=== PATIENT | female | born 1945 | race Caucasian/White ===

== ENCOUNTER 2022-06-03 13:54 | Emergency (ER) | payer OTHER, SELFPAY ==
[2022-06-03 14:05] VITALS: BP 111/67; PULSE 82; RESP 20; TEMP 36.4; O2SAT 95; BMI 24.9
--- NOTE | 2022-06-03 15:43 | ED.GENADULT ---
HPI - General Adult General Time Seen by Provider: 15:43 Date Seen: 06/03/22 Chief complaint: Lower Extremity Swelling Stated complaint: Swollen legs, lethargic Time Seen by Provider: 06/03/22 15:25 Source: patient and family (Son) Mode of arrival: ambulatory Limitations: other (Patient appears to have poor memory) History of Present Illness HPI narrative: 76-year-old female presents with recent history of in the also feeling short of breath and weaker. She is concerned about urinary frequency. She has not any dysuria or fever. No history of DVT. Previous history of coronary disease disease. Medical Problems: Coronary artery disease DC 06/29, R coronary stent; mi 07/2017 (Stent placed in 2007; then no stent placed in 2016; followed by [facility]; recommended Plavix x 1 year if tolerated (note 08/05/2017) Tobacco use Left ventricular dysfunction left ventricular dysfunction last EF 45 followed by Cardiology Hypothyroidism Levothyroxine dose changed from 88mcg to 75 mcg 12/28/18. Hyperlipidemia Overactive bladder Hypertension Abdominal wall hernia Noted on CT scan 06/2018; pt declined surgery referral Colon cancer screening Negative cologuard 10/2018 Senile cataract of left eye Osteopenia Dexa scan 01/2019 T score=-1.7 Skin tear Cystitis Complete prolapse of vaginal vault Recurrent UTI Memory loss of unknown cause Bronchitis Fall Hip fracture, right Open blow-out fracture of right orbital floor Hip fracture requiring operative repair Cognitive impairment Knee injury Surgical Problems: S/P hysterectomy TVH with LSO in 2006 History of coronary artery stent placement x1 History of cataract removal with insertion of prosthetic lens Right eye Family History Problems: Family history of cerebrovascular accident (CVA) in mother Family history of abdominal aortic aneurysm (AAA) pt's father Family history of osteoporosis pt's son Family history of autism Social History Problems: w/ bladder cancer Cigarette smoker Does not use illicit drugs Does not drink alcohol Has 3 children Past Medical History Past Medical History: Yes High Blood Pressure, Yes Other Medical Problems; No COPD, No Asthma, No Congestive Heart Failure, No Coronary Artery Disease, No Diabetes, No Stroke, No Cardiac Arrhythmia, No Stomach Problems, No Irritable Bowel Syndrome, No Reflux (GERD), No Cancer, No Seizures Other Medical Problems Comment: hyothyroid hypercholesteremia Social History Smoking Status: Current every day Electronic Cigarette User?: No Alcohol Use: Yes (2-3 beers per day) Recreational Drug Use: No Occupation: Retired Lives: With Family Related Data Home Medications Medication Instructions Recorded Confirmed aspirin 81 mg chewable tablet 81 mg PO QDAY 06/03/22 06/03/22 atorvastatin 40 mg tablet 40 mg PO QDAY 06/03/22 06/03/22 levothyroxine 112 mcg tablet 112 mcg PO QDAY 06/03/22 06/03/22 oxybutynin chloride 15 mg mg PO 06/03/22 06/03/22 tablet,extended release 24 hr Previous Rx's Medication Instructions Recorded cephalexin 500 mg capsule 500 mg PO BID #10 caps 06/03/22 potassium chloride 10 mEq 10 meq PO DAILY #30 caps 06/03/22 capsule,extended release torsemide 10 mg tablet 10 mg PO QAM #30 tabs 06/03/22 Allergies Allergy/AdvReac Type Severity Reaction Status Date / Time No Known Drug Allergies Allergy Verified 06/03/22 12:28 [facility] Social History Smoking Status: Current every day smoker What tobacco products do you use: cigarettes Do you use any of these nicotine containing products: None Exam Narrative: Exam Narrative: She is alert and appears in no distress. She gives her own history but is unable to recall significant portions of her history. History was corroborated by her son in the medical record eyes normal. No facial asymmetry. Neck is supple without mass or adenopathy. Respirations are clear to auscultation. Cardiovascular: S1, S2, regular rate and rhythm. No murmur gallop or rub. Abdomen: Bowel sounds active. Abdomen is soft without tenderness or mass. She has erythema in her intertriginous area with some skin breakdown and malodorous staining of her clothes. 4+ edema in both ankles. She moves all 4 extremities well Const: Vital Signs, click to edit/add: Vital Signs - 24 hr 06/03/22 14:05 Temperature 97.6 F Pulse Rate [Pulse Oximeter] 82 Respiratory Rate 20 Blood Pressure [Ri ght Upper Arm] 111/67 Pulse Oximetry 95 Documenting provider has reviewed patient's vital signs: yes Course Vital Signs Vital signs: Initial Vital Signs Temperature 97.6 F 06/03/22 14:05 Temperature Source Temporal Artery Scan 06/03/22 14:05 Pulse Rate 82 06/03/22 14:05 Pulse Rhythm 06/03/22 14:05 Respiratory Rate 20 06/03/22 14:05 Blood Pressure 111/67 06/03/22 14:05 Blood Pressure Mean 81 06/03/22 14:05 Blood Pressure Position Sitting 06/03/22 14:05 Pulse Oximetry 95 06/03/22 14:05 Vital Signs Temperature 97.6 F 06/03/22 14:05 Pulse Rate 82 06/03/22 14:05 Respiratory Rate 20 06/03/22 14:05 Blood Pressure 111/67 06/03/22 14:05 Pulse Oximetry 95 06/03/22 14:05 Temperature 97.6 F 06/03/22 14:05 Pulse Rate 82 06/03/22 14:05 Respiratory Rate 20 06/03/22 14:05 Blood Pressure 111/67 06/03/22 14:05 Pulse Oximetry 95 06/03/22 14:05 Medical Decision Making Lab Data Labs: Lab Results 06/03/22 06/03/22 06/03/22 Range/Units 16:07 16:07 16:07 WBC 7.19 (4.50-11.00) K/uL RBC 4.10 (4.00-5.20) m/uL Hgb 11.5 L (12.0-16.0) gm/dL Hct 36.3 (33.0-51.0) % MCV 89 (80-100) fL MCH 28 (26-34) pg MCHC 32 (32-36) gm/dL RDW Coeff of Michaela 19.6 H (11.5-15.5) % Plt Count 231 (140-440) K/uL Neut % (Auto) 79.9 H (42.0-72.0) % Lymph % (Auto) 11.1 L (20-44) % [place] % (Auto) 7.8 (0.0-11.0) % Eos % (Auto) 0.7 (0.0-7.0) % Baso % (Auto) 0.1 (0.0-3.0) % Neut # (Auto) 5.70 (1.7-7.0) K/uL Lymph # (Auto) 0.80 L (0.90-2.90) K/uL Independence # (Auto) 0.60 (0.00-0.90) K/UL Eos # (Auto) 0.05 (0.00-0.50) K/uL Baso # (Auto) 0.01 (0.00-0.30) K/uL Abs Immat Gran (auto) 0.03 (0.00-0.30) K/uL D-Dimer Quant (PE/DVT) 1.86 H (0.00-0.50) ug/ml Sodium 139 (135-149) mmol/L Potassium 4.1 (3.6-5.1) mmol/L Chloride 108 (96-114) mmol/L Carbon Dioxide 23 (20-32) mmol/L BUN 28 (7-30) mg/dL Creatinine 0.9 (0.5-1.5) mg/dL Estimated Creat Clear 40.04 Estimated GFR 65 ml/min Glucose 110 (60-115) mg/dL Calcium 8.7 (8.4-10.6) mg/dL Total Bilirubin 0.7 (0.1-1.5) mg/dL AST 27 (12-35) U/L ALT 15 (4-35) U/L Alkaline Phosphatase 121 (40-150) U/L Troponin I 0.01 (0.01-0.04) ng/mL NT-Pro-B Natriuret Pep 92201 H (0-450) PG/mL Total Protein 6.8 (6.0-8.3) g/dL Albumin 3.7 (3.3-5.0) g/dL TSH (0.270-4.20) uIU/mL Urine Color (Yellow) Urine Appearance (Clear) Urine pH (5.0-8.5) Ur Specific [place] (1.000-1.030) Urine Protein (Negative) Urine Glucose (UA) (Negative) Urine Ketones (Negative) Urine Blood (Negative) Urine Nitrite (Negative) Urine Bilirubin (Negative) Urine Urobilinogen (0.2-1.0) Ur Leukocyte Esterase (Negative) 06/03/22 06/03/22 06/03/22 Range/Units 16:07 16:07 19:14 WBC (4.50-11.00) K/uL RBC (4.00-5.20) m/uL Hgb (12.0-16.0) gm/dL Hct (33.0-51.0) % MCV (80-100) fL MCH (26-34) pg MCHC (32-36) gm/dL RDW Coeff of Michaela (11.5-15.5) % Plt Count (140-440) K/uL Neut % (Auto) (42.0-72.0) % Lymph % (Auto) (20-44) % Independence % (Auto) (0.0-11.0) % Eos % (Auto) (0.0-7.0) % Baso % (Auto) (0.0-3.0) % Neut # (Auto) (1.7-7.0) K/uL Lymph # (Auto) (0.90-2.90) K/uL Independence # (Auto) (0.00-0.90) K/UL Eos # (Auto) (0.00-0.50) K/uL Baso # (Auto) (0.00-0.30) K/uL Abs Immat Gran (auto) (0.00-0.30) K/uL D-Dimer Quant (PE/DVT) (0.00-0.50) ug/ml Sodium (135-149) mmol/L Potassium (3.6-5.1) mmol/L Chloride (96-114) mmol/L Carbon Dioxide (20-32) mmol/L BUN (7-30) mg/dL Creatinine (0.5-1.5) mg/dL Estimated Creat Clear Estimated GFR ml/min Glucose (60-115) mg/dL Calcium (8.4-10.6) mg/dL Total Bilirubin (0.1-1.5) mg/dL AST (12-35) U/L ALT (4-35) U/L Alkaline Phosphatase (40-150) U/L Troponin I (0.01-0.04) ng/mL NT-Pro-B Natriuret Pep Cancelled (0-450) PG/mL Total Protein (6.0-8.3) g/dL Albumin (3.3-5.0) g/dL TSH 33.700 H (0.270-4.20) uIU/mL Urine Color Yellow (Yellow) Urine Appearance Cloudy A (Clear) Urine pH 7.5 (5.0-8.5) Ur Specific [place] 1.020 (1.000-1.030) Urine Protein Trace A (Negative) Urine Glucose (UA) Negative (Negative) Urine Ketones Negative (Negative) Urine Blood 1+ A (Negative) Urine Nitrite Negative (Negative) Urine Bilirubin Negative (Negative) Urine Urobilinogen 0.2 (0.2-1.0) Ur Leukocyte Esterase 3+ A (Negative) Discharge Plan Discharge Clinical Impression: Complete uterine prolapse, Bilateral edema of lower extremity, Urinary incontinence, Heart failure, Diaper dermatitis, Dementia, Hypothyroidism, At risk for medication noncompliance, Acute UTI Condition: Stable Additional Instructions: You have many medical concerns to address. I am worried that you are not taking her medications as prescribed. I recommend someone help you set up an home administrator medicines. You have problem with your hygiene due to incontinence of urine. This is going to require assistance with personal hygiene. New lower extremity edema is possibly due to heart failure. I am starting you on a diuretic with potassium. You will need to see her doctor next week to have your blood tested, here weight checked and possibly further evaluation of your heart with an echocardiogram. You will also need support hose to wear every day. You will probably need help to get these on and off. You should weigh yourself every day. Avoid salt in your diet. I am concerned you have a urinary tract infection. I am starting you on an antibiotic for this. Activity Level: Activity as Tolerated Discharge Diet: 2 gm Sodium Prescriptions: New torsemide 10 mg tablet 10 mg PO QAM Qty: 30 2RF potassium chloride 10 mEq capsule, extended release 10 meq PO DAILY Qty: 30 0RF cephalexin 500 mg capsule 500 mg PO BID Qty: 10 0RF No Action levothyroxine 112 mcg tablet 112 mcg PO QDAY atorvastatin 40 mg tablet 40 mg PO QDAY oxybutynin chloride 15 mg tablet extended release 24hr PO aspirin 81 mg tablet,chewable 81 mg PO QDAY Follow Up/Referrals: Abbey Wayne MD [Primary Care Provider] - Stand Alone Forms: [employer] Info Instructions Discharge Comment: Follow-up edema, UTI, heart failure, medication compliance, electrolytes. Arrange home health nursing. Arrange echocardiogram.
--- NOTE | 2022-06-03 16:06 | ED.NURSE ---
Lab is here to draw the patient. Was up to the bathroom and unable to urinate. Patient is very unkept and has very dry skin. cleaned up as pull up is saturated with both urine and stool.
[2022-06-03 16:14] LABS: Basophils Absolute Auto 0.01 K/uL (0.00-0.30); Basophils Percent Auto 0.1 % (0.0-3.0); Eosinophils Absolute Auto 0.05 K/uL (0.00-0.50); Eosinophils Percent Auto 0.7 % (0.0-7.0); Hematocrit 36.3 % (33.0-51.0); Hemoglobin* 11.5 gm/dL (12.0-16.0); Immature Granulocytes Abs Auto 0.03 K/uL (0.00-0.30); Lymphocytes Percent Auto 11.1 % (20-44); Mean Corpuscular HGB Conc 32 gm/dL (32-36); Mean Corpuscular Hemoglobin 28 pg (26-34); Mean Corpuscular Volume 89 fL (80-100); Monocytes Percent Auto 7.8 % (0.0-11.0); Neutrophils Percent Auto 79.9 % (42.0-72.0); Platelet Count* 231 K/uL (140-440); RDW Coefficient of Variation % 19.6 % (11.5-15.5); White Blood Count* 7.19 K/uL (4.50-11.00)
[2022-06-03 16:20] LABS: Slide Review Reflex No
[2022-06-03 16:33] LABS: D Dimer Quantitative* 1.86 ug/ml (0.00-0.50)
[2022-06-03 16:35] LABS: Albumin* 3.7 g/dL (3.3-5.0); Chloride* 108 mmol/L (96-114); Sodium* 139 mmol/L (135-149)
[2022-06-03 16:36] LABS: Potassium* 4.1 mmol/L (3.6-5.1)
[2022-06-03 16:38] LABS: Alanine Aminotransferase* 15 U/L (4-35); Alkaline Phosphatase* 121 U/L (40-150); Aspartate Amino Transferase* 27 U/L (12-35); Bilirubin Total* 0.7 mg/dL (0.1-1.5); Blood Urea Nitrogen* 28 mg/dL (7-30); Carbon Dioxide* 23 mmol/L (20-32); Creatinine* 0.9 mg/dL (0.5-1.5); Est. Creatinine Clearance* 40.04; Estimated Glomerular Filt Rate 65 ml/min; Glucose* 110 mg/dL (60-115); Total Protein* 6.8 g/dL (6.0-8.3)
[2022-06-03 16:39] LABS: Calcium* 8.7 mg/dL (8.4-10.6)
--- NOTE | 2022-06-03 16:43 | ED.NURSE ---
Attempted to take to the bathroom with no success of collecting a urine sample. cleaned up the bottom has a prolapsed uterus and is very red and sore in the groin, jose d area.
--- NOTE | 2022-06-03 16:44 | CRLHL7_ITS ---
For Patients: As a result of the Century Cures Act, medical imaging exams and procedure reports are released immediately into your electronic medical record. You may view this report before your referring provider. If you have questions, please contact your health care provider. INDICATION: Leg pain and swelling. TECHNIQUE: Ultrasound venous duplex bilateral lower extremity. Compression venous exam was performed using ferrell-scale, color Doppler, and spectral Doppler analysis. COMPARISON: None. FINDINGS: Deep veins: Sonographic imaging demonstrates the bilateral common femoral, deep femoral, superficial femoral, popliteal, and posterior tibial veins to be fully compressible with normal color Doppler blood flow. Superficial veins: Greater saphenous vein is fully compressible. Diffuse subcutaneous soft tissue edema. IMPRESSION: No sign of deep venous thrombosis. Dictated by Jaydon Hurst MD @ 06/03/2022 6:39:05 PM (Electronically Signed)
[2022-06-03 16:48] LABS: NT Pro B Type NatriureticPept* 12400 PG/mL (0-450)
[2022-06-03 16:51] LABS: Troponin I* 0.01 ng/mL (0.01-0.04)
[2022-06-03] MEDS: FUROSEMIDE 20 MG TABLET PO (17:58)
[2022-06-03] MEDS: POTASSIUM CHLORIDE 10 MEQ CAPSULE ER PO (17:58)
--- NOTE | 2022-06-03 19:00 | ED.NURSE ---
called the son Anthony at [phone] to come in and talk with both about concerns. Plans to be back at the hospital in about 15 minutes.
[2022-06-03 19:23] LABS: Appearance Urine Cloudy (Clear); Bilirubin Urine Negative (Negative); Blood Urine 1+ (Negative); Color Urine Yellow (Yellow); Glucose Urine Negative (Negative); Ketones Urine Negative (Negative); Leukocyte Esterase Urine 3+ (Negative); Nitrite Urine Negative (Negative); Protein Urine Trace (Negative); Urobilinogen Urine 0.2 (0.2-1.0); pH Urine 7.5 (5.0-8.5)
--- NOTE | 2022-06-03 19:40 | ED.NURSE ---
The son is here and in the room with patient. Dr. Dotson in to talk with both about home situation and cares.
[2022-06-03 19:58] LABS: Squamous Epithelial Cell Urine Few (None-Few); WBC Urine >100 (0-5)
--- NOTE | 2022-06-03 20:14 | ED.NURSE ---
placed knee high MADIE socks on the patient and shown son how to do this and reason why. Went over cares at home. Taken patient out to the car in a wc by staff.
== END 2022-06-03 20:10 | disposition home or self-care (01) ==
PROVIDERS: Emergency Provider Family Medicine; PCP Family Medicine
DX: N39.0 Urinary tract infection, site not specified (principal); N81.4 Uterovaginal prolapse, unspecified; R60.0 Localized edema; R32 Unspecified urinary incontinence; I50.9 Heart failure, unspecified; L22 Diaper dermatitis; F03.90 Unspecified dementia, unspecified severity, without behavioral disturbance, psychotic disturbance, mood disturbance, and anxiety; E03.9 Hypothyroidism, unspecified
CPT/HCPCS: 36415; 80053; 81003; 81015; 83880; 84443; 84484; 85025; 85379; 87086; 87186; 93005; 93970; 99284; A9270

== ENCOUNTER 2022-06-08 13:55 | Observation (INO) | payer OTHER, SELFPAY ==
[2022-06-08] VITALS (7 sets, daily range): BP systolic 96–113; BP diastolic 46–64; PULSE 61–99; RESP 16–18; TEMP 36.4–36.7; O2SAT 97–99; BMI 24.9; BMI 21.0
--- NOTE | 2022-06-08 14:53 | CRLHL7_ITS ---
For Patients: As a result of the Century Cures Act, medical imaging exams and procedure reports are released immediately into your electronic medical record. You may view this report before your referring provider. If you have questions, please contact your health care provider. Indication: Fall Technique: Noncontrast head CT Please note that all CT scans at this facility use dose modulation, iterative reconstruction, and/or weight-based dosing when appropriate to reduce radiation dose to as low as reasonably achievable. Comparison: CT dated October 15, 2021 Findings: Soft tissues, orbits, paranasal sinuses, mastoid air cells and cranium within normal limits. Basal cisterns, sylvian fissures, ventricles and extra-axial spaces within normal limits. Basal ganglia calcifications. Sulcation within normal limits for patient age. No evidence of mass, mass effect, acute hemorrhage or acute infarct. Impression: No acute intracranial abnormality. Please note that all CT scans at this facility use dose modulation, iterative reconstruction, and/or weight-based dosing when appropriate to reduce radiation dose to as low as reasonably achievable. Dictated by Dale Jorgensen MD @ 06/08/2022 4:04:29 PM (Electronically Signed)
--- NOTE | 2022-06-08 14:53 | CRLHL7_ITS ---
For Patients: As a result of the Century Cures Act, medical imaging exams and procedure reports are released immediately into your electronic medical record. You may view this report before your referring provider. If you have questions, please contact your health care provider. Indication: Fall Technique: CT cervical spine without contrast Please note that all CT scans at this facility use dose modulation, iterative reconstruction, and/or weight-based dosing when appropriate to reduce radiation dose to as low as reasonably achievable. Comparison: None Findings: Mild straightening of the normal cervical lordosis, favored positional. No acute vertebral body malalignment. Facet joints articulate normally. The atlantoaxial interval is preserved occipital condyles articulate normally with C1 lateral mass of C1 articulate normally with C2. Posterior elements appear intact. Vertebral body heights preserved. Multilevel degenerative disc disease, most significant at C5-C6 and C6-C7. No evidence of epidural hematoma. Partially visualized lung apices unremarkable. Impression: No evidence of acute cervical spine trauma. Please note that all CT scans at this facility use dose modulation, iterative reconstruction, and/or weight-based dosing when appropriate to reduce radiation dose to as low as reasonably achievable. Dictated by Dale Jorgensen MD @ 06/08/2022 4:19:25 PM (Electronically Signed)
--- NOTE | 2022-06-08 14:53 | ED.GENADULT ---
HPI - General Adult General Chief complaint: Weakness Stated complaint: Legs Not working Time Seen by Provider: 06/08/22 14:28 History of Present Illness HPI narrative: Mireya is a 76yo female patient that presents to the emergency department via POV accompanied by her son with complaints of weakness and fall overnight. The patient has known history of cognitive impairment, hypertension, congestive heart failure, coronary artery disease, frequent UTI, and hypothyroidism. The patient has previously been advised by her primary care of the importance to take her medications as directed. Patient believes that she is taking her meds as directed, but she is uncertain. She reports overnight approximately 10:00 p.m. she fell from her bed onto her arms. She is uncertain whether she hit her head. She denies loss of consciousness. She was able to crawl across the room to a chair where she was able to push herself to standing and get back into bed. Today, she has felt weaker than usual. She denies nausea, vomiting, abdominal pain. She denies chest pain, shortness a breath, cough. Socially, she lives with her son and performs most of her ADLs. She has had discussions with her primary regarding the importance of personal hygiene. Related Data Home Medications Medication Instructions Recorded Confirmed aspirin 81 mg chewable tablet 81 mg PO QDAY 06/03/22 06/05/22 atorvastatin 40 mg tablet 40 mg PO QDAY 06/03/22 06/05/22 levothyroxine 112 mcg tablet 112 mcg PO QDAY 06/03/22 06/05/22 oxybutynin chloride 15 mg mg PO 06/03/22 06/05/22 tablet,extended release 24 hr donepezil 5 mg tablet 5 mg PO .Bedtime 06/05/22 06/05/22 metoprolol tartrate 50 mg tablet mg PO BID 06/05/22 06/05/22 mupirocin 2 % topical ointment 1 topical DAILY 06/05/22 06/05/22 nitroglycerin 0.4 mg sublingual 0.4 mg buccal PRN 06/05/22 06/05/22 tablet Previous Rx's Medication Instructions Recorded cephalexin 500 mg capsule 500 mg PO BID #10 caps 06/03/22 potassium chloride 10 mEq 10 meq PO DAILY #30 caps 06/03/22 capsule,extended release torsemide 10 mg tablet 10 mg PO QAM #30 tabs 06/03/22 Allergies Allergy/AdvReac Type Severity Reaction Status Date / Time Nitrate Analogues Allergy Mild Nausea Verified 06/05/22 19:30 nitrofurantoin Allergy Mild Nausea Verified 06/05/22 19:30 Rosuvastatin Allergy Unknown Nausea Uncoded 06/05/22 19:30 Review of Systems Const: Reports: fatigue and malaise; Denies: fever or chills Eyes: Denies: change in vision (She is unable to) or blurry vision Cardio: Denies: chest pain, palpitations, shortness of breath with exertion or shortness of breath when lying down Resp: Denies: shortness of breath or cough GI: Denies: abdominal pain, nausea, vomiting, diarrhea or constipation Musculo: Reports: joint pain and limited range of motion Neuro: Denies: headache, numbness in extremities, dizziness or slurred speech Endo: Reports: fatigue [facility] Medical History (Updated 06/08/22 @ 18:43 by Sheldon Hitchcock MD) CHF (congestive heart failure) Elevated d-dimer Elevated TSH Fracture of right hip Hyponatremia Injury of right elbow Open blow-out fracture of right orbital floor Pressure ulcer Prolapsed uterus Tinea Surgical History History of cataract removal with insertion of prosthetic lens History of coronary artery stent placement Status post hysterectomy (05/27/07) Family History Father AAA (abdominal aortic aneurysm) Mother Stroke Son Osteoporosis Unknown Autism Social History Smoking Status: Current every day smoker What tobacco products do you use: cigarettes Do you use any of these nicotine containing products: None Second hand tobacco smoke exposure: No How often do you have a drink containing alcohol: never How often do you have six or more drinks on one occasion: Never AUDIT-C Alcohol total score: 0 Non-prescribed substance use: denies use service: No Exam Const: Vital Signs, click to edit/add: Vital Signs - 24 hr 06/08/22 14:08 Temperature 97.5 F L Pulse Rate [Right Pulse Oximeter] 99 Respiratory Rate 18 Blood Pressure [Ri ght Upper Arm] 101/64 Pulse Oximetry 99 Oxygen Delivery Me thod Room Air Documenting provider has reviewed patient's vital signs: yes Common normals: no apparent distress, oriented x3, healthy appearing, alert and well nourished General appearance: cooperative, comfortable, well kempt and well developed; not in distress Orientation/consciousness: Yes awake, Yes oriented to person, Yes oriented to place and Yes oriented to time HENMT: Common normals: normocephalic and head/scalp atraumatic Head and scalp: normocephalic and atraumatic Face and sinus: normal facial exam (limited by masking) Eye: Common normals: EOMs intact bilaterally General eye: normal appearance of both eyes Resp: Common normals: normal respiratory effort, no retractions, no use of accessory muscles and clear to auscultation bilaterally Effort & inspection: able to speak in complete sentences Auscultation: clear to auscultation bilaterally Cardio: Common normals: regular rate, regular rhythm, S1 normal heart sound, S2 normal heart sound, no gallops, no clicks, no murmurs and peripheral pulses 2+ throughout Rate: regular rate Rhythm: regular rhythm Heart sounds: S1 normal and S2 normal Peripheral pulses: pulses 2+ throughout Extremity: Common normals: normal capillary refill and no clubbing, cyanosis or edema General: other findings (Bruising over bilateral UE/LE in various stages of healing) Neuro: Common normals: oriented x3 Sensorium/orientation: awake, alert, oriented to person, oriented to place and oriented to time Speech: speech normal Gait (neuro): normal gait Sensory exam: double simultaneous stimulation for sensation normal Motor exam: no movement abnormalities noted Psych: Common normals: mental status grossly normal and activity/motor behavior normal Appearance: well kempt Attention/concentration: attention grossly intact Memory/cognition: memory grossly intact Insight: insight good Judgement: judgment good Skin: Common normals: no rashes or lesions noted General skin exam: no rashes or lesions noted Wounds: wounds noted (Skin tear to the left elbow approximately 1 cm) Course Reevaluation(s) Reevaluation #1: Discussed final results with patient. Due to weakness, recent fall, and lab values - plan for admission. Discussed with hospitalist, who agrees with plan and accepts admission. Time: 17:09 Vital Signs Vital signs: Initial Vital Signs Temperature 97.5 F L 06/08/22 14:08 Temperature Source Temporal Artery Scan 06/08/22 14:08 Pulse Rate 99 06/08/22 14:08 Respiratory Rate 18 06/08/22 14:08 Blood Pressure 101/64 06/08/22 14:08 Blood Pressure Mean 76 06/08/22 14:08 Blood Pressure Position Sitting 06/08/22 14:08 Pulse Oximetry 99 06/08/22 14:08 Oxygen Delivery Method 06/08/22 14:08 Vital Signs Temperature 97.5 F L 06/08/22 14:08 Pulse Rate 99 06/08/22 14:08 Respiratory Rate 18 06/08/22 14:08 Blood Pressure 101/64 06/08/22 14:08 Pulse Oximetry 99 06/08/22 14:08 Oxygen Delivery Method 06/08/22 14:08 Temperature 98.1 F 06/08/22 18:30 Pulse Rate 61 06/08/22 18:30 Respiratory Rate 18 06/08/22 18:30 Blood Pressure 113/46 L 06/08/22 18:30 Pulse Oximetry 99 06/08/22 18:30 Oxygen Delivery Method 06/08/22 18:30 Medical Decision Making MDM Narrative Medical decision making narrative: Multiple differential diagnoses were considered for generalized weakness. The life-threatening differential diagnosis considered include encephalitis, bacteremia, subdural hematoma, CVA, SAH, and hypertensive encephalopathy. Other differential diagnoses include medication effect, hypoxia, electrolyte abnormalities, infectious disease, seizure, as well as other etiologies. Lab Data Labs: Lab Results 06/08/22 06/08/22 06/08/22 Range/Units 14:54 15:10 15:10 WBC 10.78 (4.50-11.00) K/uL RBC 4.68 (4.00-5.20) m/uL Hgb 13.0 (12.0-16.0) gm/dL Hct 39.6 (33.0-51.0) % MCV 85 (80-100) fL MCH 28 (26-34) pg MCHC 33 (32-36) gm/dL RDW Coeff of Michaela 18.4 H (11.5-15.5) % Plt Count 275 (140-440) K/uL Neut % (Auto) 87.8 H (42.0-72.0) % Lymph % (Auto) 6.0 L (20-44) % [place] % (Auto) 5.7 (0.0-11.0) % Eos % (Auto) 0.1 (0.0-7.0) % Baso % (Auto) 0.1 (0.0-3.0) % Neut # (Auto) 9.50 H (1.7-7.0) K/uL Lymph # (Auto) 0.60 L (0.90-2.90) K/uL [place] # (Auto) 0.60 (0.00-0.90) K/UL Eos # (Auto) 0.01 (0.00-0.50) K/uL Baso # (Auto) 0.01 (0.00-0.30) K/uL Abs Immat Gran (auto) 0.03 (0.00-0.30) K/uL Sodium (135-149) mmol/L Potassium (3.6-5.1) mmol/L Chloride (96-114) mmol/L Carbon Dioxide (20-32) mmol/L BUN (7-30) mg/dL Creatinine (0.5-1.5) mg/dL Estimated Creat Clear Estimated GFR ml/min Glucose (60-115) mg/dL Calcium (8.4-10.6) mg/dL Total Bilirubin (0.1-1.5) mg/dL AST (12-35) U/L ALT (4-35) U/L Alkaline Phosphatase (40-150) U/L Troponin I (0.01-0.04) ng/mL NT-Pro-B Natriuret Pep (0-450) PG/mL Total Protein (6.0-8.3) g/dL Albumin (3.3-5.0) g/dL TSH 37.100 H (0.270-4.20) uIU/mL Urine Color (Yellow) Urine Appearance (Clear) Urine pH (5.0-8.5) Ur Specific [place] (1.000-1.030) Urine Protein (Negative) Urine Glucose (UA) (Negative) Urine Ketones (Negative) Urine Blood (Negative) Urine Nitrite (Negative) Urine Bilirubin (Negative) Urine Urobilinogen (0.2-1.0) Ur Leukocyte Esterase (Negative) Urine RBC (0-2) Urine WBC (0-5) Urine WBC Clumps (None) Ur Squamous Epith Cells (None-Few) Urine Bacteria (None) SARS-CoV-2 (PCR) Negative SARS-CoV-2 (Negative) Influenza Type A (PCR) Negative PCR FLU A (Negative) Influenza Type B (PCR) Negative PCR FLU B (Negative) RSV (PCR) Negative PCR RSV (Negative) 06/08/22 06/08/22 Range/Units 15:10 15:20 WBC (4.50-11.00) K/uL RBC (4.00-5.20) m/uL Hgb (12.0-16.0) gm/dL Hct (33.0-51.0) % MCV (80-100) fL MCH (26-34) pg MCHC (32-36) gm/dL RDW Coeff of Michaela (11.5-15.5) % Plt Count (140-440) K/uL Neut % (Auto) (42.0-72.0) % Lymph % (Auto) (20-44) % [place] % (Auto) (0.0-11.0) % Eos % (Auto) (0.0-7.0) % Baso % (Auto) (0.0-3.0) % Neut # (Auto) (1.7-7.0) K/uL Lymph # (Auto) (0.90-2.90) K/uL [place] # (Auto) (0.00-0.90) K/UL Eos # (Auto) (0.00-0.50) K/uL Baso # (Auto) (0.00-0.30) K/uL Abs Immat Gran (auto) (0.00-0.30) K/uL Sodium 130 L (135-149) mmol/L Potassium 4.1 (3.6-5.1) mmol/L Chloride 93 L (96-114) mmol/L Carbon Dioxide 26 (20-32) mmol/L BUN 29 (7-30) mg/dL Creatinine 0.8 (0.5-1.5) mg/dL Estimated Creat Clear 40.04 Estimated GFR 75 ml/min Glucose 111 (60-115) mg/dL Calcium 9.0 (8.4-10.6) mg/dL Total Bilirubin 0.9 (0.1-1.5) mg/dL AST 53 H (12-35) U/L ALT 25 (4-35) U/L Alkaline Phosphatase 163 H (40-150) U/L Troponin I 0.02 (0.01-0.04) ng/mL NT-Pro-B Natriuret Pep 5350 H (0-450) PG/mL Total Protein 7.8 (6.0-8.3) g/dL Albumin 4.4 (3.3-5.0) g/dL TSH (0.270-4.20) uIU/mL Urine Color Yellow (Yellow) Urine Appearance Clear (Clear) Urine pH 7.0 (5.0-8.5) Ur Specific [place] 1.015 (1.000-1.030) Urine Protein Negative (Negative) Urine Glucose (UA) Negative (Negative) Urine Ketones Negative (Negative) Urine Blood Negative (Negative) Urine Nitrite Positive A (Negative) Urine Bilirubin Negative (Negative) Urine Urobilinogen 0.2 (0.2-1.0) Ur Leukocyte Esterase 3+ A (Negative) Urine RBC 0-2 (0-2) Urine WBC 50-100 A (0-5) Urine WBC Clumps Few A (None) Ur Squamous Epith Cells None (None-Few) Urine Bacteria Many A (None) SARS-CoV-2 (PCR) (Negative) Influenza Type A (PCR) (Negative) Influenza Type B (PCR) (Negative) RSV (PCR) (Negative) Discharge Plan Discharge Clinical Impression: Hypothyroidism (acquired), Generalized muscle weakness, Acute UTI, Acute hyponatremia Patient Disposition: Admitted As Inpatient Condition: Stable Activity Level: No Restrictions and Activity as Tolerated Discharge Diet: Regular and 1500 ml Fluid Restriction
--- NOTE | 2022-06-08 15:09 | CRLHL7_ITS ---
For Patients: As a result of the Cures Act, medical imaging exams and procedure reports are released immediately into your electronic medical record. You may view this report before your referring provider. If you have questions, please contact your health care provider. INDICATION: Fall. TECHNIQUE: Three views of left elbow. COMPARISON: None available. FINDINGS: No dislocation or displaced fracture. Subtle radial head irregularity visualized on a single projection. The joint spaces are maintained. Indeterminate for joint effusion. IMPRESSION: 1. Possible nondisplaced radial head fracture. 2. No dislocation or displaced fracture. Dictated by Ajit Walter MD @ 06/08/2022 4:19:10 PM Dictated by: Ajit Walter MD @ 06/08/2022 16:19:15 (Electronically Signed)
[2022-06-08 15:19] LABS: Basophils Absolute Auto 0.01 K/uL (0.00-0.30); Basophils Percent Auto 0.1 % (0.0-3.0); Eosinophils Absolute Auto 0.01 K/uL (0.00-0.50); Eosinophils Percent Auto 0.1 % (0.0-7.0); Hematocrit 39.6 % (33.0-51.0); Immature Granulocytes Abs Auto 0.03 K/uL (0.00-0.30); Mean Corpuscular HGB Conc 33 gm/dL (32-36); Mean Corpuscular Hemoglobin 28 pg (26-34); Mean Corpuscular Volume 85 fL (80-100); Monocytes Percent Auto 5.7 % (0.0-11.0); Neutrophils Percent Auto 87.8 % (42.0-72.0); Platelet Count* 275 K/uL (140-440); RDW Coefficient of Variation % 18.4 % (11.5-15.5); Red Blood Count 4.68 m/uL (4.00-5.20); White Blood Count* 10.78 K/uL (4.50-11.00)
[2022-06-08 15:30] LABS: Slide Review Reflex No
--- NOTE | 2022-06-08 15:33 | ED.NURSE ---
collected a urine sample and sent to lab. continues to look cloudy. 06/06/22-- was positive for UTI. applied a wet dressing to the left elbow area and toped with 2x2, Telfa, and then wrapped with kerlex.
[2022-06-08 15:45] LABS: Albumin* 4.4 g/dL (3.3-5.0)
[2022-06-08 15:45] LABS: Appearance Urine Clear (Clear); Bilirubin Urine Negative (Negative); Blood Urine Negative (Negative); Color Urine Yellow (Yellow); Glucose Urine Negative (Negative); Ketones Urine Negative (Negative); Leukocyte Esterase Urine 3+ (Negative); Nitrite Urine Positive (Negative); Protein Urine Negative (Negative); Specific Gravity Urine 1.015 (1.000-1.030); Urobilinogen Urine 0.2 (0.2-1.0)
[2022-06-08 15:46] LABS: Chloride* 93 mmol/L (96-114); Potassium* 4.1 mmol/L (3.6-5.1); Sodium* 130 mmol/L (135-149)
[2022-06-08 15:48] LABS: Alkaline Phosphatase* 163 U/L (40-150); Aspartate Amino Transferase* 53 U/L (12-35); Bilirubin Total* 0.9 mg/dL (0.1-1.5); Blood Urea Nitrogen* 29 mg/dL (7-30); Carbon Dioxide* 26 mmol/L (20-32); Creatinine* 0.8 mg/dL (0.5-1.5); Est. Creatinine Clearance* 40.04; Estimated Glomerular Filt Rate 75 ml/min; Total Protein* 7.8 g/dL (6.0-8.3)
[2022-06-08 15:49] LABS: Alanine Aminotransferase* 25 U/L (4-35); Glucose* 111 mg/dL (60-115)
[2022-06-08 15:58] LABS: PCR FLU A Negative PCR FLU A (Negative); PCR FLU B Negative PCR FLU B (Negative); PCR RSV Negative PCR RSV (Negative)
[2022-06-08 15:58] LABS: NT Pro B Type NatriureticPept* 5350 PG/mL (0-450)
[2022-06-08 16:00] LABS: SARS PCR* Negative SARS-CoV-2 (Negative)
[2022-06-08 16:01] LABS: Troponin I* 0.02 ng/mL (0.01-0.04)
[2022-06-08 16:18] LABS: Bacteria Urine Many; RBC Urine 0-2 (0-2); WBC Clumps Urine Few; WBC Urine 50-100 (0-5)
[2022-06-08] MEDS: cefTRIAXone 1 GM in 0.9 % SODIUM CHLORIDE Mini-bag 100 ML IVPB (17:18)
[2022-06-08] MEDS: FUROSEMIDE 10 MG/ML inj 20 MG IVP (17:28)
--- NOTE | 2022-06-08 17:35 | W.PC.EDHO ---
Primary Language: Preferred Language: Orientation Status: [] Alert & Oriented [] Slight Confusion [] Known Dx Dementia Transfers By: [] Assist of 1 [] Assist of 2 [] Lift Active Medications Generic Name Dose Route Start Last Admin Trade Name Freq PRN Reason Stop Dose Admin Furosemide 20 mg 06/08/22 17:08 06/08/22 17:28 Furosemide 10 Mg/Ml Inj IVP 06/08/22 17:09 20 mg ONCE ONE Administration Ceftriaxone Sodium 1 gm/ 100 mls @ 200 mls/hr 06/08/22 17:08 06/08/22 17:18 Sodium Chloride IVPB 06/08/22 17:09 200 mls/hr ONCE ONE Administration Description of Symptoms ED Triage Present Problem pt states rolled out of bed last night. was able Description to put herself back into bed. pt c/o feeling weak Female History Patient No Adams Coma Scale Adams coma scale total score 14 IV Insertion/Site Date of IV Line Insertion [ 06/08/22 Right Antecubital] Oxygen Administration Pulse Oximetry 99 Oxygen Delivery Method Room Air
--- NOTE | 2022-06-08 18:13 | PM.IMHP1 ---
Hospitalist- H&P: HPI History of Present Illness Date Seen: 06/08/22 Chief complaint: Legs Not working Narrative: Mireya Rdz is a 76 year old female admitted with generalized weakness. Pt was seen 5 days ago in the ED and diagnosed with UTI and worsening CHF symptoms. Pt was started on Keflex, Torsemide and Potassium. Non compliance with medication was addressed and pt was told that she needed to take her medications more regularly and pay more attention to her hygiene. Pt comes back to the ED today stating that she is unable to care for herself and that her legs are more swollen. She is also more short of breath. Pt was noted to have a D dimer of 1.86. Duplex of the lower extremities was negative. CT of the chest was not done. Today evaluation after a fall at home included a negative CT of the head and neck as well as an xray of the left elbow which does not appear to show a fracture after being further evaluated by radiology. Sodium has fallen from 139 to 130, CBC is stable[place] [address] [place] 5250. TSH remains elevated. UA still shows signs of infection and previous urine culture is growning out Morganella morganii and Serratia fonticola with mixed sensitivities. Pt also is noted to be in poor hygeine with small areas of hyperemia on her buttockes. Also present is a massively prolapsed uterus. Pt was given 20 mg of IV lasix with 1 gram of IV Rocephin which appears to cover the organisms on her urine culture. She is subsequently admitted. Review of Systems Status of ROS: Reports: 10 or more systems reviewed and unremarkable except as noted in History and below [facility] Medical History (Updated 06/08/22 @ 18:43 by Sheldon Hitchcock MD) CHF (congestive heart failure) Elevated d-dimer Elevated TSH Fracture of right hip Hyponatremia Injury of right elbow Open blow-out fracture of right orbital floor Pressure ulcer Prolapsed uterus Tinea Surgical History History of cataract removal with insertion of prosthetic lens History of coronary artery stent placement Status post hysterectomy (05/27/07) Family History Father AAA (abdominal aortic aneurysm) Mother Stroke Son Osteoporosis Unknown Autism Social History Smoking Status: Current every day smoker What tobacco products do you use: cigarettes Do you use any of these nicotine containing products: None Second hand tobacco smoke exposure: No How often do you have a drink containing alcohol: never How often do you have six or more drinks on one occasion: Never AUDIT-C Alcohol total score: 0 Non-prescribed substance use: denies use service: No Meds Home Medications and Allergies Home Medications Medication Instructions Recorded Confirmed Type aspirin 81 mg chewable tablet 81 mg PO QDAY 06/03/22 06/05/22 History atorvastatin 40 mg tablet 40 mg PO QDAY 06/03/22 06/05/22 History levothyroxine 112 mcg tablet 112 mcg PO QDAY 06/03/22 06/05/22 History oxybutynin chloride 15 mg mg PO 06/03/22 06/05/22 History tablet,extended release 24 hr donepezil 5 mg tablet 5 mg PO .Bedtime 06/05/22 06/05/22 History metoprolol tartrate 50 mg tablet mg PO BID 06/05/22 06/05/22 History mupirocin 2 % topical ointment 1 topical DAILY 06/05/22 06/05/22 History nitroglycerin 0.4 mg sublingual 0.4 mg buccal PRN 06/05/22 06/05/22 History tablet Allergies Allergy/AdvReac Type Severity Reaction Status Date / Time Nitrate Analogues Allergy Mild Nausea Verified 06/05/22 19:30 nitrofurantoin Allergy Mild Nausea Verified 06/05/22 19:30 Rosuvastatin Allergy Unknown Nausea Uncoded 06/05/22 19:30 Exam Narrative: Exam Narrative: EXAM GENERAL: Patient appears frail and emaciated EYES: No scleral icterus. THYROID: no thyroid nodules or thyromegaly. LYMPH: No supraclavicular or cervical lymphadenopathy. SKIN: Multiple small bruises noted. Tinea interigeo of the groin noted EXT: 1 plus lower extremity edema noted HEART: Regular rate and rhythm with distant heart tones noted LUNGS: Decreased breath sounds bilaterally ABD: Soft, non tender, non distended. PSYCH: Good eye contact, speech is not pressured. Neuro: CN 2-10 grossly intact no focal devects Const: Vital Signs, click to edit/add: Vital Signs - 24 hr 06/08/22 14:08 Temperature 97.5 F L Pulse Rate [Right Pulse Oximeter] 99 Respiratory Rate 18 Blood Pressure [Ri ght Upper Arm] 101/64 Pulse Oximetry 99 Oxygen Delivery Me thod Room Air Hospitalist - H&P: Result Labs Labs: Short CBC 06/08/22 Range/Units 15:10 WBC 10.78 (4.50-11.00) K/uL Hgb 13.0 (12.0-16.0) gm/dL Hct 39.6 (33.0-51.0) % Plt Count 275 (140-440) K/uL BMP 06/08/22 15:10 Sodium 130 L Potassium 4.1 Chloride 93 L Carbon Dioxide 26 BUN 29 Creatinine 0.8 Glucose 111 Calcium 9.0 Cardiac Enzymes 06/08/22 Range/Units 15:10 Troponin I 0.02 (0.01-0.04) ng/mL Liver Function 06/08/22 Range/Units 15:10 Total Bilirubin 0.9 (0.1-1.5) mg/dL AST 53 H (12-35) U/L ALT 25 (4-35) U/L Alkaline Phosphatase 163 H (40-150) U/L Albumin 4.4 (3.3-5.0) g/dL Urine 06/08/22 Range/Units 15:20 Urine Color Yellow (Yellow) Urine Appearance Clear (Clear) Urine pH 7.0 (5.0-8.5) Ur Specific [place] 1.015 (1.000-1.030) Urine Protein Negative (Negative) Urine Glucose (UA) Negative (Negative) ECG Interpretation: LBBB noted no other focal defects Assessment and Plan Assessment and plan (1) Acute UTI: Status: Acute Assessment and Plan: Will send the second urine for culture as well. Continue Rocephin IV. (2) CHF (congestive heart failure): Status: Acute Assessment and Plan: Pt given lasix 20 mg IV just before arriving on med surg. Will monitor I and O, daily wt, am labs. Echocardiogram (3) Tinea: Status: Acute Assessment and Plan: Nystatin creme and good skin care (4) Injury of right elbow: Status: Acute Assessment and Plan: Reviewed the x ray with ED doc who stated the radiologist final word is no fracture as the defect was only seen on one view. Pt moves elbow freely during exam. (5) Elevated d-dimer: Status: Acute Assessment and Plan: Given the clinic situation will proceed with PE CT study now. (6) Hyponatremia: Status: Acute Assessment and Plan: 1500 cc fluid restriction with repeat BMP in am (7) Prolapsed uterus: Status: Acute Assessment and Plan: Spoke with MATH INSTRUCTOR they will see her over the weekend and plan for a Pesary fitting on friday. They recommended estragen creme topically for now. (8) Elevated TSH: Status: Acute Assessment and Plan: This may be both a noncompliance issue and acute phase reactant. Will continue current dose of Synthroid although I see that the dose has been escalating over the past yeart. (9) Hyperlipidemia: Status: Chronic Assessment and Plan: Continue outpt regiment (10) Dementia: Status: Chronic Assessment and Plan: Pt likely will need placement. PT OT and [employer] Production Team Member consult (11) Hypertension: Status: Chronic Assessment and Plan: Continue current regiment with diuresis (12) Tobacco use: Status: Chronic Assessment and Plan: Pt counselled on smoking cessation and was placed on 14 microgram nicotine patch (13) Pressure ulcer: Status: Chronic Assessment and Plan: Wound offloading, treat UTI and prolapsed uterus and start mepelex creme. Pt tdap uptodate on 08/04/17. Consider wound consult. Plan Pt is to be a full code.
--- NOTE | 2022-06-08 18:48 | CRLHL7_ITS ---
For Patients: As a result of the Century Cures Act, medical imaging exams and procedure reports are released immediately into your electronic medical record. You may view this report before your referring provider. If you have questions, please contact your health care provider. INDICATION: Hypertension. Weakness. TECHNIQUE: CT chest PE was acquired with 50 cc Isovue 370 IV contrast. COMPARISON: 07/05/2021. FINDINGS: Heart and vasculature: Contrast opacification of the pulmonary arterial tree is adequate. No sign of pulmonary embolism. Stable mild cardiomegaly. Thoracic aorta is normal in caliber. Enlarged main pulmonary artery measuring 3.4 cm, unchanged. Coronary artery and mitral annular calcifications. Lungs and pleura: Small right pleural effusion. Similar appearance of peripheral reticular abnormalities, likely representing nonspecific pulmonary fibrosis. No pneumothorax. Lymph nodes/mediastinum: No mediastinal, hilar, or axillary adenopathy. Thyroid gland is unremarkable. Chest wall: No masses. Upper abdomen: No acute abnormality. Bones: Multilevel degenerative changes of the spine. IMPRESSION: 1. No evidence of pulmonary embolism. 2. Small right pleural effusion. 3. Enlarged main pulmonary artery, suggestive of underlying pulmonary hypertension. Please note that all CT scans at this facility use dose modulation, iterative reconstruction, and/or weight-based dosing when appropriate to reduce radiation dose to as low as reasonably achievable. Dictated by Jaydon Hurst MD @ 06/08/2022 8:15:39 PM (Electronically Signed)
--- NOTE | 2022-06-08 19:35 | PC.NURSE ---
Upon admission patient had a pressure wound present on her left buttock. Skin was sheared to area. Mepilex applied. Excoriation present in groin and around prolapse uterus.
--- NOTE | 2022-06-08 20:15 | P.GYNCN_ITS ---
POLEYARD SUPERVISOR - CN: HPI Data of Consult Date Seen: 06/08/22 Patient: [facility] Patient Requesting Physician: Sheldon Hitchcock MD Primary Care Provider: Abbey Wayne MD Consult Narrative Narrative: Mireya Rdz is a 76 year old female seen by kind request of Dr. Hitchcock for evaluation of vaginal vault prolapse. She has been admitted for multiple problems, which include a persistent urinary tract infection. Most recent urine culture has shown a combination of Serratia and Morganella morganii, both sensitive to Rocephin. Dr. Hitchcock has begun treatment with this. She is aware of having vaginal prolapse. She has had this for some years. In recent history, she thinks it has gotten worse. She is aware of vaginal bulge. She thinks she has some difficulty emptying her bladder. She wears incontinence underwear. She denies any vaginal discomfort or bleeding. She is currently treated with oxybutynin ER 15 mg. She is status post total vaginal hysterectomy in 2006 for which she reports was benign disease. She is uncertain if she still has her ovaries. cc:: CC: Sheldon Hitchcock MD Review of Systems Status of ROS: Reports: 6 or more systems reviewed and unremarkable except as noted in History and below [facility] Medical History (Updated 06/08/22 @ 21:18 by Arabella Stinson MD) CHF (congestive heart failure) Elevated d-dimer Elevated TSH Fracture of right hip Hyponatremia Injury of right elbow Open blow-out fracture of right orbital floor Pressure ulcer Tinea Surgical History History of cataract removal with insertion of prosthetic lens History of coronary artery stent placement Status post hysterectomy (05/27/07) Family History Father AAA (abdominal aortic aneurysm) Mother Stroke Son Osteoporosis Unknown Autism Social History Highest level of school completed/degree received: don't know Smoking Status: Current every day smoker What tobacco products do you use: cigarettes Smoking packs per day: 0.5 Smoking cigarettes per day: 10.0 Do you use any of these nicotine containing products: None Second hand tobacco smoke exposure: No How often do you have a drink containing alcohol: monthly or less How often do you have six or more drinks on one occasion: Never AUDIT-C Alcohol total score: 1 Non-prescribed substance use: denies use Caffeine: No service: No Meds Home Medications and Allergies Home Medications Medication Instructions Recorded Confirmed Type aspirin 81 mg chewable tablet 81 mg PO QDAY 06/03/22 06/05/22 History atorvastatin 40 mg tablet 40 mg PO QDAY 06/03/22 06/05/22 History levothyroxine 112 mcg tablet 112 mcg PO QDAY 06/03/22 06/05/22 History oxybutynin chloride 15 mg mg PO 06/03/22 06/05/22 History tablet,extended release 24 hr donepezil 5 mg tablet 5 mg PO .Bedtime 06/05/22 06/05/22 History metoprolol tartrate 50 mg tablet mg PO BID 06/05/22 06/05/22 History mupirocin 2 % topical ointment 1 topical DAILY 06/05/22 06/05/22 History nitroglycerin 0.4 mg sublingual 0.4 mg buccal PRN 06/05/22 06/05/22 History tablet Allergies Allergy/AdvReac Type Severity Reaction Status Date / Time Nitrate Analogues Allergy Mild Nausea Verified 06/08/22 19:45 nitrofurantoin Allergy Mild Nausea Verified 06/08/22 19:45 Rosuvastatin Allergy Unknown Nausea Uncoded 06/08/22 19:45 POLEYARD SUPERVISOR - Exam Physical Exam: Vital signs: Temp Pulse Resp BP Pulse Ox O2 Del Method 98.1 F 61 18 113/46 L 99 06/08/22 18:30 06/08/22 18:30 06/08/22 18:30 06/08/22 18:30 06/08/22 18:46 06/08/22 18:30 Narrative: Physical exam: Vitals as noted above. General: No acute distress Psych: Alert, full affect, asked several questions more than once HEENT: Normocephalic, atraumatic Abdomen: Protuberant, soft, no tenderness, rebound, or guarding, no hepatosplenomegaly, no hernias, superficial subcutaneous mass approximately 4 X 4 cm on left lower abdomen Pelvic exam: Skin along right groin is erythematous. Mons normal, clitoris normal, urethral meatus normal. Labia minora and majora normal in appearance bilaterally. Perineum and anus normal appearance. Vagina exhibits complete prolapse. Genital hiatus is wide. The observed vaginal skin is not bloody, but does feel quite thickened. It is nontender to touch. There is a superficial ulcer along the left vaginal wall close to the interoitus, again nontender, about 5 mm in length. When vaginal prolapse is reduced, immediate incontinence is noted. Cervix is surgically absent. No palpable adnexal masses or tenderness. POLEYARD SUPERVISOR - Results Labs Labs: Short CBC 06/08/22 Range/Units 15:10 WBC 10.78 (4.50-11.00) K/uL Hgb 13.0 (12.0-16.0) gm/dL Hct 39.6 (33.0-51.0) % Plt Count 275 (140-440) K/uL BMP 06/08/22 15:10 Sodium 130 L Potassium 4.1 Chloride 93 L Carbon Dioxide 26 BUN 29 Creatinine 0.8 Glucose 111 Calcium 9.0 Cardiac Enzymes 06/08/22 Range/Units 15:10 Troponin I 0.02 (0.01-0.04) ng/mL Liver Function 06/08/22 Range/Units 15:10 Total Bilirubin 0.9 (0.1-1.5) mg/dL AST 53 H (12-35) U/L ALT 25 (4-35) U/L Alkaline Phosphatase 163 H (40-150) U/L Albumin 4.4 (3.3-5.0) g/dL Urine 06/08/22 Range/Units 15:20 Urine Color Yellow (Yellow) Urine Appearance Clear (Clear) Urine pH 7.0 (5.0-8.5) Ur Specific [place] 1.015 (1.000-1.030) Urine Protein Negative (Negative) Urine Glucose (UA) Negative (Negative) Assessment and Plan Assessment and plan (1) Vaginal vault prolapse after hysterectomy: Problem comment: Stage IV prolapse of vaginal vault. Unsuccessful placement of ring and Gellhorn pessaries. Status: Acute Assessment and Plan: I suspect urinary retention secondary to advanced prolapse may be contributing to persistent UTI, which may in turn contribute to urge incontinence. After Mireya's discharge, I recommend that she be evaluated by a urogynecologist. They may have a pessary fitting kit with some larger space- filling pessaries and, if not, may be able to offer her colpocleisis. Until that is possible, I recommend: 1. Discontinuation of oxybutynin. This may worsen urinary retention and is not currently helping her incontinence substantially. 2. Manual reduction of prolapse as it suits the patient; she reports having done this from time to time. 3. Premarin cream 0.5 g nightly to exposed vaginal skin for two weeks. Thereafter, consider twice weekly depending on recommendations from urogynecology. 4. Application of moisture barrier to irritated groin skin; zinc oxide / Desitin is a fine choice. Thank you for this consult. Please don't hesitate to reach out with any further questions. (2) Acute UTI: Status: Acute (3) Vaginal atrophy: Status: Acute (4) Urinary incontinence: Status: Acute Procedures Additional Procedures Additional Procedure Details: Procedure note: Insertion of pessary I explained the goal of pessary to patient. First, a 3 in ring pessary was support was lubricated and inserted. This did not feel uncomfortable to the patient. She subsequently went to urinate, and the pessary fell out. Next, the largest Gellhorn pessary we have in stock - size 6 - was lubricated and inserted. I noted atrophy of her pelvic floor muscles at this time. The rim was inserted well above the pubic bone. However, it subsequently fell out with voiding as well. She tolerated insertion of both pessaries well.
[2022-06-08] MEDS: METOPROLOL TARTRATE 50 MG TABLET 25 MG PO (21:46)
[2022-06-08] MEDS: ACETAMINOPHEN 325 MG TABLET 650 MG PO (21:47)
[2022-06-08] MEDS: ASPIRIN 81 MG TAB.CHEW PO (21:47)
[2022-06-08] MEDS: ATORVASTATIN CALCIUM 40 MG TABLET PO (21:49)
[2022-06-08] MEDS: DONEPEZIL 5 MG TABLET PO ×2 (21:49→21:55)
[2022-06-08] MEDS: NICOTINE 14 mg PATCH 1 PATCH TOPICAL (21:51)
[2022-06-08] MEDS: NYSTATIN CREAM 30 GM 1 APPLIC TOPICAL (21:53)
[2022-06-08] MEDS: ESTROGENS, CONJUGATED VAGINAL 0.625 MG/G CREAM 1 APPLIC TOPICAL (21:53)
[2022-06-09] VITALS (9 sets, daily range): BP systolic 92–103; BP diastolic 44–60; PULSE 60–77; RESP 16–20; TEMP 36.4–36.8; O2SAT 90–95
--- NOTE | 2022-06-09 04:44 | PC.NURSE ---
Pt rested well this night. Pt pleasant and cooperative. Afebrile. BP taken manually 92/60 @ 0300. Charge notified. Pt asymptomatic of Hypotension. Pt up A1. Dr. Stinson attempted Prolapse Device x2, that would not stay inserted. Tomi Patch placed L shoulder.
[2022-06-09] MEDS: LEVOTHYROXINE 112 MCG TABLET PO (05:59)
[2022-06-09 08:52] LABS: Basophils Absolute Auto 0.02 K/uL (0.00-0.30); Basophils Percent Auto 0.3 % (0.0-3.0); Eosinophils Absolute Auto 0.05 K/uL (0.00-0.50); Eosinophils Percent Auto 0.8 % (0.0-7.0); Hemoglobin* 12.8 gm/dL (12.0-16.0); Immature Granulocytes Abs Auto 0.03 K/uL (0.00-0.30); Lymphocytes Percent Auto 9.2 % (20-44); Mean Corpuscular HGB Conc 33 gm/dL (32-36); Mean Corpuscular Hemoglobin 28 pg (26-34); Mean Corpuscular Volume 85 fL (80-100); Monocytes Percent Auto 8.3 % (0.0-11.0); Neutrophils Percent Auto 80.9 % (42.0-72.0); Platelet Count* 253 K/uL (140-440); RDW Coefficient of Variation % 18.4 % (11.5-15.5); Red Blood Count 4.58 m/uL (4.00-5.20); White Blood Count* 6.06 K/uL (4.50-11.00)
[2022-06-09 08:53] LABS: Slide Review Reflex No
[2022-06-09 09:38] LABS: Chloride* 97 mmol/L (96-114); Potassium* 3.7 mmol/L (3.6-5.1); Sodium* 134 mmol/L (135-149)
[2022-06-09 09:41] LABS: Blood Urea Nitrogen* 33 mg/dL (7-30); Carbon Dioxide* 29 mmol/L (20-32); Creatinine* 0.9 mg/dL (0.5-1.5); Est. Creatinine Clearance* 34.99; Estimated Glomerular Filt Rate 65 ml/min; Glucose* 73 mg/dL (60-115)
[2022-06-09 09:42] LABS: Calcium* 8.5 mg/dL (8.4-10.6)
[2022-06-09 09:51] LABS: NT Pro B Type NatriureticPept* 4750 PG/mL (0-450)
--- NOTE | 2022-06-09 10:13 | PM.IMPN1 ---
Progress Note: A&P Assessment and plan (1) Acute UTI: Status: Acute Plan Assessment: 76F presenting with falls, generalized weakness, UTI 1. UTI/Generalized weakness, continue ceftriaxone; f/u UCx, therapy evaluation 2. Hx of HTN, CHF, Echo today, hold lasix and metoprolol given hypotension 3. Hyponatremia; improving with fluid restriction and lasix; follow BMP 4. Hx of prolapsed uterus, Building Energy Consultant evaluated, will need outpatient Urogyn evaluation 5. Hx of Dementia on dorezipil 6. Hx of Hypothyroidism; check FT4, continue synthroid 7. Hx of tobacco use disorder, continue nicotine patch 8. Hx of pressure ulcer Dispo-likely 1-2 days; anticipated will need TCU Subjective Date Seen: 06/09/22 Interval history: patient c/o of generalized weakness in her legs difficulty ambulating denies SOB BP low this AM denies headache or dizziness Son updated by pphone Exam Narrative: Exam Narrative: Gen: no acute distress HEENT: NCAT EOMI MMM CV: RRR normal s1 s2 Lungs: CTAB Abd: soft, nt, nd Neuro: Alert, oriented moving exremities Skin: multiple bruises on forearms Const: Vital Signs, click to edit/add: Vital Signs - 24 hr 06/08/22 14:08 06/08/22 18:30 06/08/22 18:46 Temperature 97.5 F L 98.1 F Pulse Rate Pulse Rate [Pulse Oximeter] 61 Pulse Rate [Right Pulse Oximeter] 99 Respiratory Rate 18 18 Blood Pressure [Ri ght Arm] 113/46 L Blood Pressure [Ri ght Upper Arm] 101/64 Pulse Oximetry 99 99 99 Oxygen Delivery Me thod Room Air Room Air 06/08/22 22:16 06/08/22 22:38 06/08/22 22:42 Temperature 97.5 F L 97.5 F L Pulse Rate 61 Pulse Rate [Pulse Oximeter] 64 64 Pulse Rate [Right Pulse Oximeter] Respiratory Rate 16 16 Blood Pressure [Ri ght Arm] 96/51 L 96/51 L Blood Pressure [Ri ght Upper Arm] Pulse Oximetry 97 97 Oxygen Delivery Dc thod Room Air Room Air 06/08/22 22:45 06/09/22 02:08 06/09/22 07:00 Temperature 97.5 F L 98.1 F Pulse Rate Pulse Rate [Pulse Oximeter] 60 60 Pulse Rate [Right Pulse Oximeter] Respiratory Rate 16 16 16 Blood Pressure [Ri ght Arm] 92/60 95/53 L Blood Pressure [Ri ght Upper Arm] Pulse Oximetry 95 93 Oxygen Delivery Me thod Room Air Room Air 06/09/22 07:00 Temperature Pulse Rate Pulse Rate [Pulse Oximeter] Pulse Rate [Right Pulse Oximeter] Respiratory Rate 16 Blood Pressure [Ri ght Arm] Blood Pressure [Ri ght Upper Arm] Pulse Oximetry Oxygen Delivery Me thod Labs Labs: Laboratory Results - last 24 hr 06/08/22 06/08/22 06/08/22 14:54 15:10 15:10 WBC 10.78 RBC 4.68 Hgb 13.0 Hct 39.6 MCV 85 MCH 28 MCHC 33 RDW Coeff of Michaela 18.4 H Plt Count 275 Neut % (Auto) 87.8 H Lymph % (Auto) 6.0 L [place] % (Auto) 5.7 Eos % (Auto) 0.1 Baso % (Auto) 0.1 Neut # (Auto) 9.50 H Lymph # (Auto) 0.60 L [place] # (Auto) 0.60 Eos # (Auto) 0.01 Baso # (Auto) 0.01 Abs Immat Gran (auto) 0.03 Sodium Potassium Chloride Carbon Dioxide BUN Creatinine Estimated Creat Clear Estimated GFR Glucose Calcium Total Bilirubin AST ALT Alkaline Phosphatase Troponin I NT-Pro-B Natriuret Pep Total Protein Albumin TSH 37.100 H Urine Color Urine Appearance Urine pH Ur Specific [place] Urine Protein Urine Glucose (UA) Urine Ketones Urine Blood Urine Nitrite Urine Bilirubin Urine Urobilinogen Ur Leukocyte Esterase Urine RBC Urine WBC Urine WBC Clumps Ur Squamous Epith Cells Urine Bacteria SARS-CoV-2 (PCR) Negative SARS-CoV-2 Influenza Type A (PCR) Negative PCR FLU A Influenza Type B (PCR) Negative PCR FLU B RSV (PCR) Negative PCR RSV 06/08/22 06/08/22 06/09/22 15:10 15:20 08:36 WBC 6.06 RBC 4.58 Hgb 12.8 Hct 39.0 MCV 85 MCH 28 MCHC 33 RDW Coeff of Michaela 18.4 H Plt Count 253 Neut % (Auto) 80.9 H Lymph % (Auto) 9.2 L [place] % (Auto) 8.3 Eos % (Auto) 0.8 Baso % (Auto) 0.3 Neut # (Auto) 4.90 Lymph # (Auto) 0.60 L [place] # (Auto) 0.50 Eos # (Auto) 0.05 Baso # (Auto) 0.02 Abs Immat Gran (auto) 0.03 Sodium 130 L Potassium 4.1 Chloride 93 L Carbon Dioxide 26 BUN 29 Creatinine 0.8 Estimated Creat Clear 40.04 Estimated GFR 75 Glucose 111 Calcium 9.0 Total Bilirubin 0.9 AST 53 H ALT 25 Alkaline Phosphatase 163 H Troponin I 0.02 NT-Pro-B Natriuret Pep 5350 H Total Protein 7.8 Albumin 4.4 TSH Urine Color Yellow Urine Appearance Clear Urine pH 7.0 Ur Specific [place] 1.015 Urine Protein Negative Urine Glucose (UA) Negative Urine Ketones Negative Urine Blood Negative Urine Nitrite Positive A Urine Bilirubin Negative Urine Urobilinogen 0.2 Ur Leukocyte Esterase 3+ A Urine RBC 0-2 Urine WBC 50-100 A Urine WBC Clumps Few A Ur Squamous Epith Cells None Urine Bacteria Many A SARS-CoV-2 (PCR) Influenza Type A (PCR) Influenza Type B (PCR) RSV (PCR) 06/09/22 08:36 WBC RBC Hgb Hct MCV MCH MCHC RDW Coeff of Michaela Plt Count Neut % (Auto) Lymph % (Auto) [place] % (Auto) Eos % (Auto) Baso % (Auto) Neut # (Auto) Lymph # (Auto) [place] # (Auto) Eos # (Auto) Baso # (Auto) Abs Immat Gran (auto) Sodium 134 L Potassium 3.7 Chloride 97 Carbon Dioxide 29 BUN 33 H Creatinine 0.9 Estimated Creat Clear 34.99 Estimated GFR 65 Glucose 73 Calcium 8.5 Total Bilirubin AST ALT Alkaline Phosphatase Troponin I NT-Pro-B Natriuret Pep 4750 H Total Protein Albumin TSH Urine Color Urine Appearance Urine pH Ur Specific [place] Urine Protein Urine Glucose (UA) Urine Ketones Urine Blood Urine Nitrite Urine Bilirubin Urine Urobilinogen Ur Leukocyte Esterase Urine RBC Urine WBC Urine WBC Clumps Ur Squamous Epith Cells Urine Bacteria SARS-CoV-2 (PCR) Influenza Type A (PCR) Influenza Type B (PCR) RSV (PCR)
[2022-06-09] MEDS: POTASSIUM CHLORIDE 10 MEQ CAPSULE ER PO (10:53)
[2022-06-09] MEDS: ASPIRIN 81 MG TAB.CHEW PO (10:54)
[2022-06-09] MEDS: ATORVASTATIN CALCIUM 40 MG TABLET PO (10:54)
[2022-06-09] MEDS: NYSTATIN CREAM 30 GM 1 APPLIC TOPICAL ×3 (13:51→22:25)
[2022-06-09] MEDS: cefTRIAXone 1 GM in 0.9 % SODIUM CHLORIDE Mini-bag 100 ML IVPB (17:18)
--- NOTE | 2022-06-09 17:54 | PC.NURSE ---
Assumed care of this patient at 3pm from Brandy Acevedo RN. Assisted pt with TV remote and channel guide. Echocardiogram completed at bedside per Gerry from [facility]. RN ordered dinner for pt and her son Anthony is bringing denture fixative for her this evening. IV antibiotic infused per protocol. Continue plan of care. Report will be given to oncoming shift RN. 5 pm Lasix dose held d/to low BP reading of 93/51.
--- NOTE | 2022-06-09 18:32 | PC.NURSE ---
IV ATB infusion completed by Michelle Muñoz RN. IV to SL.
[2022-06-09] MEDS: HEPARIN 5,000 UNIT/0.5 ML INJ 5000 UNIT SUBCUT (19:28)
[2022-06-09] MEDS: NICOTINE 14 mg PATCH 1 PATCH TOPICAL (19:35)
[2022-06-09] MEDS: DONEPEZIL 5 MG TABLET PO (22:25)
[2022-06-09] MEDS: ESTROGENS, CONJUGATED VAGINAL 0.625 MG/G CREAM 1 APPLIC VAGINAL (22:25)
[2022-06-10] VITALS (7 sets, daily range): BP systolic 98–118; BP diastolic 50–66; PULSE 65–86; RESP 16–20; TEMP 36.3–36.4; O2SAT 91–97
[2022-06-10] MEDS: ACETAMINOPHEN 325 MG TABLET 650 MG PO (05:00)
[2022-06-10] MEDS: LEVOTHYROXINE 112 MCG TABLET PO (05:00)
--- NOTE | 2022-06-10 06:09 | PC.NURSE ---
Shift Note -: Pt pleasant and cooperative, frequently forgetful, VSS, afebrile. Pt up to BR with SBA, walker & gait belt. Pt c/o feeling weak in the hips observed to be rubbing right hip while up to BR. Mepilex on L buttock and inner thigh CDI, Aloe [place] cream applied to reddened areas on inner thighs, coccyx and right buttock, nystatin cream applied to groin area. See eMAR for medication administration. BP continued to be soft, evening Metoprolol held. Pt compliant with 1500cc fluid restriction.
[2022-06-10 06:47] LABS: Basophils Absolute Auto 0.04 K/uL (0.00-0.30); Basophils Percent Auto 0.6 % (0.0-3.0); Eosinophils Absolute Auto 0.07 K/uL (0.00-0.50); Hematocrit 33.3 % (33.0-51.0); Hemoglobin* 10.7 gm/dL (12.0-16.0); Immature Granulocytes Abs Auto 0.03 K/uL (0.00-0.30); Lymphocytes Percent Auto 9.2 % (20-44); Mean Corpuscular HGB Conc 32 gm/dL (32-36); Mean Corpuscular Hemoglobin 28 pg (26-34); Mean Corpuscular Volume 86 fL (80-100); Monocytes Percent Auto 10.2 % (0.0-11.0); Neutrophils Percent Auto 78.6 % (42.0-72.0); Platelet Count* 267 K/uL (140-440); RDW Coefficient of Variation % 18.8 % (11.5-15.5); Red Blood Count 3.86 m/uL (4.00-5.20); White Blood Count* 6.99 K/uL (4.50-11.00)
[2022-06-10 06:55] LABS: Slide Review Reflex No
[2022-06-10 07:09] LABS: Chloride* 103 mmol/L (96-114); Sodium* 138 mmol/L (135-149)
[2022-06-10 07:12] LABS: Blood Urea Nitrogen* 35 mg/dL (7-30); Carbon Dioxide* 29 mmol/L (20-32); Creatinine* 0.9 mg/dL (0.5-1.5); Est. Creatinine Clearance* 34.99; Estimated Glomerular Filt Rate 65 ml/min; Glucose* 93 mg/dL (60-115)
[2022-06-10 07:13] LABS: Calcium* 8.1 mg/dL (8.4-10.6)
[2022-06-10] MEDS: HEPARIN 5,000 UNIT/0.5 ML INJ 5000 UNIT SUBCUT ×2 (07:37→18:37)
[2022-06-10 08:30] LABS: Free T4 Free Thyroxine* 0.63 ng/dL (0.70-1.85)
[2022-06-10] MEDS: NYSTATIN CREAM 30 GM 1 APPLIC TOPICAL ×3 (09:03→20:40)
[2022-06-10] MEDS: ATORVASTATIN CALCIUM 40 MG TABLET PO ×2 (09:03→20:40)
[2022-06-10] MEDS: ASPIRIN 81 MG TAB.CHEW PO (09:03)
[2022-06-10] MEDS: POTASSIUM CHLORIDE 10 MEQ CAPSULE ER PO (09:03)
--- NOTE | 2022-06-10 09:49 | CRLHL7_ITS ---
For Patients: As a result of the Cures Act, medical imaging exams and procedure reports are released immediately into your electronic medical record. You may view this report before your referring provider. If you have questions, please contact your health care provider. INDICATION: FALL, BACK PAIN TECHNIQUE: 3-view thoracic spine. COMPARISON: none FINDINGS: No fracture. No paraspinal mass. Vascular calcifications in the aorta. Multilevel degenerative changes. IMPRESSION: No fracture. Dictated by Charan Jovel MD @ 06/10/2022 11:09:01 AM (Electronically Signed)
--- NOTE | 2022-06-10 09:50 | CRLHL7_ITS ---
For Patients: As a result of the Century Cures Act, medical imaging exams and procedure reports are released immediately into your electronic medical record. You may view this report before your referring provider. If you have questions, please contact your health care provider. Indication: Fall, pain Technique: AP pelvis and lateral view of each hip, five views total Comparison: 10/15/2021 Findings: Right bipolar hip arthroplasty hardware intact without loosening. Spurring at the left hip joint. Intact pubic rami. Degenerative changes lower lumbar spine. Impression: No sign of acute injury. Dictated by Charan Jovel MD @ 06/10/2022 11:07:53 AM (Electronically Signed)
--- NOTE | 2022-06-10 09:50 | CRLHL7_ITS ---
For Patients: As a result of the Cures Act, medical imaging exams and procedure reports are released immediately into your electronic medical record. You may view this report before your referring provider. If you have questions, please contact your health care provider. INDICATION: FALL, BACK PAIN TECHNIQUE: 3-view lumbar spine. COMPARISON: none FINDINGS: Dense vascular calcifications in the aorta. Severe degenerative disc disease upper lumbar spine. Severe facet degeneration lower lumbar spine. No fracture. IMPRESSION: No acute fracture. Dictated by Charan Jovel MD @ 06/10/2022 11:10:00 AM (Electronically Signed)
--- NOTE | 2022-06-10 10:12 | PM.IMPN1 ---
Progress Note: A&P Assessment and plan (1) Acute UTI: Status: Acute Plan Assessment: 76F presenting with falls, generalized weakness, UTI 1. UTI/Generalized weakness, continue ceftriaxone; f/u UCx, prelim cx growing GNR, sensitivity pending 2. Hx of HTN, mild acute systolic CHF exacerbation, Echo completed 06/09 -DC IV lasix; euvolemic on exam -transition to torsemide -daily weight, electrolytes -Echo: EF 35-40% Inferior, posterior and basal latera WMA -continue metoprolol -initiate ACEi as pressure tolerates current BPs soft -recommend outpatient Cardiology follow up/Evaluation 3. Hyponatremia; resolved; likely secondary to CHF; on fluid restriction 4. Hx of prolapsed uterus, Franchise Sales Representative evaluated, will need outpatient Urogyn evaluation 5. Hx of Dementia on dorezipil 6. Hx of Hypothyroidism; check FT4, continue synthroid -06/10; low FT4, increase synthroid from 112mcg to 125 mcg 7. Hx of tobacco use disorder, continue nicotine patch 8. Hx of pressure ulcer 9. Back pain; acute on chronic; pain control; obtain Xray thorac/lumbar/Sacral spine and Xray hip and pelvis Dispo-likely 1 day; barrier to discharge will need STR and finalization of UCx Subjective Date Seen: 06/10/22 Interval history: The patient c/o of back pain when sitting in chair She states she does not want to sit in the chair and would prefer to lay in bed all day She denies chest pain Denies SOB Urine Cx growing Gram Negative Rods Therapy recommending short term rehab Exam Const: Vital Signs, click to edit/add: Vital Signs - 24 hr 06/09/22 11:00 06/09/22 15:10 06/09/22 15:00 Temperature 98.1 F 97.9 F Pulse Rate 70 Pulse Rate [Pulse Oximeter] 63 65 Respiratory Rate 16 16 Blood Pressure [Ri ght Arm] 97/51 L 98/49 L Pulse Oximetry 93 93 Oxygen Delivery Me thod Room Air Room Air 06/09/22 15:00 06/09/22 16:00 06/09/22 20:00 Temperature 98.2 F 98.2 F Pulse Rate Pulse Rate [Pulse Oximeter] 70 70 71 Respiratory Rate 18 20 Blood Pressure [Ri ght Arm] 93/51 L 93/44 L Pulse Oximetry 92 90 Oxygen Delivery Me thod Room Air Room Air 06/09/22 22:36 06/09/22 23:04 06/10/22 02:50 Temperature 97.7 F 97.6 F Pulse Rate Pulse Rate [Pulse Oximeter] 77 77 70 Respiratory Rate 20 20 18 Blood Pressure [Ri ght Arm] 103/58 L 107/53 L Pulse Oximetry 94 94 Oxygen Delivery Me thod Room Air Room Air 06/10/22 07:25 06/10/22 07:25 Temperature 97.5 F L Pulse Rate Pulse Rate [Pulse Oximeter] 70 82 Respiratory Rate 18 20 Blood Pressure [Ri ght Arm] 98/50 L Pulse Oximetry 91 Oxygen Delivery Me thod Room Air Labs Labs: Laboratory Results - last 24 hr 06/10/22 06/10/22 06/10/22 06:12 06:12 06:12 WBC 6.99 RBC 3.86 L Hgb 10.7 L Hct 33.3 MCV 86 MCH 28 MCHC 32 RDW Coeff of Michaela 18.8 H Plt Count 267 Neut % (Auto) 78.6 H Lymph % (Auto) 9.2 L [place] % (Auto) 10.2 Eos % (Auto) 1.0 Baso % (Auto) 0.6 Neut # (Auto) 5.50 Lymph # (Auto) 0.60 L [place] # (Auto) 0.70 Eos # (Auto) 0.07 Baso # (Auto) 0.04 Abs Immat Gran (auto) 0.03 Sodium 138 Potassium 4.0 Chloride 103 Carbon Dioxide 29 BUN 35 H Creatinine 0.9 Estimated Creat Clear 34.99 Estimated GFR 65 Glucose 93 Calcium 8.1 L TSH 47.500 H Free T4 0.63 L
--- NOTE | 2022-06-10 10:16 | CRLHL7_ITS ---
For Patients: As a result of the Cures Act, medical imaging exams and procedure reports are released immediately into your electronic medical record. You may view this report before your referring provider. If you have questions, please contact your health care provider. Indication: FALL, BACK PAIN Technique: Three views sacrum and coccyx Comparison: None Findings: Chronic osteitis pubis, mild. Degenerative joint disease left hip. Right bipolar hemiarthroplasty. Postop changes soft tissues. No SI joint diastasis. Vascular calcifications. Normal sacrococcygeal alignment. Intact pubic rami. Impression: No sign of acute injury. Dictated by Charan Jovel MD @ 06/10/2022 11:12:27 AM (Electronically Signed)
--- NOTE | 2022-06-10 10:18 | PC.SOCIAL ---
Discharge planning: Met with pt who states her son lives with her but works outside the home long hours every day. Pt is requesting short term rehab stay at a group home facility as she does not feel she can return home alone at this time. Pt requested social media content manager discuss locations for rehab with her son, Anthony. Called Anthony, who is in agreement with this plan. Pt has [employer] insurance. Shared information with Anthony on contracted [employer] facilities. Anthony states [facility] would be first choice. He is agreeable to any contracted facility south of the [facility]. Called [facility] in [place] and left message and faxed information for evaluation for admit. grab jack worker to follow up as needed.
--- NOTE | 2022-06-10 10:45 | NUTR.NU ---
RDN with nutrition education related to CHF. Patient admitted for UTI and CHF, with hx of dementia. Patient lives with son, Anthony, who is also her designated caregiver. RDN called Anthony whom reported he was interested in receiving diet education related to CHF for his mother, however he was not going to be available until this evening. Anthony was in agreement to have RDN leave diet educational materials in paitent's room so he can read them at a later time/date. RDN encourage him to let staff know of any questions or concerns. Handouts provided in folder from [facility] on heart failure nutrition therapy, sodium content of foods, heart healthy label reading tips, sodium-free flavoring tips and heart healthy cooking and shopping tips. RDN's contact information was also provided and was encouraged to call with questions.
--- NOTE | 2022-06-10 12:59 | P.IMPN_ITS ---
Progress Note: A&P Assessment and plan (1) Morbilliform rash: Problem details: Suspect drug rash, possibly due to ceftriaxone Status: Acute Assessment and Plan: Discontinue ceftriaxone. Give a dose of Benadryl. Monitor, place continuous pulse ox. (2) Acute UTI: Problem details: Gram neg rods Status: Acute Assessment and Plan: Discontinue ceftriaxone. Start cipro. Await UC. Subjective Time Seen by Provider: 12:45 Date Seen: 06/10/22 Interval history: I was called to see patient for new rash. Nurse reports it was possibly present in groin and inner legs yesterday, but this morning has quickly progressed to face and neck. Patient denies trouble breathing, swallowing, sore or swollen throat or any tingling or numbness around lips/mouth. Exam Narrative: Exam Narrative: General: No acute distress. Awake, alert, oriented to self. Speech is clear. Oropharynx: Clear. Mucous membranes moist. No drooling. Cardiovascular: Regular rate and rhythm. Respiratory: No increased work of breathing. Clear to auscultation bilaterally. No wheezes or crackles. Skin: Brightly erythematous morbilliform rash over the cheeks and right ear and patches of the same rash on the neck. I do not find any rash on the trunk or back. This same rash is present over the abdomen, groin, and inner legs. Const: Vital Signs, click to edit/add: Vital Signs - 24 hr 06/09/22 15:10 06/09/22 15:00 06/09/22 15:00 Temperature 97.9 F Pulse Rate 70 Pulse Rate [Pulse Oximeter] 65 70 Respiratory Rate 16 Blood Pressure [Ri ght Arm] 98/49 L Pulse Oximetry 93 Oxygen Delivery Me thod Room Air 06/09/22 16:00 06/09/22 20:00 06/09/22 22:36 Temperature 98.2 F 98.2 F 97.7 F Pulse Rate Pulse Rate [Pulse Oximeter] 70 71 77 Respiratory Rate 18 20 20 Blood Pressure [Ri ght Arm] 93/51 L 93/44 L 103/58 L Pulse Oximetry 92 90 94 Oxygen Delivery Me thod Room Air Room Air Room Air 06/09/22 23:04 06/10/22 02:50 06/10/22 07:25 Temperature 97.6 F Pulse Rate Pulse Rate [Pulse Oximeter] 77 70 70 Respiratory Rate 20 18 18 Blood Pressure [Ri ght Arm] 107/53 L Pulse Oximetry 94 Oxygen Delivery Me thod Room Air 06/10/22 07:25 06/10/22 12:00 Temperature 97.5 F L 97.4 F L Pulse Rate Pulse Rate [Pulse Oximeter] 82 65 Respiratory Rate 20 16 Blood Pressure [Ri ght Arm] 98/50 L 117/56 L Pulse Oximetry 91 97 Oxygen Delivery Me thod Room Air Room Air Labs Labs: Laboratory Results - last 24 hr 06/10/22 06/10/22 06/10/22 06:12 06:12 06:12 WBC 6.99 RBC 3.86 L Hgb 10.7 L Hct 33.3 MCV 86 MCH 28 MCHC 32 RDW Coeff of Michaela 18.8 H Plt Count 267 Neut % (Auto) 78.6 H Lymph % (Auto) 9.2 L [place] % (Auto) 10.2 Eos % (Auto) 1.0 Baso % (Auto) 0.6 Neut # (Auto) 5.50 Lymph # (Auto) 0.60 L [place] # (Auto) 0.70 Eos # (Auto) 0.07 Baso # (Auto) 0.04 Abs Immat Gran (auto) 0.03 Sodium 138 Potassium 4.0 Chloride 103 Carbon Dioxide 29 BUN 35 H Creatinine 0.9 Estimated Creat Clear 34.99 Estimated GFR 65 Glucose 93 Calcium 8.1 L TSH 47.500 H Free T4 0.63 L
[2022-06-10] MEDS: diphenhydrAMINE 50 MG/ML inj 25 MG IVP (14:16)
--- NOTE | 2022-06-10 16:17 | PC.SOCIAL ---
Discharge plan: Called [facility] in [place], [facility], [facility],and [facility] and there are no beds available in these facilities. Called [facility] and was informed there are shared rooms in the [facility] that could be used for short term rehab. Called [facility] and spoke with Yolette in admissions [place] states there are beds available a this facility. Faxed informaton for evaluation for admit and awaiting decision on admission. Pt has [employer] insurance which will require prior authorization if facilities is able to accept for admit. Met with pt who is aware [facility] is a non-smoking facility and agrees not to smoe if accepted to this facility. Pt prefers [place] to [place] if there is a bed available for her in [place]. 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
--- NOTE | 2022-06-10 17:27 | PC.NURSE ---
PATIENT PLEASANT AND COOPERATIVE, VERY FORGETFUL, REPETITIVE STATEMENT NOTED, UP SBA WITH WALKER AND BELT, PATIENT DOES EXPRESS SOME MOVEMENT WITH AMBULATION BUT OTHERWISE DECLINES, STATES PAIN IN MORE OF A DISCOMFORT IN HIP AND BACK, SITTING UP IN THE CHAIR TOO LONG MAKES PAIN WORSE PER PATIENT, WALKED IN HALLWAYS TODAY WITH ASSISTANCE, TOLERATING REGULAR DIET.
[2022-06-10] MEDS: NICOTINE 14 mg PATCH 1 PATCH TOPICAL (18:39)
[2022-06-10] MEDS: CIPROFLOXACIN 250 MG TABLET PO (20:39)
[2022-06-10] MEDS: DONEPEZIL 5 MG TABLET PO (20:40)
[2022-06-10] MEDS: MELATONIN 3 MG TABLET PO (22:14)
[2022-06-11] VITALS (9 sets, daily range): BP systolic 104–120; BP diastolic 51–70; PULSE 64–86; RESP 18–24; TEMP 36.3–36.4; O2SAT 91–99
[2022-06-11] MEDS: HEPARIN 5,000 UNIT/0.5 ML INJ 5000 UNIT SUBCUT ×2 (06:46→19:02)
[2022-06-11] MEDS: LEVOTHYROXINE 125 MCG TABLET PO (06:46)
--- NOTE | 2022-06-11 06:58 | PC.NURSE ---
pt occasionally forgetful and repetitive. SBA with gb and walker. VSS. Pt unable to sleep much throughout the night, melatonin given at HS and pt was requesting more. Tomi patch to Left shoulder ? pt stating she is having a craving for a cigarette, will update MD to see if a tomi inhaler can be ordered.
[2022-06-11 07:51] LABS: Hemoglobin* 10.9 gm/dL (12.0-16.0)
[2022-06-11] MEDS: ASPIRIN 81 MG TAB.CHEW PO (09:39)
[2022-06-11] MEDS: TORSEMIDE 20 MG TABLET 10 MG PO (09:39)
[2022-06-11] MEDS: CIPROFLOXACIN 250 MG TABLET PO ×2 (09:39→22:04)
[2022-06-11] MEDS: POTASSIUM CHLORIDE 10 MEQ CAPSULE ER PO (09:39)
[2022-06-11] MEDS: NYSTATIN CREAM 30 GM 1 APPLIC TOPICAL ×3 (09:40→22:14)
--- NOTE | 2022-06-11 14:26 | PC.NURSE ---
Shift [id number] Pt this shift was pleasant and cooperative. Alert and oriented but forgetful and will repeat statement and questions multiple times. Bilat 2+ pitting edema LE. Rash still present throughout body. Prolapsed uterus noted, pt denies pain or irritation. Educated on low sodium meal items and why it was ordered. Bruising over up and lower extremities. Serosanguineous fluid filled blister intact on L knee, protected with Tegaderm. Pt c/o frequent urination with dribbling output and feeling constipated. Bladder scan showed about 400ml retained. Straight cath ordered by . Procedure tolerated well using sterile technique and 600ml output. Post void bladder scan showed 100ml. Went to bathroom post straight cath for BM. XXS result and physician underwriter observed more stuck in colon. Pt wants to try prune juice and walking before trying enema or suppository.
--- NOTE | 2022-06-11 16:04 | P.IMPN_ITS ---
Progress Note: A&P Assessment and plan (1) Morbilliform rash: Problem details: Suspect drug rash, possibly due to ceftriaxone Status: Acute Assessment and Plan: Ceftriaxone discontinued 06/10/2022 (2) Acute UTI: Problem details: Specimen: [id number] COMP Collected: 06/08/22 Received: 06/08/22 Source: Urine CC Sp Descrip: Sub Dr: Denae Trujillo D.O. Other Dr: Procedure Result Site Urine Culture Final ML Organism 1 Morganella morganii Ur [place] Count >100,000 CFU/ml Organism 2 Proteus mirabilis Ur [place] Count >100,000 CFU/ml E.COLI WORKUP M morganii P mirabili LAURA RX LAURA RX --------- --- --------- --- Ampicillin >=32 R <=2 S Ampicillin/Sulbactam >32 R <=2 S Cefazolin >=64 R <=4 S Cefepime <=1 S <=1 S Cefoxitin >=64 R 8 S Ceftazidime <=1 S <=1 S Ceftriaxone 8 S <=1 S Ciprofloxacin <=0.25 S <=0.25 S Ertapenem <=0.5 S <=0.5 S Gentamicin <=1 S <=1 S Levofloxacin <=0.12 S <=0.12 S Nitrofurantoin 128 R 256 R Tobramycin <=1 S <=1 S Trimethoprim/Sulfamethoxazole <=20 S <=20 S Piperacillin/Tazobactam <=4 S <=4 S Status: Acute Assessment and Plan: Stopped ceftriaxone yesterday due to new, rapidly evolving morbilliform rash. Started ciprofloxacin yesterday for UTI. Both Morganella and Proteus are sensitive to this, as above. Continue ciprofloxacin. (3) Acute hyponatremia: Status: Acute (4) Overactive bladder: Status: Acute (5) Complete prolapse of vaginal vault: Status: Acute (6) Coronary artery disease: Status: Acute (7) Dementia: Problem details: [place] 05/21 on 06/10/2022 Status: Chronic (8) CHF (congestive heart failure): Problem details: Echo completed 06/09/22: Echo: EF 35-40% Inferior, posterior and basal latera WMA Status: Acute Assessment and Plan: Tolerating torsemide and metoprolol. Continue fluid restriction. If BP holds, may be able to start ACEinh. Cardiology f/u as outpatient. (9) Hypothyroidism (acquired): Status: Acute Assessment and Plan: TSH elevated and free T4 low. Levothyroxine increased on 06/10/2022. Recheck in 1 month. Plan Had back pain yesterday that has resolved. I have reviewed lumbar and sacral/coccygeal x-rays which have no acute findings. Awaiting placement at nursing home facility. Patient's son is not home for large parts of the day and patient's [place] is 8/30. No bed available today, currently no safe discharge option. Subjective Time Seen by Provider: 13:00 Date Seen: 06/11/22 Interval history: Kanika has frequent urination today with a bladder scan of >400cc. She tells me she feels the need to have a BM. She asked the same questions repeatedly throughout our conversation, not remembering that she had asked, nor remembering my answers. Exam Narrative: Exam Narrative: General: No acute distress. Awake, alert, oriented to self. No pallor. No jaundice. Oropharynx: Clear. Mucous membranes moist. Cardiovascular: Regular rate and rhythm. No murmurs, gallops, or rubs. Respiratory: Clear to auscultation bilaterally. No wheezes or crackles. Abdomen: Bowel sounds present. Soft, nondistended, nontender. Skin: Morbilliform rash on face and neck has improved, but not yet resolved. Morbilliform rash on abdomen and groin is about the same, medial legs has evolved to appear more morbilliform. Const: Vital Signs, click to edit/add: Vital Signs - 24 hr 06/10/22 20:00 06/10/22 23:00 06/11/22 00:00 Temperature 97.6 F 97.6 F Pulse Rate [Pulse Oximeter] 77 86 86 Respiratory Rate 20 20 20 Blood Pressure [Ri ght Arm] 112/61 109/58 L Pulse Oximetry 95 98 Oxygen Delivery Me thod Room Air Room Air 06/11/22 02:39 06/11/22 07:00 06/11/22 08:00 Temperature 97.6 F Pulse Rate [Pulse Oximeter] 80 80 71 Respiratory Rate 20 20 18 Blood Pressure [Ri ght Arm] 104/51 L 120/70 Pulse Oximetry 96 94 Oxygen Delivery Me thod Room Air Room Air 06/11/22 12:00 Temperature Pulse Rate [Pulse Oximeter] 72 Respiratory Rate 24 Blood Pressure [[facility] Arm] 111/60 Pulse Oximetry 99 Oxygen Delivery Me thod Room Air Labs Labs: Laboratory Results - last 24 hr 06/11/22 07:39 Hgb 10.9 L
--- NOTE | 2022-06-11 18:06 | PC.SOCIAL ---
Discharge plans: tin recovery worker continued to look for rehab placement for pt at discharge. Received call back from [facility] stating they would have been able to accept pt for admit, but as she is not fully vaccinated, they can not accept her. Per [facility] system, pt has only had one initial COVID vaccine. Called sonAnthony, who states he believes pt is fully vaccinated but can not provide dates or proof of vaccination. Called [facility] and spoke with armando Lux regarding bed availability. Maci states they have a bed available and can evaluate pt for admit. Per Maci, pt will need to go into a quarentine room for 14 days as she is not fully vaccinated. If son is able to provide proof of vaccination, the quarentine status would change. Called Anthony honeycutt, who is aware pt is being evaluated at [facility] and agrees to placement there if accepted. Later, received call from Maci at [facility] stating they have clinically accepted pt and have sent information to pt's [employer] insurance for prior authorization. When prior authorization is obtained by the facility, pt can be admitted. tin recovery worker to follow up as needed.
[2022-06-11] MEDS: NICOTINE 14 mg PATCH 1 PATCH TOPICAL (19:01)
[2022-06-11] MEDS: DONEPEZIL 5 MG TABLET PO (22:03)
[2022-06-11] MEDS: ATORVASTATIN CALCIUM 40 MG TABLET PO (22:03)
[2022-06-11] MEDS: MELATONIN 3 MG TABLET PO (22:04)
[2022-06-11] MEDS: ESTROGENS, CONJUGATED VAGINAL 0.625 MG/G CREAM 1 APPLIC VAGINAL (22:10)
--- NOTE | 2022-06-11 22:36 | PC.NURSE ---
Shift Note [id number]: Pt friendly and cooperative. Forgetful and repeats questions/statements frequently. VS WNL and LS COA. Afebrile. Denies pain. Frequent urge to urinate. Prolapse visible at HS, pt able to self-reduce for estrogen cream application.
[2022-06-12] VITALS (7 sets, daily range): BP systolic 102–112; BP diastolic 55–60; PULSE 64–78; RESP 16–18; TEMP 36.5–37.2; O2SAT 94–97
--- NOTE | 2022-06-12 05:12 | PC.NURSE ---
[id number]: patient up with assist of 1 and walker/gait belt. gait steady. bladder scan and straight cath X1 at start of shift. patient asleep most of this shift
[2022-06-12] MEDS: LEVOTHYROXINE 125 MCG TABLET PO (05:54)
[2022-06-12] MEDS: HEPARIN 5,000 UNIT/0.5 ML INJ 5000 UNIT SUBCUT ×2 (05:54→21:03)
[2022-06-12] MEDS: CIPROFLOXACIN 250 MG TABLET PO ×2 (08:46→21:05)
[2022-06-12] MEDS: POTASSIUM CHLORIDE 10 MEQ CAPSULE ER PO (08:46)
[2022-06-12] MEDS: ASPIRIN 81 MG TAB.CHEW PO (08:46)
[2022-06-12] MEDS: TORSEMIDE 20 MG TABLET 10 MG PO (08:47)
[2022-06-12] MEDS: NYSTATIN CREAM 30 GM 1 APPLIC TOPICAL ×3 (08:47→21:06)
--- NOTE | 2022-06-12 10:50 | PM.IMPN1 ---
Progress Note: A&P Assessment and plan (1) Morbilliform rash: Problem details: Suspect drug rash, possibly due to ceftriaxone Status: Acute Assessment and Plan: Improving. Ceftriaxone discontinued 06/10/2022. (2) Acute UTI: Problem details: Specimen: [id number] COMP Collected: 06/08/22 Received: 06/08/22 Source: Urine CC Sp Descrip: Sub Dr: Denae Trujillo D.O. Other Dr: Procedure Result Site Urine Culture Final ML Organism 1 Morganella morganii Ur [place] Count >100,000 CFU/ml Organism 2 Proteus mirabilis Ur [place] Count >100,000 CFU/ml E.COLI WORKUP M morganii P mirabili LAURA RX LAURA RX --------- --- --------- --- Ampicillin >=32 R <=2 S Ampicillin/Sulbactam >32 R <=2 S Cefazolin >=64 R <=4 S Cefepime <=1 S <=1 S Cefoxitin >=64 R 8 S Ceftazidime <=1 S <=1 S Ceftriaxone 8 S <=1 S Ciprofloxacin <=0.25 S <=0.25 S Ertapenem <=0.5 S <=0.5 S Gentamicin <=1 S <=1 S Levofloxacin <=0.12 S <=0.12 S Nitrofurantoin 128 R 256 R Tobramycin <=1 S <=1 S Trimethoprim/Sulfamethoxazole <=20 S <=20 S Piperacillin/Tazobactam <=4 S <=4 S Status: Acute Assessment and Plan: Continue ciprofloxacin. (3) Acute hyponatremia: Status: Acute Assessment and Plan: Resolved. (4) Overactive bladder: Problem details: Suspect secondary to urinary retention, overflow. Status: Acute Assessment and Plan: Place ramirez. Have patient f/u with urogynecology as outpatient. (5) Complete prolapse of vaginal vault: Problem details: Dr. Stinson's recommendations from consult 06/08/22 I suspect urinary retention secondary to advanced prolapse may be contributing to persistent UTI, which may in turn contribute to urge incontinence. After Mireya's discharge, I recommend that she be evaluated by a urogynecologist. They may have a pessary fitting kit with some larger space-filling pessaries and, if not, may be able to offer her colpocleisis. Until that is possible, I recommend: 1. Discontinuation of oxybutynin. This may worsen urinary retention and is not currently helping her incontinence substantially. 2. Manual reduction of prolapse as it suits the patient; she reports having done this from time to time. 3. Premarin cream 0.5 g nightly to exposed vaginal skin for two weeks. Thereafter, consider twice weekly depending on recommendations from urogynecology. 4. Application of moisture barrier to irritated groin skin; zinc oxide / Desitin is a fine choice. Status: Chronic Assessment and Plan: As Dr. Stinson recommends above. (6) Coronary artery disease: Status: Chronic Assessment and Plan: Stable, asymptomatic. (7) Dementia: Problem details: [place] 05/21 on 06/10/2022 Status: Chronic (8) CHF (congestive heart failure): Problem details: Echo completed 06/09/22: Echo: EF 35-40% Inferior, posterior and basal latera WMA Status: Acute Assessment and Plan: Tolerating torsemide. Continue fluid restriction. Not tolerating metoprolol and ACEinh due to hypotension. Cardiology f/u as outpatient. (9) Hypothyroidism (acquired): Status: Acute Assessment and Plan: TSH elevated and free T4 low. Levothyroxine increased on 06/10/2022. Recheck in 1 month. Plan Awaiting placement at custodial facility. Patient's son is not home for large parts of the day and patient's [place] is 05/21. Bed [facility] available tomorrow at [facility] tomorrow. Subjective Time Seen by Provider: 09:30 Date Seen: 06/12/22 Interval history: Kanika has frequent urination today with a bladder scan of >400cc. She tells me she feels the need to have a BM. She asked the same questions repeatedly throughout our conversation, not remembering that she had asked, nor remembering my answers. EXAM General: No acute distress. Awake, alert, oriented to self. No pallor. No jaundice. Oropharynx: Clear. Mucous membranes moist. Cardiovascular: Regular rate and rhythm. No murmurs, gallops, or rubs. Respiratory: Clear to auscultation bilaterally. No wheezes or crackles. Abdomen: Bowel sounds present. Soft, nondistended, nontender. Skin: Morbilliform rash on face and neck continues to improve and is almost gone. Morbilliform rash on abdomen, groin, and legs is starting to improve. Exam Const: Vital Signs, click to edit/add: Vital Signs - 24 hr 06/11/22 12:00 06/11/22 15:00 06/11/22 16:00 Temperature 97.6 F Pulse Rate [Bilate ral Dorsalis Pedis ] Pulse Rate [Pulse Oximeter] 72 70 70 Respiratory Rate 24 20 20 Blood Pressure [Ri ght Arm] 111/60 113/66 Pulse Oximetry 99 93 Oxygen Delivery Me thod Room Air Room Air 06/11/22 20:00 06/11/22 23:00 06/12/22 00:00 Temperature 97.4 F L 98.2 F Pulse Rate [Bilate ral Dorsalis Pedis ] 70 64 64 Pulse Rate [Pulse Oximeter] 70 64 64 Respiratory Rate 18 18 18 Blood Pressure [Ri ght Arm] 106/52 L 108/60 Pulse Oximetry 91 94 Oxygen Delivery Me thod Room Air Room Air 06/12/22 03:42 06/12/22 07:45 06/12/22 07:45 Temperature 99.0 F Pulse Rate [Bilate ral Dorsalis Pedis ] 78 78 Pulse Rate [Pulse Oximeter] 78 78 Respiratory Rate 18 16 16 Blood Pressure [Ri ght Arm] 106/56 L Pulse Oximetry 95 Oxygen Delivery Me thod Room Air Room Air Documenting provider has reviewed patient's vital signs: yes
--- NOTE | 2022-06-12 18:39 | PC.NURSE ---
End of shift. pt has been on her call light all day. up to the BR many many times. she got a [place] this am. she has had 4-5 soft bms and 1 loose BM. PT and OT worked with her,. SL is patent no pain. she is up with 1 assist walker and GB and [place]. she is eating and drinking. she is on a 1.5 L FR. she is confused. she is a fall risk and alarms are on.
[2022-06-12] MEDS: NICOTINE 14 mg PATCH 1 PATCH TOPICAL (21:03)
[2022-06-12] MEDS: MELATONIN 3 MG TABLET PO (21:05)
[2022-06-12] MEDS: DONEPEZIL 5 MG TABLET PO (21:05)
[2022-06-12] MEDS: ATORVASTATIN CALCIUM 40 MG TABLET PO (21:05)
[2022-06-12] MEDS: ESTROGENS, CONJUGATED VAGINAL 0.625 MG/G CREAM 1 APPLIC VAGINAL (21:06)
[2022-06-13 03:00] VITALS: BP 89/49; PULSE 82; RESP 16; TEMP 36.5; O2SAT 96
--- NOTE | 2022-06-13 05:17 | PC.NURSE ---
No new neuro changes noted. Very forgetful. Denies pain. Vitals stable. [place] intact and patent. No new concerns overnight
[2022-06-13] MEDS: LEVOTHYROXINE 125 MCG TABLET PO (06:50)
[2022-06-13] MEDS: HEPARIN 5,000 UNIT/0.5 ML INJ 5000 UNIT SUBCUT (06:52)
[2022-06-13 07:25] VITALS: BP 102/57; PULSE 77; RESP 16; TEMP 36.6; O2SAT 93
[2022-06-13 08:10] VITALS: PULSE 77; RESP 16
[2022-06-13] MEDS: CIPROFLOXACIN 250 MG TABLET PO (08:31)
[2022-06-13] MEDS: ASPIRIN 81 MG TAB.CHEW PO (08:31)
[2022-06-13] MEDS: NYSTATIN CREAM 30 GM 1 APPLIC TOPICAL (08:31)
[2022-06-13] MEDS: POTASSIUM CHLORIDE 10 MEQ CAPSULE ER PO (08:31)
--- NOTE | 2022-06-13 09:15 | P.DS_ITS ---
DS: Providers Provider Time Seen by Provider: 07:54 Date Seen: 06/13/22 Date of admission: 06/11/22 17:07 Primary care physician: Abbey Wayne MD Admitting Clinician: Sheldon Hitchcock MD Consults: 06/08/22 18:45 Consult to Physical Therapy [CONS] Routine Comment: Reason(s) for PT Consult:: Evaluate Ambulation Any Restrictions?:: No Restrictions Consult to Information Receptionist [CONS] Routine Comment: Reason for Consult:: Discharge Planning Needs 06/08/22 18:47 Consult to Occupational Therapy [CONS] Routine Comment: Reason(s) for OT Consult:: Evaluate and Treat Any Restrictions?:: No Restrictions Attending Physician on discharge: Kathia Choi MD Date of Discharge: 06/13/22 DS: Diagnosis Discharge Diagnosis (1) Anemia: Status: Acute (2) Morbilliform rash: Status: Acute Problem details: Suspect drug rash, possibly due to ceftriaxone (3) Vaginal atrophy: Status: Acute (4) Vaginal vault prolapse after hysterectomy: Status: Acute Problem details: Stage IV prolapse of vaginal vault. Unsuccessful placement of ring and Gellhorn pessaries. (5) Elevated TSH: Status: Acute (6) Pressure ulcer: Status: Chronic (7) Prolapsed uterus: Status: Acute (8) Hyponatremia: Status: Acute (9) Elevated d-dimer: Status: Acute Problem details: CT neg for PE (10) Injury of right elbow: Status: Acute Problem details: From Dr. Hitchcock H&P 06/08/22: Reviewed the x ray with ED doc who stated the radiologist final word is no fracture as the defect was only seen on one view. Pt moves elbow freely during exam. (11) Tinea: Status: Acute (12) CHF (congestive heart failure): Status: Acute Problem details: Echo completed 06/09/22: Echo: EF 35-40% Inferior, posterior and basal latera WMA (13) Hypothyroidism (acquired): Status: Acute (14) Generalized muscle weakness: Status: Acute (15) Acute UTI: Status: Acute Problem details: Specimen: [id number] COMP Collected: 06/08/22 Received: 06/08/22 Source: Urine CC Sp Descrip: Sub Dr: Fremont,Denae D D.O. Other Dr: Procedure Result Site Urine Culture Final ML Organism 1 Morganella morganii Ur [place] Count >100,000 CFU/ml Organism 2 Proteus mirabilis Ur [place] Count >100,000 CFU/ml E.COLI WORKUP M morganii P mirabili LAURA RX LAURA RX --------- --- --------- --- Ampicillin >=32 R <=2 S Ampicillin/Sulbactam >32 R <=2 S Cefazolin >=64 R <=4 S Cefepime <=1 S <=1 S Cefoxitin >=64 R 8 S Ceftazidime <=1 S <=1 S Ceftriaxone 8 S <=1 S Ciprofloxacin <=0.25 S <=0.25 S Ertapenem <=0.5 S <=0.5 S Gentamicin <=1 S <=1 S Levofloxacin <=0.12 S <=0.12 S Nitrofurantoin 128 R 256 R Tobramycin <=1 S <=1 S Trimethoprim/Sulfamethoxazole <=20 S <=20 S Piperacillin/Tazobactam <=4 S <=4 S (16) Acute hyponatremia: Status: Acute Problem details: resolved, Na 138 06/10/22 (17) Tobacco use: Status: Chronic (18) Skin tear: Status: Acute (19) Overactive bladder: Status: Acute Problem details: Suspect secondary to urinary retention, overflow from partial obstruction of flow due to uterine prolapse. Temporary ramirez. F/u with urogyne. (20) Osteopenia: Status: Acute (21) Left ventricular dysfunction: Status: Chronic (22) Knee injury: Status: Acute (23) Hypertension: Status: Chronic (24) Hyperlipidemia: Status: Chronic (25) Frequent urinary tract infections: Status: Acute (26) Fall: Status: Acute (27) Coronary artery disease: Status: Chronic (28) Complete prolapse of vaginal vault: Status: Chronic Problem details: Dr. Stinson's recommendations from consult 06/08/22 I suspect urinary retention secondary to advanced prolapse may be contributing to persistent UTI, which may in turn contribute to urge incontinence. After Mireya's discharge, I recommend that she be evaluated by a urogynecologist. They may have a pessary fitting kit with some larger space- filling pessaries and, if not, may be able to offer her colpocleisis. Until that is possible, I recommend: 1. Discontinuation of oxybutynin. This may worsen urinary retention and is not currently helping her incontinence substantially. 2. Manual reduction of prolapse as it suits the patient; she reports having done this from time to time. 3. Premarin cream 0.5 g nightly to exposed vaginal skin for two weeks. Thereafter, consider twice weekly depending on recommendations from urogynecology. 4. Application of moisture barrier to irritated groin skin; zinc oxide / Desitin is a fine choice. (29) Abdominal wall hernia: Status: Chronic (30) Bilateral edema of lower extremity: Status: Acute (31) Urinary incontinence: Status: Acute (32) Heart failure: Status: Acute (33) Dementia: Status: Chronic Problem details: Dodge 05/21 on 06/10/2022 (34) Diaper dermatitis: Status: Acute (35) Hypothyroidism: Status: Acute DS: Summary Hospital Course Hospital Course: 76-year-old female with dementia who has been living at home with her son and developed generalized weakness. She was found to have a urinary tract infection and worsening CHF symptoms for which she was started initially on Keflex, torsemide, and potassium as an outpatient. Noncompliance with medication was also addressed at that ED visit. She came back unable to care for herself after a fall, more short of breath, and with more swollen legs. Extensive workup was done with multiple issues found including ongoing UTI, hyponatremia, elevated TSH, on going heart failure, relative hypotension, poor hygiene, uterine prolapse. She was admitted to the hospital and started on ceftriaxone in addition to Lasix. She was unable to get any of the IV Lasix due to relative hypotension. She was started on oral torsemide and tolerated this well. Urine culture grew out Morganella morganii and Proteus mirabilis, both sensitive to ceftriaxone and ciprofloxacin. Unfortunately she developed a drug rash which necessitated stopping ceftriaxone. She was then started on ciprofloxacin, which she has been tolerating well. Early in this hospital stay uterine prolapse was addressed with a consultation from gynecology. It is thought that this is been contributing to recurrent and persistent UTI and urge incontinence. Pessary fitting was attempted, but failed and she will need outpatient fitting through Urogynecology. In the meantime she has had urinary retention due to outflow obstruction for which a urinary catheter was placed. She will be on a total of 10 days of antibiotics. These are Dr. Stinson is recommendations: advanced prolapse may be contributing to persistent UTI, which may in turn contribute to urge incontinence.? After Mireya's discharge, I recommend that she be evaluated by a urogynecologist.? They may have a pessary fitting kit with some larger space- filling pessaries and, if not, may be able to offer her colpocleisis.? Until that is possible, I recommend: 1.? Discontinuation of oxybutynin.? This may worsen urinary retention and is not currently helping her incontinence substantially.? 2.? Manual reduction of prolapse as it suits the patient; she reports having done this from time to time. 3.? Premarin cream 0.5 g nightly to exposed vaginal skin for two weeks.? Thereafter, consider twice weekly depending on recommendations from urogynecology. 4.? Application of moisture barrier to irritated groin skin; zinc oxide / Desitin is a fine choice.? Mireya had a Dodge score of 8/30. It is determined that she needed detention facility for rehab and perhaps longer. Her son was agreeable for her going for rehab. PT OT was done during this hospital stay. She has continued to improve with regards to heart failure exacerbation and creatinine has remained stable. Hyponatremia has resolved. Blood pressures have remained low enough that we have been unable to start metoprolol or lisinopril for heart failure with reduced ejection fraction. I will refer her to Cardiology as an outpatient. She is discharged today in stable condition. Time Spent with Patient Time attestation: Total time spent providing and/or coordinating discharge services: Exam Narrative: Exam Narrative: General:? No acute distress.? Awake, alert, oriented to self.? No pallor.? No jaundice. Oropharynx:? Clear.? Mucous membranes moist. Cardiovascular:? Regular rate and rhythm.? No murmurs, gallops, or rubs. Respiratory:? Clear to auscultation bilaterally.? No wheezes or crackles. Abdomen:? Bowel sounds present.? Soft, nondistended, nontender. Skin:? Morbilliform rash on face and neck resolved.? Morbilliform rash on abdomen, groin, and legs continues to improve. Const: Vital Signs, click to edit/add: Vital Signs - 24 hr 06/12/22 11:18 06/12/22 15:00 06/12/22 15:00 Temperature 98.9 F 99.0 F Pulse Rate [Bilate ral Dorsalis Pedis ] 67 76 76 Pulse Rate [Pulse Oximeter] 67 76 76 Respiratory Rate 16 16 16 Blood Pressure [Ri ght Arm] 106/55 L 112/59 L Pulse Oximetry 97 96 Oxygen Delivery Me thod Room Air Room Air 06/12/22 19:00 06/12/22 23:00 06/12/22 23:00 Temperature 97.7 F 97.7 F Pulse Rate [Bilate ral Dorsalis Pedis ] 76 69 69 Pulse Rate [Pulse Oximeter] 76 69 69 Respiratory Rate 16 16 16 Blood Pressure [Ri ght Arm] 103/60 102/57 L Pulse Oximetry 96 96 Oxygen Delivery Me thod Room Air Room Air 06/13/22 03:00 06/13/22 07:25 06/13/22 08:10 Temperature 97.7 F 97.9 F Pulse Rate [Bilate ral Dorsalis Pedis ] 82 77 77 Pulse Rate [Pulse Oximeter] 82 77 77 Respiratory Rate 16 16 16 Blood Pressure [Ri ght Arm] 89/49 L 102/57 L Pulse Oximetry 96 93 Oxygen Delivery Me thod Room Air Room Air DS: Data Data Completed and Pending Completed studies during hospitalization: Ordering Physician: Denae Trujillo D.O. Date of Service: 06/08/22 Procedure(s): CT cervical spine wo [facility] Accession Number(s): [id number] cc: Abbey Wayne M.D.; Denae Trujillo D.O.~ For Patients: As a result of the Century Cures Act, medical imaging exams and procedure reports are released immediately into your electronic medical record. You may view this report before your referring provider. If you have questions, please contact your health care provider. Indication: Fall Technique: CT cervical spine without contrast Please note that all CT scans at this facility use dose modulation, iterative reconstruction, and/or weight-based dosing when appropriate to reduce radiation dose to as low as reasonably achievable. Comparison: None Findings: Mild straightening of the normal cervical lordosis, favored positional. No acute vertebral body malalignment. Facet joints articulate normally. The atlantoaxial interval is preserved occipital condyles articulate normally with C1 lateral mass of C1 articulate normally with C2. Posterior elements appear intact. Vertebral body heights preserved. Multilevel degenerative disc disease, most significant at C5-C6 and C6-C7. No evidence of epidural hematoma. Partially visualized lung apices unremarkable. Impression: No evidence of acute cervical spine trauma. Please note that all CT scans at this facility use dose modulation, iterative reconstruction, and/or weight-based dosing when appropriate to reduce radiation dose to as low as reasonably achievable. Dictated by Dale Jorgensen MD @ 06/08/2022 4:19:25 PM (Electronically Signed) Ordering Physician: Denae Trujillo D.O. Date of Service: 06/08/22 Procedure(s): CT head/brain wo con Accession Number(s): [id number] cc: Abbey Wayne M.D.; Denae Trujillo D.O.~ For Patients: As a result of the Cures Act, medical imaging exams and procedure reports are released immediately into your electronic medical record. You may view this report before your referring provider. If you have questions, please contact your health care provider. Indication: Fall Technique: Noncontrast head CT Please note that all CT scans at this facility use dose modulation, iterative reconstruction, and/or weight-based dosing when appropriate to reduce radiation dose to as low as reasonably achievable. Comparison: CT dated October 15, 2021 Findings: Soft tissues, orbits, paranasal sinuses, mastoid air cells and cranium within normal limits. Basal cisterns, sylvian fissures, ventricles and extra-axial spaces within normal limits. Basal ganglia calcifications. Sulcation within normal limits for patient age. No evidence of mass, mass effect, acute hemorrhage or acute infarct. Impression: No acute intracranial abnormality. Please note that all CT scans at this facility use dose modulation, iterative reconstruction, and/or weight-based dosing when appropriate to reduce radiation dose to as low as reasonably achievable. Dictated by Dale Jorgensen MD @ 06/08/2022 4:04:29 PM (Electronically Signed) Ordering Physician: Denae Trujillo D.O. Date of Service: 06/08/22 Procedure(s): XR elbow LT min 3V Accession Number(s): [id number] cc: Abbey Wayne M.D.; Denae Trujillo D.O.~ For Patients: As a result of the Cures Act, medical imaging exams and procedure reports are released immediately into your electronic medical record. You may view this report before your referring provider. If you have questions, please contact your health care provider. INDICATION: Fall. TECHNIQUE: Three views of left elbow. COMPARISON: None available. FINDINGS: No dislocation or displaced fracture. Subtle radial head irregularity visualized on a single projection. The joint spaces are maintained. Indeterminate for joint effusion. IMPRESSION: 1. Possible nondisplaced radial head fracture. 2. No dislocation or displaced fracture. Dictated by Ajit Walter MD @ 06/08/2022 4:19:10 PM Dictated by: Ajit Walter MD @ 06/08/2022 16:19:15 (Electronically Signed) EKG 06/08/2022 Left bundle-branch block with PVCs, heart rate 64 beats per minute. Ordering Physician: Sheldon Hitchcock M.D. Date of Service: 06/08/22 Procedure(s): CT angio chest PE protocol Accession Number(s): [id number] cc: Sheldon Hitchcock M.D.; Abbey Wayne M.D.~ For Patients: As a result of the Cures Act, medical imaging exams and procedure reports are released immediately into your electronic medical record. You may view this report before your referring provider. If you have questions, please contact your health care provider. INDICATION: Hypertension. Weakness. TECHNIQUE: CT chest PE was acquired with 50 cc Isovue 370 IV contrast. COMPARISON: 07/05/2021. FINDINGS: Heart and vasculature: Contrast opacification of the pulmonary arterial tree is adequate. No sign of pulmonary embolism. Stable mild cardiomegaly. Thoracic aorta is normal in caliber. Enlarged main pulmonary artery measuring 3.4 cm, unchanged. Coronary artery and mitral annular calcifications. Lungs and pleura: Small right pleural effusion. Similar appearance of peripheral reticular abnormalities, likely representing nonspecific pulmonary fibrosis. No pneumothorax. Lymph nodes/mediastinum: No mediastinal, hilar, or axillary adenopathy. Thyroid gland is unremarkable. Chest wall: No masses. Upper abdomen: No acute abnormality. Bones: Multilevel degenerative changes of the spine. IMPRESSION: 1. No evidence of pulmonary embolism. 2. Small right pleural effusion. 3. Enlarged main pulmonary artery, suggestive of underlying pulmonary hypertension. Please note that all CT scans at this facility use dose modulation, iterative reconstruction, and/or weight-based dosing when appropriate to reduce radiation dose to as low as reasonably achievable. Dictated by Jaydon Hurst MD @ 06/08/2022 8:15:39 PM (Electronically Signed) Ordering Physician: Tyson Ruvalcaba M.D. Date of Service: 06/10/22 Procedure(s): XR thoracic spine 2V Accession Number(s): [id number] cc: Tyson Ruvalcaba M.D.; Abbey Wayne M.D.~ For Patients: As a result of the Cures Act, medical imaging exams and procedure reports are released immediately into your electronic medical record. You may view this report before your referring provider. If you have questions, please contact your health care provider. INDICATION: FALL, BACK PAIN TECHNIQUE: 3-view thoracic spine. COMPARISON: none FINDINGS: No fracture. No paraspinal mass. Vascular calcifications in the aorta. Multilevel degenerative changes. IMPRESSION: No fracture. Dictated by Charan oJvel MD @ 06/10/2022 11:09:01 AM (Electronically Signed) Ordering Physician: Tyson Ruvalcaba M.D. Date of Service: 06/10/22 Procedure(s): XR hip BI w PEL1V Accession Number(s): [id number] cc: Tyson Ruvalcaba M.D.; Abbey Wayne M.D.~ For Patients: As a result of the Cures Act, medical imaging exams and procedure reports are released immediately into your electronic medical record. You may view this report before your referring provider. If you have questions, please contact your health care provider. Indication: Fall, pain Technique: AP pelvis and lateral view of each hip, five views total Comparison: 10/15/2021 Findings: Right bipolar hip arthroplasty hardware intact without loosening. Spurring at the left hip joint. Intact pubic rami. Degenerative changes lower lumbar spine. Impression: No sign of acute injury. Dictated by Charan Jovel MD @ 06/10/2022 11:07:53 AM (Electronically Signed) Ordering Physician: Tyson Ruvalcaba M.D. Date of Service: 06/10/22 Procedure(s): XR lumbar spine 2-3V Accession Number(s): [id number] cc: Tyson Ruvalcaba M.D.; Abbey Wayne M.D.~ For Patients: As a result of the Cures Act, medical imaging exams and procedure reports are released immediately into your electronic medical record. You may view this report before your referring provider. If you have questions, please contact your health care provider. INDICATION: FALL, BACK PAIN TECHNIQUE: 3-view lumbar spine. COMPARISON: none FINDINGS: Dense vascular calcifications in the aorta. Severe degenerative disc disease upper lumbar spine. Severe facet degeneration lower lumbar spine. No fracture. IMPRESSION: No acute fracture. Dictated by Charan Jovel MD @ 06/10/2022 11:10:00 AM (Electronically Signed) Ordering Physician: Tyson Ruvalcaba M.D. Date of Service: 06/10/22 Procedure(s): XR sacrum coccyx min 2V Accession Number(s): [id number] cc: Tyson Ruvalcaba M.D.; Abbey Wayne M.D.~ For Patients: As a result of the Cures Act, medical imaging exams and procedure reports are released immediately into your electronic medical record. You may view this report before your referring provider. If you have questions, please contact your health care provider. Indication: FALL, BACK PAIN Technique: Three views sacrum and coccyx Comparison: None Findings: Chronic osteitis pubis, mild. Degenerative joint disease left hip. Right bipolar hemiarthroplasty. Postop changes soft tissues. No SI joint diastasis. Vascular calcifications. Normal sacrococcygeal alignment. Intact pubic rami. Impression: No sign of acute injury. Dictated by Charan Jovel MD @ 06/10/2022 11:12:27 AM (Electronically Signed) Echocardiogram 06/11/2022: Normal LV size, mildly increased wall thickness, moderately reduced function with an EF of 35-40%. Inferior wall, posterior wall, basal lateral segment are abnormal. Right ventricular cavity size is normal, global systolic RV function is mildly reduced. Moderately enlarged left atrium. Mitral valve is sclerotic, moderate to severe functional mitral regurgitation. Discharge Plan Discharge Disposition: [facility] Other Date of Admission: 06/11/22 17:07 Attending Provider on Discharge: Kathia Choi Primary Care Provider: Abbey Wayne Condition: Stable Anticipated Discharge Date/Time: 06/13/22 11:00 Discharge Medications: New Probiotic-10 (with inulin) 10 billion cell -100 mg capsule 1 cap PO DAILY Qty: 30 0RF nicotine 14 mg/24 hr Patch 24 Hour 1 patch topical Q24H Qty: 14 0RF melatonin 3 mg Tablet 3 mg PO HS Qty: 30 0RF ciprofloxacin HCl 250 mg Tablet 250 mg PO BID 7 Days Qty: 14 0RF Premarin 0.625 mg/gram Cream 1 applic vaginal HS Qty: 1 0RF levothyroxine 125 mcg Tablet 125 mcg PO DAILY@0700 Qty: 30 0RF nystatin 100,000 unit/gram Cream 1 applic topical TID Qty: 30 0RF Continued atorvastatin 40 mg tablet 40 mg PO HS aspirin 81 mg tablet,chewable 81 mg PO QDAY torsemide 10 mg tablet 10 mg PO QAM Qty: 30 2RF potassium chloride 10 mEq capsule, extended release 10 meq PO DAILY Qty: 30 0RF Held donepezil 5 mg tablet 5 mg PO HS Hold Instructions: Resume on 06/20/22. Resume when done with ciprofloxacin Discontinued levothyroxine 112 mcg tablet 112 mcg PO QDAY cephalexin 500 mg capsule 500 mg PO BID Qty: 10 0RF Trimo-Barba Jelly 0.025-0.01 % gel 1 ea vaginal 3XW Rx Instructions: 3 x weekly Discharge Orders: Discharge Order (Routine); Ordered 06/13/22 Ordered By: Kathia Choi Activity Restrictions/Additional Instructions: d/c to [facility] Indwelling ramirez catheter to gravity. Recheck TSH in one month. Outpatient referral to cardiology. F/u with urogynecology for pessary fitting and reevaluation of urinary dysfunction, potential discontinuation of urinary catheter. Manual reduction of prolapse as it suits the patient. Application of moisture barrier to irritated groin skin; zinc oxide / Desitin is a fine choice. Activity Level: No Restrictions and Activity as Tolerated Discharge Diet: Regular and 1500 ml Fluid Restriction Follow Up Appointments: Abbey Wayne MD [Primary Care Provider] - Forms: [facility] Info Instructions Hospital Course: 76-year-old female with dementia who has been living at home with her son and developed generalized weakness. She was found to have a urinary tract infection and worsening CHF symptoms for which she was started initially on Keflex, torsemide, and potassium as an outpatient. Noncompliance with medication was also addressed at that ED visit. She came back unable to care for herself after a fall, more short of breath, and with more swollen legs. Extensive workup was done with multiple issues found including ongoing UTI, hyponatremia, elevated TSH, on going heart failure, relative hypotension, poor hygiene, uterine prolapse. She was admitted to the hospital and started on ceftriaxone in addition to Lasix. She was unable to get any of the IV Lasix due to relative hypotension. She was started on oral torsemide and tolerated this well. Urine culture grew out Morganella morganii and Proteus mirabilis, both sensitive to ceftriaxone and ciprofloxacin. Unfortunately she developed a drug rash which necessitated stopping ceftriaxone. She was then started on ciprofloxacin, which she has been tolerating well. Early in this hospital stay uterine prolapse was addressed with a consultation from gynecology. It is thought that this is been contributing to recurrent and persistent UTI and urge incontinence. Pessary fitting was attempted, but failed and she will need outpatient fitting through Urogynecology. In the meantime she has had urinary retention due to outflow obstruction for which a urinary catheter was placed. She will be on a total of 10 days of antibiotics. These are Dr. Stinson is recommendations: advanced prolapse may be contributing to persistent UTI, which may in turn contribute to urge incontinence.? After Mireya's discharge, I recommend that she be evaluated by a urogynecologist.? They may have a pessary fitting kit with some larger space- filling pessaries and, if not, may be able to offer her colpocleisis.? Until that is possible, I recommend: 1.? Discontinuation of oxybutynin.? This may worsen urinary retention and is not currently helping her incontinence substantially.? 2.? Manual reduction of prolapse as it suits the patient; she reports having done this from time to time. 3.? Premarin cream 0.5 g nightly to exposed vaginal skin for two weeks.? Thereafter, consider twice weekly depending on recommendations from urogynecology. 4.? Application of moisture barrier to irritated groin skin; zinc oxide / Desitin is a fine choice.? Mireya had a Dodge score of 8/30. It is determined that she needed detention facility for rehab and perhaps longer. Her son was agreeable for her going for rehab. PT OT was done during this hospital stay. She has continued to improve with regards to heart failure exacerbation and creatinine has remained stable. Hyponatremia has resolved. Blood pressures have remained low enough that we have been unable to start metoprolol or lisinopril for heart failure with reduced ejection fraction. I will refer her to Cardiology as an outpatient. She is discharged today in stable condition.
[2022-06-13 09:25] VITALS: BP 102/57; PULSE 70; RESP 16; TEMP 36.6
--- NOTE | 2022-06-13 10:46 | PC.NURSE ---
Discharge. Pt has been pleasant and very confused,. she thinks its Isis and Kamlesh is still president. she is using her call light.? up to the BR several times.? Preet is patent. .? she had a BM .? PT and OT worked with her,. ? SL was d/c intact. ? no pain.? she is up with 1 assist walker and GB and [place].? she is eating and drinking. ? she is on a 1.5 L FR.? ? she is a fall risk and alarms are on.? nurse to nurse was done. son was here to pick her up and all questions where answered
--- NOTE | 2022-06-13 11:46 | PC.SOCIAL ---
Social work: Late entry: Pt was accepted for admit to [facility]. Pt is going to a quarantine room at their facility as she is not up to date with COVID vaccinations. Son, Anthony is aware and agrees with this plan and is transporting pt t the facility. Anthony spoke with admissions staff at the receiving facility yesterday to have all of his questions answered. Anthony states he is pt's POA. Requested Anthony send a copy of POA forms to hospital to be included in pt's medical chart. Anthony states he will do this. PAS completed and submitted.
== END 2022-06-13 10:30 | disposition other institution (70) ==
LOC: ED 17:11 → MEDSURG 06-09 21:51
PROVIDERS: Hospitalist; Admitting Provider Internal Medicine; Emergency Provider Family Medicine; PCP Family Medicine; Visit Provider Family Medicine
DX: N39.0 Urinary tract infection, site not specified (principal); B96.4 Proteus (mirabilis) (morganii) as the cause of diseases classified elsewhere; I11.0 Hypertensive heart disease with heart failure; E87.1 Hypo-osmolality and hyponatremia; N99.3 Prolapse of vaginal vault after hysterectomy; Z91.19 Patient's noncompliance with other medical treatment and regimen; R06.02 Shortness of breath; R60.0 Localized edema; R21 Rash and other nonspecific skin eruption; R33.9 Retention of urine, unspecified; R32 Unspecified urinary incontinence; I95.9 Hypotension, unspecified; R79.89 Other specified abnormal findings of blood chemistry; R46.0 Very low level of personal hygiene; S89.90XA Unspecified injury of unspecified lower leg, initial encounter; S59.901A Unspecified injury of right elbow, initial encounter; W19.XXXA Unspecified fall, initial encounter; M62.81 Muscle weakness (generalized); I25.10 Atherosclerotic heart disease of native coronary artery without angina pectoris; R53.83 Other fatigue; Z72.0 Tobacco use; J90 Pleural effusion, not elsewhere classified; R94.6 Abnormal results of thyroid function studies; B35.9 Dermatophytosis, unspecified; E03.9 Hypothyroidism, unspecified; E78.5 Hyperlipidemia, unspecified; L89.90 Pressure ulcer of unspecified site, unspecified stage; Z90.710 Acquired absence of both cervix and uterus; Z98.890 Other specified postprocedural states; N95.2 Postmenopausal atrophic vaginitis; M54.9 Dorsalgia, unspecified; N32.81 Overactive bladder; D64.9 Anemia, unspecified; M85.80 Other specified disorders of bone density and structure, unspecified site; L22 Diaper dermatitis; K43.9 Ventral hernia without obstruction or gangrene; F03.90 Unspecified dementia, unspecified severity, without behavioral disturbance, psychotic disturbance, mood disturbance, and anxiety
CPT/HCPCS: 36415; 51702; 51798; 70450; 71260; 72070; 72100; 72125; 72220; 73080; 73521; 80048; 80053; 81003; 81015; 83880; 84439; 84443; 84484; 85018; 85025; 87086; 87186; 87502; 87634; 87635; 93306; 94761; 96365; 96366; 96372; 96375; 97110; 97116; 97162; 97165; 97530; 97535; 99284; 99285; G0378; A9270; G0379; J0696; J1200; J1644; J1940; Q9967; S4990

== ENCOUNTER 2022-06-25 10:41 | Outpatient (CLI) | payer OTHER, SELFPAY ==
[2022-06-25 22:09] LABS: Chloride* 99 mmol/L (96-114); Potassium* 4.4 mmol/L (3.6-5.1); Sodium* 139 mmol/L (135-149)
[2022-06-25 22:12] LABS: Blood Urea Nitrogen* 26 mg/dL (7-30); Carbon Dioxide* 31 mmol/L (20-32); Creatinine* 0.7 mg/dL (0.5-1.5); Estimated Glomerular Filt Rate 88 ml/min; Glucose* 93 mg/dL (60-115)
[2022-06-25 22:13] LABS: Calcium* 9.7 mg/dL (8.4-10.6)
== END 2022-06-25 10:42 | disposition home or self-care (01) ==
LOC: FRMREF 10:42
PROVIDERS: PCP Family Medicine; Visit Provider Family Medicine
DX: E87.1 Hypo-osmolality and hyponatremia (principal)
CPT/HCPCS: 80048

== ENCOUNTER 2022-07-17 09:12 | Outpatient (CLI) | payer OTHER, SELFPAY | END 2022-07-17 09:13 | disposition home or self-care (01) | LOC: FRMREF 07-18 10:52 | PROVIDERS: PCP Family Medicine; Visit Provider Obstetrics & Gynecology | DX: N32.81 Overactive bladder (principal); N39.0 Urinary tract infection, site not specified | CPT/HCPCS: 87086; 87186 ==

== ENCOUNTER 2022-08-24 12:26 | Inpatient (IN) | payer OTHER, SELFPAY ==
[2022-08-24] VITALS (9 sets, daily range): BP systolic 105–119; BP diastolic 51–81; PULSE 72–81; RESP 20–26; TEMP 36.3–36.4; O2SAT 92–97; BMI 25.7; BMI 19.1
--- NOTE | 2022-08-24 12:36 | ED_ITS ---
HPI - General Adult General Time Seen by Provider: 12:54 Date Seen: 08/24/22 Chief complaint: Cough Stated complaint: Flu like symptoms Time Seen by Provider: 08/24/22 12:30 Source: patient and RN notes reviewed Mode of arrival: ambulatory Limitations: no limitations History of Present Illness HPI narrative: Patient is a 76-year-old female that was brought in by her son with whom she lives with for concern of cough, weakness. He had been sick last week with similar symptoms. Patient's Ali complaint to me right now is that she needs to go to the bathroom. I did question her on her eye. She has got some mattering about her left eyelid, crusting on the eyelashes. She states that has been mattering this past week and it does feel little sore. She has a little cough talking to her. She states she has to go to the bathroom a lot. I see she carries a diagnosis of overactive bladder. She also carries a diagnosis of congestive heart failure. Medications were reviewed. Son is not present with her when I see her. In review of her chart, does carry chronic conjunctivitis documentation. Related Data Home Medications Medication Instructions Recorded Confirmed conjugated estrogens 0.625 mg/gram 1 applic vaginal 2XW 08/25/22 08/25/22 vaginal cream (Premarin) white petrolatum (Petroleum Jelly 1 applic topical DAILY PRN 08/25/22 08/25/22 topical) Previous Rx's Medication Instructions Recorded melatonin 3 mg tablet 3 mg PO HS #30 tabs 06/13/22 atorvastatin 40 mg tablet 40 mg PO HS #90 tabs 07/15/22 blood pressure test kit-small #1 ea 07/15/22 donepezil 5 mg tablet 5 mg PO HS #90 tabs 07/15/22 levothyroxine 125 mcg tablet 125 mcg PO DAILY@0700 #90 tabs 07/15/22 torsemide 10 mg tablet 10 mg PO QAM #90 tabs 07/15/22 Allergies Allergy/AdvReac Type Severity Reaction Status Date / Time ceftriaxone Allergy Intermediate Rash Verified 08/08/22 08:03 Nitrate Analogues Allergy Mild Nausea Verified 08/08/22 08:03 nitrofurantoin Allergy Mild Nausea Verified 08/08/22 08:03 rosuvastatin Allergy Unknown Nausea Verified 08/08/22 08:03 Review of Systems Status of ROS: Reports: 10 or more systems reviewed and unremarkable except as noted in History and below (Note, patient may not be the most reliable historian) [facility] Medical History (Updated 08/25/22 @ 16:09 by Wm Christiansen MD) CHF (congestive heart failure) Chronic obstructive pulmonary disease Complete prolapse of vaginal vault Coronary artery disease (06/27/10) Fracture of right hip Hyperlipidemia (06/27/10) Hypertension (05/27/07) Open blow-out fracture of right orbital floor Pressure ulcer Recurrent UTI Tobacco dependence due to cigarettes, in remission Tobacco use (05/27/07) Urinary frequency Vaginal vault prolapse after hysterectomy Vaginal vault prolapse after hysterectomy Surgical History History of cataract removal with insertion of prosthetic lens History of coronary artery stent placement Status post hysterectomy (05/27/07) Family History Father AAA (abdominal aortic aneurysm) Mother Stroke Son Osteoporosis Unknown Autism Social History Highest level of school completed/degree received: 12th grade, no diploma Smoking Status: Former smoker What tobacco products do you use: cigarettes Smoking packs per day: 0.5 Smoking cigarettes per day: 10.0 Smoking quit date/years: <= 15 years ago Do you use any of these nicotine containing products: None Second hand tobacco smoke exposure: No How often do you have a drink containing alcohol: monthly or less Alcohol type: beer Alcohol type details: usually just on holidays How often do you have six or more drinks on one occasion: Never AUDIT-C Alcohol total score: 1 Non-prescribed substance use: denies use Caffeine: Yes (occasionally coffee) service: No Exam Const: Vital Signs, click to edit/add: Vital Signs - 24 hr 08/24/22 12:29 08/24/22 13:26 08/24/22 13:31 Temperature 97.4 F L Pulse Rate 72 Pulse Rate [Left P ulse Oximeter] 74 Respiratory Rate 20 Blood Pressure 119/81 Blood Pressure [Ri ght Upper Arm] 114/72 Pulse Oximetry 95 94 Oxygen Delivery Me thod Room Air 08/24/22 13:33 Temperature Pulse Rate 76 Pulse Rate [Left P ulse Oximeter] Respiratory Rate Blood Pressure Blood Pressure [Ri ght Upper Arm] Pulse Oximetry 92 Oxygen Delivery Me thod Documenting provider has reviewed patient's vital signs: yes Common normals: no apparent distress, no limitations and alert General appearance: cooperative, comfortable and frail appearing Nutritional appearance: thin Other: Somewhat disheveled, has dried stool on the lower front portion of her shirt. HENMT: Common normals: normocephalic, head/scalp atraumatic and hearing grossly normal bilaterally Head and scalp: normocephalic and atraumatic Eye: Common normals: PERRL, EOMs intact bilaterally, conjunctivae normal and no scleral icterus Conjunctiva: conjunctiva(e) normal Pupil: PERRL Other: Has some mattering of the eyelashes, left much worse than right. There is no periorbital swelling or erythema. No active drainage noted. Neck & C-Spine: Common normals: full ROM, no lymphadenopathy, supple and no meningeal signs Chest: Common normals: inspection of chest normal Resp: Common normals: no retractions and no use of accessory muscles Other: Poor respiratory effort, kyphotic, lungs with some rhonchi but no wheezing, somewhat distant breath sounds. Cardio: Common normals: regular rate, regular rhythm, S1 normal heart sound, S2 normal heart sound, no gallops, no clicks and no murmurs Rate: regular rate Rhythm: regular rhythm Heart sounds: S1 normal and S2 normal GI: Common normals: Normal to inspection, nondistended, normoactive bowel sounds present, soft to palpation, non-tender, no hepatosplenomegaly and no masses Palpation: soft and no hepatosplenomegaly Extremity: Common normals: no calf tenderness and no pedal edema Neuro: Sensorium/orientation: alert Meningeal signs: no meningeal signs Course Course Hospital Course: Nursing staff appropriately collected the triple swab on arrival. IA am going to add in a chest x-ray and some basic labs for her. Certainly sounds like she might have an upper respiratory infection. With presentation and history, likely viral but will consider bacterial etiologies. Given she has a history of congestive heart failure, need to consider this as well. Reevaluation(s) Reevaluation #1: Have just reviewed with patient they are going to proceed with chest CT, will do PE protocol. She is feeling more short of breath. Again her son is not here. Did see him prior but was busy with other duties in the ED. When I went back in to talk to her, he is not here again. She is wondering when she is going to get a more comfortable room. Reviewed with her that that may happen if she is admitted but we do not know at this time. Her proBNP is quite elevated, in comparison to her records in June of 2021 was 3250. Looking in her records she had an echo in 2017 at an outside institution with some mild global decrease with an EF of 45-50 %, severe hypokinesis of the mid to basal inferior, inferolateral and anterolateral stevenson. I can see that someone has cleaned up her eyes, she has chronic conjunctivitis. We need to try to figure out if this is more congestive heart failure, if there is any underlying infectious etiology that were to require antibiotics. Time: 15:20 Reevaluation #2: Have reviewed with the patient that her chest CT showing congestive heart failure. I have ordered 60 mg IV Lasix. We did not obtain an EKG on arrival but will do so. She is wanting a different room, have reviewed with her that will still be a short while before we get her down to the hospital floor. Time: 17:27 Consultations Consultation #1: Have spoken with our hospitalist, he will be down here about a 1/2 hour to discuss the patient. Plan is to admit for CHF. Time: 17:24 Vital Signs Vital signs: Initial Vital Signs Temperature 97.4 F L 08/24/22 12:29 Temperature Source Temporal Artery Scan 08/24/22 12:29 Pulse Rate 74 08/24/22 12:29 Pulse Rhythm 08/24/22 12:29 Pulse Strength 3+ Normal 08/24/22 12:29 Respiratory Rate 20 08/24/22 12:29 Blood Pressure 114/72 08/24/22 12:29 Blood Pressure Mean 86 08/24/22 12:29 Blood Pressure Position Sitting 08/24/22 12:29 Pulse Oximetry 95 08/24/22 12:29 Oxygen Delivery Method 08/24/22 12:29 Vital Signs Temperature 97.4 F L 08/24/22 12:29 Pulse Rate 74 08/24/22 12:29 Respiratory Rate 20 08/24/22 12:29 Blood Pressure 114/72 08/24/22 12:29 Pulse Oximetry 95 08/24/22 12:29 Oxygen Delivery Method 08/24/22 12:29 Temperature 98.1 F 08/25/22 23:00 Pulse Rate 66 08/25/22 23:00 Respiratory Rate 20 08/25/22 23:00 Blood Pressure 106/68 08/25/22 23:00 Pulse Oximetry 95 08/25/22 23:00 Oxygen Delivery Method 08/25/22 23:00 Oxygen Flow Rate 1 08/25/22 23:00 Medical Decision Making Lab Data Lab results reviewed: Yes I reviewed the patient's lab results Labs: Lab Results 08/24/22 08/24/22 08/24/22 Range/Units 12:34 13:30 13:30 WBC 9.66 (4.50-11.00) K/uL RBC 4.16 (4.00-5.20) m/uL Hgb 10.8 L (12.0-16.0) gm/dL Hct 35.7 (33.0-51.0) % MCV 86 (80-100) fL MCH 26 (26-34) pg MCHC 30 L (32-36) gm/dL RDW Coeff of Michaela 18.4 H (11.5-15.5) % Plt Count 388 (140-440) K/uL Neut % (Auto) 81.3 H (42.0-72.0) % Lymph % (Auto) 6.2 L (20-44) % [place] % (Auto) 10.4 (0.0-11.0) % Eos % (Auto) 0.6 (0.0-7.0) % Baso % (Auto) 0.2 (0.0-3.0) % Neut # (Auto) 7.90 H (1.7-7.0) K/uL Lymph # (Auto) 0.60 L (0.90-2.90) K/uL [place] # (Auto) 1.00 H (0.00-0.90) K/UL Eos # (Auto) 0.06 (0.00-0.50) K/uL Baso # (Auto) 0.02 (0.00-0.30) K/uL Abs Immat Gran (auto) 0.13 (0.00-0.30) K/uL Imm/Tot Granulo (auto) 1.3 % Sodium 144 (135-149) mmol/L Potassium 4.0 (3.6-5.1) mmol/L Chloride 104 (96-114) mmol/L Carbon Dioxide 34 H (20-32) mmol/L BUN 22 (7-30) mg/dL Creatinine 0.7 (0.5-1.5) mg/dL Estimated Creat Clear 40.04 Estimated GFR 88 ml/min Glucose 104 (60-115) mg/dL Lactate (0.5-1.9) mmol/L Calcium 8.4 (8.4-10.6) mg/dL Total Bilirubin 1.1 (0.1-1.5) mg/dL AST 32 (12-35) U/L ALT 26 (4-35) U/L Alkaline Phosphatase 173 H (40-150) U/L C-Reactive Protein 5.3 H (0.5-1.0) mg/dL NT-Pro-B Natriuret Pep 55568 H (0-450) PG/mL Total Protein 6.7 (6.0-8.3) g/dL Albumin 3.3 (3.3-5.0) g/dL TSH (0.270-4.20) uIU/mL SARS-CoV-2 (PCR) Negative SARS-CoV-2 (Negative) Influenza Type A (PCR) Negative PCR FLU A (Negative) Influenza Type B (PCR) Negative PCR FLU B (Negative) RSV (PCR) Negative PCR RSV (Negative) POC Troponin I (0.01-0.04) ng/ml 08/24/22 08/24/22 08/24/22 Range/Units 13:30 13:30 13:30 WBC (4.50-11.00) K/uL RBC (4.00-5.20) m/uL Hgb (12.0-16.0) gm/dL Hct (33.0-51.0) % MCV (80-100) fL MCH (26-34) pg MCHC (32-36) gm/dL RDW Coeff of Michaela (11.5-15.5) % Plt Count (140-440) K/uL Neut % (Auto) (42.0-72.0) % Lymph % (Auto) (20-44) % [place] % (Auto) (0.0-11.0) % Eos % (Auto) (0.0-7.0) % Baso % (Auto) (0.0-3.0) % Neut # (Auto) (1.7-7.0) K/uL Lymph # (Auto) (0.90-2.90) K/uL [place] # (Auto) (0.00-0.90) K/UL Eos # (Auto) (0.00-0.50) K/uL Baso # (Auto) (0.00-0.30) K/uL Abs Immat Gran (auto) (0.00-0.30) K/uL Imm/Tot Granulo (auto) % Sodium (135-149) mmol/L Potassium (3.6-5.1) mmol/L Chloride (96-114) mmol/L Carbon Dioxide (20-32) mmol/L BUN (7-30) mg/dL Creatinine (0.5-1.5) mg/dL Estimated Creat Clear Estimated GFR ml/min Glucose (60-115) mg/dL Lactate 1.6 (0.5-1.9) mmol/L Calcium (8.4-10.6) mg/dL Total Bilirubin (0.1-1.5) mg/dL AST (12-35) U/L ALT (4-35) U/L Alkaline Phosphatase (40-150) U/L C-Reactive Protein (0.5-1.0) mg/dL NT-Pro-B Natriuret Pep (0-450) PG/mL Total Protein (6.0-8.3) g/dL Albumin (3.3-5.0) g/dL TSH 3.590 (0.270-4.20) uIU/mL SARS-CoV-2 (PCR) (Negative) Influenza Type A (PCR) (Negative) Influenza Type B (PCR) (Negative) RSV (PCR) (Negative) POC Troponin I 0.01 (0.01-0.04) ng/ml Imaging Data Chest x-ray: Attestation: I have reviewed the pertinent imaging results. Radiologist's impression: Patient: CESAR IYER Facility:?[facility] Patient ID:?[id number] Site Patient ID:?[id number]. Site :?[id number] Study:?XRay Chest -08/24/2022 2:14:55 PM Ordering Physician:Matthew Ortega Final Report: HISTORY: Flu-like symptoms. TECHNIQUE: One view chest. COMPARISON: 10/15/2021. FINDINGS: There are bilateral interstitial opacities which may be seen with viral infectious process. Interstitial edema could appear similarly. There is no lung consolidation. No pneumothorax or pleural effusion. Cardiac size is prominent but exaggerated by technique. There are degenerative changes of the spine. Remote healed left clavicular fracture. There are a few remote healed left-sided rib fractures. IMPRESSION: 1. Development of bilateral interstitial opacities which may relate to a viral infectious process. Interstitial edema could appear similarly. 2. Cardiomegaly. Dictated by Mata Clements MD @ 08/24/2022 3:00:17 PM Dictated by: Mata Clements MD @ 08/24/2022 15:00:22 (Electronic Signature) CT scan - chest: Attestation: I have reviewed the pertinent imaging results. My impression: Can see significant pleural effusion on the right side and my review of this chest CT, wait radiology over-read. Radiologist's impression: Patient: CESRA IYER Facility:?[facility] Patient ID:?[id number] Site Patient ID:?[id number]. Site :?[id number] Study:?CT Chest Angio W/95CC [id number] PE PROTOCOL-08/24/2022 4:11:44 PM Ordering Physician:?Monica Ortega Final Report: INDICATION: Cough and weakness. Acute urinary tract infection. Shortness of breath. TECHNIQUE: CT chest PE was acquired with 95 cc Isovue 370 IV contrast. COMPARISON: None. FINDINGS: Heart and vasculature: Contrast opacification of the pulmonary arterial tree is adequate. No sign of pulmonary embolism. Cardiomegaly present. Great vessels normal in caliber. Lungs and pleura: No suspicious nodules or infiltrates. Generalized interlobular septal thickening. Moderate lung hyperinflation and bronchiectasis. Moderate size right pleural effusion. No pneumothorax. Lymph nodes/mediastinum: No mediastinal, hilar, or axillary adenopathy. Chest wall: No masses. Upper abdomen: No acute or significant findings. Bones: Unremarkable for age. IMPRESSION: 1. No pulmonary embolism or pneumonia. 2. Suspected CHF with moderate interstitial edema and a moderate size right pleural effusion. 3. No other acute abnormality. Please note that all CT scans at this facility use dose modulation, iterative reconstruction, and/or weight-based dosing when appropriate to reduce radiation dose to as low as reasonably achievable. Dictated by Luis Hernández MD @ 08/24/2022 5:19:16 PM (Electronic Signature) ECG Data Attestation: I personally reviewed and interpreted this ECG as follows: (Left bundle branch block, 69 beats per minute.) Prior ECG tracings: available for review Critical Care Time Critical Care Time Critical Care Time: No Discharge Plan Discharge Clinical Impression: Congestive heart failure Patient Disposition: Admitted As Inpatient
--- NOTE | 2022-08-24 13:06 | CRLHL7_ITS ---
For Patients: As a result of the Cures Act, medical imaging exams and procedure reports are released immediately into your electronic medical record. You may view this report before your referring provider. If you have questions, please contact your health care provider. HISTORY: Flu-like symptoms. TECHNIQUE: One view chest. COMPARISON: 10/15/2021. FINDINGS: There are bilateral interstitial opacities which may be seen with viral infectious process. Interstitial edema could appear similarly. There is no lung consolidation. No pneumothorax or pleural effusion. Cardiac size is prominent but exaggerated by technique. There are degenerative changes of the spine. Remote healed left clavicular fracture. There are a few remote healed left-sided rib fractures. IMPRESSION: 1. Development of bilateral interstitial opacities which may relate to a viral infectious process. Interstitial edema could appear similarly. 2. Cardiomegaly. Dictated by Mata Clements MD @ 08/24/2022 3:00:17 PM Dictated by: Mata Clements MD @ 08/24/2022 15:00:22 (Electronically Signed)
[2022-08-24 13:29] LABS: PCR FLU A Negative PCR FLU A (Negative); PCR FLU B Negative PCR FLU B (Negative); PCR RSV Negative PCR RSV (Negative)
[2022-08-24 13:31] LABS: SARS PCR* Negative SARS-CoV-2 (Negative)
[2022-08-24 13:38] LABS: Lactate* 1.6 mmol/L (0.5-1.9)
[2022-08-24 13:48] LABS: Basophils Absolute Auto 0.02 K/uL (0.00-0.30); Basophils Percent Auto 0.2 % (0.0-3.0); Eosinophils Absolute Auto 0.06 K/uL (0.00-0.50); Eosinophils Percent Auto 0.6 % (0.0-7.0); Hematocrit 35.7 % (33.0-51.0); Hemoglobin* 10.8 gm/dL (12.0-16.0); Immature Granulocytes Abs Auto 0.13 K/uL (0.00-0.30); Immature Granulocytes Pct Auto 1.3 %; Lymphocytes Percent Auto 6.2 % (20-44); Mean Corpuscular HGB Conc 30 gm/dL (32-36); Mean Corpuscular Hemoglobin 26 pg (26-34); Mean Corpuscular Volume 86 fL (80-100); Monocytes Percent Auto 10.4 % (0.0-11.0); Neutrophils Percent Auto 81.3 % (42.0-72.0); Platelet Count* 388 K/uL (140-440); RDW Coefficient of Variation % 18.4 % (11.5-15.5); Red Blood Count 4.16 m/uL (4.00-5.20); White Blood Count* 9.66 K/uL (4.50-11.00)
[2022-08-24 13:50] LABS: Troponin, Point-of-Care* 0.01 ng/ml (0.01-0.04)
[2022-08-24 13:55] LABS: Slide Review Reflex No
[2022-08-24 13:58] LABS: Albumin* 3.3 g/dL (3.3-5.0); Chloride* 104 mmol/L (96-114); Sodium* 144 mmol/L (135-149)
[2022-08-24 14:01] LABS: Alkaline Phosphatase* 173 U/L (40-150); Aspartate Amino Transferase* 32 U/L (12-35); Bilirubin Total* 1.1 mg/dL (0.1-1.5); Carbon Dioxide* 34 mmol/L (20-32); Creatinine* 0.7 mg/dL (0.5-1.5); Est. Creatinine Clearance* 40.04; Estimated Glomerular Filt Rate 88 ml/min; Total Protein* 6.7 g/dL (6.0-8.3)
[2022-08-24 14:02] LABS: Alanine Aminotransferase* 26 U/L (4-35); Blood Urea Nitrogen* 22 mg/dL (7-30); Calcium* 8.4 mg/dL (8.4-10.6); Glucose* 104 mg/dL (60-115)
[2022-08-24 14:04] LABS: C Reactive Protein* 5.3 mg/dL (0.5-1.0)
[2022-08-24 14:10] LABS: NT Pro B Type NatriureticPept* 27600 PG/mL (0-450)
--- NOTE | 2022-08-24 15:16 | CRLHL7_ITS ---
For Patients: As a result of the Century Cures Act, medical imaging exams and procedure reports are released immediately into your electronic medical record. You may view this report before your referring provider. If you have questions, please contact your health care provider. INDICATION: Cough and weakness. Acute urinary tract infection. Shortness of breath. TECHNIQUE: CT chest PE was acquired with 95 cc Isovue 370 IV contrast. COMPARISON: None. FINDINGS: Heart and vasculature: Contrast opacification of the pulmonary arterial tree is adequate. No sign of pulmonary embolism. Cardiomegaly present. Great vessels normal in caliber. Lungs and pleura: No suspicious nodules or infiltrates. Generalized interlobular septal thickening. Moderate lung hyperinflation and bronchiectasis. Moderate size right pleural effusion. No pneumothorax. Lymph nodes/mediastinum: No mediastinal, hilar, or axillary adenopathy. Chest wall: No masses. Upper abdomen: No acute or significant findings. Bones: Unremarkable for age. IMPRESSION: 1. No pulmonary embolism or pneumonia. 2. Suspected CHF with moderate interstitial edema and a moderate size right pleural effusion. 3. No other acute abnormality. Please note that all CT scans at this facility use dose modulation, iterative reconstruction, and/or weight-based dosing when appropriate to reduce radiation dose to as low as reasonably achievable. Dictated by Luis Hernández MD @ 08/24/2022 5:19:16 PM (Electronically Signed)
[2022-08-24] MEDS: FUROSEMIDE 10 MG/ML inj 60 MG IVP (17:54)
--- NOTE | 2022-08-24 19:50 | P.IMHP_ITS ---
Hospitalist- H&P: HPI History of Present Illness Time Seen by Provider: 18:30 Date Seen: 08/24/22 Chief complaint: Flu like symptoms Narrative: Mireya Rdz is a 76 year old woman who presents to our emergency department today via nonemergent ambulance at the behest of her son, Anthony, due to the patient's increasing weakness. The patient lives with her son, Anthony, who has had URI symptoms for some time, and then the patient subsequently developed these URI symptoms as well. Patient has not had fevers, rigors, diaphoresis. Patient has had cough, runny nose, chest congestion. Over the last few days patient has become increasingly weak. She has been laying in bed most of the day. Today patient needed lot of help with ambulation in order to get to the bathroom whereas ordinarily she is able to ambulate independently. The patient's son became concerned enough so that he wanted to bring her to the hospital for assessment. He was unable to help her get to the car on his own in order to bring her to the hospital emergency department. He thus called the nonemergent ambulance staff who eventually came and brought her to the emergency department. Patient notes that she has been so weak that she has had some falls recently in the home. She has had no injuries however. Denies any head injuries or loss of consciousness. She tells me her cold symptoms have been lingering for at least 1-2 weeks. Denies dyspnea at rest. Acknowledges increasing dyspnea with exertion. Has had a cough that has bothered her during the day and night. At times cough is productive of loose sputum. She has swallowed her sputum. She has not noticed any hemoptysis or purulent sputum. Denies lightheadedness, orthostasis, syncope, or near-syncope. Denies chest heaviness, pressure, tightness, or pain. Acknowledges at times as increasing dependent edema. Notices that over the last 2-3 days the edema of her lower extremities has become less. Indeed she has been laying in bed for most of the time of the last 2-3 days as well. Denies fevers, rigors, diaphoresis. Acknowledges chronic urinary frequency including nocturia x2 to 3. Denies dysuria or hematuria. Does have occasional urinary incontinence. Denies bowel incontinence. Denies diarrhea. Denies myalgias, arthralgias. Denies night sweats. Uncertain about her weight. Patient does not know a lot of the details of her medications. She states her son helps her with this. Indeed her son, Anthony, whom I speak with via the telephone, acknowledges that her cognition is gradually declining and he has noted a more rapid decline over the last 2 weeks or so. Anthony needs to remind her about taking her medications. Anthony works during the day and comes home at night. She is at home alone much of the day. Review of Systems Status of ROS: Reports: 10 or more systems reviewed and unremarkable except as noted in History and below Narrative: As noted above. Historically patient has been treated for heart failure with a diuretic, and angiotensin receptor ro, losartan, and the beta-ro, metoprolol. It is unclear to me exactly what the dose of her losartan had been previously. This past May was stopped due to systolic blood pressures being in 100 to 120s. It is not clear to me when the metoprolol was stopped. Thus for a few months she has only been on diuretic torsemide. She has been on relatively low dose of 10 mg once daily. I spoke with patient as well as her son, Anthony. Both indicate that Anthony is the power of [employer] for [employer]. Anthony's cell phone number is [phone]. Anthony has become increasingly the decision maker in regard to her health needs as her cognitive condition has declined. Anthony indicates that he has had conversations with his mother and his brother, Jaydon, in regard to the patient's resuscitation status. They have agreed for some time that the patient is to have a DNR DNI resuscitation status. [facility] Medical History (Updated 08/24/22 @ 20:29 by Wm Christiansen MD) CHF (congestive heart failure) Chronic obstructive pulmonary disease Complete prolapse of vaginal vault Coronary artery disease (06/27/10) Fracture of right hip Hyperlipidemia (06/27/10) Hypertension (05/27/07) Open blow-out fracture of right orbital floor Pressure ulcer Recurrent UTI Tobacco dependence due to cigarettes, in remission Tobacco use (05/27/07) Urinary frequency Vaginal vault prolapse after hysterectomy Vaginal vault prolapse after hysterectomy Surgical History History of cataract removal with insertion of prosthetic lens History of coronary artery stent placement Status post hysterectomy (05/27/07) Family History Father AAA (abdominal aortic aneurysm) Mother Stroke Son Osteoporosis Unknown Autism Social History Highest level of school completed/degree received: 12th grade, no diploma Smoking Status: Former smoker What tobacco products do you use: cigarettes Smoking packs per day: 0.5 Smoking cigarettes per day: 10.0 Smoking quit date/years: <= 15 years ago Do you use any of these nicotine containing products: None Second hand tobacco smoke exposure: No How often do you have a drink containing alcohol: monthly or less Alcohol type: beer Alcohol type details: usually just on holidays How often do you have six or more drinks on one occasion: Never AUDIT-C Alcohol total score: 1 Non-prescribed substance use: denies use Caffeine: Yes (occasionally coffee) service: No Meds Home Medications and Allergies Home Medications Medication Instructions Recorded Confirmed Type aspirin 81 mg chewable tablet 81 mg PO QDAY 06/03/22 08/08/22 History nystatin 100,000 unit/gram topical 1 applic topical TID PRN 07/04/22 08/08/22 History cream Allergies Allergy/AdvReac Type Severity Reaction Status Date / Time ceftriaxone Allergy Intermediate Rash Verified 08/08/22 08:03 Nitrate Analogues Allergy Mild Nausea Verified 08/08/22 08:03 nitrofurantoin Allergy Mild Nausea Verified 08/08/22 08:03 rosuvastatin Allergy Unknown Nausea Verified 08/08/22 08:03 Exam Narrative: Exam Narrative: Patient appears comfortable and in no acute distress. Appears thin with prominent bony exposures such as on her face and clavicles. Very thin upper extremities. Alert and oriented to self and place not so much to time or situation. Pleasant in conversation, friendly, obviously forgetful and defers uncertain answers and recommends that I speak with her son, Anthony. With stand by assist of 1, she is able to transfer from supine to sitting, and sitting to standing. Also with standby assist of 1, she is able to take a few steps and then sit again. Then again with assist of 1 she is able to transfer back to the supine position. When standing she has a forward stooped posture. Her preference is to hold on to someone or something if she is standing. Does have an unstable transfer, station, and gait. No focal weakness. Vision and hearing are grossly normal. Midline nasal septum. Dentition in fair repair. Neck is supple. Midline trachea. Normal thyroid. Sitting with head of bed elevated at 60?, she has jugular venous distention as well as hepatojugular reflux. Does not have a carotid bruits. No lymphadenopathy in the pre or postauricular chains, anterior-posterior cervical chains, submandibular or submental fossa, supra or infraclavicular fossa, or axilla bilaterally. Decreased breath sounds in both bases. Lungs are clear. Scattered rhonchi. No wheezing or rales at this time. Not using accessory muscles of respiration. Barrel-shaped chest. Kyphotic posture. Heart tones with regular rhythm, normal S1-S2, soft systolic murmur. No gallop or rub. PMI is not laterally displaced. Abdomen with active bowel sounds, soft, nontender. Trace edema pretibially and pre pedally bilaterally. No edema above the knees. Does have mild pitting edema pre sacrally as well. Skin is dry and intact. Const: Vital Signs, click to edit/add: Vital Signs - 24 hr 08/24/22 12:29 08/24/22 13:26 08/24/22 13:31 Temperature 97.4 F L Pulse Rate 72 Pulse Rate [Left A pical] Pulse Rate [Left P ulse Oximeter] 74 Respiratory Rate 20 Blood Pressure 119/81 Blood Pressure [Ri ght Arm] Blood Pressure [Ri ght Upper Arm] 114/72 Pulse Oximetry 95 94 Oxygen Delivery Me thod Room Air 08/24/22 13:33 08/24/22 19:09 08/24/22 19:25 Temperature 97.6 F 97.6 F Pulse Rate 76 Pulse Rate [Left A pical] 79 79 Pulse Rate [Left P ulse Oximeter] Respiratory Rate 26 H 26 H Blood Pressure Blood Pressure [Ri ght Arm] 118/81 118/81 Blood Pressure [Ri ght Upper Arm] Pulse Oximetry 92 97 97 Oxygen Delivery Me thod Room Air Room Air Hospitalist - H&P: Result Labs Labs: Short CBC 08/24/22 Range/Units 13:30 WBC 9.66 (4.50-11.00) K/uL Hgb 10.8 L (12.0-16.0) gm/dL Hct 35.7 (33.0-51.0) % Plt Count 388 (140-440) K/uL BMP 08/24/22 13:30 Sodium 144 Potassium 4.0 Chloride 104 Carbon Dioxide 34 H BUN 22 Creatinine 0.7 Glucose 104 Calcium 8.4 Liver Function 08/24/22 Range/Units 13:30 Total Bilirubin 1.1 (0.1-1.5) mg/dL AST 32 (12-35) U/L ALT 26 (4-35) U/L Alkaline Phosphatase 173 H (40-150) U/L Albumin 3.3 (3.3-5.0) g/dL ECG Attestation: I personally reviewed and interpreted this ECG as follows: ECG interpretation date: 08/24/22 ECG interpretation time: 18:30 Prior ECG tracings: available for review Interpretation: Left bundle branch block unchanged from previously. No evidence of infarction or ischemia. No other dysrhythmia. Imaging Chest x-ray: Attestation: I have reviewed the pertinent imaging results. Radiologist's impression: 1. Development of bilateral interstitial opacities which may relate to a viral infectious process. Interstitial edema could appear similarly. 2. Cardiomegaly. CT scan - chest: Attestation: I have reviewed the pertinent imaging results. Radiologist's impression: 1. No pulmonary embolism or pneumonia. 2. Suspected CHF with moderate interstitial edema and a moderate size right pleural effusion. 3. No other acute abnormality. Assessment and Plan Assessment and plan (1) Weakness: Status: Acute (2) Upper respiratory tract infection: Problem comment: Negative COVID, influenza a, influenza B, and RSV on 08/24/2022 Status: Acute (3) Cognitive dysfunction: Problem comment: Ongoing cognitive decline despite treatment efforts with donepezil. Status: Acute (4) Decreased oral intake: Status: Acute (5) Hypotension: Problem comment: Multifactorial: Due to acute illness, diuretics, systolic heart failure. Status: Acute (6) Heart failure with reduced ejection fraction and diastolic dysfunction: Problem comment: Echo completed 06/09/22: Echo: EF 35-40% Inferior, posterior and basal lateral hypokinesis Status: Acute (7) Pleural effusion on right: Problem comment: New on 08/24/2022 Status: Acute (8) Anemia of chronic disease: Status: Acute (9) Hypothyroidism (acquired): Status: Acute (10) Elevated TSH: Status: Acute (11) Chronic obstructive pulmonary disease: Status: Acute (12) Tobacco dependence due to cigarettes, in remission: Problem comment: Smoke 2 pack per days most of her life. Quit May 2022 when she was in a [facility] for short period of time, and forgot that she was a smoker subse quently and has not smoke since. Status: Acute (13) Urinary frequency: Status: Acute (14) Overactive bladder: Problem comment: Suspect secondary to urinary retention, overflow from partial obstruction of flow due to uterine prolapse. Temporary ramirez. F/u with urogyne. Status: Acute (15) Vaginal vault prolapse after hysterectomy: Status: Acute (16) Recurrent UTI: Status: Acute Plan 1. Reviewed impression with patient and her son Anthony. 2. Answered their questions. 3. Admit for observation. 4. Focus on the treatment of the acute exacerbation of her heart failure. Brain natriuretic peptide level roughly 28,000 at this time, in May was 4800. Now has new right pleural effusion. Treatment regimen is suboptimal at this time. Warrants careful adjustment of her medications to get this under better control. Was given a dose of furosemide 80 mg IV in the emergency department. Will attempt to switch to torsemide tomorrow morning, but increase the dose from 10 mg daily to 20 mg daily. Will attempt to reinstitute losartan at a low dose of 12.5 mg once daily. Will attempt to reinstitute metoprolol succinate at a low dose of 12.5 mg once daily. Will warrant monitoring of her response to these efforts. Already weak in the 1st place. Will monitor weights daily. Will monitor orthostatic blood pressures and pulses. Will monitor her electrolytes and renal function status. At this juncture does not appear to require oxygen supplementation. No need to repeat echocardiogram at this time. Will monitor on telemetry for 24 hours. 5. Symptomatic care for her URI symptoms for now. Monitor her O2 needs. 6. Physical therapy and occupational therapy consultation. [employer] to assist with discharge disposition planning. Anticipate at minimum she will warrant home physical therapy and occupational therapy and possibly nursing support as well. Certainly need to consider the possibility of [facility] placement if her condition warrants this level support. 7. Will check a urine sample for urinalysis and urine culture. If this does suggest bladder infection then will obviously need to consider appropriate treatment for the same. 8. Patient and son, Anthony, are agreeable with the same.
[2022-08-24] MEDS: ATORVASTATIN CALCIUM 40 MG TABLET PO (20:34)
[2022-08-24] MEDS: DONEPEZIL 5 MG TABLET PO (20:34)
[2022-08-24] MEDS: MELATONIN 3 MG TABLET PO (20:34)
[2022-08-24 20:54] LABS: Appearance Urine Slightly Cloudy (Clear); Bilirubin Urine Negative (Negative); Blood Urine 1+ (Negative); Color Urine Yellow (Yellow); Glucose Urine Negative (Negative); Ketones Urine Negative (Negative); Leukocyte Esterase Urine 3+ (Negative); Nitrite Urine Positive (Negative); Protein Urine Negative (Negative); Specific Gravity Urine 1.015 (1.000-1.030); Urobilinogen Urine 0.2 (0.2-1.0); pH Urine 6.5 (5.0-8.5)
[2022-08-24 21:08] LABS: Bacteria Urine Moderate; WBC Urine >100 (0-5)
--- NOTE | 2022-08-24 22:15 | PC.NURSE ---
Pt arrived to M/S floor at 1900. She is alert and oriented to self and place. Very forgetful and asks repeat questions despite thorough discussion on POC and hospital orientation. Pt is easily redirected and pleasant. VSS, LS with some scattered expiratory rhonci. Pt denies SOB or pain. Moves well with SBA. She does have some urinary frequency and received lasix in the ED so she has been up to the BR multiple times. UA pending. Reddened, blanchable bottom encompassing most of both buttocks. No open areas. Skin was cleansed and Aloe vesta cream applied. Pt has been continent but experiences urgency. Urine appears slightly cloudy.
[2022-08-25] VITALS (13 sets, daily range): BP systolic 87–112; BP diastolic 41–88; PULSE 61–132; RESP 20–30; TEMP 36.4–37.1; O2SAT 86–96
--- NOTE | 2022-08-25 05:16 | CRLHL7_ITS ---
For Patients: As a result of the Century Cures Act, medical imaging exams and procedure reports are released immediately into your electronic medical record. You may view this report before your referring provider. If you have questions, please contact your health care provider. Indication: Shortness of breath Technique: Chest 1 view Comparison: August 24, 2022 and October 15, 2021 Findings/Impression: Stable cardiomegaly. Persistent pulmonary venous congestion. Small right pleural effusion. No pneumothorax. Dictated by Teresa Walter MD @ 08/25/2022 6:32:53 AM (Electronically Signed)
--- NOTE | 2022-08-25 06:42 | PC.NURSE ---
Status end of shift [id number] Alert and mildly confused, dementia at baseline. Impulsive at times. Denies pain. 2330- UA positive, E-hospitalist contacted, no abx ordered d/t pt asymptomatic. 0450-BP soft. Tachypneic. Sepsis risk. Telemetry monitoring, HR up to 130's. EKG completed. Edgar e-hospitalist contacted-STAT CXR ordered and completed, no new communication from e-hospitalist. Pt HR back down to 70's around 0525. Denies shortness of breath but visible dyspnea with activity. Applied 2L NC overnight to maintain sats >90%. Intermittent resting.
[2022-08-25 06:45] LABS: HCO3 VBG 37 mmol/L (21-28); Hematocrit 36.5 % (33.0-51.0); Immature Reticulocyte Fraction 30.4 % (3.0-15.9); Mean Corpuscular HGB Conc 30 gm/dL (32-36); Mean Corpuscular Hemoglobin 26 pg (26-34); Mean Corpuscular Volume 85 fL (80-100); PCO2 VBG 53 mmHG (40-50); PO2 VBG 30.6 mmHG (25-47); Platelet Count* 375 K/uL (140-440); Red Blood Count 4.31 m/uL (4.00-5.20); Reticulocyte Hemoglobin Equivi 19.8 pg (29.0-35.0); Reticulocyte Percent 2.3 % (0.5-2.0); White Blood Count* 12.63 K/uL (4.50-11.00); pH VBG 7.456 (7.32-7.43)
[2022-08-25 06:49] LABS: Slide Review Reflex No
[2022-08-25 07:03] LABS: Chloride* 98 mmol/L (96-114)
[2022-08-25 07:04] LABS: Potassium* 3.8 mmol/L (3.6-5.1); Sodium* 139 mmol/L (135-149)
[2022-08-25 07:06] LABS: Creatinine* 0.8 mg/dL (0.5-1.5); Est. Creatinine Clearance* 36.25; Estimated Glomerular Filt Rate 75 ml/min; Iron* 30 ug/dL (37-170)
[2022-08-25 07:07] LABS: Blood Urea Nitrogen* 22 mg/dL (7-30); Calcium* 8.1 mg/dL (8.4-10.6); Carbon Dioxide* 35 mmol/L (20-32); Glucose* 118 mg/dL (60-115); Magnesium* 1.7 mg/dL (1.5-2.6); Phosphorus* 3.6 mg/dL (2.5-4.5)
[2022-08-25 07:15] LABS: Percent Iron Saturation 10 % (20-50); Total Iron Binding Capacity 296 ug/dL (265-497)
[2022-08-25 07:18] LABS: Troponin I* 0.03 ng/mL (0.01-0.04)
[2022-08-25] MEDS: LEVOTHYROXINE 125 MCG TABLET PO (07:25)
[2022-08-25] MEDS: TORSEMIDE 20 MG TABLET PO (08:24)
[2022-08-25] MEDS: METOPROLOL SUCCINATE (XL) 25 MG TAB 12.5 MG PO (08:50)
[2022-08-25] MEDS: ASPIRIN 81 MG TAB.CHEW PO (08:50)
[2022-08-25] MEDS: LACTATED RINGERS 1000 ML 500 ML IV (11:36)
--- NOTE | 2022-08-25 12:26 | REH.OT ---
Orders received for OT/PT. Per nursing, patient has low blood pressure and needs to remain in bed. Will assess on 08/26/22.
--- NOTE | 2022-08-25 15:24 | P.IMPN_ITS ---
Progress Note: A&P Assessment and plan (1) Weakness: Status: Acute Assessment and Plan: Only slightly improved. Continue to work with physical therapy and occupational therapy. Question is whether not it is safe for the patient to return home. (2) Upper respiratory tract infection: Problem details: Negative COVID, influenza a, influenza B, and RSV on 08/24/2022 Status: Acute (3) Cognitive dysfunction: Problem details: Ongoing cognitive decline despite treatment efforts with donepezil. Status: Acute Assessment and Plan: MOCA score was 8/30 in May 2022. Will ask Occupational therapy to repeat that particular study when they are able to do so. (4) Decreased oral intake: Status: Acute (5) Hypotension: Problem details: Multifactorial: Due to acute illness, diuretics, systolic heart failure. Status: Acute Assessment and Plan: Proceeding with increased dose of torsemide at 20 mg once daily, and initiation of the beta-ro, metoprolol succinate at 12.5 mg once daily. For now I am holding the angiotensin receptor ro losartan 12.5 mg once daily. (6) Heart failure with reduced ejection fraction and diastolic dysfunction: Problem details: Echo completed 06/09/22: Echo: EF 35-40% Inferior, posterior and basal lateral hypokinesis Status: Acute Assessment and Plan: I ordered a repeat echocardiogram today. Await study and results. (7) Pleural effusion on right: Problem details: New on 08/24/2022 Status: Acute (8) Anemia of chronic disease: Status: Acute (9) Hypothyroidism (acquired): Status: Acute (10) Elevated TSH: Problem details: In May 2022 TSH was 48. Current TSH is 3.6. Status: Acute (11) Chronic obstructive pulmonary disease: Status: Acute (12) Tobacco dependence due to cigarettes, in remission: Problem details: Smoke 2 pack per days most of her life. Quit May 2022 when she was in a senior living for short period of time, and forgot that she was a smoker subsequently and has not smoke since. Status: Acute (13) Urinary frequency: Status: Acute (14) Overactive bladder: Problem details: Suspect secondary to urinary retention, overflow from partial obstruction of flow due to uterine prolapse. Temporary ramirez. F/u with urogyne. Status: Acute (15) Vaginal vault prolapse after hysterectomy: Status: Acute (16) Recurrent UTI: Problem details: 08/24/2022 urinalysis suggests possible recurrent bladder infection. Urine culture from same date is still pending. Status: Acute Assessment and Plan: Will initiate empiric antibiotic therapy while waiting for results urine culture ID and sensitivities. (17) Acute on chronic respiratory failure with hypoxemia: Problem details: She did not require oxygen supplementation on presentation on 08/24/2022. Is requiring oxygen at 2 liters/minute via nasal cannula on 08/25/2022 to maintain o xygen saturations of 88% or higher. Status: Acute (18) Paroxysmal atrial tachycardia by electrocardiogram: Problem details: This is commensurate with known advanced lung disease. It is unclear if this is multifocal atrial tachycardia or not. Status: Acute Assessment and Plan: Continue with metoprolol succinate 12.5 mg once daily for now. Relative hypotension precludes higher dose at this juncture. Consider increasing the dose of metoprolol if warranted or switching to or adding verapamil if warranted. Plan 1. I reviewed impression with patient. 2. Change to inpatient status. Need to work more intensely on cardiopulmonary status of the patient as specified above. 3. Will ask Occupational therapy to repeat the Mcrae Helena test that had been previo usly performed in May, at which time the result was 05/21. Based on my interaction with her it appears that her Mcrae Helena score would be much higher now than what it was previously. Need more time to sort out patient's physical and cognitive abilities. 4. Still unclear to me if she can potentially safely return home. Need more time to sort this out. She does live with her son who works away from the home. Thus the patient is home alone when he is at work. 5. Will continue to work with the patient and family. Time Spent With Patient Total time spent: 50 minutes Subjective Time Seen by Provider: 14:00 Date Seen: 08/25/22 Interval history: 76-year-old woman presents at the behest of her son, Anthony, whom she lives with. Anthony was concerned because her mother was becoming increasingly weak and association with URI symptoms. She had been in bed for the better part of 2-3 days before she presented the emergency department on 08/24/2020 to for further assessment. Her testing was negative for COVID, influenza, and RSV. Anthony has been suffering from URI symptoms as well. In the emergency department it appears as though patient was in acute on chronic heart failure. Her brain naturetic peptide level was up to 28,000, compared to 4,800 only 3 months ago. Patient is admitted to the hospital for better management of her heart failure. On presentation she was not requiring oxygen supplementation. Also on presentation, she was only on torsemide 10 mg daily and not on a beta-ro or an DENITA-inhibitor or an angiotensin receptor ro. In the emergency department she received a single dose of furosemide 80 mg IV. This morning we switched her back to the torsemide, but increased the dose to 20 mg p.o. every morning. We started her on a low dose of the beta-ro met oprolol succinate 12.5 mg once daily. We had hoped to initiate losartan at 12.5 mg once daily also, but opted not to do so due to a relative hypotension. Also this morning she is oxygen requiring at 2 liters/minute via nasal cannula to maintain oxygen saturations greater than 88%. Exam Narrative: Exam Narrative: She appears comfortable and in no acute distress. Alert and oriented to self, place, time, situation. Friendly, talkative, cooperative. Mood and affect are congruent. Clubbing of the fingernails but no cyanosis. Is utilizes oxygen at 2 liters/minute via nasal cannula continuously this morning to maintain oxygen saturations greater than 88%. Sitting upright patient has jugular venous distention as well as hepatojugular reflux. No carotid bruits. Bibasilar end inspiratory rales, right greater than left. No wheezing or rhonchi. Heart tones with regular rhythm with normal S1-S2. No murmur, gallop, or rub. Abdomen with active bowel sounds, soft, nontender. Extremities with trace edema pretibially bilaterally. Standby assist for transfer. Patient has underlying left bundle branch block. Patient had periodic transient episodes of wide QRS tachycardia with heart rates of 130. Const: Vital Signs, click to edit/add: Vital Signs - 24 hr 08/24/22 19:09 08/24/22 19:25 08/24/22 21:06 Temperature 97.6 F 97.6 F Pulse Rate Pulse Rate [Left A pical] 79 79 Pulse Rate [Pulse Oximeter] Pulse Rate [orthos tatic lying Pulse Oximeter] Pulse Rate [orthos tatic sitting Puls e Oximeter] Pulse Rate [orthos tatic standing Pul se Oximeter] Respiratory Rate 26 H 26 H Blood Pressure [Ri ght Arm] 118/81 118/81 Blood Pressure [or thostatic lying] Blood Pressure [or thostatic sitting Right Arm] Blood Pressure [or thostatic standing Right Arm] Pulse Oximetry 97 97 94 Oxygen Delivery Me thod Room Air Room Air Room Air Oxygen Flow Rate 08/24/22 19:43 08/24/22 20:36 08/25/22 00:05 Temperature 98.2 F Pulse Rate 81 Pulse Rate [Left A pical] Pulse Rate [Pulse Oximeter] 93 Pulse Rate [orthos tatic lying Pulse Oximeter] 72 Pulse Rate [orthos tatic sitting Puls e Oximeter] 73 Pulse Rate [orthos tatic standing Pul se Oximeter] 75 Respiratory Rate 24 Blood Pressure [Ri ght Arm] 112/88 Blood Pressure [or thostatic lying] 105/51 L Blood Pressure [or thostatic sitting Right Arm] 110/51 L Blood Pressure [or thostatic standing Right Arm] 113/65 Pulse Oximetry 86 L Oxygen Delivery Me thod Room Air Oxygen Flow Rate 08/25/22 00:10 08/25/22 00:10 08/25/22 01:58 Temperature Pulse Rate 81 Pulse Rate [Left A pical] Pulse Rate [Pulse Oximeter] 93 Pulse Rate [orthos tatic lying Pulse Oximeter] Pulse Rate [orthos tatic sitting Puls e Oximeter] Pulse Rate [orthos tatic standing Pul se Oximeter] Respiratory Rate 26 H Blood Pressure [Ri ght Arm] Blood Pressure [or thostatic lying] Blood Pressure [or thostatic sitting Right Arm] Blood Pressure [or thostatic standing Right Arm] Pulse Oximetry 94 Oxygen Delivery Me thod Nasal Cannula Oxygen Flow Rate 2 08/25/22 03:16 08/25/22 05:00 08/25/22 07:00 Temperature 98.7 F 98.3 F Pulse Rate 68 Pulse Rate [Left A pical] Pulse Rate [Pulse Oximeter] 86 132 H Pulse Rate [orthos tatic lying Pulse Oximeter] Pulse Rate [orthos tatic sitting Puls e Oximeter] Pulse Rate [orthos tatic standing Pul se Oximeter] Respiratory Rate 26 H 28 H Blood Pressure [Ri ght Arm] 109/55 L 94/59 L Blood Pressure [or thostatic lying] Blood Pressure [or thostatic sitting Right Arm] Blood Pressure [or thostatic standing Right Arm] Pulse Oximetry 93 92 Oxygen Delivery Me thod Nasal Cannula Nasal Cannula Oxygen Flow Rate 2 2 08/25/22 07:00 08/25/22 07:00 08/25/22 08:29 Temperature 97.6 F Pulse Rate Pulse Rate [Left A pical] 61 Pulse Rate [Pulse Oximeter] 67 Pulse Rate [orthos tatic lying Pulse Oximeter] Pulse Rate [orthos tatic sitting Puls e Oximeter] Pulse Rate [orthos tatic standing Pul se Oximeter] Respiratory Rate 30 H 30 H Blood Pressure [Ri ght Arm] 95/50 L Blood Pressure [or thostatic lying] Blood Pressure [or thostatic sitting Right Arm] Blood Pressure [or thostatic standing Right Arm] Pulse Oximetry 92 92 Oxygen Delivery Me thod Nasal Cannula Nasal Cannula Oxygen Flow Rate 2 2 08/25/22 11:00 08/25/22 12:34 Temperature 97.5 F L Pulse Rate Pulse Rate [Left A pical] Pulse Rate [Pulse Oximeter] 67 66 Pulse Rate [orthos tatic lying Pulse Oximeter] Pulse Rate [orthos tatic sitting Puls e Oximeter] Pulse Rate [orthos tatic standing Pul se Oximeter] Respiratory Rate 28 H 30 H Blood Pressure [Ri ght Arm] 87/41 L 99/53 L Blood Pressure [or thostatic lying] Blood Pressure [or thostatic sitting Right Arm] Blood Pressure [or thostatic standing Right Arm] Pulse Oximetry 93 96 Oxygen Delivery Me thod Nasal Cannula Nasal Cannula Oxygen Flow Rate 2 2 Labs Labs: Laboratory Results - last 24 hr 08/24/22 08/24/22 08/25/22 13:30 20:45 05:33 WBC 12.63 H RBC 4.31 Hgb 11.0 L Hct 36.5 MCV 85 MCH 26 MCHC 30 L Plt Count 375 Absolute Retic 0.10 H Percent Retic 2.3 H Immature Retic Fraction 30.4 H Retic Hgb Equivalent 19.8 L VBG pH VBG pCO2 VBG pO2 VBG HCO3 Sodium Potassium Chloride Carbon Dioxide BUN Creatinine Estimated Creat Clear Estimated GFR Glucose Calcium Phosphorus Magnesium Iron TIBC % Saturation Troponin I TSH 3.590 Urine Color Yellow Urine Appearance Slightly Cloudy A Urine pH 6.5 Ur Specific [place] 1.015 Urine Protein Negative Urine Glucose (UA) Negative Urine Ketones Negative Urine Blood 1+ A Urine Nitrite Positive A Urine Bilirubin Negative Urine Urobilinogen 0.2 Ur Leukocyte Esterase 3+ A Urine RBC 10-25 A Urine WBC >100 A Ur Squamous Epith Cells None Urine Bacteria Moderate A 08/25/22 08/25/22 08/25/22 05:33 05:33 05:33 WBC RBC Hgb Hct MCV MCH MCHC Plt Count Absolute Retic Percent Retic Immature Retic Fraction Retic Hgb Equivalent VBG pH 7.456 H VBG pCO2 53 H VBG pO2 30.6 VBG HCO3 37 H Sodium 139 Potassium 3.8 Chloride 98 Carbon Dioxide 35 H BUN 22 Creatinine 0.8 Estimated Creat Clear 36.25 Estimated GFR 75 Glucose 118 H Calcium 8.1 L Phosphorus 3.6 Magnesium 1.7 Iron 30 L TIBC 296 % Saturation 10 L Troponin I 0.03 TSH Urine Color Urine Appearance Urine pH Ur Specific [place] Urine Protein Urine Glucose (UA) Urine Ketones Urine Blood Urine Nitrite Urine Bilirubin Urine Urobilinogen Ur Leukocyte Esterase Urine RBC Urine WBC Ur Squamous Epith Cells Urine Bacteria ECG Attestation: I personally reviewed and interpreted this ECG as follows: Prior ECG tracings: available for review Pacemaker model: Wide QRS tachycardia with baseline left bundle branch block.
--- NOTE | 2022-08-25 18:12 | PC.NURSE ---
Shift [id number]: Pt hypotensive this morning, 90's/40's with monitor and with manual. MD update and Losartan held but Torsemide and Metoprolol given. Pt continued to be hypotensive and 500cc LR bolus given. Pt c/o of mild wooziness that resolved when lying in bed. She has been asymptomatic walking with assist x1 to the BR and has been mostly continent aside from one small stool in her brief. Tele= BBB with rates in the 60's. Requiring 1L/O2 to keep sats 90%, RR= 28-30. Pt denies SOB but does exhibit a moist nonproductive cough. Encouraged to TCDB and Guaifenesin given PRN. Face is quite flushed but pt has been afebrile. Denies pain. Josesito Cruz and Nadeem both in to visit throughout this shift.
[2022-08-25] MEDS: ATORVASTATIN CALCIUM 40 MG TABLET PO (20:23)
[2022-08-25] MEDS: CIPROFLOXACIN 250 MG TABLET PO (20:23)
[2022-08-25] MEDS: DONEPEZIL 10 MG TABLET 5 MG PO (20:23)
[2022-08-25] MEDS: MELATONIN 3 MG TABLET PO (20:24)
[2022-08-25] MEDS: SODIUM CHLORIDE 0.9 % (FLUSH) 10 ML SYRINGE 5 ML IVF (20:24)
[2022-08-26] VITALS (7 sets, daily range): BP systolic 106–122; BP diastolic 53–65; PULSE 69–91; RESP 18–20; TEMP 36.5–36.9; O2SAT 89–93
--- NOTE | 2022-08-26 05:25 | PC.NURSE ---
[id number] Pt up frequently to use br, cloudy urine noted. Pt with dementia, frequent reorientation, educations required. Walked to br with walker, SBA, pt c/o weakness. 1 LPM NC O2 to maintain sats >90%, pt denies sob, chest pain or headache. intermittent cough noted, occasionally produces sputum with cough. encouraged patient to drink more water.
[2022-08-26] MEDS: LEVOTHYROXINE 125 MCG TABLET PO (06:40)
[2022-08-26 06:54] LABS: HCO3 VBG 36 mmol/L (21-28); PCO2 VBG 53 mmHG (40-50)
[2022-08-26 06:56] LABS: Hematocrit 33.2 % (33.0-51.0); Hemoglobin* 10.1 gm/dL (12.0-16.0); Mean Corpuscular HGB Conc 30 gm/dL (32-36); Mean Corpuscular Hemoglobin 26 pg (26-34); Mean Corpuscular Volume 85 fL (80-100); Platelet Count* 327 K/uL (140-440); Red Blood Count 3.91 m/uL (4.00-5.20); White Blood Count* 10.64 K/uL (4.50-11.00)
[2022-08-26 07:16] LABS: Slide Review Reflex No
[2022-08-26 07:19] LABS: Chloride* 101 mmol/L (96-114); Potassium* 3.1 mmol/L (3.6-5.1); Sodium* 140 mmol/L (135-149)
[2022-08-26 07:22] LABS: Blood Urea Nitrogen* 22 mg/dL (7-30); Calcium* 7.7 mg/dL (8.4-10.6); Carbon Dioxide* 35 mmol/L (20-32); Creatinine* 0.6 mg/dL (0.5-1.5); Est. Creatinine Clearance* 36.58; Estimated Glomerular Filt Rate 92 ml/min; Glucose* 83 mg/dL (60-115)
[2022-08-26] MEDS: CIPROFLOXACIN 250 MG TABLET PO ×2 (09:04→20:29)
[2022-08-26] MEDS: METOPROLOL SUCCINATE (XL) 25 MG TAB 12.5 MG PO (09:04)
[2022-08-26] MEDS: TORSEMIDE 20 MG TABLET PO (09:04)
[2022-08-26] MEDS: ASPIRIN 81 MG TAB.CHEW PO (09:04)
[2022-08-26] MEDS: SODIUM CHLORIDE 0.9 % (FLUSH) 10 ML SYRINGE 5 ML IVF ×2 (09:09→21:06)
--- NOTE | 2022-08-26 13:52 | NUTR.NU ---
RDN with MD consult for diet education related to CHF. Patient with hx of cognitive impairment. RDN called patient's designated caregiver (Anthony) to provide diet education, however Anthony did not answer and message was left. RDN has not received a call back from Anthony at this time. Patient was admitted in hospital in May 2022 for CHF and RDN provided CHF diet educational materials to Anthony on 06/10/22. Handouts provided at that time included handouts from [facility] on heart failure nutrition therapy, sodium content of foods, heart healthy label reading tips, sodium-free flavoring tips and heart healthy cooking and shopping tips.?RDN will continue to monitor and attempt to reach designated caregiver at a later date.
[2022-08-26] MEDS: POTASSIUM CHLORIDE 10 MEQ CAPSULE ER 40 MEQ PO (15:48)
--- NOTE | 2022-08-26 16:42 | PC.SOCIAL ---
Discharge planning- Therapy recommendation for pt to go to SNF for short-term rehab. Met with pt in her room and let pt know recommendation. Phone call to pt?s son, Anthony Rdz, at [phone]. Discussed discharge planning with pt?s son. Pt?s son states he is fine with the recommendation. Informed son that beds are limited due to pt?s insurance being [employer] and only certain SNF?s are in network. Pt?s son is ok with any SNF that can take pt?s insurance. Pt?s son states that pt had a previous rehab stay and went to [facility] for 20 days. Contacted the following facilities for possible placement. 1. [facility] in [place]- Phone call to Ginny in admissions. Left a voicemail asking for bed availability. Faxed referral to [facility]. 2. [facility]- Phone call to Yolette in admissions. There is an open bed. [email or web address]. Received a phone call back from Yolette at [facility]. Yolette states she will have to get preauthorization from pt?s insurance. Yolette states that she is slightly concerned because when she reads the progress notes from therapy they state that pt is walking with one assist. Yolette states that the insurance may decide that pt does not meet criteria for a SNF stay. Yolette will obtain preauthorization from insurance. Yolette would like to know when pt is ready for discharge. This worker will check with family and follow up with MD on discharge plan. Phone call to pt?s son, Anthony Rdz, at [phone]. Informed pt?s son that [facility] has an opening but would have to get preauthorization from pt?s insurance. Pt?s son states that he is fine with pt going to [facility]. Will keep pt?s son updated. Spoke with MD and states that pt will be ready for discharge by Friday. Phone call to Yolette in admissions at [facility]. Provided Yolette with a anticipated discharge day of Friday and informed that this worker spoke to the pt's family and they would like pt to go to [facility].
--- NOTE | 2022-08-26 18:13 | PC.NURSE ---
End of Shift Note: Kanika has been busy today. If she isn't using her call light then she is trying to get out of bed. Have tried to do a toileting plan with her but with her poor memory this is not working as she doesn't remember she was just to the bathroom. She has no complaints of pain. Did trial her off her oxygen but sats dropped to 78%. Per son she is not usually on oxygen at home. Will continue to monitor.
--- NOTE | 2022-08-26 19:13 | P.IMPN_ITS ---
Progress Note: A&P Assessment and plan (1) Weakness: Status: Acute Assessment and Plan: Slight improvement. Still requiring standby assist and even 1 assist with some efforts. (2) Upper respiratory tract infection: Problem details: Negative COVID, influenza a, influenza B, and RSV on 08/24/2022 Status: Acute Assessment and Plan: Subjectively improved. (3) Cognitive dysfunction: Problem details: Ongoing cognitive decline despite treatment efforts with donepezil. Status: Acute Assessment and Plan: Most of her dysfunction is in the executive functioning level which makes it extremely unsafe for her to be left unattended due to her inability to make safe decisions on her own behalf. (4) Decreased oral intake: Status: Acute Assessment and Plan: This is improving substantially. (5) Hypotension: Problem details: Multifactorial: Due to acute illness, diuretics, systolic heart failure. Status: Acute Assessment and Plan: She is stabilizing on our current medication regimen. No longer hypotensive. (6) Heart failure with reduced ejection fraction and diastolic dysfunction: Problem details: Echo completed 06/09/22: Echo: EF 35-40% Inferior, posterior and basal lateral hypokinesis Status: Acute Assessment and Plan: Tolerating increased dose of torsemide and the low dose of metoprolol succinate 12.5 mg once daily. We are now in a position to add a low dose of losartan 12.5 mg once daily. If she can tolerate these lower doses of metoprolol succinate in the losartan then we can try to titrate those up gradually over time for maximum benefit for her. (7) Pleural effusion on right: Problem details: New on 08/24/2022 Status: Acute Assessment and Plan: We are trying to optimize her treatment for heart failure with reduced ejection fraction. (8) Anemia of chronic disease: Status: Acute Assessment and Plan: This is stable. Does have D Daniel iron stores. (9) Hypothyroidism (acquired): Status: Acute Assessment and Plan: Continue with current treatment with levothyroxine. (10) Elevated TSH: Problem details: In May 2022 TSH was 48. Current TSH is 3.6. Status: Acute (11) Chronic obstructive pulmonary disease: Status: Acute Assessment and Plan: Stable. (12) Tobacco dependence due to cigarettes, in remission: Problem details: Smoke 2 pack per days most of her life. Quit May 2022 when she was in a intermediate for short period of time, and forgot that she was a smoker subsequently and has not smoke since. Status: Acute (13) Urinary frequency: Status: Acute Assessment and Plan: Longstanding problem. Multifactorial. Has overactive bladder, vaginal vault prolapse, and now has active UTI with Pseudomonas aeruginosa. (14) Overactive bladder: Problem details: Suspect secondary to urinary retention, overflow from partial obstruction of flow due to uterine prolapse. Temporary ramirez. F/u with urogyne. Status: Acute (15) Vaginal vault prolapse after hysterectomy: Status: Acute (16) Recurrent UTI: Problem details: 08/24/2022 urinalysis suggests possible recurrent bladder infection. Urine culture from same date is still pending. Status: Acute Assessment and Plan: Will need at least 10 days worth of the ciprofloxacin 250 mg twice daily which we started yesterday. (17) Acute on chronic respiratory failure with hypoxemia: Problem details: She did not require oxygen supplementation on presentation on 08/24/2022. Is requiring oxygen at 2 liters/minute via nasal cannula on 08/25/2022 to maintain oxygen saturations of 88% or higher. Status: Acute Assessment and Plan: Continue with treatment for heart failure in regard to this as well. (18) Paroxysmal atrial tachycardia by electrocardiogram: Problem details: This is commensurate with known advanced lung disease. It is unclear if this is multifocal atrial tachycardia or not. Status: Acute Assessment and Plan: Much improved with a low-dose beta-ro that we added. Over time we may want to increase dose of the beta-ro if her blood pressure allows. Plan 1. We still do not have a safe disposition plan at this juncture. Will admit patient to inpatient status. 2. Continue to work on a safe disposition plan for the patient. 3. Will continue to try to work with the patient family as well. Time Spent With Patient Total time spent: 50 minutes Subjective Time Seen by Provider: 14:00 Date Seen: 08/26/22 Interval history: Hospital day 3. 76-year-old woman presents at the behest of her son, Anthony, whom she lives with. Anthony was concerned because her mother was becoming increasingly weak and association with URI symptoms. She had been in bed for the better part of 2-3 days before she presented the emergency department on 08/24/2020 to for further assessment. Her testing was negative for COVID, influenza, and RSV. Anthony has been suffering from URI symptoms as well. In the emergency department it ap pears as though patient was in acute on chronic heart failure. Her brain naturetic peptide level was up to 28,000, compared to 4,800 only 3 months ago. Patient is admitted to the hospital for better management of her heart failure. On presentation she was not requiring oxygen supplementation. Also on presentation, she was only on torsemide 10 mg daily and not on a beta-ro or an DENITA-inhibitor or an angiotensin receptor ro. In the emergency department she received a single dose of furosemide 80 mg IV. This morning we switched her back to the torsemide, but increased the dose to 20 mg p.o. every morning. We started her on a low dose of the beta-ro metoprolol succinate 12.5 mg once daily. We had hoped to initiate losartan at 12.5 mg once daily also, but opted not to do so due to a relative hypotension. Also she is now requiring oxygen at 2 liters/minute via nasal cannula to maintain oxygen saturations greater than 88%. Patient notes that her weakness is slightly improving. We are noticing that she still requires at least 1 assist with transferring from sitting to standing. She requires standby assist with ambulation still and son time of 1 assist with ambulation. She is better able to carry out her activities of daily living although she requires standby assist there as well. Exam Narrative: Exam Narrative: [place] study today undertaken and patient scores 10/30. Three months ago she scored 8/30 on the [place] test. Appears more comfortable today. Still frail in appearance nonetheless. Alert and oriented to self place in part to time but also oriented to situation. Does not make safe choices. Unaware of her limitations. Tells me she can still do her own cooking but only recently her son started shopping for her. In the sitting upright position she has jugular venous distention retirement up the neck and hepatojugular reflux to the angle of the jaw. Lungs was scattered rhonchi otherwise clear. Heart tones with regular rhythm with the murmur. Abdomen thin with active bowel sounds, soft, nontender. Extremities with trace edema pretibially bilaterally. Skin is warm, dry, intact. Thin, with cutaneous atrophy. Const: Vital Signs, click to edit/add: Vital Signs - 24 hr 08/25/22 23:00 08/25/22 23:00 08/25/22 23:00 Temperature 98.1 F Pulse Rate Pulse Rate [Pulse Oximeter] 66 Respiratory Rate 22 22 20 Blood Pressure [Ri ght Arm] 106/68 Pulse Oximetry 95 95 Oxygen Delivery Me thod Nasal Cannula Nasal Cannula Oxygen Flow Rate 1 1 08/26/22 02:22 08/26/22 02:23 08/26/22 07:00 Temperature 98.1 F 97.7 F Pulse Rate 73 Pulse Rate [Pulse Oximeter] 91 74 Respiratory Rate 20 20 Blood Pressure [Ri ght Arm] 106/56 L 118/65 Pulse Oximetry 91 93 Oxygen Delivery Me thod Nasal Cannula Nasal Cannula Oxygen Flow Rate 1 2 08/26/22 07:00 08/26/22 07:00 08/26/22 07:00 Temperature Pulse Rate 69 Pulse Rate [Pulse Oximeter] 74 Respiratory Rate 20 Blood Pressure [Ri ght Arm] Pulse Oximetry 93 Oxygen Delivery Me thod Oxygen Flow Rate 2 08/26/22 14:21 08/26/22 15:00 08/26/22 15:00 Temperature Pulse Rate 71 Pulse Rate [Pulse Oximeter] 74 Respiratory Rate 20 20 Blood Pressure [Ri ght Arm] Pulse Oximetry 93 Oxygen Delivery Me thod Nasal Cannula Oxygen Flow Rate 2 08/26/22 15:00 Temperature 98.4 F Pulse Rate Pulse Rate [Pulse Oximeter] 71 Respiratory Rate 20 Blood Pressure [Ri ght Arm] 121/56 L Pulse Oximetry 89 Oxygen Delivery Me thod Room Air Oxygen Flow Rate Labs Labs: Laboratory Results - last 24 hr 08/26/22 08/26/22 08/26/22 05:53 05:53 05:53 WBC 10.64 RBC 3.91 L Hgb 10.1 L Hct 33.2 MCV 85 MCH 26 MCHC 30 L Plt Count 327 VBG pH 7.440 H VBG pCO2 53 H VBG pO2 77.0 H VBG HCO3 36 H Sodium 140 Potassium 3.1 L Chloride 101 Carbon Dioxide 35 H BUN 22 Creatinine 0.6 Estimated Creat Clear 36.58 Estimated GFR 92 Glucose 83 Calcium 7.7 L Imaging Echo: Radiologist's impression: Preliminary echocardiogram results available. Patient now has severe decrease in left ventricular systolic function with ejection fraction of 25-30%. Three months ago her ejection fraction was 35-40%. She has left ventricular enlargement left atrial enlargement severe mitral regurgitation and now she also has moderate tricuspid valve regurgitation with an increase in the right ventricular systolic pressure of 36 mmHg plus the right atrial pressure. She also has right atrial enlargement with mild decrease in right ventricular function. Compared to the echocardiogram in May of 2020 to her cardiac function has become markedly decreased.
[2022-08-26] MEDS: DONEPEZIL 10 MG TABLET 5 MG PO (20:29)
[2022-08-26] MEDS: MELATONIN 3 MG TABLET PO (20:29)
[2022-08-26] MEDS: ATORVASTATIN CALCIUM 40 MG TABLET PO (20:30)
[2022-08-27] VITALS (7 sets, daily range): BP systolic 97–119; BP diastolic 39–61; PULSE 67–87; RESP 16–18; TEMP 36.5–36.9; O2SAT 89–97
--- NOTE | 2022-08-27 03:30 | PC.NURSE ---
: Pt was up frequently to br beginning of shift, bladder scanned for 240cc. Pt forgetful/impulsive, aware of month August and age of 76, bed alarm on. VSS on 1lpm of oxygen, tele nsr.
[2022-08-27] MEDS: LEVOTHYROXINE 125 MCG TABLET PO (06:21)
[2022-08-27 07:24] LABS: Chloride* 100 mmol/L (96-114); Potassium* 3.8 mmol/L (3.6-5.1); Sodium* 140 mmol/L (135-149)
[2022-08-27 07:27] LABS: Blood Urea Nitrogen* 22 mg/dL (7-30); Carbon Dioxide* 36 mmol/L (20-32); Creatinine* 0.6 mg/dL (0.5-1.5); Est. Creatinine Clearance* 36.49; Estimated Glomerular Filt Rate 92 ml/min; Glucose* 87 mg/dL (60-115)
[2022-08-27 07:28] LABS: Calcium* 8.2 mg/dL (8.4-10.6)
[2022-08-27] MEDS: CIPROFLOXACIN 250 MG TABLET PO ×2 (09:00→20:31)
[2022-08-27] MEDS: ASPIRIN 81 MG TAB.CHEW PO (09:00)
[2022-08-27] MEDS: METOPROLOL SUCCINATE (XL) 25 MG TAB 12.5 MG PO (09:00)
[2022-08-27] MEDS: TORSEMIDE 20 MG TABLET PO (09:00)
[2022-08-27] MEDS: SODIUM CHLORIDE 0.9 % (FLUSH) 10 ML SYRINGE 5 ML IVF ×2 (09:00→20:33)
--- NOTE | 2022-08-27 15:55 | PC.NURSE ---
End of shift. pt is pleasant but very confused. alert to self and place at times. she using the call light on and off and also yells at times. I did bladder scan her for 200. she had 2 med BMS. Pt is impulsive, with her but with her poor memory this is not working as she doesn't remember she was just to the bathroom.? She has no complaints of pain.? she has been on RA with sao2 88-92% on RA. SL patent x2/ tele nsr
--- NOTE | 2022-08-27 16:33 | PC.SOCIAL ---
Discharge planning- Phone call to Yolette in admissions at [facility] in [place]. Following up regarding preauthorization for pt to admit to facility. Yolette states that she will follow up to see if authorization was given yet as she knows another worker was working on it with [facility]. Yolette informed that they don't have a bed until due to increase in RSV/influenza cases in the facility. Yolette will follow up with this worker. Phone call to Ginny at [facility] in [place]. Left voicemail requesting follow up on referral that was faxed yesterday regarding possible admission. Social work will continue to follow up with SNF's.
--- NOTE | 2022-08-27 19:13 | PM.IMPN1 ---
Progress Note: A&P Assessment and plan (1) Weakness: Status: Acute Assessment and Plan: Improving. (2) Upper respiratory tract infection: Problem details: Negative COVID, influenza a, influenza B, and RSV on 08/24/2022 Status: Acute Assessment and Plan: Improving. (3) Cognitive dysfunction: Problem details: Ongoing cognitive decline despite treatment efforts with donepezil. Consistent with dementia of the Alzheimer's type. MOCA score was 8/30 in May of 2022. Presently her MOCA score is 10/30, with poor executive function. Status: Acute (4) Decreased oral intake: Status: Acute Assessment and Plan: Improving since admission to the hospital. (5) Hypotension: Problem details: Multifactorial: Due to acute illness, diuretics, systolic heart failure. Status: Acute Assessment and Plan: Tolerating dose adjustments in diuretics, beta-blockers, angiotensin receptor ro agents but still having a relative hypotension. (6) Heart failure with reduced ejection fraction and diastolic dysfunction: Problem details: Echo completed 06/09/22: Echo: EF 35-40% Inferior, posterior and basal lateral hypokinesis. Status: Acute Assessment and Plan: For the most part she seems to be tolerating gradually increasing doses of beta-ro and angiotensin receptor ro agent. Additionally, has tolerating gradually increasing doses of torsemide. On presentation was on no diuretic. Is currently on torsemide 20 mg once daily. Weights are now stable. Dyspnea is improved and stable, not worsening. (7) Pleural effusion on right: Problem details: New on 08/24/2022 Status: Acute (8) Anemia of chronic disease: Status: Acute (9) Hypothyroidism (acquired): Status: Acute Assessment and Plan: Stable on current regimen of levothyroxine. (10) Elevated TSH: Problem details: In May 2022 TSH was 48. Current TSH is 3.6. Status: Acute (11) Chronic obstructive pulmonary disease: Status: Acute Assessment and Plan: Adequately managed at this time. (12) Tobacco dependence due to cigarettes, in remission: Problem details: Smoke 2 pack per days most of her life. Quit May 2022 when she was in a senior living for short period of time, and forgot that she was a smoker subsequently and has not smoke since. Status: Acute (13) Urinary frequency: Status: Acute (14) Overactive bladder: Problem details: Suspect secondary to urinary retention, overflow from partial obstruction of flow due to uterine prolapse. Temporary ramirez. F/u with urogyne. Status: Acute (15) Vaginal vault prolapse after hysterectomy: Status: Acute (16) Recurrent UTI: Problem details: 08/24/2022 urinalysis suggests possible recurrent bladder infection. Urine culture from same date grew out Pseudomonas aeruginosa sensitive to ciprofloxacin orally. Status: Acute Assessment and Plan: Will want to complete a 7-10 day course of oral ciprofloxacin. (17) Acute on chronic respiratory failure with hypoxemia: Problem details: She did not require oxygen supplementation on presentation on 08/24/2022. Is requiring oxygen at 2 liters/minute via nasal cannula on 08/25/2022 to maintain oxygen saturations of 88% or higher. Status: Acute Assessment and Plan: Continue with oxygen support for now. (18) Paroxysmal atrial tachycardia by electrocardiogram: Problem details: This is commensurate with known advanced lung disease. It is unclear if this is multifocal atrial tachycardia or not. Status: Acute Plan 1. We are still working on a safe discharge disposition plan. The family is not able to provide 24 hour care that she needs given her advanced dementia of the Alzheimer's type. 2. Once we have a safe discharge plan the patient is now ready for discharge, assuming no changes in her status or condition. Time Spent With Patient Total time spent: 40 minutes Subjective Time Seen by Provider: 13:00 Date Seen: 08/27/22 Interval history: Hospital day 4. 76-year-old woman presents at the behest of her son, Anthony, whom she lives with. Anthony was concerned because her mother was becoming increasingly weak and association with URI symptoms. She had been in bed for the better part of 2-3 days before she presented the emergency department on 08/24/2020 to for further assessment. Her testing was negative for COVID, influenza, and RSV. Anthony has been suffering from URI symptoms as well. In the emergency department it appears as though patient was in acute on chronic heart failure. Her brain naturetic peptide level was up to 28,000, compared to 4,800 only 3 months ago. Patient is admitted to the hospital for better management of her heart failure. On presentation she was not requiring oxygen supplementation. Also on presentation, she was only on torsemide 10 mg daily and not on a beta-ro or an DENITA-inhibitor or an angiotensin receptor ro. In the emergency department she received a single dose of furosemide 80 mg IV. This morning we switched her back to the torsemide, but increased the dose to 20 mg p.o. every morning. We started her on a low dose of the beta-ro metoprolol succinate 12.5 mg once daily. We had hoped to initiate losartan at 12.5 mg once daily also, but opted not to do so due to a relative hypotension. Also she is now requiring oxygen at 2 liters/minute via nasal cannula to maintain oxygen saturations greater than 88%. Patient notes that her weakness is slightly improving. At times she continues to require at least 1 assist with transferring from sitting to standing. She requires standby assist with ambulation still and son time of 1 assist with ambulation. She is better able to carry out her activities of daily living although she requires standby assist there as well. It is becoming increasingly apparent that her cognition is quite diminished. She often asks the same question multiple times. We will repeat the same answers multiple times. Seemingly unable to comprehend certain things that are very basic, such as we are still in the process of trying to find a safe discharge disposition plan for her. Exam Narrative: Exam Narrative: No acute distress. Oriented to self and in part to place, but not so much to time or situation. Friendly, cooperative, and talkative. Still has JVD and hepatojugular reflux in the sitting upright position. Still has fine end inspiratory bibasilar rales. No wheezing or rhonchi. Regular heart rate and rhythm. Murmur across precordium. Abdomen is thin with active bowel sounds, soft. Extremities with trace edema pretibially bilaterally. Forward stooped posture. Utilizes to wheeled walker. Requiring standby assist for transfers and ambulation. Weight today 49.86 kg, yesterday 49.98 kg, a day prior 49.53 kg. Const: Vital Signs, click to edit/add: Vital Signs - 24 hr 08/26/22 20:14 08/26/22 23:15 08/27/22 00:23 Temperature 97.8 F Pulse Rate 71 Pulse Rate [Pulse Oximeter] 71 Respiratory Rate 18 Blood Pressure [Ri ght Arm] 122/53 L Pulse Oximetry 92 92 Oxygen Delivery Me thod Nasal Cannula Nasal Cannula Oxygen Flow Rate 2 1 08/27/22 02:17 08/27/22 07:35 08/27/22 07:35 Temperature 97.9 F Pulse Rate 67 Pulse Rate [Pulse Oximeter] 77 Respiratory Rate 18 16 Blood Pressure [Ri ght Arm] 102/39 L Pulse Oximetry 92 97 Oxygen Delivery Me thod Nasal Cannula Nasal Cannula Oxygen Flow Rate 1 1 08/27/22 07:35 08/27/22 07:35 08/27/22 11:13 Temperature 98.0 F 98.5 F Pulse Rate Pulse Rate [Pulse Oximeter] 75 75 70 Respiratory Rate 16 16 16 Blood Pressure [Ri ght Arm] 119/54 L 102/41 L Pulse Oximetry 97 90 Oxygen Delivery Me thod Nasal Cannula Room Air Oxygen Flow Rate 1 08/27/22 15:00 08/27/22 15:00 08/27/22 15:00 Temperature 97.7 F Pulse Rate Pulse Rate [Pulse Oximeter] 75 75 Respiratory Rate 16 Blood Pressure [Ri ght Arm] 97/48 L Pulse Oximetry 89 89 Oxygen Delivery Me thod Room Air Room Air Oxygen Flow Rate Labs Labs: Laboratory Results - last 24 hr 08/27/22 06:10 Sodium 140 Potassium 3.8 Chloride 100 Carbon Dioxide 36 H BUN 22 Creatinine 0.6 Estimated Creat Clear 36.49 Estimated GFR 92 Glucose 87 Calcium 8.2 L
[2022-08-27] MEDS: ATORVASTATIN CALCIUM 40 MG TABLET PO (20:31)
[2022-08-27] MEDS: DONEPEZIL 10 MG TABLET 5 MG PO (20:32)
[2022-08-27] MEDS: MELATONIN 3 MG TABLET PO (20:33)
[2022-08-27] MEDS: LOSARTAN POTASSIUM 50 MG TABLET 12.5 MG PO (20:36)
--- NOTE | 2022-08-27 21:48 | PC.NURSE ---
Shift note: Pt continuous to be anxious and feeling insecure. Uses call light every few minutes and calling for help to feel secure and to bathroom. Order to discontinue tele monitoring carried out. O2 level has been above 90% on room air. Assist of 1 with walker and GB. No pain reported.
[2022-08-28] MEDS: ACETAMINOPHEN 325 MG TABLET 650 MG PO (00:16)
--- NOTE | 2022-08-28 00:25 | PC.NURSE ---
patient requests additional melatonin, call to E hospitalist placed
[2022-08-28 03:00] VITALS: PULSE 76; RESP 18; O2SAT 87
--- NOTE | 2022-08-28 04:56 | PC.NURSE ---
Addendum entered by Ambar Mann RN 08/28/22 06:57: while asleep patient sats 87%, 1L applied for several hours and sats quang to 99%, able to turn O2 off and sats remain above 90%. Original Note: patient impulsive, sets bed alarm off when wanting to use bathroom. pleasant and cooperative. patient requested additional melatonin due to fear she wouldn't be able to fall asleep, E hospitalist ordered but patient was able to fall asleep with out taking the additional dose. slept most of the night.
[2022-08-28] MEDS: LEVOTHYROXINE 125 MCG TABLET PO (06:02)
[2022-08-28 07:00] VITALS: BP 121/60; PULSE 76; RESP 20; O2SAT 90; O2SAT 92
[2022-08-28 07:11] LABS: Potassium* 3.4 mmol/L (3.6-5.1)
[2022-08-28] MEDS: CIPROFLOXACIN 250 MG TABLET PO ×2 (09:50→20:42)
[2022-08-28] MEDS: TORSEMIDE 20 MG TABLET PO (09:50)
[2022-08-28] MEDS: ASPIRIN 81 MG TAB.CHEW PO (09:50)
[2022-08-28] MEDS: SODIUM CHLORIDE 0.9 % (FLUSH) 10 ML SYRINGE 5 ML IVF ×2 (09:51→20:44)
[2022-08-28] MEDS: METOPROLOL SUCCINATE (XL) 25 MG TAB 12.5 MG PO (09:51)
--- NOTE | 2022-08-28 13:21 | PC.NURSE ---
End of Shift Note: Patient has needed much enc and redirection today. She continues to ask the same questions over and over. Needs constant reminders that someone will always be here to help her. Does use her call light but then also calls out for help several times throughtout the shift even though we have tried to set up a toileting plan with her doesn't work. Will continue to monitor.
[2022-08-28] MEDS: POTASSIUM CHLORIDE 10 MEQ CAPSULE ER 20 MEQ PO (13:53)
[2022-08-28 15:00] VITALS: BP 90/41; PULSE 78; RESP 18; TEMP 36.3; O2SAT 92
--- NOTE | 2022-08-28 15:33 | PC.SOCIAL ---
Addendum entered by CHALINO Cha 08/28/22 16:16: Received a phone call from [facility] stating that pt is currently open and receiving home health care services for Nursing, PT, and OT. Will update [facility] about discharge plans. Original Note: Discharge planning- Follow up phone call and e-mail to Yolette in admission with [facility] in [place]. Following up on preauthorization from pt's insurance, [employer]. Yolette states that the preauthrization was submitted but they have not received a response from [facility]. Social Work received a phone call from Ginny in admissions at [facility] in [place]. Ginny states that [facility] is willing to accept pt and do preauthorization to [employer]. Informed [facility] that pt is being assessed by another SNF. Social Work will continue to follow up.
--- NOTE | 2022-08-28 17:00 | P.IMPN_ITS ---
Progress Note: A&P Assessment and plan (1) Weakness: Status: Acute Assessment and Plan: Improving. (2) Upper respiratory tract infection: Problem details: Negative COVID, influenza a, influenza B, and RSV on 08/24/2022 Status: Acute Assessment and Plan: Improved. (3) Cognitive dysfunction: Problem details: Ongoing cognitive decline despite treatment efforts with donepezil. Consistent with dementia of the Alzheimer's type. MOCA score was 8/30 in May of 2022. Presently her MOCA score is 10/30, with poor executive function. Status: Acute Assessment and Plan: This is the main limitation that she has in terms of being able to live independently. Certainly her physical abilities are decreased but for the most part the limiting condition is her poor cognition. (4) Decreased oral intake: Status: Acute Assessment and Plan: Improving. (5) Hypotension: Problem details: Multifactorial: Due to acute illness, diuretics, systolic heart failure. Status: Acute Assessment and Plan: For the most part this is more stable. Tolerating increased medications for her heart failure. Continue to monitor. (6) Heart failure with reduced ejection fraction and diastolic dysfunction: Problem details: Echo completed 06/09/22: Echo: EF 35-40% Inferior, posterior and basal lateral hypokinesis. Status: Acute Assessment and Plan: Will decrease the dose of her torsemide from 20 mg daily down to 10 mg daily. Continue with current dose of metoprolol succinate and the angiotensin receptor ro losartan. (7) Pleural effusion on right: Problem details: New on 08/24/2022 Status: Acute Assessment and Plan: Not limiting her at this time. (8) Anemia of chronic disease: Status: Acute Assessment and Plan: Stable. (9) Hypothyroidism (acquired): Status: Acute Assessment and Plan: Continue on current levothyroxine dose. (10) Elevated TSH: Problem details: In May 2022 TSH was 48. Current TSH is 3.6. Status: Acute (11) Chronic obstructive pulmonary disease: Status: Acute (12) Tobacco dependence due to cigarettes, in remission: Problem details: Smoke 2 pack per days most of her life. Quit May 2022 when she was in a correction for short period of time, and forgot that she was a smoker subsequently and has not smoke since. Status: Acute (13) Urinary frequency: Status: Acute (14) Overactive bladder: Problem details: Suspect secondary to urinary retention, overflow from partial obstruction of flow due to uterine prolapse. Temporary ramirez. F/u with urogyne. Status: Acute (15) Vaginal vault prolapse after hysterectomy: Status: Acute (16) Recurrent UTI: Problem details: 08/24/2022 urinalysis suggests possible recurrent bladder infection. Urine culture from same date grew out Pseudomonas aeruginosa sensitive to ciprofloxacin orally. Status: Acute (17) Acute on chronic respiratory failure with hypoxemia: Problem details: She did not require oxygen supplementation on presentation on 08/24/2022. Is requiring oxygen at 2 liters/minute via nasal cannula on 08/25/2022 to maintain oxygen saturations of 88% or higher. Multifactorial: COPD, heart failure. Status: Acute Assessment and Plan: Multifactorial. (18) Paroxysmal atrial tachycardia by electrocardiogram: Problem details: This is commensurate with known advanced lung disease. It is unclear if this is multifocal atrial tachycardia or not. Status: Acute Plan 1. Patient's condition is much more stable to when she 1st presented. She appears ready for discharge from the hospital. Were still awaiting a safe discharge disposition plan. Once a safe disposition plan is established then we can discharge the patient with appropriate outpatient follow-up. 2. Our director of social services staff has been in contact with her son Anthony. I will try to work with her son harish as well. Time Spent With Patient Total time spent: 40 min Subjective Time Seen by Provider: 14:00 Date Seen: 08/28/22 Interval history: Hospital day 5. 76-year-old woman presents at the behest of her son, Anthony, whom she lives with. Anthony was concerned because her mother was becoming increasingly weak and association with URI symptoms. She had been in bed for the better part of 2-3 days before she presented the emergency department on 08/24/2020 to for further assessment. Her testing was negative for COVID, influenza, and RSV. Anthony has been suffering from URI symptoms as well. In the emergency department it appears as though patient was in acute on chronic heart failure. Her brain naturetic peptide level was up to 28,000, compared to 4,800 only 3 months ago. Patient is admitted to the hospital for better management of her heart failure. On presentation she was not requiring oxygen supplementation. Also on presenta tion, she was only on torsemide 10 mg daily and not on a beta-ro or an DENITA- inhibitor or an angiotensin receptor ro. In the emergency department she received a single dose of furosemide 80 mg IV. This morning we switched her back to the torsemide, but increased the dose to 20 mg p.o. every morning. We started her on a low dose of the beta-ro metoprolol succinate 12.5 mg once daily. We had hoped to initiate losartan at 12.5 mg once daily also, but opted not to do so due to a relative hypotension. Also she is now requiring oxygen at 2 liters/minute [facility] sat[facility] greater than 88%. Patient thinks her sense of weakness is almost resolved. Unfortunately, the reality is that at times she continues to require at least 1 assist with transferring from sitting to standing. She also still requires requires standby assist with ambulation at times. She is better able to carry out her activities of daily living although she requires standby assist there as well. It is becoming increasingly apparent that her cognition is quite diminished. She often asks the same question multiple times. We repeat the same answers multiple times. Seemingly unable to comprehend certain things that are very basic, such as we are still in the process of trying to find a safe discharge disposition plan for her. She hollers out when she wants help. She asks anyone who is walking by her room to help her with various concerns that she has. Her ability to problem solve and address concerns is obviously quite limited. Exam Narrative: Exam Narrative: Appears comfortable. No acute distress. Friendly and cooperative. Anxious. Uncertain. Requires frequent, regular consoling, redirecting, support. Oriented to self, place, in part to time, in part to situation. Needs reminders regularly. Lungs with fine end inspiratory rales, not new. No wheezing or rhonchi. Still has hepatojugular reflux in the sitting upright position. Heart tones with regular rhythm. Still has the murmur. No gallop or rub. Abdomen is active bowel sounds, soft, nontender. Extremities without edema. With standby assist she can transfer from sitting to standing with use of her walker. She can also walk with standby assist with use of her walker. Very forgetful. Requires reminding regularly of various safety measures. Const: Vital Signs, click to edit/add: Vital Signs - 24 hr 08/27/22 19:00 08/27/22 23:00 08/27/22 23:00 Temperature 98.2 F Pulse Rate [Pulse Oximeter] 85 85 Respiratory Rate 16 16 16 Blood Pressure [Ri ght Arm] 99/56 L Pulse Oximetry 90 90 Oxygen Delivery Me thod Room Air Room Air Oxygen Flow Rate 08/27/22 23:00 08/28/22 03:00 08/28/22 07:00 Temperature 98 F Pulse Rate [Pulse Oximeter] 87 76 Respiratory Rate 18 18 Blood Pressure [Ri ght Arm] 104/61 Pulse Oximetry 90 87 L 90 Oxygen Delivery Me thod Room Air Room Air Nasal Cannula Oxygen Flow Rate 1 08/28/22 07:00 08/28/22 07:00 08/28/22 15:00 Temperature 97.3 F L Pulse Rate [Pulse Oximeter] 76 76 78 Respiratory Rate 20 20 18 Blood Pressure [Ri ght Arm] 121/60 90/41 L Pulse Oximetry 92 92 Oxygen Delivery Me thod Nasal Cannula Room Air Oxygen Flow Rate 2 08/28/22 15:00 Temperature Pulse Rate [Pulse Oximeter] Respiratory Rate Blood Pressure [Ri ght Arm] Pulse Oximetry 92 Oxygen Delivery Me thod Room Air Oxygen Flow Rate Labs Labs: Laboratory Results - last 24 hr 08/28/22 06:12 Potassium 3.4 L
[2022-08-28 19:00] VITALS: BP 104/63; PULSE 86; RESP 18; TEMP 36.4; O2SAT 94
[2022-08-28] MEDS: MELATONIN 3 MG TABLET PO (20:42)
[2022-08-28] MEDS: LOSARTAN POTASSIUM 50 MG TABLET 12.5 MG PO (20:43)
[2022-08-28] MEDS: ATORVASTATIN CALCIUM 40 MG TABLET PO (20:43)
[2022-08-28] MEDS: DONEPEZIL 10 MG TABLET 5 MG PO (20:43)
--- NOTE | 2022-08-28 22:34 | PC.NURSE ---
End of Shift: Patient pleasant and cooperative. Alert to self, place and month. Forgetful and calls out frequently to use bathroom and for reassurance that someone is around. Up with SBA, walker and gait belt. Up to bathroom and walking in hallway frequently this shift. Denies pain. O2 sats greater than 90% on room air. Tolerating regular diet with no nausea.
[2022-08-28 23:00] VITALS: BP 107/58; PULSE 82; RESP 18; TEMP 36.7; O2SAT 90
[2022-08-29 03:00] VITALS: BP 106/47; PULSE 79; RESP 22; TEMP 36.6; O2SAT 96
[2022-08-29 07:00] VITALS: BP 122/55; PULSE 72; RESP 18; TEMP 36.6; O2SAT 92
--- NOTE | 2022-08-29 07:27 | PC.NURSE ---
: pt seems anxious about being here in the hospital without her son. She verbalized she doesn?t like being alone, writer technical publications assured her that she is not alone.?Pt unable to fall asleep till ~0230~, writer technical publications sat at bedside till she was able to doze off.? Pt forgetful, asks repetitive questions, all Q?s answered appropriately. Pt needing frequent reorientation.?SBA with walker. Pt up to urinate very frequently, (2-3x per hour while awake). O2 desat to mid 80s when pt asleep, 1L O2 applied to keep sats >88%.
[2022-08-29] MEDS: LEVOTHYROXINE 125 MCG TABLET PO (08:08)
[2022-08-29] MEDS: TORSEMIDE 20 MG TABLET 10 MG PO (09:10)
[2022-08-29] MEDS: POTASSIUM CHLORIDE 10 MEQ CAPSULE ER 20 MEQ PO (09:10)
[2022-08-29] MEDS: ASPIRIN 81 MG TAB.CHEW PO (09:11)
[2022-08-29] MEDS: METOPROLOL SUCCINATE (XL) 25 MG TAB 12.5 MG PO (09:11)
[2022-08-29] MEDS: CIPROFLOXACIN 250 MG TABLET PO (09:11)
--- NOTE | 2022-08-29 09:38 | PC.SOCIAL ---
Received a phone call from Barney in admissions at [facility]. Barney states that she has not gotten approval from pt's insurance yet. Barney requested updated progress notes and therapy notes to send to [facility]. Emailed updated progress notes to [facility]. Barney will follow up upon receiving insurance decision. Social Work will follow up as necessary.
--- NOTE | 2022-08-29 10:54 | PM.IMPN1 ---
Progress Note: A&P Assessment and plan (1) Weakness: Problem details: - appreciate input from PT/OT, will need TCU placement upon discharge given weakness in the setting of below comorbidities Status: Acute (2) Hypotension: Problem details: - Multifactorial: Due to acute illness, diuretics, systolic heart failure - patient asymptomatic from hypotension - if patient were to become symptomatic, would stop her Losartan (new medication) none Status: Acute (3) Upper respiratory tract infection: Problem details: - Negative COVID, influenza A/B, and RSV on 08/24/2022 Status: Acute (4) Cognitive dysfunction: Problem details: - Ongoing cognitive decline despite treatment efforts with donepezil, consistent with dementia of the Alzheimer's type - MOCA score was 8/30 in May of 2022. Presently her MOCA score is 10/30, with poor executive function. Status: Acute (5) Heart failure with reduced ejection fraction and diastolic dysfunction: Problem details: - Echo completed 06/09/22: Echo: EF 35-40% Inferior, posterior and basal lateral hypokinesis Status: Acute (6) Pleural effusion on right: Problem details: - New 08/24/2022 Status: Acute (7) Anemia of chronic disease: Status: Acute (8) Elevated TSH: Problem details: - 05/2022 TSH was 48. Current TSH is 3.6. Status: Acute (9) Chronic obstructive pulmonary disease: Status: Acute (10) Tobacco dependence due to cigarettes, in remission: Problem details: -smoked 2 pack per days most of her life. Quit May 2022 when she was in a retirement for short period of time, and forgot that she was a smoker subsequently and has not smoked since. Status: Acute (11) Overactive bladder: Problem details: - Suspect secondary to urinary retention, overflow from partial obstruction of flow due to uterine prolapse, has outpatient f/u scheduled with UroGyn Status: Acute (12) Vaginal vault prolapse after hysterectomy: Status: Acute (13) Recurrent UTI: Problem details: - + Pseudomonas on urine culture 08/24, completed course of Cipro (08/25-08/29) per sensitivities Status: Acute (14) Acute on chronic respiratory failure with hypoxemia: Problem details: - Intermittently requiring supplemental oxygen - multifactorial: COPD, heart failure Status: Acute (15) Paroxysmal atrial tachycardia by electrocardiogram: Problem details: - Commensurate with known advanced lung disease. It is unclear if this is multifocal atrial tachycardia or not. - asymptomatic, no recurrence of arrythmia since admission Status: Acute Plan - per above - monitor BP and symptoms from hypotension, med changes prn - Teds and ambulation for ppx - to SNF when bed secured Subjective Date Seen: 08/29/22 Interval history: Very pleasant 77-year-old female, admitted to the hospital on 08/24 for weakness in the setting of URI infection and CHF exacerbation. No acute events overnight. Today is patient's birthday. Kanika continues to have weakness, requiring assistance with transfers and ADLs. We are awaiting TCU placement for her weakness in the setting of multiple comorbidities and cognitive impairment (in particular, short term memory loss). She continues to intermittently require supplemental oxygen given her history of COPD and CHF. Since admission, patient has been started on metoprolol (12.5 mg daily) and losartan (12.5 mg daily). She is on her home dose of torsemide, 10 mg daily. She has had intermittent hypotension, does not appear to be symptomatic from this. Son Anthony at bedside during visit. Exam Narrative: Exam Narrative: GEN: laying comfortably in bed, pleasant HEENT: Normal external ears, EOMIs bilaterally CV: RRR, + blowing systolic murmur heard best at LUSB R: Air movement adequate, rales B bases Ext: wwp, no concerning edema, + clubbing BUEs Skin: No concerning skin lesions or rashes on exposed skin Psych: No agitation, + short term memory loss apparent Const: Vital Signs, click to edit/add: Vital Signs - 24 hr 08/28/22 15:00 08/28/22 15:00 08/28/22 15:00 Temperature 97.3 F L Pulse Rate [Pulse Oximeter] 78 78 Respiratory Rate 18 18 Blood Pressure [Ri ght Arm] 90/41 L Pulse Oximetry 92 92 Oxygen Delivery Me thod Room Air Room Air Oxygen Flow Rate 08/28/22 19:00 08/28/22 23:00 08/28/22 23:00 Temperature 97.6 F Pulse Rate [Pulse Oximeter] 86 82 Respiratory Rate 18 18 18 Blood Pressure [Ri ght Arm] 104/63 Pulse Oximetry 94 90 Oxygen Delivery Me thod Room Air Room Air Oxygen Flow Rate 08/28/22 23:00 08/29/22 03:00 08/29/22 07:00 Temperature 98.1 F 97.8 F 97.9 F Pulse Rate [Pulse Oximeter] 82 79 72 Respiratory Rate 18 22 18 Blood Pressure [Ri t Arm] 107/58 L 106/47 L 122/55 L Pulse Oximetry 90 96 92 Oxygen Delivery Me thod Room Air Nasal Cannula Nasal Cannula Oxygen Flow Rate 1 1 08/29/22 07:00 08/29/22 07:00 Temperature Pulse Rate [Pulse Oximeter] 72 Respiratory Rate 18 Blood Pressure [[facility] Arm] Pulse Oximetry 92 Oxygen Delivery Me thod Nasal Cannula Oxygen Flow Rate 1
[2022-08-29 11:00] VITALS: BP 78/42; PULSE 69; RESP 22; O2SAT 92
[2022-08-29 15:00] VITALS: BP 90/39; PULSE 70; RESP 28; TEMP 36.4; O2SAT 91
--- NOTE | 2022-08-29 16:46 | PC.SOCIAL ---
Discharge planning- follow up phone call to Barney in admissions at [facility] in [place]. Following up on progress for insurance preauthorization. Nisreendaina states that she has not gotten preauthorization and is canceling the request to insurance as the facility has a large Covid outbreak and cannot proceed with admissions. Phone call to Ginny at [facility] in [place]. Provided an update to Ginny. Ginny has an open bed and requests this worker to re-send the referral. Emailed referral to Ginny at [email or web address]. Ginny will submit request to [employer] insurance for preauthorization. Social Work will follow up as necessary.
[2022-08-29] MEDS: SODIUM CHLORIDE 0.9 % (FLUSH) 10 ML SYRINGE 5 ML IVF ×2 (18:24→20:08)
--- NOTE | 2022-08-29 19:08 | PC.NURSE ---
Pt this shift cooperative with cares. Needing frequent reminders regarding POC and discharge planning. Repetitive statements and questions. C/o overall not feeling good and feeling weak. Pt able to walk halls x3 and up frequently to the bathroom with assist. Wanted to stay in bed and rest the rest of the time. Ate majority of all meals plus a snack. BM this AM. Bladder scan at 1100 showed 300+ retained urine. Hospitalist opposed straight cath d/t blood pressures being too low. Continued to have frequent small urine output. Pt is having medication adjustments, aware of low BP. Dc'd L AC IV d/t leaking, no issue, site light red, no warmth. Scrubbed under fingernails with soapy water and scrub. Barrier cream applied to glutes and R inner thigh x2
[2022-08-29 19:56] VITALS: BP 99/46; PULSE 76; RESP 24; TEMP 37; O2SAT 91
[2022-08-29] MEDS: DONEPEZIL 10 MG TABLET 5 MG PO (20:01)
[2022-08-29] MEDS: ACETAMINOPHEN 325 MG TABLET 650 MG PO (20:02)
[2022-08-29] MEDS: MELATONIN 3 MG TABLET PO (20:03)
[2022-08-29] MEDS: ATORVASTATIN CALCIUM 40 MG TABLET PO (20:03)
--- NOTE | 2022-08-29 22:07 | PM.EN ---
Chart Event Note Time Seen by Provider: 22:00 Date Seen: 08/29/22 Chart Event Note: Patient has been anxious since in hospital, wanting someone near hear often throughout the day and night. I will add a low dose mood stabilizing medicine, sertraline 25 mg once daily for support.
[2022-08-29 23:00] VITALS: PULSE 76; RESP 24; O2SAT 91
[2022-08-30 03:17] VITALS: BP 105/61; PULSE 73; RESP 22; TEMP 36.4; O2SAT 93
--- NOTE | 2022-08-30 05:47 | PC.NURSE ---
End of shift status [id number] Pt alert with chronic confusion. Needs constant reminders and redirection. Denies pain. Up with stand by and walker. Pt did ambulate in halls x2 before bedtime. BP soft but stable. Remained on room air overnight. Intermittent resting. SW seeking placement.
[2022-08-30 06:14] LABS: Basophils Absolute Auto 0.03 K/uL (0.00-0.30); Basophils Percent Auto 0.3 % (0.0-3.0); Eosinophils Absolute Auto 0.19 K/uL (0.00-0.50); Eosinophils Percent Auto 1.9 % (0.0-7.0); Hematocrit 37.6 % (33.0-51.0); Hemoglobin* 11.4 gm/dL (12.0-16.0); Immature Granulocytes Abs Auto 0.14 K/uL (0.00-0.30); Immature Granulocytes Pct Auto 1.4 %; Lymphocytes Percent Auto 10.7 % (20-44); Mean Corpuscular HGB Conc 30 gm/dL (32-36); Mean Corpuscular Hemoglobin 26 pg (26-34); Mean Corpuscular Volume 85 fL (80-100); Monocytes Percent Auto 9.2 % (0.0-11.0); Neutrophils Percent Auto 76.5 % (42.0-72.0); Platelet Count* 316 K/uL (140-440); RDW Coefficient of Variation % 18.1 % (11.5-15.5); Red Blood Count 4.45 m/uL (4.00-5.20); White Blood Count* 9.75 K/uL (4.50-11.00)
[2022-08-30 06:17] LABS: Slide Review Reflex No
[2022-08-30 06:32] LABS: Chloride* 101 mmol/L (96-114); Potassium* 4.2 mmol/L (3.6-5.1); Sodium* 139 mmol/L (135-149)
[2022-08-30 06:35] LABS: Blood Urea Nitrogen* 28 mg/dL (7-30); Carbon Dioxide* 33 mmol/L (20-32); Creatinine* 0.7 mg/dL (0.5-1.5); Est. Creatinine Clearance* 35.05; Estimated Glomerular Filt Rate 88 ml/min
[2022-08-30 06:36] LABS: Calcium* 8.7 mg/dL (8.4-10.6); Glucose* 93 mg/dL (60-115)
[2022-08-30 07:00] VITALS: BP 111/54; PULSE 73; RESP 20; TEMP 36.4; O2SAT 91
[2022-08-30] MEDS: POTASSIUM CHLORIDE 10 MEQ CAPSULE ER 20 MEQ PO (07:43)
[2022-08-30] MEDS: TORSEMIDE 20 MG TABLET 10 MG PO (07:50)
[2022-08-30] MEDS: LEVOTHYROXINE 125 MCG TABLET PO (07:51)
[2022-08-30] MEDS: SODIUM CHLORIDE 0.9 % (FLUSH) 10 ML SYRINGE 5 ML IVF ×2 (09:00→21:25)
[2022-08-30] MEDS: METOPROLOL SUCCINATE (XL) 25 MG TAB 12.5 MG PO (09:17)
[2022-08-30] MEDS: SERTRALINE 50 MG TABLET 25 MG PO (09:17)
[2022-08-30] MEDS: ASPIRIN 81 MG TAB.CHEW PO (09:17)
--- NOTE | 2022-08-30 10:46 | P.IMPN_ITS ---
Progress Note: A&P Assessment and plan (1) Weakness: Problem details: - appreciate input from PT/OT, will need TCU placement upon discharge given weakness in the setting of below comorbidities Status: Acute (2) Hypotension: Problem details: - Multifactorial: Due to acute illness, diuretics, systolic heart failure - patient asymptomatic from hypotension - if patient were to become symptomatic, would stop her Losartan (new medication) none Status: Acute (3) Acute on chronic respiratory failure with hypoxemia: Problem details: - Intermittently requiring supplemental oxygen - multifactorial: COPD, heart failure Status: Acute (4) Upper respiratory tract infection: Problem details: - Negative COVID, influenza A/B, and RSV on 08/24/2022 Status: Acute (5) Cognitive dysfunction: Problem details: - Ongoing cognitive decline despite treatment efforts with donepezil, consistent with dementia of the Alzheimer's type - MOCA score was 8/30 in May of 2022. Presently her MOCA score is 10/30, with poor executive function. Status: Acute (6) Heart failure with reduced ejection fraction and diastolic dysfunction: Problem details: - Echo completed 06/09/22: Echo: EF 35-40% Inferior, posterior and basal lateral hypokinesis Status: Acute (7) Pleural effusion on right: Problem details: - New 08/24/2022 Status: Acute (8) Anemia of chronic disease: Status: Acute Assessment and Plan: Stable. (9) Elevated TSH: Problem details: - 05/2022 TSH was 48. Current TSH is 3.6. Status: Resolved (10) Chronic obstructive pulmonary disease: Status: Chronic (11) Tobacco dependence due to cigarettes, in remission: Problem details: -smoked 2 pack per days most of her life. Quit May 2022 when she was in a assisted for short period of time, and forgot that she was a smoker subsequently and has not smoked since. Status: Resolved (12) Overactive bladder: Problem details: - Suspect secondary to urinary retention, overflow from partial obstruction of flow due to uterine prolapse, has outpatient f/u scheduled with UroGyn Status: Acute (13) Vaginal vault prolapse after hysterectomy: Status: Chronic (14) Recurrent UTI: Problem details: - + Pseudomonas on urine culture 08/24, completed course of Cipro (08/25-08/29) per sensitivities pecimen: [id number] COMP Collected: 08/24/22 Received: 08/24/22 Source: Urine CC Sp Descrip: Sub Dr: Wm Christiansen M.D. Other Dr: Procedure Result Site Urine Culture Final ML Organism 1 Pseudomonas aeruginosa Ur [place] Count >100,000 CFU/ml P aerugino LAURA RX --------- --- Cefepime 2 S Ceftazidime 4 S Ciprofloxacin <=0.25 S Gentamicin <=1 S Imipenem 1 S Levofloxacin 1 S Tobramycin <=1 S Piperacillin/Tazobactam <=4 S Status: Resolved (15) Paroxysmal atrial tachycardia by electrocardiogram: Problem details: - Commensurate with known advanced lung disease. It is unclear if this is multifocal atrial tachycardia or not. - asymptomatic, no recurrence of arrythmia since admission Status: Acute Plan I reviewed the patient's chart this morning including progress notes, history and physical, current medications, and laboratory results. I am not hearing any crackles today on lung exam and she has had several low blood pressures, including 1 very low with a systolic of 78 yesterday morning. She has remained asymptomatic with these. She is on torsemide, metoprolol, and losartan at low doses. I do not think any of these can be increased at this time due to variable blood pressures with hypotension at times. Continue PT and OT and seeking [facility] facility as patient's cognitive abilities, especially in the executive functioning and short-term memory inhibit patient's ability to be at home alone, which is what would happen if she went home with her son since he works during the day. At present there is no safe discharge plan. Continue seeking bed at [facility] facility. Time Spent With Patient Total time spent: Today I spent 35 minutes rounding on the patient. Greater than 50% included discussing care with the team, reviewing data, updating and managing the care plan. Subjective Time Seen by Provider: 10:40 Date Seen: 08/30/22 Interval history: Kanika has a patient career guidance counselor in the room looking for the same channel that she gets locally at home. She is upset that that channel currently has sports and not her usual news program. She asks me several times within the time span of a minute why the channel here is not the same as the 1 at home and if we could look for the channel that she has at home. She does not seem to retain any of the information that I gave her on the subject. She has no physical complaints. Exam Narrative: Exam Narrative: General: No acute distress. Awake, alert, oriented to self. Repeats questions even within time frame of 1 minute. No pallor. No jaundice. Oropharynx: Clear. Mucous membranes moist. Cardiovascular: Regular rate and rhythm. Soft grade 1/6 blowing systolic murmur this at left upper sternal border. Respiratory: Clear to auscultation bilaterally. No wheezes or crackles. Abdomen: Bowel sounds present. Soft, nondistended, nontender. Extremities: No pedal edema. Const: Vital Signs, click to edit/add: Vital Signs - 24 hr 08/29/22 11:00 08/29/22 15:00 08/29/22 15:00 Temperature Pulse Rate [Pulse Oximeter] 69 70 Respiratory Rate 22 28 H 28 H Blood Pressure [Le ft Arm] 78/42 L Blood Pressure [Ri ght Arm] Pulse Oximetry 92 91 Oxygen Delivery Me thod Room Air Room Air Oxygen Flow Rate 08/29/22 15:00 08/29/22 19:56 08/29/22 23:00 Temperature 97.6 F 98.6 F Pulse Rate [Pulse Oximeter] 70 76 76 Respiratory Rate 28 H 24 24 Blood Pressure [Le ft Arm] 90/39 L Blood Pressure [Ri ght Arm] 99/46 L Pulse Oximetry 91 91 Oxygen Delivery Me thod Room Air Room Air Oxygen Flow Rate 08/29/22 23:00 08/30/22 03:17 08/30/22 07:00 Temperature 97.5 F L Pulse Rate [Pulse Oximeter] 73 73 Respiratory Rate 24 22 Blood Pressure [Le ft Arm] Blood Pressure [Ri ght Arm] 105/61 Pulse Oximetry 91 93 Oxygen Delivery Me thod Room Air Room Air Oxygen Flow Rate 08/30/22 07:00 08/30/22 07:00 Temperature 97.5 F L Pulse Rate [Pulse Oximeter] 73 Respiratory Rate 20 20 Blood Pressure [Le ft Arm] Blood Pressure [Ri ght Arm] 111/54 L Pulse Oximetry 91 91 Oxygen Delivery Me thod Room Air Room Air Oxygen Flow Rate 1 1 Documenting provider has reviewed patient's vital signs: yes Labs Labs: Laboratory Results - last 24 hr 08/30/22 08/30/22 06:04 06:04 WBC 9.75 RBC 4.45 Hgb 11.4 L Hct 37.6 MCV 85 MCH 26 MCHC 30 L RDW Coeff of Michaela 18.1 H Plt Count 316 Neut % (Auto) 76.5 H Lymph % (Auto) 10.7 L [place] % (Auto) 9.2 Eos % (Auto) 1.9 Baso % (Auto) 0.3 Neut # (Auto) 7.50 H Lymph # (Auto) 1.00 [place] # (Auto) 0.90 Eos # (Auto) 0.19 Baso # (Auto) 0.03 Abs Immat Gran (auto) 0.14 Imm/Tot Granulo (auto) 1.4 Sodium 139 Potassium 4.2 Chloride 101 Carbon Dioxide 33 H BUN 28 Creatinine 0.7 Estimated Creat Clear 35.05 Estimated GFR 88 Glucose 93 Calcium 8.7
[2022-08-30 11:00] VITALS: BP 109/63; PULSE 76; RESP 18; TEMP 36.6; O2SAT 88
--- NOTE | 2022-08-30 11:23 | PC.SOCIAL ---
Discharge planning- Follow up phone call to Ginny in admissions at [facility] in [place]. Ginny received the referral and submitted preauthorization to [employer]. Informed Ginny that she could call directly to [employer] at [phone] to get a quicker response. Ginny states she will call the phone number. Ginny will follow up when she hears back from insurance. Social work will follow up as necessary.
[2022-08-30 15:00] VITALS: BP 110/61; PULSE 75; RESP 18; TEMP 36.6; O2SAT 97
--- NOTE | 2022-08-30 15:03 | PC.NURSE ---
Patient oriented to self and place. Patient is anxious and calls for help frequently, and asks repetitive questions and comments, needs frequent redirection. Patient is up SBA with gait belt and walker. Tolerates a regular diet.
[2022-08-30] MEDS: ACETAMINOPHEN 325 MG TABLET 650 MG PO (18:22)
[2022-08-30 19:00] VITALS: BP 106/54; PULSE 79; RESP 20; TEMP 36.6; O2SAT 94
[2022-08-30] MEDS: MELATONIN 3 MG TABLET PO ×2 (21:22)
[2022-08-30] MEDS: DONEPEZIL 10 MG TABLET 5 MG PO (21:22)
[2022-08-30] MEDS: ATORVASTATIN CALCIUM 40 MG TABLET PO (21:23)
[2022-08-30] MEDS: LOSARTAN POTASSIUM 50 MG TABLET 12.5 MG PO (21:23)
[2022-08-30 23:00] VITALS: RESP 18; O2SAT 94
[2022-08-31 03:00] VITALS: BP 108/54; PULSE 80; RESP 18; TEMP 36.4; O2SAT 94
[2022-08-31] MEDS: LEVOTHYROXINE 125 MCG TABLET PO (06:36)
--- NOTE | 2022-08-31 06:40 | PC.NURSE ---
[id number]: Patient cooperative with cares. Alert to self, place, . Does not like being alone. Calls out frequently for help. Repetitive statements. Dementia. SBA w/walker. Vaginal prolapse. Fixated on frequent urinations. Slept most of the night. Denies pain.
[2022-08-31 07:00] VITALS: BP 121/65; PULSE 77; RESP 18; TEMP 36.3; O2SAT 90
[2022-08-31] MEDS: POTASSIUM CHLORIDE 10 MEQ CAPSULE ER 20 MEQ PO (08:49)
[2022-08-31] MEDS: TORSEMIDE 20 MG TABLET 10 MG PO (08:50)
[2022-08-31] MEDS: SERTRALINE 50 MG TABLET 25 MG PO (08:50)
[2022-08-31] MEDS: ASPIRIN 81 MG TAB.CHEW PO (08:51)
[2022-08-31] MEDS: METOPROLOL SUCCINATE (XL) 25 MG TAB 12.5 MG PO (08:51)
[2022-08-31 11:00] VITALS: BP 99/57; PULSE 74; RESP 18; TEMP 36.6; O2SAT 91
--- NOTE | 2022-08-31 13:26 | P.IMPN_ITS ---
Progress Note: A&P Assessment and plan (1) Weakness: Problem details: - appreciate input from PT/OT, will need TCU placement upon discharge given weakness in the setting of below comorbidities Status: Acute (2) Hypotension: Problem details: - Multifactorial: Due to acute illness, diuretics, systolic heart failure - patient asymptomatic from hypotension - if patient were to become symptomatic, would stop her Losartan (new medication) none Status: Acute Assessment and Plan: She remains asymptomatic. (3) Heart failure with reduced ejection fraction and diastolic dysfunction: Problem details: - Echo completed 06/09/22: Echo: EF 35-40% Inferior, posterior and basal lateral hypokinesis Status: Acute (4) Abnormal echocardiogram: Problem details: 08/26/2022 TTE normal LV size, moderately reduced global systolic function with an estimated EF of 30-35%. Entire inferior wall and posterior wall are abnormal. Right ventricular cavity size is normal, global systolic RV function is mildly reduced. Moderately enlarged left atrium. Mitral valve is sclerotic, moderate mitral regurgitation. The inferior vena cava is consistent with elevated right atrial pressure. Compared to 06/09/2022, degree of MR has decreased. Status: Acute (5) Acute on chronic respiratory failure with hypoxemia: Problem details: - Intermittently requiring supplemental oxygen - multifactorial: COPD, heart failure Status: Acute (6) Upper respiratory tract infection: Problem details: - Negative COVID, influenza A/B, and RSV on 08/24/2022 Status: Acute (7) Chronic obstructive pulmonary disease: Status: Chronic (8) Pleural effusion on right: Problem details: - New 08/24/2022 Status: Acute (9) Cognitive dysfunction: Problem details: - Ongoing cognitive decline despite treatment efforts with donepezil, consistent with dementia of the Alzheimer's type - MOCA score was 8/30 in May of 2022. Presently her MOCA score is 10/30, with poor executive function. Status: Acute (10) Anemia of chronic disease: Status: Acute Assessment and Plan: Stable. (11) Overactive bladder: Problem details: - Suspect secondary to urinary retention, overflow from partial obstruction of flow due to uterine prolapse, has outpatient f/u scheduled with UroGyn Status: Acute (12) Paroxysmal atrial tachycardia by electrocardiogram: Problem details: - Commensurate with known advanced lung disease. It is unclear if this is multifocal atrial tachycardia or not. - asymptomatic, no recurrence of arrythmia since admission Status: Acute (13) Diarrhea: Status: Acute Assessment and Plan: Check for C diff. Plan 77-year-old female with weakness, chronic cognitive dysfunction, acute on chronic combined heart failure, hypotension, and possible urinary tract infection. She has been asymptomatic with episodes of hypotension. Continue torsemide, metoprolol, and losartan at low doses. I do not think any of these can be increased at this time due to variable blood pressures with hypotension at times. Continue PT and OT and seeking long term facility as patient's cognitive abilities, especially in the executive functioning and short-term memory inhibit patient's ability to be at home alone. Does her son works, there is nobody available at home during the day. At present there is no safe discharge plan. Continue seeking bed at long term facility. I spoke with the household appliance mechanic and charge nurse about COVID vaccination at our facility. Because once a bottle is opened, all doses need to be used within a certain amount of time, we usually give routine COVID vaccinations on certain days. This will not be available over the weekend without specific approval. This would be a routine vaccination for her and is not urgent. Therefore if it becomes available during her hospital stay, this can be given, and if not she can get 1 there at the long term facility or go to an outpatient clinic at a scheduled time. Subjective Time Seen by Provider: 11:32 Date Seen: 08/31/22 Interval history: Kanika's son, Anthony, was in the room with her. Kanika has diarrhea this morning. She denies abdominal pain. She is feeling okay otherwise. She is hoping to have a place to go soon. Her son was also wondering if any facility has accepted her yet. I reviewed the social work notes and plan of care with them. Her son asked that I pursue a 2nd COVID vaccination for her as she has only had 1. Exam Narrative: Exam Narrative: General: No acute distress. Awake, alert, oriented to self. No pallor. No jaundice. Oropharynx: Clear. Mucous membranes moist. Cardiovascular: Regular rate and rhythm. Soft grade 1/6 blowing systolic murmur, unchanged. Respiratory: Clear to auscultation bilaterally. No wheezes or crackles. Const: Vital Signs, click to edit/add: Vital Signs - 24 hr 08/30/22 15:00 08/30/22 15:00 08/30/22 15:00 Temperature 98 F Pulse Rate [Pulse Oximeter] 75 75 Respiratory Rate 18 18 Blood Pressure [Le ft Arm] 110/61 Pulse Oximetry 97 97 Oxygen Delivery Me thod Room Air Room Air Oxygen Flow Rate 08/30/22 19:00 08/30/22 23:00 08/30/22 23:00 Temperature 97.8 F Pulse Rate [Pulse Oximeter] 79 Respiratory Rate 20 18 18 Blood Pressure [Le ft Arm] 106/54 L Pulse Oximetry 94 94 Oxygen Delivery Me thod Room Air Room Air Oxygen Flow Rate 08/31/22 03:00 08/31/22 07:00 08/31/22 07:00 Temperature 97.5 F L 97.4 F L Pulse Rate [Pulse Oximeter] 80 77 Respiratory Rate 18 18 18 Blood Pressure [Le ft Arm] 108/54 L 121/65 Pulse Oximetry 94 90 90 Oxygen Delivery Me thod Room Air Room Air Room Air Oxygen Flow Rate 0 0 08/31/22 07:00 08/31/22 11:00 Temperature 97.8 F Pulse Rate [Pulse Oximeter] 77 74 Respiratory Rate 18 18 Blood Pressure [Le ft Arm] 99/57 L Pulse Oximetry 91 Oxygen Delivery Me thod Room Air Oxygen Flow Rate 0 Documenting provider has reviewed patient's vital signs: yes
--- NOTE | 2022-08-31 14:33 | PC.NURSE ---
Up to BR frequently. baseline dementia, forgetful and asks same questions multiple times in room. up to BR frequently. up to ambulate in hallway x2 thus far today with SBA, walker and GB. Cdiff sample needed d/t loose stool's.
[2022-08-31 15:45] VITALS: BP 104/51; PULSE 75; RESP 18; O2SAT 94
[2022-08-31] MEDS: ACETAMINOPHEN 325 MG TABLET 650 MG PO (18:25)
[2022-08-31 18:28] VITALS: BP 109/64; PULSE 75; RESP 16; TEMP 36.3; O2SAT 97
[2022-08-31] MEDS: LOSARTAN POTASSIUM 50 MG TABLET 12.5 MG PO (20:10)
[2022-08-31] MEDS: MELATONIN 3 MG TABLET PO (20:12)
[2022-08-31] MEDS: ATORVASTATIN CALCIUM 40 MG TABLET PO (20:12)
[2022-08-31] MEDS: DONEPEZIL 10 MG TABLET 5 MG PO (20:13)
--- NOTE | 2022-08-31 22:20 | PC.NURSE ---
Shift [id number]- Patient up frequently, walks in [facility] this afternoon with RN. She is steady and up in room independently. Complains of some back pain- tylenol administered. No BM. She is also up to void often/ or attempt. Contact precautions in place until R/O c-diff. Short term memory is heavily impaired.
[2022-08-31 23:00] VITALS: BP 95/42; PULSE 75; RESP 16; TEMP 36.3; O2SAT 94
[2022-09-01 03:00] VITALS: BP 102/42; PULSE 79; RESP 16; TEMP 36.5; O2SAT 90
--- NOTE | 2022-09-01 05:06 | PC.NURSE ---
Shift note: Pt continuous to feel anxious and insecure in room. Bp has been stable. Denied any pain. Pt has julee had any BM this shift and no stool sample sent to the lab. Required repeated information to fill up gaps of memory loss. Walks to and from bathroom with assist of 1, walker and LUIS.
[2022-09-01] MEDS: LEVOTHYROXINE 125 MCG TABLET PO (06:19)
[2022-09-01 07:00] VITALS: BP 116/73; PULSE 77; RESP 16; TEMP 36.8; O2SAT 90
[2022-09-01] MEDS: SERTRALINE 50 MG TABLET 25 MG PO (10:04)
[2022-09-01] MEDS: ASPIRIN 81 MG TAB.CHEW PO (10:05)
[2022-09-01] MEDS: ACETAMINOPHEN 325 MG TABLET 650 MG PO (10:05)
[2022-09-01] MEDS: METOPROLOL SUCCINATE (XL) 25 MG TAB 12.5 MG PO (10:06)
[2022-09-01] MEDS: TORSEMIDE 20 MG TABLET 10 MG PO (10:06)
[2022-09-01] MEDS: POTASSIUM CHLORIDE 10 MEQ CAPSULE ER 20 MEQ PO (10:07)
[2022-09-01 10:48] VITALS: TEMP 36.8
--- NOTE | 2022-09-01 12:07 | P.IMPN_ITS ---
Progress Note: A&P Assessment and plan (1) Weakness: Problem details: - appreciate input from PT/OT, will need TCU placement upon discharge given weakness in the setting of below comorbidities Status: Acute (2) Hypotension: Problem details: - Multifactorial: Due to acute illness, diuretics, systolic heart failure - patient remains asymptomatic from hypotension - if patient were to become symptomatic, would stop her Losartan (new medication) none Status: Acute (3) Heart failure with reduced ejection fraction and diastolic dysfunction: Problem details: - Echo completed 06/09/22: Echo: EF 35-40% Inferior, posterior and basal lateral hypokinesis Status: Acute (4) Abnormal echocardiogram: Problem details: 08/26/2022 TTE normal LV size, moderately reduced global systolic function with an estimated EF of 30-35%. Entire inferior wall and posterior wall are abnormal. Right ventricular cavity size is normal, global systolic RV function is mildly reduced. Moderately enlarged left atrium. Mitral valve is sclerotic, moderate mitral regurgitation. The inferior vena cava is consistent with elevated right atrial pressure. Compared to 06/09/2022, degree of MR has decreased. Status: Acute (5) Acute on chronic respiratory failure with hypoxemia: Problem details: - Intermittently requiring supplemental oxygen - multifactorial: COPD, heart failure Status: Acute Assessment and Plan: Off oxygen x 24 hours. (6) Upper respiratory tract infection: Problem details: - Negative COVID, influenza A/B, and RSV on 08/24/2022 Status: Acute (7) Chronic obstructive pulmonary disease: Status: Chronic (8) Pleural effusion on right: Problem details: - New 08/24/2022, suspect secondary to volume overload. Status: Acute (9) Cognitive dysfunction: Problem details: - Ongoing cognitive decline despite treatment efforts with donepezil, consistent with dementia of the Alzheimer's type - MOCA score was 8/30 in May of 2022. Presently her MOCA score is 10/30, with poor executive function. Status: Acute (10) Anemia of chronic disease: Status: Acute Assessment and Plan: Stable. (11) Overactive bladder: Problem details: - Suspect secondary to urinary retention, overflow from partial obstruction of flow due to uterine prolapse, has outpatient f/u scheduled with UroGyn Status: Acute (12) Paroxysmal atrial tachycardia by electrocardiogram: Problem details: - Commensurate with known advanced lung disease. It is unclear if this is multifocal atrial tachycardia or not. - asymptomatic, no recurrence of arrythmia since admission Status: Resolved (13) Diarrhea: Status: Resolved Plan 77-year-old female with weakness, chronic cognitive dysfunction, acute on chronic combined heart failure, hypotension, and possible urinary tract infection. She has been asymptomatic with episodes of hypotension. Continue torsemide, metoprolol, and losartan at low doses. I do not think any of these can be increased at this time due to variable blood pressures with hypotension at times. Continue PT and OT and seeking residential facility as patient's cognitive abilities, especially in the executive functioning and short-term memory inhibit patient's ability to be at home alone. Her son works; there is nobody available at home during the day. At present there is no safe discharge plan. Continue seeking bed at residential facility. Subjective Time Seen by Provider: 09:40 Date Seen: 09/01/22 Interval history: Kanika complains of feeling tired. According to the nurses, she complains of this every morning and then perks up by afternoon. She tells us that at home she takes pills from the [employer] store in the afternoon that give her pep. She had been having diarrhea 2 days ago, then no BM yesterday. Today her stools are formed, no diarrhea. Exam Narrative: Exam Narrative: General: No acute distress. Awake, alert, oriented to self. No pallor. No jaundice. Got up from bed and ambulated to bathroom with walker and standby assistance. Oropharynx: Clear. Mucous membranes moist. Cardiovascular: Regular rate and rhythm. Soft grade 1/6 blowing systolic murmur, unchanged. Respiratory: Clear to auscultation bilaterally. No wheezes or crackles. Const: Vital Signs, click to edit/add: Vital Signs - 24 hr 08/31/22 15:45 08/31/22 15:45 08/31/22 18:28 Temperature 97.4 F L Pulse Rate [Pulse Oximeter] 75 75 Respiratory Rate 18 16 Blood Pressure [Le ft Arm] 104/51 L 109/64 Pulse Oximetry 94 94 97 Oxygen Delivery Me thod Room Air Room Air Room Air Oxygen Flow Rate 08/31/22 23:00 08/31/22 23:00 08/31/22 23:00 Temperature 97.4 F L Pulse Rate [Pulse Oximeter] 75 Respiratory Rate 16 16 16 Blood Pressure [Le ft Arm] 95/42 L Pulse Oximetry 94 94 Oxygen Delivery Me thod Room Air Room Air Oxygen Flow Rate 0 0 09/01/22 03:00 09/01/22 07:00 09/01/22 07:00 Temperature 97.7 F 98.2 F Pulse Rate [Pulse Oximeter] 79 77 Respiratory Rate 16 16 16 Blood Pressure [Le ft Arm] 102/42 L 116/73 Pulse Oximetry 90 90 90 Oxygen Delivery Me thod Room Air Room Air Room Air Oxygen Flow Rate 0 0 0 09/01/22 07:00 09/01/22 10:48 Temperature 98.2 F Pulse Rate [Pulse Oximeter] Respiratory Rate 16 Blood Pressure [Le ft Arm] Pulse Oximetry Oxygen Delivery Me thod Oxygen Flow Rate Documenting provider has reviewed patient's vital signs: yes
[2022-09-01 12:11] LABS: C.Difficile Negative (Negative); CDIFFEPI 027 PRESUMPTIVE NEGATIVE (Negative)
[2022-09-01 15:00] VITALS: PULSE 72; RESP 16; TEMP 36.8; O2SAT 90
--- NOTE | 2022-09-01 18:08 | PC.NURSE ---
Patient up frequently throughout the day. Walks in the [facility] with staff and family members. Has a fair appetite. Stool sample obtained. C-diff presumptive negative. Precautions removed.
[2022-09-01 19:00] VITALS: BP 97/42; PULSE 71; RESP 16; TEMP 36.6; O2SAT 95
[2022-09-01] MEDS: DONEPEZIL 10 MG TABLET 5 MG PO (21:02)
[2022-09-01] MEDS: LOSARTAN POTASSIUM 50 MG TABLET 12.5 MG PO (21:04)
[2022-09-01] MEDS: ATORVASTATIN CALCIUM 40 MG TABLET PO (21:05)
[2022-09-01] MEDS: MELATONIN 3 MG TABLET PO (21:05)
[2022-09-01 23:00] VITALS: BP 99/45; PULSE 69; RESP 16; TEMP 36.5; O2SAT 95
[2022-09-02 02:54] VITALS: BP 115/66; PULSE 78; RESP 16; TEMP 36.4; O2SAT 94
--- NOTE | 2022-09-02 05:32 | PC.NURSE ---
Shift note: Pt is doing well, continue to to be anxious and frequently use call light for BR. A1 with walker and GB. Denied any pain.
[2022-09-02] MEDS: LEVOTHYROXINE 125 MCG TABLET PO (06:30)
[2022-09-02 07:00] VITALS: BP 107/51; PULSE 81; RESP 16; TEMP 36.3; O2SAT 92
[2022-09-02] MEDS: ASPIRIN 81 MG TAB.CHEW PO (08:42)
[2022-09-02] MEDS: POTASSIUM CHLORIDE 10 MEQ CAPSULE ER 20 MEQ PO (08:42)
[2022-09-02] MEDS: METOPROLOL SUCCINATE (XL) 25 MG TAB 12.5 MG PO (08:43)
[2022-09-02] MEDS: TORSEMIDE 20 MG TABLET 10 MG PO (08:43)
[2022-09-02] MEDS: SERTRALINE 50 MG TABLET 25 MG PO (08:43)
[2022-09-02] MEDS: ACETAMINOPHEN 325 MG TABLET 650 MG PO (10:09)
[2022-09-02 11:00] VITALS: BP 110/53; PULSE 74; RESP 16; TEMP 36.4; O2SAT 91
--- NOTE | 2022-09-02 14:00 | PC.NURSE ---
Pt independent in room. pleasant today and cooperative with cares.
--- NOTE | 2022-09-02 14:06 | PC.SOCIAL ---
Discharge planning- Received a phone call from Ginny at [facility] in [place]. Pt's insurance denied coverage for pt to admit to [facility]. Phone call to pt's son, Anthony Rdz, at [phone]. Informed Anthony that SNF informed that pt's insurance denied coverage for a SNF rehab stay. Discussed that pt does not have a skilled need at this time since pt received therapy services from [facility] and is at baseline. Informed Anthony that pt would have to pay privately. Anthony states that paying privately is not an option financially. Anthony states that he can bring pt home and provide care to pt. Anthony has reached out to the [facility] and discussed Medical Assistance and waiver services and will work with the [facility] to get them in place to assist financially to locate a long-term option for care for pt. Anthony states he has a medical appointment for himself this afternoon [facility] and after the appointment he can come to the [facility] to transport pt back home. Anthony is unsure how long the appointment will take so he is unsure of an exact time. Anthony is expected to be to [facility] by supper time. Informed Anthony that if he has any other questions he is welcome to call the [facility] Social Work Department. This worker provided an update to charge nurse. Met with pt in pt's room and provided information to pt. Informed pt that pt's son, Anthony, will come to the hospital later today to take pt home.
--- NOTE | 2022-09-02 15:10 | PM.DS1 ---
DS: Providers Provider Time Seen by Provider: 09:00 Date Seen: 09/02/22 Date of admission: 08/26/22 15:09 Primary care physician: Abbey Wayne MD Admitting Clinician: Wm Christiansen MD Consults: 08/24/22 19:25 Consult to Nutrition [CONS] Routine Comment: Reason for consult:: Miscellaneous Comment: 2 g Na diet - need to speak with sonAnthony Consult to Physical Therapy [CONS] Routine Comment: Reason(s) for PT Consult:: Evaluate and Treat Any Restrictions?:: No Restrictions Comment: weakness Consult to Chore Tender [CONS] Routine Comment: Reason for Consult:: Discharge Planning Needs 08/24/22 19:29 Consult to Occupational Therapy [CONS] Routine Comment: Reason(s) for OT Consult:: Evaluate and Treat Any Restrictions?:: No Restrictions Comment: Declining cognition 08/24/22 21:26 Consult to Physical Therapy [CONS] Routine Comment: Reason(s) for PT Consult:: Evaluate Ambulation Any Restrictions?:: No Restrictions 08/25/22 16:07 Consult to Occupational Therapy [CONS] Routine Comment: Reason(s) for OT Consult:: Evaluate and Treat Any Restrictions?:: No Restrictions Comment: would like MOCA please Attending Physician on discharge: Wm Christiansen MD Date of Discharge: 09/02/22 DS: Diagnosis Discharge Diagnosis (1) Heart failure with reduced ejection fraction and diastolic dysfunction: Status: Acute Problem details: - Echo completed 06/09/22: Echo: EF 35-40% Inferior, posterior and basal lateral hypokinesis (2) CHF (congestive heart failure): Status: Acute Problem details: Echo completed 06/09/22: Echo: EF 35-40% Inferior, posterior and basal lateral hypokinesis (3) Abnormal echocardiogram: Status: Acute Problem details: 08/26/2022 TTE normal LV size, moderately reduced global systolic function with an estimated EF of 30-35%. Entire inferior wall and posterior wall are abnormal. Right ventricular cavity size is normal, global systolic RV function is mildly reduced. Moderately enlarged left atrium. Mitral valve is sclerotic, moderate mitral regurgitation. The inferior vena cava is consistent with elevated right atrial pressure. Compared to 06/09/2022, degree of MR has decreased. (4) Acute UTI: Status: Acute Problem details: Specimen: [id number] COMP Collected: 08/24/22 Received: 08/24/22 Source: Urine CC Sp Descrip: Sub Dr: Wm Christiansen M.D. Other Dr: Procedure Result Site Urine Culture Final ML Organism 1 Pseudomonas aeruginosa Ur [place] Count >100,000 CFU/ml P aerugino LAURA RX --------- --- Cefepime 2 S Ceftazidime 4 S Ciprofloxacin <=0.25 S Gentamicin <=1 S Imipenem 1 S Levofloxacin 1 S Tobramycin <=1 S Piperacillin/Tazobactam <=4 S (5) Recurrent UTI: Status: Resolved Problem details: - + Pseudomonas on urine culture 08/24, completed course of Cipro (08/25-08/29) per sensitivities pecimen: [id number] COMP Collected: 08/24/22 Received: 08/24/22 Source: Urine CC Sp Descrip: Sub Dr: Wm Christiansen M.D. Other Dr: Procedure Result Site Urine Culture Final ML Organism 1 Pseudomonas aeruginosa Ur [place] Count >100,000 CFU/ml P aerugino LAURA RX --------- --- Cefepime 2 S Ceftazidime 4 S Ciprofloxacin <=0.25 S Gentamicin <=1 S Imipenem 1 S Levofloxacin 1 S Tobramycin <=1 S Piperacillin/Tazobactam <=4 S (6) Cognitive dysfunction: Status: Acute Problem details: - Ongoing cognitive decline despite treatment efforts with donepezil, consistent with dementia of the Alzheimer's type - MOCA score was 8/30 in May of 2022. Presently her MOCA score is 10/30, with poor executive function. (7) Diarrhea: Status: Resolved (8) Cough: Status: Acute (9) Paroxysmal atrial tachycardia by electrocardiogram: Status: Resolved Problem details: - Commensurate with known advanced lung disease. It is unclear if this is multifocal atrial tachycardia or not. - asymptomatic, no recurrence of arrythmia since admission (10) Acute on chronic respiratory failure with hypoxemia: Status: Acute Problem details: - Intermittently requiring supplemental oxygen - multifactorial: COPD, heart failure (11) Tobacco dependence due to cigarettes, in remission: Status: Resolved Problem details: -smoked 2 pack per days most of her life. Quit May 2022 when she was in a [place] [facility] for short period of time, and forgot that she was a smoker subsequently and has not smoked since. (12) Chronic obstructive pulmonary disease: Status: Chronic (13) Pleural effusion on right: Status: Acute Problem details: - New 08/24/2022, suspect secondary to volume overload. 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 Current TSH is 3.6. (21) Hypothyroidism (acquired): Status: Acute (22) Overactive bladder: Status: Acute Problem details: - Suspect secondary to urinary retention, overflow from partial obstruction of flow due to uterine prolapse, has outpatient f/u scheduled with UroGyn DS: Summary Hospital Course Hospital Course: This is a 77-year-old female who was admitted through the emergency department for concerns of worsening weakness. She had also had URI symptoms for some time and was negative for COVID, RSV, and influenza. Her son Anthony had been caring for her at home, but he works during the day, so she is left alone during the day. She was weak enough that she was unable to get into the car with his help and so he called nonemergent ambulance who brought her to the ER. She was found have a markedly elevated proBNP along with a new right pleural effusion. She was admitted to the hospital for daily weights and treated with IV diuretics. PT and OT were also consulted and worked with her. Her Navarro was stable at 10/30 where is it was 8/30 2 months ago. Notably she has poor executive function and memory. Urine culture grew out Pseudomonas for which she was treated with ciprofloxacin. She completed this treatment prior to discharge. Due to her poor cognition it is recommended that she not be left alone and needs 24 hour standby assistance. She has been medically stable for several days now, but there is no safe discharge plan since she required 24 hour assistance at home and her son was unable to provide this. Unsure and ultimately decided that she was not meeting criteria for subacute rehab stay. Her son Anthony stated that he would take her home because he is currently off work for the winter. She is discharged home today in stable condition. Time Spent with Patient Time attestation: Total time spent providing and/or coordinating discharge services: Exam Narrative: Exam Narrative: General: No acute distress. Awake, alert, oriented to self. No pallor. No jaundice. Oropharynx: Clear. Mucous membranes moist. Cardiovascular: Regular rate and rhythm. Soft grade 1/6 blowing systolic murmur, unchanged. Respiratory: Clear to auscultation bilaterally. No wheezes or crackles. Const: Vital Signs, click to edit/add: Vital Signs - 24 hr 09/01/22 19:00 09/01/22 23:00 09/01/22 23:00 Temperature 97.8 F 97.7 F Pulse Rate [Pulse Oximeter] 71 69 Respiratory Rate 16 16 16 Blood Pressure [Le ft Arm] 97/42 L 99/45 L Pulse Oximetry 95 95 95 Oxygen Delivery Me thod Room Air Room Air Room Air Oxygen Flow Rate 0 0 0 09/02/22 02:54 09/02/22 07:00 09/02/22 07:00 Temperature 97.6 F 97.4 F L Pulse Rate [Pulse Oximeter] 78 81 Respiratory Rate 16 16 16 Blood Pressure [Le ft Arm] 115/66 107/51 L Pulse Oximetry 94 92 92 Oxygen Delivery Me thod Room Air Room Air Room Air Oxygen Flow Rate 0 0 0 09/02/22 07:00 09/02/22 11:00 Temperature 97.5 F L Pulse Rate [Pulse Oximeter] 81 74 Respiratory Rate 16 16 Blood Pressure [Le ft Arm] 110/53 L Pulse Oximetry 91 Oxygen Delivery Me thod Room Air Oxygen Flow Rate 0 Documenting provider has reviewed patient's vital signs: yes DS: Data Data Completed and Pending Completed studies during hospitalization: Specimen: [id number] Collected: 08/24/22 Received: 08/24/22 Source: Urine CC Sp Descrip: Sub Dr: Wm Christiansen M.D. Other Dr: Procedure Result Site Urine Culture Final ML Organism 1 Pseudomonas aeruginosa Ur [place] Count >100,000 CFU/ml P aerugino LAURA RX --------- --- Cefepime 2 S Ceftazidime 4 S Ciprofloxacin <=0.25 S Gentamicin <=1 S Imipenem 1 S Levofloxacin 1 S Tobramycin <=1 S Piperacillin/Tazobactam <=4 S 08/24/2022 5:31 p.m. EKG: Sinus rhythm with premature atrial complexes and premature ventricular complexes or fusion complexes. Heart rate 69 beats per minute. Left axis deviation. Left bundle branch block. Abnormal EKG. 08/25/2022 5:05 a.m. EKG: Wide QRS tachycardia. Heart rate 132 beats per minute. Left bundle branch block. Abnormal EKG. Ordering Physician: Shannon Anderson M.D. Date of Service: 08/24/22 Procedure(s): XR chest 1V portable Accession Number(s): [id number] cc: Abbey Wayne M.D.; Shannon Anderson M.D.~ For Patients: As a result of the Cures Act, medical imaging exams and procedure reports are released immediately into your electronic medical record. You may view this report before your referring provider. If you have questions, please contact your health care provider. HISTORY: Flu-like symptoms. TECHNIQUE: One view chest. COMPARISON: 10/15/2021. FINDINGS: There are bilateral interstitial opacities which may be seen with viral infectious process. Interstitial edema could appear similarly. There is no lung consolidation. No pneumothorax or pleural effusion. Cardiac size is prominent but exaggerated by technique. There are degenerative changes of the spine. Remote healed left clavicular fracture. There are a few remote healed left-sided rib fractures. IMPRESSION: 1. Development of bilateral interstitial opacities which may relate to a viral infectious process. Interstitial edema could appear similarly. 2. Cardiomegaly. Dictated by Mata Clements MD @ 08/24/2022 3:00:17 PM Dictated by: Mata Clements MD @ 08/24/2022 15:00:22 (Electronically Signed) Ordering Physician: Shannon Anderson M.D. Date of Service: 08/24/22 Procedure(s): CT angio chest PE protocol Accession Number(s): [id number] cc: Abbey Wayne M.D.; Shannon Anderson M.D.~ For Patients: As a result of the Cures Act, medical imaging exams and procedure reports are released immediately into your electronic medical record. You may view this report before your referring provider. If you have questions, please contact your health care provider. INDICATION: Cough and weakness. Acute urinary tract infection. Shortness of breath. TECHNIQUE: CT chest PE was acquired with 95 cc Isovue 370 IV contrast. COMPARISON: None. FINDINGS: Heart and vasculature: Contrast opacification of the pulmonary arterial tree is adequate. No sign of pulmonary embolism. Cardiomegaly present. Great vessels normal in caliber. Lungs and pleura: No suspicious nodules or infiltrates. Generalized interlobular septal thickening. Moderate lung hyperinflation and bronchiectasis. Moderate size right pleural effusion. No pneumothorax. Lymph nodes/mediastinum: No mediastinal, hilar, or axillary adenopathy. Chest wall: No masses. Upper abdomen: No acute or significant findings. Bones: Unremarkable for age. IMPRESSION: 1. No pulmonary embolism or pneumonia. 2. Suspected CHF with moderate interstitial edema and a moderate size right pleural effusion. 3. No other acute abnormality. Please note that all CT scans at this facility use dose modulation, iterative reconstruction, and/or weight-based dosing when appropriate to reduce radiation dose to as low as reasonably achievable. Dictated by Luis Hernández MD @ 08/24/2022 5:19:16 PM (Electronically Signed) Ordering Physician: Celine Norton MD Date of Service: 08/25/22 Procedure(s): XR chest 1V portable Accession Number(s): [id number] cc: Celine Norton MD; Abbey Wayne M.D.~ For Patients: As a result of the Cures Act, medical imaging exams and procedure reports are released immediately into your electronic medical record. You may view this report before your referring provider. If you have questions, please contact your health care provider. Indication: Shortness of breath Technique: Chest 1 view Comparison: August 24, 2022 and October 15, 2021 Findings/Impression: Stable cardiomegaly. Persistent pulmonary venous congestion. Small right pleural effusion. No pneumothorax. Dictated by Teresa Walter MD @ 08/25/2022 6:32:53 AM (Electronically Signed) 08/26/2022 TTE normal LV size, moderately reduced global systolic function with an estimated EF of 30-35%. Entire inferior wall and posterior wall are abnormal. Right ventricular cavity size is normal, global systolic RV function is mildly reduced. Moderately enlarged left atrium. Mitral valve is sclerotic, moderate mitral regurgitation. The inferior vena cava is consistent with elevated right atrial pressure. Compared to 06/09/2022, degree of MR has decreased. Discharge Plan Discharge Disposition: Home, Self-Care Date of Admission: 08/26/22 15:09 Attending Provider on Discharge: Kathia Choi Primary Care Provider: Abbey Wayne Condition: Improved Anticipated Discharge Date/Time: 08/29/22 13:00 Discharge Medications: New aspirin [Children's Aspirin] 81 mg Tablet,Chewable 81 mg PO DAILY Qty: 30 0RF potassium chloride 10 mEq Capsule, Extended Release 20 meq PO DAILYWM 30 Days Qty: 30 0RF metoprolol succinate 25 mg Tablet Extended Release 24 Hr 12.5 mg PO DAILY 30 Days Qty: 15 0RF losartan 25 mg tablet See Rx Instructions .ROUTE .COMPLEX Qty: 15 2RF Rx Instructions: 12.5 mg (0.5 tab) orally once daily Continued levothyroxine 125 mcg tablet 125 mcg PO DAILY@0700 Qty: 90 3RF atorvastatin 40 mg tablet 40 mg PO HS Qty: 90 3RF torsemide 10 mg tablet 10 mg PO QAM Qty: 90 3RF donepezil 5 mg tablet 5 mg PO HS Qty: 90 3RF melatonin 3 mg Tablet 3 mg PO HS Qty: 30 0RF Premarin 0.625 mg/gram Cream 1 applic vaginal 2XW Rx Instructions: UP TO TWICE WEEKLY white petrolatum [Petroleum Jelly] Gel 1 applic topical DAILY PRN Discharge Orders: Discharge Order (Routine); Ordered 09/02/22 Ordered By: Kathia Choi Patient Education: Heart Failure (DC) Additional Instructions: 1. Follow-up with PCP in 1 week; 2. Daily weight; 3. Notify clinician if weight greater than 2 lbs in one day, or greater than 5 lbs in one week; 4. F/u with urogyn as previously scheduled for vaginal prolapse. Activity Level: Activity as Tolerated and Use Walker Discharge Diet: Regular Follow Up Appointments: Abbey Wayne MD [Primary Care Provider] - (1 week) Forms: [employer] Info Instructions
[2022-09-02 15:25] VITALS: BP 94/52; PULSE 75; RESP 18; TEMP 36.3; O2SAT 92
[2022-09-02 16:24] VITALS: PULSE 75
[2022-09-02] MEDS: LOSARTAN POTASSIUM 50 MG TABLET 12.5 MG PO (19:51)
[2022-09-02] MEDS: ATORVASTATIN CALCIUM 40 MG TABLET PO (19:51)
[2022-09-02] MEDS: DONEPEZIL 10 MG TABLET 5 MG PO (19:52)
--- NOTE | 2022-09-02 21:39 | PC.NURSE ---
DC note: DC instructions provided to the patient and her son, they both verbalized understanding. Paperwork signed. Pt DC via W/C accompanied by her son Anthony
--- NOTE | 2022-09-05 10:34 | PC.SOCIAL ---
Received a phone call from Yuki at [facility] requesting an H&P and medication list to be faxed to [facility]. Yuki will get a MD order from pt's PCP. Faxed requested information to [phone].
== END 2022-09-02 20:00 | disposition home health service (06) | DRG 291 ==
LOC: ED 18:36 → MEDSURG 18:50
PROVIDERS: Family Medicine; Admitting Provider Internal Medicine; Emergency Provider Family Medicine; PCP Family Medicine; Visit Provider Internal Medicine
DX: I11.0 Hypertensive heart disease with heart failure (principal); I50.43 Acute on chronic combined systolic (congestive) and diastolic (congestive) heart failure; J96.21 Acute and chronic respiratory failure with hypoxia; I47.1 Supraventricular tachycardia; N39.0 Urinary tract infection, site not specified; B96.5 Pseudomonas (aeruginosa) (mallei) (pseudomallei) as the cause of diseases classified elsewhere; R19.7 Diarrhea, unspecified; R53.1 Weakness; J02.9 Acute pharyngitis, unspecified; G30.9 Alzheimer's disease, unspecified; F02.80 Dementia in other diseases classified elsewhere, unspecified severity, without behavioral disturbance, psychotic disturbance, mood disturbance, and anxiety; N32.81 Overactive bladder; R35.0 Frequency of micturition; R35.1 Nocturia; R32 Unspecified urinary incontinence; J44.9 Chronic obstructive pulmonary disease, unspecified; I08.1 Rheumatic disorders of both mitral and tricuspid valves; L89.90 Pressure ulcer of unspecified site, unspecified stage; I25.10 Atherosclerotic heart disease of native coronary artery without angina pectoris; I44.7 Left bundle-branch block, unspecified; N99.3 Prolapse of vaginal vault after hysterectomy; I95.9 Hypotension, unspecified; D63.8 Anemia in other chronic diseases classified elsewhere; H10.403 Unspecified chronic conjunctivitis, bilateral; E78.5 Hyperlipidemia, unspecified; E03.9 Hypothyroidism, unspecified; Z87.891 Personal history of nicotine dependence
CPT/HCPCS: 36415; 51798; 71045; 71260; 80048; 80053; 81001; 82803; 83540; 83550; 83605; 83735; 83880; 84100; 84132; 84443; 84484; 85025; 85027; 85045; 86140; 87086; 87186; 87493; 87502; 87634; 87635; 93306; 94761; 97116; 97161; 97165; 97530; 97535; 99284; 99285; G0378; A9270; J1940; J7120; Q9967

== ENCOUNTER 2022-09-16 12:30 | Observation (INO) | payer OTHER, SELFPAY ==
[2022-09-16] VITALS (7 sets, daily range): BP systolic 98–131; BP diastolic 52–88; PULSE 75–86; RESP 16–32; TEMP 36.3–36.6; O2SAT 90–100; BMI 22.3; BMI 21.4
--- NOTE | 2022-09-16 13:50 | CRLHL7_ITS ---
For Patients: As a result of the Century Cures Act, medical imaging exams and procedure reports are released immediately into your electronic medical record. You may view this report before your referring provider. If you have questions, please contact your health care provider. Indication: Shortness of breath Comparison: Single-view chest August 25, 2022 Technique: PA and lateral views of the chest Findings: There is persistent right basilar pleural effusion with adjacent compressive atelectasis versus infiltrates. There residual interstitial markings likely representing pulmonary edema versus multifocal infiltrates. The cardiac silhouette is mildly prominent. The bony thorax is grossly intact. Impression: Persistent right basilar pleural effusion with adjacent compressive atelectasis versus infiltrates. Improved aeration from comparison exam with likely residual edema and/or infiltrates. Dictated by El Mueller MD @ 09/16/2022 3:02:28 PM (Electronically Signed)
--- NOTE | 2022-09-16 13:51 | ED.SOB ---
HPI - SOB/Dyspnea General Chief Complaint: Shortness of Breath/Dyspnea Stated Complaint: Breathing difficulty Time Seen by Provider: 09/16/22 13:44 History of Present Illness HPI Narrative: This 77-year-old female comes in reporting shortness of breath that began yesterday. She has a history of CHF and is a former smoker. She does not report any fever or cough. She arrives with oximetry at 92% on room air with increased respiratory rate at around 32 breaths per minute. She has normal vital signs otherwise. She does not report any chest pain. Related Data Home Medications Medication Instructions Recorded Confirmed white petrolatum (Petroleum Jelly 1 applic topical DAILY PRN 08/25/22 08/25/22 topical) Previous Rx's Medication Instructions Recorded melatonin 3 mg tablet 3 mg PO HS #30 tabs 06/13/22 atorvastatin 40 mg tablet 40 mg PO HS #90 tabs 07/15/22 donepezil 5 mg tablet 5 mg PO HS #90 tabs 07/15/22 torsemide 10 mg tablet 10 mg PO QAM #90 tabs 07/15/22 aspirin 81 mg chewable tablet 81 mg PO DAILY #30 tabs 08/28/22 (Children's Aspirin) levothyroxine 125 mcg tablet 125 mcg PO DAILY@0700 #90 tabs 09/12/22 Allergies Allergy/AdvReac Type Severity Reaction Status Date / Time ceftriaxone Allergy Intermediate Rash Verified 08/08/22 08:03 Nitrate Analogues Allergy Mild Nausea Verified 08/08/22 08:03 nitrofurantoin Allergy Mild Nausea Verified 08/08/22 08:03 rosuvastatin Allergy Unknown Nausea Verified 08/08/22 08:03 Review of Systems Status of ROS: Reports: 10 or more systems reviewed and unremarkable except as noted in History and below Narrative: Constitutional: No fevers, no weight gain or loss. Eyes: No discharge. No vision changes. HENT: No congestion, no sore throat, no ear pain. Cardiovascular: No chest pain, no palpitations. Respiratory: No wheezes, no cough. Shortness of breath as described above. Gastrointestinal: No abdominal pain, no vomiting, no diarrhea. Genitourinary: No dysuria, no hematuria. Musculoskeletal: Normal range of motion. Skin: No rashes, no pruritis. Neurological: No dizziness, weakness, sensory change, speech change. Endo/Heme/Allergies: No bruising or bleeding. No polydipsia. Pysch: no suicidality, no anxiety, no insomnia. All other systems reviewed and are negative. [facility] Medical History (Updated 09/16/22 @ 16:35 by Dave Doe MD) Abnormal echocardiogram Acute on chronic respiratory failure with hypoxemia Anemia of chronic disease CHF (congestive heart failure) Chronic obstructive pulmonary disease Cognitive dysfunction Complete prolapse of vaginal vault Coronary artery disease (06/27/10) Decreased oral intake Elevated TSH Fracture of right hip Heart failure with reduced ejection fraction and diastolic dysfunction Hyperlipidemia (06/27/10) Hypertension (05/27/07) Hypotension Hypothyroidism (acquired) Open blow-out fracture of right orbital floor Overactive bladder (05/27/07) Pleural effusion on right Pressure ulcer Recurrent UTI Tobacco dependence due to cigarettes, in remission Tobacco use (05/27/07) Upper respiratory tract infection Urinary frequency Vaginal vault prolapse after hysterectomy Vaginal vault prolapse after hysterectomy Weakness Surgical History History of cataract removal with insertion of prosthetic lens History of coronary artery stent placement Status post hysterectomy (05/27/07) Family History Father AAA (abdominal aortic aneurysm) Mother Stroke Son Osteoporosis Unknown Autism Social History Highest level of school completed/degree received: 12th grade, no diploma Smoking Status: Former smoker What tobacco products do you use: cigarettes Smoking packs per day: 0.5 Smoking cigarettes per day: 10.0 Smoking quit date/years: <= 15 years ago Do you use any of these nicotine containing products: None Second hand tobacco smoke exposure: No How often do you have a drink containing alcohol: 4 or more times a week Alcohol type: beer Alcohol type details: usually just on holidays How many standard drinks containing alcohol do you have on a typical day: 1 or 2 How often do you have six or more drinks on one occasion: Never AUDIT-C Alcohol total score: 4 Non-prescribed substance use: denies use Caffeine: Yes (occasionally coffee) service: No Exam Narrative: Exam Narrative: Constitutional: Well-developed, well-nourished, no acute distress. HEENT: Normocephalic, atraumatic. Neck: Normal range of motion. Nontender. Supple. Heart: Regular. No murmurs. Normal rate. Intact distal pulses. Lungs: Bilateral wheezes and rhonchi. Abdomen: Normal bowel sounds. Nontender. No rebound tenderness. Genitalia: Deferred. Back: No midline tenderness. Normal range of motion. Extremities: Normal range of motion. No injury. No significant pedal edema. Skin: Intact. No rash. Warm. No erythema or pallor. Neurologic: No altered sensation. No weakness. Alert and oriented. Psychiatric: No suicidality. No anxiety or depression. No insomnia. Nursing notes and vitals signs are reviewed. Const: Vital Signs, click to edit/add: Vital Signs - 24 hr 09/16/22 12:55 09/16/22 14:30 09/16/22 14:38 Temperature 97.3 F L Pulse Rate [Pulse Oximeter] 85 Respiratory Rate 32 H 18 Blood Pressure [Ri ght Upper Arm] 129/88 Pulse Oximetry 92 100 92 Oxygen Delivery Me thod Room Air Room Air 09/16/22 16:12 Temperature Pulse Rate [Pulse Oximeter] 85 Respiratory Rate Blood Pressure [Ri ght Upper Arm] Pulse Oximetry 90 Oxygen Delivery Me thod Room Air Course Vital Signs Vital signs: Initial Vital Signs Temperature 97.3 F L 09/16/22 12:55 Temperature Source Temporal Artery Scan 09/16/22 12:55 Pulse Rate 85 09/16/22 12:55 Respiratory Rate 32 H 09/16/22 12:55 Blood Pressure 129/88 09/16/22 12:55 Blood Pressure Mean 101 09/16/22 12:55 Blood Pressure Position Sitting 09/16/22 12:55 Pulse Oximetry 92 09/16/22 12:55 Oxygen Delivery Method 09/16/22 12:55 Vital Signs Temperature 97.3 F L 09/16/22 12:55 Pulse Rate 85 09/16/22 12:55 Respiratory Rate 32 H 09/16/22 12:55 Blood Pressure 129/88 09/16/22 12:55 Pulse Oximetry 92 09/16/22 12:55 Oxygen Delivery Method 09/16/22 12:55 Temperature 97.3 F L 09/16/22 12:55 Pulse Rate 85 09/16/22 16:12 Respiratory Rate 18 09/16/22 14:38 Blood Pressure 129/88 09/16/22 12:55 Pulse Oximetry 90 09/16/22 16:12 Oxygen Delivery Method 09/16/22 16:12 MDM - SOB/Dyspnea MDM Narrative Medical decision making narrative: This 77-year-old patient comes in reporting shortness of breath and some cough. She did arrive with tachypnea but was not tripping any other sirs criteria that would trigger a need for sepsis workup. An IV was established where she did receive Solu-Medrol 125 mg. She also received a DuoNeb. This brought some relief to her symptoms and her respiratory rate decreased to 18 per minute. All along she is maintaining oximetry around 90% on room air. Sometimes she dips down into the upper 80s and other times she increases to 92%. Lab results returned with reassuring findings. Her white count is in normal range. Chest x-ray shows a chronic small right pleural effusion with some possibility of atelectasis or infiltrate in this area. The patient states that she is feeling better but continues to have this oximetry around 90%. This could very well be her baseline where it is better not to give her oxygen. She did receive IV doses of Rocephin and Zithromax. I spoke with Dr. Choi who agrees to her admission into the hospital. Lab Data Labs: Lab Results 09/16/22 09/16/22 09/16/22 Range/Units 14:30 14:30 14:30 WBC 7.60 (4.50-11.00) K/uL RBC 3.89 L (4.00-5.20) m/uL Hgb 10.1 L (12.0-16.0) gm/dL Hct 32.7 L (33.0-51.0) % MCV 84 (80-100) fL MCH 26 (26-34) pg MCHC 31 L (32-36) gm/dL RDW Coeff of Michaela 19.6 H (11.5-15.5) % Plt Count 229 (140-440) K/uL Neut % (Auto) 72.2 H (42.0-72.0) % Lymph % (Auto) 13.2 L (20-44) % [place] % (Auto) 12.2 H (0.0-11.0) % Eos % (Auto) 1.7 (0.0-7.0) % Baso % (Auto) 0.4 (0.0-3.0) % Neut # (Auto) 5.50 (1.7-7.0) K/uL Lymph # (Auto) 1.00 (0.90-2.90) K/uL [place] # (Auto) 0.90 (0.00-0.90) K/UL Eos # (Auto) 0.13 (0.00-0.50) K/uL Baso # (Auto) 0.03 (0.00-0.30) K/uL Sodium 139 (135-149) mmol/L Potassium 4.2 (3.6-5.1) mmol/L Chloride 103 (96-114) mmol/L Carbon Dioxide 30 (20-32) mmol/L BUN 22 (7-30) mg/dL Creatinine 0.6 (0.5-1.5) mg/dL Estimated Creat Clear 39.39 Estimated GFR 91 ml/min Glucose 120 H (60-115) mg/dL Calcium 8.7 (8.4-10.6) mg/dL NT-Pro-B Natriuret Pep 49678 pg/mL SARS-CoV-2 (PCR) (Negative) Influenza Type A (PCR) (Negative) Influenza Type B (PCR) (Negative) RSV (PCR) (Negative) POC Troponin I 0.03 (0.01-0.04) ng/ml 09/16/22 Range/Units 14:30 WBC (4.50-11.00) K/uL RBC (4.00-5.20) m/uL Hgb (12.0-16.0) gm/dL Hct (33.0-51.0) % MCV (80-100) fL MCH (26-34) pg MCHC (32-36) gm/dL RDW Coeff of Michaela (11.5-15.5) % Plt Count (140-440) K/uL Neut % (Auto) (42.0-72.0) % Lymph % (Auto) (20-44) % [place] % (Auto) (0.0-11.0) % Eos % (Auto) (0.0-7.0) % Baso % (Auto) (0.0-3.0) % Neut # (Auto) (1.7-7.0) K/uL Lymph # (Auto) (0.90-2.90) K/uL [place] # (Auto) (0.00-0.90) K/UL Eos # (Auto) (0.00-0.50) K/uL Baso # (Auto) (0.00-0.30) K/uL Sodium (135-149) mmol/L Potassium (3.6-5.1) mmol/L Chloride (96-114) mmol/L Carbon Dioxide (20-32) mmol/L BUN (7-30) mg/dL Creatinine (0.5-1.5) mg/dL Estimated Creat Clear Estimated GFR ml/min Glucose (60-115) mg/dL Calcium (8.4-10.6) mg/dL NT-Pro-B Natriuret Pep pg/mL SARS-CoV-2 (PCR) Negative SARS-CoV-2 (Negative) Influenza Type A (PCR) Negative PCR FLU A (Negative) Influenza Type B (PCR) Negative PCR FLU B (Negative) RSV (PCR) Negative PCR RSV (Negative) POC Troponin I (0.01-0.04) ng/ml Imaging Data Chest x-ray: Radiologist's impression: Persistent right basilar pleural effusion with adjacent compressive atelectasis versus infiltrates. Improved aeration from comparison exam with likely residual edema and/or infiltrates. ECG Data Attestation: I personally reviewed and interpreted this ECG as follows: Interpretation: Sinus rhythm with occasional premature ventricular complexes. Rate is 82 beats per minute. Left bundle branch block which is not new. Discharge Plan Discharge Clinical Impression: CHF (congestive heart failure), COPD (chronic obstructive pulmonary disease), Pneumonia Patient Disposition: Admitted As Inpatient Condition: Improved Prescriptions: No Action atorvastatin 40 mg tablet 40 mg PO HS Qty: 90 3RF torsemide 10 mg tablet 10 mg PO QAM Qty: 90 3RF donepezil 5 mg tablet 5 mg PO HS Qty: 90 3RF melatonin 3 mg Tablet 3 mg PO HS Qty: 30 0RF white petrolatum [Petroleum Jelly] Gel 1 applic topical DAILY PRN aspirin [Children's Aspirin] 81 mg Tablet,Chewable 81 mg PO DAILY Qty: 30 0RF levothyroxine 125 mcg tablet 125 mcg PO DAILY@0700 Qty: 90 3RF Follow Up/Referrals: Abbey Wayne MD [Primary Care Provider] -
[2022-09-16] MEDS: METHYLPREDNISOLONE SOD SUCC 62.5 MG/ML (125) 125 MG IVP (14:30)
[2022-09-16] MEDS: IPRAT-ALBUT 0.5-2.5 MG/3 ML NEB 1 NEB IH (14:30)
[2022-09-16 14:42] LABS: Basophils Absolute Auto 0.03 K/uL (0.00-0.30); Basophils Percent Auto 0.4 % (0.0-3.0); Eosinophils Absolute Auto 0.13 K/uL (0.00-0.50); Eosinophils Percent Auto 1.7 % (0.0-7.0); Hematocrit 32.7 % (33.0-51.0); Hemoglobin* 10.1 gm/dL (12.0-16.0); Immature Granulocytes Abs Auto 0.02 K/uL (0.00-0.30); Immature Granulocytes Pct Auto 0.3 %; Lymphocytes Percent Auto 13.2 % (20-44); Mean Corpuscular HGB Conc 31 gm/dL (32-36); Mean Corpuscular Hemoglobin 26 pg (26-34); Mean Corpuscular Volume 84 fL (80-100); Monocytes Percent Auto 12.2 % (0.0-11.0); Neutrophils Percent Auto 72.2 % (42.0-72.0); Platelet Count* 229 K/uL (140-440); RDW Coefficient of Variation % 19.6 % (11.5-15.5); Red Blood Count 3.89 m/uL (4.00-5.20)
[2022-09-16 14:44] LABS: Troponin, Point-of-Care* 0.03 ng/ml (0.01-0.04)
[2022-09-16 14:47] LABS: Slide Review Reflex No
[2022-09-16 14:56] LABS: Chloride* 103 mmol/L (96-114); Potassium* 4.2 mmol/L (3.6-5.1); Sodium* 139 mmol/L (135-149)
[2022-09-16 14:59] LABS: Carbon Dioxide* 30 mmol/L (20-32); Creatinine* 0.6 mg/dL (0.5-1.5); Est. Creatinine Clearance* 39.39; Estimated Glomerular Filt Rate 91 ml/min
[2022-09-16 15:00] LABS: Blood Urea Nitrogen* 22 mg/dL (7-30); Calcium* 8.7 mg/dL (8.4-10.6); Glucose* 120 mg/dL (60-115)
[2022-09-16 15:10] LABS: NT Pro B Type NatriureticPept* 28000 pg/mL
[2022-09-16 15:18] LABS: PCR FLU A Negative PCR FLU A (Negative); PCR FLU B Negative PCR FLU B (Negative); PCR RSV Negative PCR RSV (Negative)
[2022-09-16 15:22] LABS: SARS PCR* Negative SARS-CoV-2 (Negative)
--- NOTE | 2022-09-16 17:14 | ED.NURSE ---
Levaquin 500mg/100mL infusing over 1 hr, order confirmed with Dr. Doe and Vanessa, RN. Unable to document in NOV.
--- NOTE | 2022-09-16 17:16 | W.PC.EDHO ---
Primary Language: Preferred Language: Orientation Status: [] Alert & Oriented [] Slight Confusion [] Known Dx Dementia Transfers By: [] Assist of 1 [] Assist of 2 [] Lift Active Medications Discontinued Medications Generic Name Dose Route Start Last Admin Trade Name Ana Maria PRN Reason Stop Dose Admin Albuterol/Ipratropium 1 neb 09/16/22 13:49 09/16/22 14:30 Iprat-Albut 0.5-2.5 Mg/3 Ml Neb IH 09/16/22 13:50 1 neb ONCE ONE Administration Methylprednisolone Sodium Succinate 125 mg 09/16/22 13:49 09/16/22 14:30 Methylprednisolone Sod Succ 62.5 Mg/Ml (125) IVP 09/16/22 13:50 125 mg ONCE ONE Administration Description of Symptoms ED Triage Present Problem SOB since yesterday, getting worse. Unable to Description sleep yesterday. Intermittent today. Hx of CHF ED Triage Date of Onset of 09/15/22 Symptoms Oxygen Administration Pulse Oximetry 90 Pulse Oximetry 92 Pulse Oximetry 100 Pulse Oximetry 92 Oxygen Delivery Method Room Air Oxygen Delivery Method Room Air Oxygen Delivery Method Room Air Cardiac Monitoring EKG Method 12 Lead
--- NOTE | 2022-09-16 17:18 | ED.NURSE ---
Report given to SANA Martinez. Pt will go to Rm [id number].
--- NOTE | 2022-09-16 18:39 | PC.NURSE ---
PATIENT ORIENTED TO SELF AND PLACE ONLY. KNOWS IT IS AUGUST BUT UNSURE OF DATE OR YEAR. PATIENT DENIES PAIN. TOLERATING REGULAR DIET. UP WITH SBA AND WALKER. PATIENT HAS PROLAPSED UTERUS.
--- NOTE | 2022-09-16 18:57 | PM.IMHP1 ---
Hospitalist- H&P: HPI History of Present Illness Time Seen by Provider: 18:30 Date Seen: 09/16/22 Chief complaint: Breathing difficulty Narrative: Mireya Rdz is a 77 year old female who was brought in by her son for dyspnea. Kanika tells me she is feeling better now. She is unable to give me any history and says I should speak with her son who brought her in. I attempted to call her son, Anthony [phone], at 7:00 p.m. and reached voicemail. He has not called back. She was hospitalized recently for a mild heart failure exacerbation and weakness. Due to the severity of her dementia, it was determined that she was unsafe to go home without supervision. Her insurance did not cover SNF. Her son, Anthony, was not working during the day at this time due to the winter season, and took her home with him. Review of Systems Status of ROS: Reports: unobtainable due to medical condition (dementia) [facility] Medical History (Updated 09/16/22 @ 20:49 by Kathia Choi MD) Abnormal echocardiogram Acute on chronic respiratory failure with hypoxemia Anemia of chronic disease CHF (congestive heart failure) Chronic obstructive pulmonary disease Cognitive dysfunction Complete prolapse of vaginal vault Coronary artery disease (06/27/10) Decreased oral intake Elevated TSH Fracture of right hip Heart failure with reduced ejection fraction and diastolic dysfunction Hyperlipidemia (06/27/10) Hypertension (05/27/07) Hypotension Hypothyroidism (acquired) Open blow-out fracture of right orbital floor Overactive bladder (05/27/07) Pleural effusion on right Pressure ulcer Recurrent UTI Tobacco dependence due to cigarettes, in remission Tobacco use (05/27/07) Upper respiratory tract infection Urinary frequency Vaginal vault prolapse after hysterectomy Vaginal vault prolapse after hysterectomy Weakness Surgical History History of cataract removal with insertion of prosthetic lens History of coronary artery stent placement Status post hysterectomy (05/27/07) Family History Father AAA (abdominal aortic aneurysm) Mother Stroke Son Osteoporosis Unknown Autism Social History Highest level of school completed/degree received: 12th grade, no diploma Smoking Status: Former smoker Do you use any of these nicotine containing products: None Second hand tobacco smoke exposure: No How often do you have a drink containing alcohol: 4 or more times a week Alcohol type: beer Alcohol type details: usually just on holidays How many standard drinks containing alcohol do you have on a typical day: 1 or 2 How often do you have six or more drinks on one occasion: Never AUDIT-C Alcohol total score: 4 Non-prescribed substance use: denies use Caffeine: Yes (occasionally coffee) service: No Meds Home Medications and Allergies Home Medications Medication Instructions Recorded Confirmed Type white petrolatum (Petroleum Jelly 1 applic topical DAILY PRN 08/25/22 08/25/22 History topical) Allergies Allergy/AdvReac Type Severity Reaction Status Date / Time ceftriaxone Allergy Intermediate Rash Verified 08/08/22 08:03 Nitrate Analogues Allergy Mild Nausea Verified 08/08/22 08:03 nitrofurantoin Allergy Mild Nausea Verified 08/08/22 08:03 rosuvastatin Allergy Unknown Nausea Verified 08/08/22 08:03 Exam Narrative: Exam Narrative: General: No acute distress. Awake alert oriented x3. HEENT: Normocephalic atraumatic, pupils equally round and reactive to light and accommodation. Oropharynx clear. Mucous membranes are moist. No cervical lymphadenopathy, thyromegaly or carotid bruits. No JVD. Cardiovascular: Regular rate and rhythm. Grade 1/6 systolic murmur. Chest: No increased work of breathing. Fine right basilar crackles. No wheezes. Abdomen: Bowel sounds present. Soft, nondistended, nontender. No hepatosplenomegaly or masses. Extremities: No edema, no cyanosis or clubbing. Skin: No jaundice, no pallor, no rashes. Neuro: Grossly intact. No focal deficits. Const: Vital Signs, click to edit/add: Vital Signs - 24 hr 09/16/22 12:55 09/16/22 14:30 09/16/22 14:38 Temperature 97.3 F L Pulse Rate [Apical ] Pulse Rate [Pulse Oximeter] 85 Respiratory Rate 32 H 18 Blood Pressure [Le ft Arm] Blood Pressure [Ri ght Upper Arm] 129/88 Pulse Oximetry 92 100 92 Oxygen Delivery Me thod Room Air Room Air 09/16/22 16:12 09/16/22 17:25 09/16/22 18:18 Temperature 97.8 F Pulse Rate [Apical ] 86 Pulse Rate [Pulse Oximeter] 85 86 Respiratory Rate 16 20 Blood Pressure [Le ft Arm] 109/62 Blood Pressure [Ri ght Upper Arm] 131/70 Pulse Oximetry 90 92 90 Oxygen Delivery Me thod Room Air Room Air 09/16/22 18:18 Temperature Pulse Rate [Apical ] Pulse Rate [Pulse Oximeter] Respiratory Rate 20 Blood Pressure [Le ft Arm] Blood Pressure [Ri ght Upper Arm] Pulse Oximetry 90 Oxygen Delivery Me thod Room Air Documenting provider has reviewed patient's vital signs: yes Hospitalist - H&P: Result Labs Labs: Short CBC 09/16/22 Range/Units 14:30 WBC 7.60 (4.50-11.00) K/uL Hgb 10.1 L (12.0-16.0) gm/dL Hct 32.7 L (33.0-51.0) % Plt Count 229 (140-440) K/uL BMP 09/16/22 14:30 Sodium 139 Potassium 4.2 Chloride 103 Carbon Dioxide 30 BUN 22 Creatinine 0.6 Glucose 120 H Calcium 8.7 Ordering Physician: Dave Doe M.D. Date of Service: 09/16/22 Procedure(s): XR chest 2V Accession Number(s): [id number] cc: Dave Doe M.D.; Abbey Wayne M.D.~ For Patients: As a result of the Cures Act, medical imaging exams and procedure reports are released immediately into your electronic medical record. You may view this report before your referring provider. If you have questions, please contact your health care provider. Indication: Shortness of breath Comparison: Single-view chest August 25, 2022 Technique: PA and lateral views of the chest Findings: There is persistent right basilar pleural effusion with adjacent compressive atelectasis versus infiltrates. There residual interstitial markings likely representing pulmonary edema versus multifocal infiltrates. The cardiac silhouette is mildly prominent. The bony thorax is grossly intact. Impression: Persistent right basilar pleural effusion with adjacent compressive atelectasis versus infiltrates. Improved aeration from comparison exam with likely residual edema and/or infiltrates. Dictated by El Mueller MD @ 09/16/2022 3:02:28 PM (Electronically Signed) 09/16/2022 2:12 p.m. EKG: Sinus rhythm with frequent premature ventricular complexes, heart rate 82 beats per minute. Left axis deviation. Left bundle branch block, unchanged from previous EKG done 08/29/2022. Assessment and Plan Assessment and plan (1) Abnormal echocardiogram: Problem comment: 08/26/2022 TTE normal LV size, moderately reduced global systolic function with an estimated EF of 30-35%. Entire inferior wall and posterior wall are abnormal. Right ventricular cavity size is normal, global systolic RV function is mildly reduced. Moderately enlarged left atrium. Mitral valve is sclerotic, moderate mitral regurgitation. The inferior vena cava is consistent with elevated right atrial pressure. Compared to 06/09/2022, degree of MR has decreased. Status: Chronic (2) COPD (chronic obstructive pulmonary disease): Status: Chronic (3) Pneumonia: Status: Acute (4) CHF (congestive heart failure): Problem comment: Echo completed 06/09/22: Echo: EF 35-40% Inferior, posterior and basal lateral hypokinesis Status: Chronic (5) Pleural effusion on right: Problem comment: - New 08/24/2022, suspect secondary to volume overload. Status: Chronic (6) Cognitive dysfunction: Problem comment: - Ongoing cognitive decline despite treatment efforts with donepezil, consistent with dementia of the Alzheimer's type - MOCA score was 8/30 in May of 2022. Presently her MOCA score is 10/30, with poor executive function. Status: Chronic (7) Chronic obstructive pulmonary disease: Status: Acute (8) HTN (hypertension): Status: Chronic (9) Coronary artery disease: Status: Chronic Plan This is a 77-year-old female with a complicated past medical history that includes COPD, heart failure with reduced ejection fraction, coronary artery disease, right-sided pleural effusion, and significant cognitive dysfunction. She has had multiple admissions over the last few months. She is admitted for observation tonight after presenting to the emergency department short of breath. Her oxygen saturations have fluctuated from 90-100% on room air. I have reviewed the radiologist's interpretation of the chest x-ray done this evening. It appears not significantly different than her previous film. Upon evaluating her, I think she is likely at her baseline. I am unable to speak with her son this evening, although I have tried to reach him. I have not heard any reports of fever and her white count is within normal limits. Based on these findings, I do not think she has pneumonia. She is not currently complaining of dyspnea. She did have elevated respirations and dyspnea the emergency department earlier this evening for which she was treated with nebulizers and prednisone. Her condition improved after that. It is unknown if she is alone yet for parts of the day. It has previously been determined that she does not have the mental capacity to care for herself and needs assistance at home. It is unclear if she is taking her medications properly or following a low-sodium diet. Admit for observation and obtain more information from her son. I have asked social Work to consult. I will also ask PT and OT to see her. This is possibly a COPD exacerbation which has already improved after Solu-Medrol and nebs in the emergency department. I will order nebulizers and daily prednisone for 2 more days.
[2022-09-16] MEDS: MELATONIN 3 MG TABLET PO (21:33)
[2022-09-16] MEDS: ATORVASTATIN CALCIUM 40 MG TABLET PO (21:33)
[2022-09-16] MEDS: TORSEMIDE 5 MG TABLET 10 MG PO (21:34)
[2022-09-16] MEDS: DONEPEZIL 5 MG TABLET PO (22:23)
[2022-09-17] VITALS (8 sets, daily range): BP systolic 110–119; BP diastolic 52–68; PULSE 78–89; RESP 18–20; TEMP 36.1–36.7; O2SAT 74–96
--- NOTE | 2022-09-17 05:14 | PC.NURSE ---
Shift note: Pt has been awake throughout the shift. Confused, disoriented and repeatedly asking for food and sleeping pills. Scheduled medications including Melatonin given. No SOB noted, denied any pain. Pt ambulated within the hallway with A1, walker and GB. [place] given and pt was able eat about 75%.
[2022-09-17] MEDS: LEVOTHYROXINE 125 MCG TABLET PO (06:51)
[2022-09-17] MEDS: ASPIRIN 81 MG TAB.CHEW PO (08:19)
[2022-09-17] MEDS: predniSONE 20 MG TABLET PO (08:19)
[2022-09-17] MEDS: TORSEMIDE 5 MG TABLET 10 MG PO ×2 (08:20→16:03)
--- NOTE | 2022-09-17 08:27 | PM.DS1 ---
DS: Providers Provider Time Seen by Provider: 08:20 Date Seen: 09/18/22 Date of admission: 09/16/22 17:24 Primary care physician: Abbey Wayne MD Admitting Clinician: Kathia Choi MD Consults: 09/16/22 19:05 Consult to Physical Therapy [CONS] Routine Comment: Reason(s) for PT Consult:: Evaluate and Treat Any Restrictions?:: No Restrictions Consult to Pathology Specialist [CONS] Routine Comment: Reason for Consult:: Discharge Planning Needs 09/16/22 19:07 Consult to Occupational Therapy [CONS] Routine Comment: Reason(s) for OT Consult:: Evaluate and Treat Any Restrictions?:: No Restrictions Attending Physician on discharge: Kathia Choi MD Date of Discharge: 09/18/22 DS: Diagnosis Discharge Diagnosis (1) COPD (chronic obstructive pulmonary disease): Status: Chronic (2) CHF (congestive heart failure): Status: Chronic Problem details: Echo completed 06/09/22: Echo: EF 35-40% Inferior, posterior and basal lateral hypokinesis (3) Pleural effusion on right: Status: Chronic Problem details: - New 08/24/2022, suspect secondary to volume overload. (4) Abnormal echocardiogram: Status: Chronic Problem details: 08/26/2022 TTE normal LV size, moderately reduced global systolic function with an estimated EF of 30-35%. Entire inferior wall and posterior wall are abnormal. Right ventricular cavity size is normal, global systolic RV function is mildly reduced. Moderately enlarged left atrium. Mitral valve is sclerotic, moderate mitral regurgitation. The inferior vena cava is consistent with elevated right atrial pressure. Compared to 06/09/2022, degree of MR has decreased. (5) Generalized muscle weakness: Status: Acute (6) Coronary artery disease: Status: Chronic (7) Cognitive dysfunction: Status: Chronic Problem details: - Ongoing cognitive decline despite treatment efforts with donepezil, consistent with dementia of the Alzheimer's type - MOCA score was 8/30 in May of 2022. Presently her MOCA score is 10/30, with poor executive function. (8) Cor pulmonale: Status: Acute (9) Pulmonary hypertension: Status: Acute DS: Summary Hospital Course Hospital Course: This is a 77-year-old female was brought in by her son for concerns of intermittent dyspnea on exertion. Her pro BNP remains elevated and stable at 28,000 eight thousand. Lung exam revealed persistent crackles in the left base where she has a stable pleural effusion, otherwise clear. Chest CT neg for PE and shows CHF and pulm HTN. I have increased her torsemide and she is tolerating the increased dose, feeling better and has stable BP and Cr remains around baseline of 0.7-0.8. She was also treated with oxygen with activity and prednisone for potential COPD exacerbation. She is doing very well today and is in stable condition for discharge home. I will have her son check daily weights at home. I will also have her follow-up with her primary care provider within the next 5-7 days to check a BMP and see how she is doing. Her son and I discussed how aggressive he would like to be treating heart failure at this point given that she has significant dementia. He would like to consider a referral for cardiology evaluation. I have asked him to talk with her primary care provider about this, which can be ordered at that time. Time Spent with Patient Time attestation: Total time spent providing and/or coordinating discharge services: Time spent: Greater than 30 minutes Exam Narrative: Exam Narrative: General: No acute distress. Awake alert oriented to self. Cardiovascular: Regular rate and rhythm. Grade 1/6 systolic murmur, unchanged. Chest: No increased work of breathing. Fine right basilar crackles. No wheezes. Abdomen: Bowel sounds present. Soft, nondistended, nontender. No hepatosplenomegaly or masses. Extremities: No edema, no cyanosis or clubbing. Const: Vital Signs, click to edit/add: Vital Signs - 24 hr 09/16/22 12:55 09/16/22 14:30 09/16/22 14:38 Temperature 97.3 F L Pulse Rate [Apical ] Pulse Rate [Pulse Oximeter] 85 Respiratory Rate 32 H 18 Blood Pressure [Le ft Arm] Blood Pressure [Ri ght Upper Arm] 129/88 Pulse Oximetry 92 100 92 Oxygen Delivery Me thod Room Air Room Air 09/16/22 16:12 09/16/22 17:25 09/16/22 18:18 Temperature 97.8 F Pulse Rate [Apical ] 86 Pulse Rate [Pulse Oximeter] 85 86 Respiratory Rate 16 20 Blood Pressure [Le ft Arm] 109/62 Blood Pressure [Ri ght Upper Arm] 131/70 Pulse Oximetry 90 92 90 Oxygen Delivery Me thod Room Air Room Air 09/16/22 18:18 09/16/22 19:05 09/17/22 03:00 Temperature 97.4 F L 97.6 F Pulse Rate [Apical ] 75 78 Pulse Rate [Pulse Oximeter] Respiratory Rate 20 18 18 Blood Pressure [Le ft Arm] 98/52 L 110/52 L Blood Pressure [Ri ght Upper Arm] Pulse Oximetry 90 97 92 Oxygen Delivery Me thod Room Air Room Air Room Air Documenting provider has reviewed patient's vital signs: yes DS: Data Data Completed and Pending Completed studies during hospitalization: Ordering Physician: Dave Doe M.D. Date of Service: 09/16/22 Procedure(s): XR chest 2V Accession Number(s): [id number] cc: Dave Doe M.D.; Abbey Wayne M.D.~ For Patients: As a result of the Cures Act, medical imaging exams and procedure reports are released immediately into your electronic medical record. You may view this report before your referring provider. If you have questions, please contact your health care provider. Indication: Shortness of breath Comparison: Single-view chest August 25, 2022 Technique: PA and lateral views of the chest Findings: There is persistent right basilar pleural effusion with adjacent compressive atelectasis versus infiltrates. There residual interstitial markings likely representing pulmonary edema versus multifocal infiltrates. The cardiac silhouette is mildly prominent. The bony thorax is grossly intact. Impression: Persistent right basilar pleural effusion with adjacent compressive atelectasis versus infiltrates. Improved aeration from comparison exam with likely residual edema and/or infiltrates. Dictated by lE Mueller MD @ 09/16/2022 3:02:28 PM (Electronically Signed) 09/16/2022 2:12 p.m. EKG: Sinus rhythm with frequent premature ventricular complexes 82 beats per minute. Left axis deviation. Left bundle-branch block. Left bundle-branch block was also present on EKG from 08/29/2022. Ordering Physician: Kathia Choi M.D. Date of Service: 09/17/22 Procedure(s): CT angio chest PE protocol Accession Number(s): [id number] cc: Kathia Choi M.D.; Abbey Wayne M.D.~ For Patients:? As a result of the 21st Century Cures Act, medical imaging exams and procedure reports are released immediately into your electronic medical record.? You may view this report before your referring provider.? If you have questions, please contact your health care provider. INDICATION: Hypoxia with ambulation. TECHNIQUE: CT chest PE was acquired with 95 cc Isovue 370 IV contrast. COMPARISON: August 24, 2022. FINDINGS: Heart and vasculature: Contrast opacification of the pulmonary arterial tree is adequate. No sign of pulmonary embolism. Cardiomegaly. Pulmonary artery enlargement. Aortic arch and coronary artery calcifications. Lungs and pleura: Hyperinflation with mild bronchiectasis. Bibasilar ground-glass nodules, likely infectious/inflammatory in etiology no suspicious nodules or infiltrates. Pulmonary edema. Small right pleural effusion. No pneumothorax. Lymph nodes/mediastinum: Prominent mediastinal lymph nodes. No mediastinal, hilar, or axillary adenopathy. Chest wall: No masses. Upper abdomen: No acute or significant findings. Bones: Unremarkable for age. IMPRESSION: No pulmonary embolism, as questioned. Sequela of CHF, including cardiomegaly, pulmonary edema and small right pleural effusion. Pulmonary hypertension. Please note that all CT scans at this facility use dose modulation, iterative reconstruction, and/or weight-based dosing when appropriate to reduce radiation dose to as low as reasonably achievable. Dictated by Da Alejandro MD @ 09/17/2022 5:16:27 PM (Electronically Signed) Labs on day of discharge: Labs from last 24 hours 09/16/22 09/16/22 09/16/22 14:30 14:30 14:30 WBC RBC Hgb Hct MCV MCH MCHC RDW Coeff of Michaela Plt Count Neut % (Auto) Lymph % (Auto) [place] % (Auto) Eos % (Auto) Baso % (Auto) Neut # (Auto) Lymph # (Auto) [place] # (Auto) Eos # (Auto) Baso # (Auto) Sodium 139 Potassium 4.2 Chloride 103 Carbon Dioxide 30 BUN 22 Creatinine 0.6 Estimated Creat Clear 39.39 Estimated GFR 91 Glucose 120 H Calcium 8.7 NT-Pro-B Natriuret Pep 02797 SARS-CoV-2 (PCR) Negative SARS-CoV-2 Influenza Type A (PCR) Negative PCR FLU A Influenza Type B (PCR) Negative PCR FLU B RSV (PCR) Negative PCR RSV POC Troponin I 0.03 09/16/22 14:30 WBC 7.60 RBC 3.89 L Hgb 10.1 L Hct 32.7 L MCV 84 MCH 26 MCHC 31 L RDW Coeff of Michaela 19.6 H Plt Count 229 Neut % (Auto) 72.2 H Lymph % (Auto) 13.2 L [place] % (Auto) 12.2 H Eos % (Auto) 1.7 Baso % (Auto) 0.4 Neut # (Auto) 5.50 Lymph # (Auto) 1.00 [place] # (Auto) 0.90 Eos # (Auto) 0.13 Baso # (Auto) 0.03 Sodium Potassium Chloride Carbon Dioxide BUN Creatinine Estimated Creat Clear Estimated GFR Glucose Calcium NT-Pro-B Natriuret Pep SARS-CoV-2 (PCR) Influenza Type A (PCR) Influenza Type B (PCR) RSV (PCR) POC Troponin I Discharge Plan Discharge Disposition: Home, Self-Care Date of Admission: 09/16/22 17:24 Attending Provider on Discharge: Kathia Choi Primary Care Provider: Abbey Wayne Condition: Improved Anticipated Discharge Date/Time: 09/18/22 10:36 Discharge Medications: New ipratropium-albuterol 0.5 mg-3 mg(2.5 mg base)/3 mL Solution For Nebulization 3 ml inhalation QID PRNQty: 90 0RF (DME) nebulizer and compressor Device See Rx Instructions .Route Qty: 1 0RF Rx Instructions: As directed (DME) nebulizer accessories Kit See Rx Instructions .ROUTE .MEDSUPPLY Qty: 1 0RF Rx Instructions: As directed torsemide 20 mg Tablet 20 mg PO DAILY Qty: 30 0RF Continued atorvastatin 40 mg tablet 40 mg PO HS Qty: 90 3RF donepezil 5 mg tablet 5 mg PO HS Qty: 90 3RF melatonin 3 mg Tablet 3 mg PO HS Qty: 30 0RF white petrolatum [Petroleum Jelly] Gel 1 applic topical DAILY PRN aspirin [Children's Aspirin] 81 mg Tablet,Chewable 81 mg PO DAILY Qty: 30 0RF levothyroxine 125 mcg tablet 125 mcg PO DAILY@0700 Qty: 90 3RF Discontinued torsemide 10 mg tablet 10 mg PO QAM Qty: 90 3RF Discharge Orders: Discharge Order (Routine); Ordered 09/18/22 Ordered By: Kathia Choi Patient Education: Prednisone (By mouth) (predniSONE Intensol, Prednicot, Deltasone, Beck), Torsemide (By mouth) (Demadex), Ipratropium/Albuterol (By breathing) (Combivent, Combivent..., Heart Failure (DC), COPD (Chronic Obstructive Pulmonary Disease) (DC), How to Use a Nebulizer (DC) Additional Instructions: Weigh yourself daily. Bring this log of daily weights to your provider for your next visit. Call your provider if your weight increases >2lbs overnight or >5lbs over one week. Oxygen with activity 2L/min via NC. BMP at PCP visit. Activity Level: Activity as Tolerated and Use Walker Discharge Diet: Heart Healthy (2 gm sodium, low fat) and 2000 ml Fluid Restriction Follow Up Appointments: Abbey Wayne MD [Primary Care Provider] - 09/27/22 3:30 pm (BMP) [facility]
--- NOTE | 2022-09-17 14:31 | PC.NURSE ---
Cancel discharge-- Pt's O2 sats were noted to drop into the 70s per statement from RT. Per MD, pt is to stay another night to further evaluate.
--- NOTE | 2022-09-17 14:51 | P.IMPN_ITS ---
Progress Note: A&P Assessment and plan (1) Hypoxia: Status: Acute (2) COPD (chronic obstructive pulmonary disease): Status: Chronic (3) CHF (congestive heart failure): Problem details: Echo completed 06/09/22: Echo: EF 35-40% Inferior, posterior and basal lateral hypokinesis Status: Chronic (4) Abnormal echocardiogram: Problem details: 08/26/2022 TTE normal LV size, moderately reduced global systolic function with an estimated EF of 30-35%. Entire inferior wall and posterior wall are abnormal. Right ventricular cavity size is normal, global systolic RV function is mildly reduced. Moderately enlarged left atrium. Mitral valve is sclerotic, moderate mitral regurgitation. The inferior vena cava is consistent with elevated right atrial pressure. Compared to 06/09/2022, degree of MR has decreased. Status: Chronic (5) Pleural effusion on right: Problem details: - New 08/24/2022, suspect secondary to volume overload. Status: Chronic (6) Cognitive dysfunction: Problem details: - Ongoing cognitive decline despite treatment efforts with donepezil, consistent with dementia of the Alzheimer's type - MOCA score was 8/30 in May of 2022. Presently her MOCA score is 10/30, with poor executive function. Status: Chronic (7) Coronary artery disease: Status: Chronic Plan Kanika is a 77-year-old female with heart failure with reduced ejection fraction and COPD. I think these conditions are stable and at baseline, however she was hypoxic with ambulation today. I will check a chest CT for PE. Her blood pressure is slightly higher today and so I think she will tolerate an increased dose of torsemide. Will give her an extra dose of it this afternoon and then increase her morning dose for tomorrow. Continue to monitor blood pressures. Continue short prednisone burst for possible COPD exacerbation. Time Spent With Patient Total time spent: Today I spent 40 minutes rounding on the patient. Greater than 50% included discussing care with the patient's son, the team, reviewing data, updating and managing the care plan. Subjective Time Seen by Provider: 07:45 Date Seen: 09/17/22 Interval history: Kanika told me that she is feeling better today. Since her admission, she has been fixated on getting something for diarrhea, even though she has not had a BM. She will ask for something to eat, eat a few bites, then when the food has been taken away, she immediately asks for food and thinks it has been a long time since she ate. I spoke with her son, Anthony, this morning.? He states that she had been struggling to breathe for a few days while using a walker and saying that she was not feeling well.? He has been home with her because he is been laid up.? He says that he is working with the [facility] to get her into an adult daycare program while he works and that he is working on getting Medicaid coverage for her so that he can consider memory care when he is no longer able to care for her at home.? She ambulated with therapy this morning. The therapist noted Kanika's oxygen sat urations dropped to 77% with ambulation (farther than she was able to ambulate last hospital stay), but she recovered quickly. Exam Narrative: Exam Narrative: General: No acute distress. Awake alert oriented to self. Cardiovascular: Regular rate and rhythm. Grade 1/6 systolic murmur. Chest: No increased work of breathing. Fine right basilar crackles, unchanged. No wheezes. Abdomen: Bowel sounds present. Soft, nondistended, nontender. No hepatosplenomegaly or masses. Extremities: No edema, no cyanosis or clubbing. Const: Vital Signs, click to edit/add: Vital Signs - 24 hr 09/16/22 16:12 09/16/22 17:25 09/16/22 18:18 Temperature 97.8 F Pulse Rate [Apical ] 86 Pulse Rate [Pulse Oximeter] 85 86 Respiratory Rate 16 20 Blood Pressure [Le ft Arm] 109/62 Blood Pressure [Ri ght Upper Arm] 131/70 Pulse Oximetry 90 92 90 Oxygen Delivery Me thod Room Air Room Air 09/16/22 18:18 09/16/22 19:05 09/17/22 03:00 Temperature 97.4 F L 97.6 F Pulse Rate [Apical ] 75 78 Pulse Rate [Pulse Oximeter] Respiratory Rate 20 18 18 Blood Pressure [Le ft Arm] 98/52 L 110/52 L Blood Pressure [Ri ght Upper Arm] Pulse Oximetry 90 97 92 Oxygen Delivery Me thod Room Air Room Air Room Air 09/17/22 12:05 09/17/22 07:00 09/17/22 07:00 Temperature 98.1 F Pulse Rate [Apical ] 78 89 Pulse Rate [Pulse Oximeter] Respiratory Rate 20 20 20 Blood Pressure [Le ft Arm] 119/62 Blood Pressure [Ri ght Upper Arm] Pulse Oximetry 89 96 Oxygen Delivery Me thod Room Air Room Air 09/17/22 11:00 Temperature Pulse Rate [Apical ] 78 Pulse Rate [Pulse Oximeter] Respiratory Rate 20 Blood Pressure [Le ft Arm] Blood Pressure [Ri ght Upper Arm] Pulse Oximetry 89 Oxygen Delivery Me thod Room Air Labs Labs: Laboratory Results - last 24 hr 09/16/22 09/16/22 14:30 14:30 Sodium 139 Potassium 4.2 Chloride 103 Carbon Dioxide 30 BUN 22 Creatinine 0.6 Estimated Creat Clear 39.39 Estimated GFR 91 Glucose 120 H Calcium 8.7 NT-Pro-B Natriuret Pep 51637 SARS-CoV-2 (PCR) Negative SARS-CoV-2 Influenza Type A (PCR) Negative PCR FLU A Influenza Type B (PCR) Negative PCR FLU B RSV (PCR) Negative PCR RSV
--- NOTE | 2022-09-17 15:06 | CRLHL7_ITS ---
For Patients: As a result of the Century Cures Act, medical imaging exams and procedure reports are released immediately into your electronic medical record. You may view this report before your referring provider. If you have questions, please contact your health care provider. INDICATION: Hypoxia with ambulation. TECHNIQUE: CT chest PE was acquired with 95 cc Isovue 370 IV contrast. COMPARISON: August 24, 2022. FINDINGS: Heart and vasculature: Contrast opacification of the pulmonary arterial tree is adequate. No sign of pulmonary embolism. Cardiomegaly. Pulmonary artery enlargement. Aortic arch and coronary artery calcifications. Lungs and pleura: Hyperinflation with mild bronchiectasis. Bibasilar ground-glass nodules, likely infectious/inflammatory in etiology no suspicious nodules or infiltrates. Pulmonary edema. Small right pleural effusion. No pneumothorax. Lymph nodes/mediastinum: Prominent mediastinal lymph nodes. No mediastinal, hilar, or axillary adenopathy. Chest wall: No masses. Upper abdomen: No acute or significant findings. Bones: Unremarkable for age. IMPRESSION: No pulmonary embolism, as questioned. Sequela of CHF, including cardiomegaly, pulmonary edema and small right pleural effusion. Pulmonary hypertension. Please note that all CT scans at this facility use dose modulation, iterative reconstruction, and/or weight-based dosing when appropriate to reduce radiation dose to as low as reasonably achievable. Dictated by Da Alejandro MD @ 09/17/2022 5:16:27 PM (Electronically Signed)
[2022-09-17 16:48] LABS: HCO3 VBG 33 mmol/L (21-28); PCO2 VBG 53 mmHG (40-50); PO2 VBG 24.2 mmHG (25-47)
--- NOTE | 2022-09-17 19:34 | PC.NURSE ---
Patient oriented to self. Frequent call light use and questioning. Up to the BR every half hour. Up independently with walker.
[2022-09-17] MEDS: ATORVASTATIN CALCIUM 40 MG TABLET PO (19:54)
[2022-09-17] MEDS: DONEPEZIL 5 MG TABLET PO (19:54)
[2022-09-17] MEDS: MELATONIN 3 MG TABLET PO (19:54)
[2022-09-18 03:00] VITALS: BP 114/85; PULSE 83; RESP 18; TEMP 36.7; O2SAT 98
--- NOTE | 2022-09-18 06:28 | PC.NURSE ---
End of shift status [id number] Pt alert with chronic confusion. Pleasant and cooperative. Denies pain. VSS. Remains on room air. Up independently in room with walker. Frequent trips to bathroom. Pt needing reminders of fluid restriction and low sodium diet. Intermittent resting throughout night. Possible d/c today.
[2022-09-18 07:00] VITALS: BP 107/47; PULSE 82; RESP 20; TEMP 36.5; O2SAT 97
[2022-09-18] MEDS: LEVOTHYROXINE 125 MCG TABLET PO (09:01)
[2022-09-18] MEDS: predniSONE 20 MG TABLET PO (09:01)
[2022-09-18] MEDS: TORSEMIDE 20 MG TABLET PO (09:01)
[2022-09-18] MEDS: ASPIRIN 81 MG TAB.CHEW PO (09:01)
[2022-09-18 09:20] LABS: Chloride* 100 mmol/L (96-114); Sodium* 141 mmol/L (135-149)
[2022-09-18 09:21] LABS: Potassium* 3.7 mmol/L (3.6-5.1)
[2022-09-18 09:23] LABS: Creatinine* 0.8 mg/dL (0.5-1.5); Est. Creatinine Clearance* 32.77; Estimated Glomerular Filt Rate 75 ml/min
[2022-09-18 09:24] LABS: Blood Urea Nitrogen* 38 mg/dL (7-30); Calcium* 9.1 mg/dL (8.4-10.6); Carbon Dioxide* 32 mmol/L (20-32); Glucose* 95 mg/dL (60-115)
[2022-09-18 09:31] VITALS: O2SAT 84; O2SAT 90; O2SAT 92
--- NOTE | 2022-09-18 09:33 | RESP.3PART ---
3 Part Home O2 Testing Summary RT 3 Part Home O2 Testing Summary Start: 09/17/22 12:41 Freq: Status: Active Protocol: Document 09/18/22 09:31 [place] (Rec: 09/18/22 09:32 [place] [id number]) 3 Part Home O2 Testing Summary The following is a summary of the 3 Part O2 Testing Evaluation Date/Time of Testing Date 09/18/22 Time 09:30 Insurance Policy Number [id number] Step 1 SAT on room air at rest (%) 92 Step 2 SAT on room air while exercising (%) 84 Step 3 SAT on supplemental O2 while exercising 90 (%) Liters of supplemental O2 needed while 2 exercising (L) O2 Delivery O2 delivered via Nasal Cannula Comments Comments Patient SAT on room air at rest is 92% and does not require supplemental O2 at this time. Patient SAT on room air with activity is 84% and requires 2L NC to keep SAT at 90%
--- NOTE | 2022-09-18 10:11 | PC.SOCIAL ---
Discharge plan: Called sonAnthony, who agrees with MD order for home oxygena dn requested it be arranged with [facility] if they are contracted with pt's insurance. Son stated pt was supposed to be receiving home care services after last hospital stay but that [facility] only came once and left a folder and have not come back. Son requested socail work contact them to ask about schedule. Called [facility] and confirmed they are contracted woth pt's insurance. lime kiln worker helper to fax required information to them when available and will follow up as needed. Called [facility] and spoke with intake who confirmed they had gone out to pt's home on 09/08/22 to start home care services and that pt had refused. They left packet and informed pt she could contact them if she changed her mind. Per MD, there is no need for orders for home health at this time. Son states he is working with [facility] to get pt on the waiver program to get assistance at home. Encouraged home to continue to work with the [facility] on this process. Son states he will pick pt up at discharge and requested to be called when she is ready.
--- NOTE | 2022-09-18 10:44 | W.PM.HOT ---
Acute Home Oxygen Therapy Acute Home Oxygen Therapy Diagnosis for Oxygen Therapy (1) Cor pulmonale: Code(s): I27.81 - Cor pulmonale (chronic) (2) Pulmonary hypertension: Code(s): I27.20 - Pulmonary hypertension, unspecified Provider Note Provider Note: Patient was admitted on 09/16/22 at 17:24 and will be discharging on 09/18/2022. Patient is desaturating with SATs of 84% on room air with activity due to cor pulmonale and pulmonary hypertension. Alternative therapies have been attempted and have not been successful in maintaining the patient's saturation level above 88%. Supplemental O2 is required. This patient is mobile within the home and requires portability.
[2022-09-18 11:00] VITALS: BP 98/64; PULSE 82; RESP 20; TEMP 36.6; O2SAT 93
--- NOTE | 2022-09-18 12:17 | PC.SOCIAL ---
Discharge plan: MD order and required documentation for Home Pxygen and Nebulizer sent to [facility] at son's request. Called son adn updated him on plans. Son states he is working with [facility] social service technician to get pt on Medical Assistance Waiver services to move pt into a memory care facility. He is not interested in paying privately for that level of care at this time, but thinks it will be approved soon and that the [facility] Forensic Photographer will help pt to get into memory care when the waiver is approved.
--- NOTE | 2022-09-18 14:46 | PC.NURSE ---
PATIENT ALERT AND ORIENTED TO SELF, UP IND IN ROOM WITH WALKER AND STEADY GAIT NOTED, PATIENT EDUCTED ON NEED FOR O2 WITH ACTIVITY, PATIENT CONTINUES TO GET UP TO BATHROOM WITHOUT O2, SOB WHEN RETURNING FROM BATHROOM NOTED, O2 93-97 AT REST ON ROOM AIR, FREQUENCY NOT TO URINATE THIS IS NOT NEW FOR PATIENT, TOLERATING REGULAR DIET DECLINING PAIN, ARIEL URBANO CALLED AT 1230 PATIENT READY FOR DISCHARGE, PER ARIEL URBANO UNABLE TO PICK PATIENT UP FOR A COUPLE OF HOURS, IV REMOVED X2.
== END 2022-09-18 15:50 | disposition home or self-care (01) ==
LOC: ED 16:35 → MEDSURG 17:24
PROVIDERS: Admitting Provider Family Medicine; Emergency Provider Emergency Medicine Emergency Medical Services; PCP Family Medicine; Visit Provider Family Medicine
DX: I27.20 Pulmonary hypertension, unspecified (principal); I50.22 Chronic systolic (congestive) heart failure; I27.81 Cor pulmonale (chronic); I11.0 Hypertensive heart disease with heart failure; J44.9 Chronic obstructive pulmonary disease, unspecified; I34.0 Nonrheumatic mitral (valve) insufficiency; J90 Pleural effusion, not elsewhere classified; R09.02 Hypoxemia; R93.1 Abnormal findings on diagnostic imaging of heart and coronary circulation; F02.80 Dementia in other diseases classified elsewhere, unspecified severity, without behavioral disturbance, psychotic disturbance, mood disturbance, and anxiety; G30.9 Alzheimer's disease, unspecified; I25.10 Atherosclerotic heart disease of native coronary artery without angina pectoris; M62.81 Muscle weakness (generalized); Z87.891 Personal history of nicotine dependence; R79.89 Other specified abnormal findings of blood chemistry
CPT/HCPCS: 36415; 71046; 71260; 80048; 82803; 83880; 84484; 85025; 87502; 87634; 87635; 93005; 94640; 94761; 96374; 96375; 97162; 97165; 99285; A9270; G0378; G0379; J1956; J2930; J7512; Q9967

== ENCOUNTER 2022-09-26 14:45 | Outpatient (CLI) | payer OTHER, SELFPAY ==
[2022-09-26 22:18] LABS: Chloride* 108 mmol/L (96-114); Sodium* 141 mmol/L (135-149)
[2022-09-26 22:21] LABS: Blood Urea Nitrogen* 25 mg/dL (7-30); Carbon Dioxide* 25 mmol/L (20-32); Creatinine* 0.7 mg/dL (0.5-1.5); Estimated Glomerular Filt Rate 88 ml/min
[2022-09-26 22:22] LABS: Calcium* 8.9 mg/dL (8.4-10.6); Glucose* 110 mg/dL (60-115)
== END 2022-09-26 14:46 | disposition home or self-care (01) ==
PROVIDERS: PCP Family Medicine; Visit Provider Family Medicine
DX: I50.9 Heart failure, unspecified (principal); E03.9 Hypothyroidism, unspecified
CPT/HCPCS: 80048; 84443

== ENCOUNTER 2022-10-10 16:45 | Inpatient (IN) | payer OTHER, SELFPAY ==
[2022-10-10 16:50] VITALS: BP 128/65; PULSE 78; RESP 12; TEMP 36.1; O2SAT 96; BMI 23.2
[2022-10-10 17:25] VITALS: O2SAT 91
--- NOTE | 2022-10-10 17:25 | CRLHL7_ITS ---
For Patients: As a result of the Century Cures Act, medical imaging exams and procedure reports are released immediately into your electronic medical record. You may view this report before your referring provider. If you have questions, please contact your health care provider. Indication: Shortness of breath Technique: Chest 1 view Comparison: N September 16, 2022 one Findings/Impression: Stable cardiomegaly. Interval increase in right pleural effusion, now moderate in size. No focal infiltrate or pneumothorax. Healed left-sided rib fractures. Dictated by Teresa Walter MD @ 10/10/2022 6:10:50 PM (Electronically Signed)
--- NOTE | 2022-10-10 17:29 | ED.GENADULT ---
HPI - General Adult General Time Seen by Provider: 17:15 Date Seen: 10/10/22 Chief complaint: Weakness Stated complaint: Weakness, Shortness of breath Time Seen by Provider: 10/10/22 17:08 Source: patient, family, RN notes reviewed and old records reviewed Mode of arrival: wheelchair Limitations: no limitations History of Present Illness HPI narrative: Mireya is a very pleasant 77-year-old female with a history of COPD, congestive heart failure who comes to the emergency room with increasing weakness, shortness of breath especially with exertion and lower extremity edema. Patient states that she has had 3 days of increasing lower extremity edema. Family states that they do put on compression stockings but the legs swell up as soon as they are removed. During this time patient has also noted increasing shortness of breath especially with exertion. She describes difficulty even walking to the bathroom and has to stop and rest. Her son thought that earlier when she was walking her lips were blue. Patient notes no recent cough or cold. She does not have home oxygen but does do home nebulizers and she did that earlier today. She has not had any fever but does describe occasional chills. She denies tobacco use at this time as well as alcohol use. She denies any hematuria or dysuria. She denies any chest pain. No recent increased intake of salty foods. States she uses torsemide for control of her lower extremity edema. She takes 20 mg daily. Related Data Home Medications Medication Instructions Recorded Confirmed white petrolatum (Petroleum Jelly 1 applic topical DAILY PRN 08/25/22 10/10/22 topical) Previous Rx's Medication Instructions Recorded melatonin 3 mg tablet 3 mg PO HS #30 tabs 06/13/22 atorvastatin 40 mg tablet 40 mg PO HS #90 tabs 07/15/22 donepezil 5 mg tablet 5 mg PO HS #90 tabs 07/15/22 aspirin 81 mg chewable tablet 81 mg PO DAILY #30 tabs 08/28/22 (Children's Aspirin) levothyroxine 125 mcg tablet 125 mcg PO DAILY@0700 #90 tabs 09/12/22 ipratropium 0.5 mg-albuterol 3 mg 3 ml inhalation QID PRN #90 mL 09/17/22 (2.5 mg base)/3 mL nebulization soln nebulizer accessories #1 ea 09/17/22 nebulizer and compressor #1 ea 09/17/22 torsemide 20 mg tablet 20 mg PO DAILY #30 tabs 09/18/22 Allergies Allergy/AdvReac Type Severity Reaction Status Date / Time ceftriaxone Allergy Intermediate Rash Verified 09/26/22 14:25 Nitrate Analogues Allergy Mild Nausea Verified 09/26/22 14:25 nitrofurantoin Allergy Mild Nausea Verified 09/26/22 14:25 rosuvastatin Allergy Unknown Nausea Verified 09/26/22 14:25 Review of Systems Status of ROS: Reports: 10 or more systems reviewed and unremarkable except as noted in History and below Const: Reports: chills and change in weight (Decreased); Denies: fever Eyes: Denies: change in vision ENMT: Denies: throat pain, neck pain or difficulty swallowing Cardio: Reports: swelling of feet/ankles and shortness of breath with exertion; Denies: chest pain or palpitations Resp: Reports: shortness of breath; Denies: cough or wheezing GI: Denies: difficulty swallowing : Reports: urinary frequency; Denies: painful urination or urinary urgency Musculo: Reports: extremity swelling; Denies: neck pain or extremity pain Integ/Breast: Denies: rash Neuro: Reports: weakness in extremities; Denies: headache or numbness in extremities Endo: Denies: excessive thirst Allergy/Immuno: Denies: wheezing PFSH PFSH Medical History Abnormal echocardiogram Acute on chronic respiratory failure with hypoxemia Anemia of chronic disease CHF (congestive heart failure) Cognitive dysfunction Complete prolapse of vaginal vault Coronary artery disease (06/27/10) Decreased oral intake Elevated TSH Fracture of right hip Heart failure with reduced ejection fraction and diastolic dysfunction Hyperlipidemia (06/27/10) Hypertension (05/27/07) Hypotension Hypothyroidism (acquired) Open blow-out fracture of right orbital floor Overactive bladder (05/27/07) Pleural effusion on right Pressure ulcer Recurrent UTI Tobacco dependence due to cigarettes, in remission Tobacco use (05/27/07) Upper respiratory tract infection Urinary frequency Vaginal vault prolapse after hysterectomy Vaginal vault prolapse after hysterectomy Weakness Surgical History History of cataract removal with insertion of prosthetic lens History of coronary artery stent placement Status post hysterectomy (05/27/07) Family History Father AAA (abdominal aortic aneurysm) Mother Stroke Son Osteoporosis Unknown Autism Social History Highest level of school completed/degree received: 12th grade, no diploma Smoking Status: Former smoker Do you use any of these nicotine containing products: None Second hand tobacco smoke exposure: No How often do you have a drink containing alcohol: monthly or less Alcohol type: beer Alcohol type details: usually just on holidays How many standard drinks containing alcohol do you have on a typical day: 1 or 2 How often do you have six or more drinks on one occasion: Never AUDIT-C Alcohol total score: 1 Non-prescribed substance use: denies use Caffeine: Yes (occasionally coffee) service: No Exam Narrative: Exam Narrative: Patient is alert and oriented. No discoloration of lips. Oral cavity is somewhat dry. Face symmetrical. Neck is supple without lymphadenopathy. Heart with regular rate and rhythm. Lungs are with decreased breath sounds in the bases especially on the right. I do not auscultate any wheezing. Abdomen is soft nontender. Lower extremities with 3+ edema. Right greater than left. No evidence of significant erythema and there are not excessively warm to the touch. I do note that while patient is in room oxygen levels are 88-89% with good waveform. Const: Vital Signs, click to edit/add: Vital Signs - 24 hr 10/10/22 16:50 10/10/22 17:25 Temperature 96.9 F L Pulse Rate [Pulse Oximeter] 78 Respiratory Rate 12 Blood Pressure [Ri ght Upper Arm] 128/65 Pulse Oximetry 96 91 Oxygen Delivery Me thod Room Air Documenting provider has reviewed patient's vital signs: yes Course Course Hospital Course: Patient has increased lower extremity edema, decreased breath sounds right lower lung field as well as increased work of breathing and shortness of breath with exertion. This most likely represents a could congestive heart failure flare but cannot rule out possibility of underlying acute coronary event, pneumonia, arrhythmia, electrolyte imbalance without further evaluation. Patient will have chest x-ray, blood work to include CBC, comprehensive panel, proBNP, troponin as well as EKG. Reevaluation(s) Reevaluation #1: Patient given Lasix 40 mg IV and has been diuresing. She thinks she feels somewhat improved. Vital Signs Vital signs: Initial Vital Signs Temperature 96.9 F L 10/10/22 16:50 Temperature Source Temporal Artery Scan 10/10/22 16:50 Pulse Rate 78 10/10/22 16:50 Pulse Rhythm 10/10/22 16:50 Respiratory Rate 12 10/10/22 16:50 Blood Pressure 128/65 10/10/22 16:50 Blood Pressure Mean 86 10/10/22 16:50 Blood Pressure Position Sitting 10/10/22 16:50 Pulse Oximetry 96 10/10/22 16:50 Oxygen Delivery Method 10/10/22 16:50 Vital Signs Temperature 96.9 F L 10/10/22 16:50 Pulse Rate 78 10/10/22 16:50 Respiratory Rate 12 10/10/22 16:50 Blood Pressure 128/65 10/10/22 16:50 Pulse Oximetry 96 10/10/22 16:50 Oxygen Delivery Method 10/10/22 16:50 Temperature 97.2 F L 10/10/22 21:13 Pulse Rate 70 10/10/22 21:13 Respiratory Rate 26 H 10/10/22 21:13 Blood Pressure 125/74 10/10/22 21:13 Pulse Oximetry 97 10/10/22 21:13 Oxygen Delivery Method 10/10/22 21:13 Medical Decision Making MDM Narrative Medical decision making narrative: 1. Congestive heart failure exacerbation-Lasix 40 mg IV given upon patient arrival. Increased pleural effusion noted [place] [address]. Negative for COVID, influenza. Initial troponin 0.03. I have spoken with hospitalist and will admit to the hospital for diuresis. Initial troponin negative. 2. Anemia hemoglobin of 10.8. This is improved from previous value of 10.1. 2. Disposition -admitted to the hospitalist Dr. Hernandez Medical Records Medical records reviewed: Yes I reviewed the patient's medical records Lab Data Lab results reviewed: Yes I reviewed the patient's lab results Labs: Lab Results 10/10/22 10/10/22 10/10/22 Range/Units 17:06 17:25 17:31 WBC 6.71 (4.50-11.00) K/uL RBC 4.15 (4.00-5.20) m/uL Hgb 10.8 L (12.0-16.0) gm/dL Hct 35.8 (33.0-51.0) % MCV 86 (80-100) fL MCH 26 (26-34) pg MCHC 30 L (32-36) gm/dL RDW Coeff of Michaela 22.0 H (11.5-15.5) % Plt Count 199 (140-440) K/uL Neut % (Auto) 68.3 (42.0-72.0) % Lymph % (Auto) 18.2 L (20-44) % [place] % (Auto) 12.1 H (0.0-11.0) % Eos % (Auto) 0.7 (0.0-7.0) % Baso % (Auto) 0.6 (0.0-3.0) % Neut # (Auto) 4.58 (1.7-7.0) K/uL Lymph # (Auto) 1.20 (0.90-2.90) K/uL [place] # (Auto) 0.80 (0.00-0.90) K/UL Eos # (Auto) 0.05 (0.00-0.50) K/uL Baso # (Auto) 0.04 (0.00-0.30) K/uL Sodium (135-149) mmol/L Potassium (3.6-5.1) mmol/L Chloride (96-114) mmol/L Carbon Dioxide (20-32) mmol/L BUN (7-30) mg/dL Creatinine (0.5-1.5) mg/dL Estimated Creat Clear Estimated GFR ml/min Glucose (60-115) mg/dL Calcium (8.4-10.6) mg/dL Magnesium (1.5-2.6) mg/dL Total Bilirubin (0.1-1.5) mg/dL AST (12-35) U/L ALT (4-35) U/L Alkaline Phosphatase (40-150) U/L NT-Pro-B Natriuret Pep pg/mL Total Protein (6.0-8.3) g/dL Albumin (3.3-5.0) g/dL Urine Color Yellow (Yellow) Urine Appearance Clear (Clear) Urine pH 6.0 (5.0-8.5) Ur Specific [place] 1.020 (1.000-1.030) Urine Protein Trace A (Negative) Urine Glucose (UA) Negative (Negative) Urine Ketones Negative (Negative) Urine Blood 1+ A (Negative) Urine Nitrite Positive A (Negative) Urine Bilirubin Negative (Negative) Urine Urobilinogen 0.2 (0.2-1.0) Ur Leukocyte Esterase 2+ A (Negative) Urine RBC 25-50 A (0-2) Urine WBC 50-100 A (0-5) Ur Squamous Epith Cells Few (None-Few) Urine Bacteria Many A (None) SARS-CoV-2 (PCR) Negative SARS-CoV-2 (Negative) Influenza Type A (PCR) Negative PCR FLU A (Negative) Influenza Type B (PCR) Negative PCR FLU B (Negative) RSV (PCR) Negative PCR RSV (Negative) POC Troponin I (0.01-0.04) ng/ml 10/10/22 10/10/22 Range/Units 17:31 17:31 WBC (4.50-11.00) K/uL RBC (4.00-5.20) m/uL Hgb (12.0-16.0) gm/dL Hct (33.0-51.0) % MCV (80-100) fL MCH (26-34) pg MCHC (32-36) gm/dL RDW Coeff of Michaela (11.5-15.5) % Plt Count (140-440) K/uL Neut % (Auto) (42.0-72.0) % Lymph % (Auto) (20-44) % [place] % (Auto) (0.0-11.0) % Eos % (Auto) (0.0-7.0) % Baso % (Auto) (0.0-3.0) % Neut # (Auto) (1.7-7.0) K/uL Lymph # (Auto) (0.90-2.90) K/uL [place] # (Auto) (0.00-0.90) K/UL Eos # (Auto) (0.00-0.50) K/uL Baso # (Auto) (0.00-0.30) K/uL Sodium 144 (135-149) mmol/L Potassium 4.4 (3.6-5.1) mmol/L Chloride 113 (96-114) mmol/L Carbon Dioxide 22 (20-32) mmol/L BUN 26 (7-30) mg/dL Creatinine 0.7 (0.5-1.5) mg/dL Estimated Creat Clear 39.39 Estimated GFR 88 ml/min Glucose 121 H (60-115) mg/dL Calcium 9.2 (8.4-10.6) mg/dL Magnesium 1.8 (1.5-2.6) mg/dL Total Bilirubin 1.5 (0.1-1.5) mg/dL AST 99 H (12-35) U/L ALT 80 H (4-35) U/L Alkaline Phosphatase 194 H (40-150) U/L NT-Pro-B Natriuret Pep 42619 pg/mL Total Protein 7.1 (6.0-8.3) g/dL Albumin 3.7 (3.3-5.0) g/dL Urine Color (Yellow) Urine Appearance (Clear) Urine pH (5.0-8.5) Ur Specific [place] (1.000-1.030) Urine Protein (Negative) Urine Glucose (UA) (Negative) Urine Ketones (Negative) Urine Blood (Negative) Urine Nitrite (Negative) Urine Bilirubin (Negative) Urine Urobilinogen (0.2-1.0) Ur Leukocyte Esterase (Negative) Urine RBC (0-2) Urine WBC (0-5) Ur Squamous Epith Cells (None-Few) Urine Bacteria (None) SARS-CoV-2 (PCR) (Negative) Influenza Type A (PCR) (Negative) Influenza Type B (PCR) (Negative) RSV (PCR) (Negative) POC Troponin I 0.03 (0.01-0.04) ng/ml Imaging Data Chest x-ray: Attestation: I have reviewed the pertinent imaging results. My impression: Increased lung markings consistent with CHF. Right-sided pleural effusion. Radiologist's impression: Stable cardiomegaly. Interval increase in right pleural effusion, now moderate in size. No focal infiltrate or pneumothorax. Healed left-sided rib fractures. ECG Data Attestation: I personally reviewed and interpreted this ECG as follows: Prior ECG tracings: available for review Interpretation: EKG by my read shows sinus rhythm at a rate of 81. Occasional PVC. Poor R-wave progression noted. No significant change from August of 2022. Discharge Plan Discharge Clinical Impression: CHF exacerbation, Pleural effusion Patient Disposition: Admitted As Inpatient Condition: Improved
[2022-10-10 17:38] LABS: Basophils Absolute Auto 0.04 K/uL (0.00-0.30); Basophils Percent Auto 0.6 % (0.0-3.0); Eosinophils Absolute Auto 0.05 K/uL (0.00-0.50); Eosinophils Percent Auto 0.7 % (0.0-7.0); Hematocrit 35.8 % (33.0-51.0); Hemoglobin* 10.8 gm/dL (12.0-16.0); Immature Granulocytes Abs Auto 0.01 K/uL (0.00-0.30); Immature Granulocytes Pct Auto 0.1 %; Lymphocytes Percent Auto 18.2 % (20-44); Mean Corpuscular HGB Conc 30 gm/dL (32-36); Mean Corpuscular Hemoglobin 26 pg (26-34); Mean Corpuscular Volume 86 fL (80-100); Monocytes Percent Auto 12.1 % (0.0-11.0); Neutrophils Absolute Auto 4.58 K/uL (1.7-7.0); Neutrophils Percent Auto 68.3 % (42.0-72.0); Platelet Count* 199 K/uL (140-440); Red Blood Count 4.15 m/uL (4.00-5.20); White Blood Count* 6.71 K/uL (4.50-11.00)
[2022-10-10 17:39] LABS: Slide Review Reflex No
[2022-10-10 17:46] LABS: Troponin, Point-of-Care* 0.03 ng/ml (0.01-0.04)
[2022-10-10 17:49] LABS: PCR FLU A Negative PCR FLU A (Negative); PCR FLU B Negative PCR FLU B (Negative); PCR RSV Negative PCR RSV (Negative)
[2022-10-10 17:50] LABS: SARS PCR* Negative SARS-CoV-2 (Negative)
[2022-10-10 17:50] LABS: Albumin* 3.7 g/dL (3.3-5.0); Chloride* 113 mmol/L (96-114); Potassium* 4.4 mmol/L (3.6-5.1); Sodium* 144 mmol/L (135-149)
[2022-10-10 17:53] LABS: Alanine Aminotransferase* 80 U/L (4-35); Alkaline Phosphatase* 194 U/L (40-150); Aspartate Amino Transferase* 99 U/L (12-35); Bilirubin Total* 1.5 mg/dL (0.1-1.5); Blood Urea Nitrogen* 26 mg/dL (7-30); Calcium* 9.2 mg/dL (8.4-10.6); Carbon Dioxide* 22 mmol/L (20-32); Creatinine* 0.7 mg/dL (0.5-1.5); Est. Creatinine Clearance* 39.39; Estimated Glomerular Filt Rate 88 ml/min; Glucose* 121 mg/dL (60-115); Magnesium* 1.8 mg/dL (1.5-2.6); Total Protein* 7.1 g/dL (6.0-8.3)
[2022-10-10 18:02] LABS: NT Pro B Type NatriureticPept* 18200 pg/mL
[2022-10-10] MEDS: FUROSEMIDE 10 MG/ML inj 40 MG IVP (18:14)
--- NOTE | 2022-10-10 18:45 | ED.NURSE ---
pt up to [facility], says she is too weak but does not need assistance for bedside commode, steady gait.
[2022-10-10 19:26] LABS: Appearance Urine Clear (Clear); Bilirubin Urine Negative (Negative); Blood Urine 1+ (Negative); Color Urine Yellow (Yellow); Glucose Urine Negative (Negative); Ketones Urine Negative (Negative); Leukocyte Esterase Urine 2+ (Negative); Nitrite Urine Positive (Negative); Protein Urine Trace (Negative); Urobilinogen Urine 0.2 (0.2-1.0)
[2022-10-10 19:35] LABS: Bacteria Urine Many; RBC Urine 25-50 (0-2); Squamous Epithelial Cell Urine Few (None-Few); WBC Urine 50-100 (0-5)
--- NOTE | 2022-10-10 19:40 | ED.NURSE ---
Pt to M/S via cart.
[2022-10-10 20:26] VITALS: PULSE 74
--- NOTE | 2022-10-10 20:32 | ED.NURSE ---
1944 pt transferred to m/s room 247 via w/c with all belonngings. Pt asking questions with all cares explained.
--- NOTE | 2022-10-10 20:57 | P.IMHP_ITS ---
Hospitalist- H&P: HPI History of Present Illness Date Seen: 10/10/22 Chief complaint: Weakness, Shortness of breath Narrative: Mireya Rdz is a 77 year old female with past medical history of dementia, systolic CHF (30-35%), HTN, HLd presenting for evaluation of SOB. The patient endorses increased lower extremity edema; SOB, and cough. She lives with her son. She denies chest pain and chest pressure. Denies fever. In the ED cxr showed Stable cardiomegaly. Interval increase in right pleural effusion, now moderate in size. No focal infiltrate or pneumothorax. Healed left-sided rib fractures. Troponin WNL. BNP 18,000. She was given 40 mg IV lasix and admitted for further evaluation. Of note since arrival to floor patient has requested 2 cans of Sprite and Sandwhich. Review of Systems Status of ROS: Reports: unobtainable due to medical condition [facility] Medical History Abnormal echocardiogram Acute on chronic respiratory failure with hypoxemia Anemia of chronic disease CHF (congestive heart failure) Cognitive dysfunction Complete prolapse of vaginal vault Coronary artery disease (06/27/10) Decreased oral intake Elevated TSH Fracture of right hip Heart failure with reduced ejection fraction and diastolic dysfunction Hyperlipidemia (06/27/10) Hypertension (05/27/07) Hypotension Hypothyroidism (acquired) Open blow-out fracture of right orbital floor Overactive bladder (05/27/07) Pleural effusion on right Pressure ulcer Recurrent UTI Tobacco dependence due to cigarettes, in remission Tobacco use (05/27/07) Upper respiratory tract infection Urinary frequency Vaginal vault prolapse after hysterectomy Vaginal vault prolapse after hysterectomy Weakness Surgical History History of cataract removal with insertion of prosthetic lens History of coronary artery stent placement Status post hysterectomy (05/27/07) Family History Father AAA (abdominal aortic aneurysm) Mother Stroke Son Osteoporosis Unknown Autism Social History Highest level of school completed/degree received: 12th grade, no diploma Smoking Status: Former smoker Do you use any of these nicotine containing products: None Second hand tobacco smoke exposure: No How often do you have a drink containing alcohol: monthly or less Alcohol type: beer Alcohol type details: usually just on holidays How many standard drinks containing alcohol do you have on a typical day: 1 or 2 How often do you have six or more drinks on one occasion: Never AUDIT-C Alcohol total score: 1 Non-prescribed substance use: denies use Caffeine: Yes (occasionally coffee) service: No Meds Home Medications and Allergies Home Medications Medication Instructions Recorded Confirmed Type white petrolatum (Petroleum Jelly 1 applic topical DAILY PRN 08/25/22 10/10/22 History topical) Allergies Allergy/AdvReac Type Severity Reaction Status Date / Time ceftriaxone Allergy Intermediate Rash Verified 09/26/22 14:25 Nitrate Analogues Allergy Mild Nausea Verified 09/26/22 14:25 nitrofurantoin Allergy Mild Nausea Verified 09/26/22 14:25 rosuvastatin Allergy Unknown Nausea Verified 09/26/22 14:25 Exam Narrative: Exam Narrative: Gen: no acute distress HEENT: NCAT EOMI mmm Neck: Supple CV: RRR normal s1 s2 Lungs:diminished breath sounds Abd: Soft,nt, nd Neuro: Alert, oriented, CN grossly intact; nonfocal screening?exam Psych: appropriate affect MSK: age appropriate muscle mass Skin; Warm, dry no rash on face Ext: 1+ bilateral lower extremity edema Const: Vital Signs, click to edit/add: Vital Signs - 24 hr 10/10/22 16:50 10/10/22 17:25 Temperature 96.9 F L Pulse Rate [Pulse Oximeter] 78 Respiratory Rate 12 Blood Pressure [Ri ght Upper Arm] 128/65 Pulse Oximetry 96 91 Oxygen Delivery Ga thod Room Air Hospitalist - H&P: Result Labs Labs: Short CBC 10/10/22 Range/Units 17:31 WBC 6.71 (4.50-11.00) K/uL Hgb 10.8 L (12.0-16.0) gm/dL Hct 35.8 (33.0-51.0) % Plt Count 199 (140-440) K/uL BMP 10/10/22 17:31 Sodium 144 Potassium 4.4 Chloride 113 Carbon Dioxide 22 BUN 26 Creatinine 0.7 Glucose 121 H Calcium 9.2 Liver Function 10/10/22 Range/Units 17:31 Total Bilirubin 1.5 (0.1-1.5) mg/dL AST 99 H (12-35) U/L ALT 80 H (4-35) U/L Alkaline Phosphatase 194 H (40-150) U/L Albumin 3.7 (3.3-5.0) g/dL Urine 10/10/22 Range/Units 17:25 Urine Color Yellow (Yellow) Urine Appearance Clear (Clear) Urine pH 6.0 (5.0-8.5) Ur Specific [place] 1.020 (1.000-1.030) Urine Protein Trace A (Negative) Urine Glucose (UA) Negative (Negative) Assessment and Plan Assessment and plan (1) CHF exacerbation: Status: Acute (2) Pleural effusion: Status: Acute (3) Pulmonary hypertension: Status: Acute (4) Pleural effusion on right: Problem comment: - New 08/24/2022, suspect secondary to volume overload. Status: Chronic (5) Cognitive dysfunction: Problem comment: - Ongoing cognitive decline despite treatment efforts with donepezil, consistent with dementia of the Alzheimer's type - MOCA score was 8/30 in May of 2022. Presently her MOCA score is 10/30, with poor executive function. Status: Chronic (6) Abnormal echocardiogram: Problem comment: 08/26/2022 TTE normal LV size, moderately reduced global systolic function with an estimated EF of 30-35%. Entire inferior wall and posterior wall are abnormal. Right ventricular cavity size is normal, global systolic RV function is mildly reduced. Moderately enlarged left atrium. Mitral valve is sclerotic, moderate mitral regurgitation. The inferior vena cava is consistent with elevated right atrial pressure. Compared to 06/09/2022, degree of MR has decreased. Status: Chronic (7) HTN (hypertension): Status: Chronic (8) Coronary artery disease: Status: Chronic (9) Anemia: Status: Acute (10) Acute UTI: Problem comment: Specimen: [id number] COMP Collected: 08/24/22 Received: 08/24/22 Source: Urine CC Sp Descrip: Sub Dr: Wm Christiansen M.D. Other Dr: Procedure Result Site Urine Culture Final ML Organism 1 Pseudomonas aeruginosa Ur [place] Count >100,000 CFU/ml P aerugino LAURA RX --------- --- Cefepime 2 S Ceftazidime 4 S Ciprofloxacin <=0.25 S Gentamicin <=1 S Imipenem 1 S Levofloxacin 1 S Tobramycin <=1 S Piperacillin/Tazobactam <=4 S Status: Acute Plan Assessment: Mireya Rdz is a 77 year old female with past medical history of dementia, systolic CHF (30-35%), HTN, HLd presenting for evaluation of SOB. The patient endorses increased lower extremity edema; SOB, and cough. In the ED cxr showed Stable cardiomegaly. Interval increase in right pleural effusion, now moderate in size. No focal infiltrate or pneumothorax. Healed left-sided rib fractures. Troponin WNL. BNP 18,000. She was given 40 mg IV lasix and admitted for further evaluation. Of note since arrival to floor patient has requested 2 cans of Sprite and Sandwhich 1. Acute on chronic systolic chf exacerbation; suspected dietary indiscretion 2. Right pleural effusion 3. Transaminitis, suspected secondary to hepatic congestion 4. Hx of HTN 5. Hx of CAD 6. Anemia of chronic disease 7. Recurrent UTI, ceftriaxone allergy 8. Hx of Hypothyroidism Plan -admit to inpatient -tele -lasix -echo completed in August -dietary chf education -daily weight -electrolyte replacement as needed -follow LFTs -start ciprofloxacin; f/u UCx Code-Full DVT ppx.
[2022-10-10 21:13] VITALS: BP 125/74; PULSE 70; PULSE 71; RESP 26; TEMP 36.2; O2SAT 97; BMI 19.4
[2022-10-10] MEDS: CIPROFLOXACIN 500 MG TABLET PO (22:05)
[2022-10-10] MEDS: ATORVASTATIN CALCIUM 40 MG TABLET PO (22:05)
[2022-10-10] MEDS: DONEPEZIL 5 MG TABLET PO (22:05)
[2022-10-10] MEDS: SODIUM CHLORIDE 0.9 % (FLUSH) 10 ML SYRINGE 5 ML IVF (22:06)
[2022-10-10] MEDS: ENOXAPARIN 30 MG/0.3ML INJ SUBCUT (22:57)
[2022-10-10] MEDS: MELATONIN 3 MG TABLET PO (22:57)
[2022-10-10 23:00] VITALS: BP 132/72; PULSE 74; PULSE 76; RESP 24; TEMP 36.3; O2SAT 97
[2022-10-11] VITALS (9 sets, daily range): BP systolic 116–140; BP diastolic 68–89; PULSE 68–79; RESP 18–20; TEMP 36.3–36.7; O2SAT 95–97
[2022-10-11] MEDS: LEVOTHYROXINE 125 MCG TABLET PO (06:35)
[2022-10-11] MEDS: IPRAT-ALBUT 0.5-2.5 MG/3 ML NEB 1 NEB IH (06:35)
[2022-10-11 06:36] LABS: Basophils Absolute Auto 0.03 K/uL (0.00-0.30); Basophils Percent Auto 0.5 % (0.0-3.0); Eosinophils Absolute Auto 0.15 K/uL (0.00-0.50); Eosinophils Percent Auto 2.3 % (0.0-7.0); Hematocrit 33.4 % (33.0-51.0); Hemoglobin* 10.3 gm/dL (12.0-16.0); Immature Granulocytes Abs Auto 0.03 K/uL (0.00-0.30); Immature Granulocytes Pct Auto 0.5 %; Lymphocytes Absolute Auto 1.33 K/uL (0.90-2.90); Lymphocytes Percent Auto 20.7 % (20-44); Mean Corpuscular HGB Conc 31 gm/dL (32-36); Mean Corpuscular Hemoglobin 26 pg (26-34); Mean Corpuscular Volume 85 fL (80-100); Monocytes Percent Auto 14.7 % (0.0-11.0); Neutrophils Absolute Auto 3.93 K/uL (1.7-7.0); Neutrophils Percent Auto 61.3 % (42.0-72.0); Platelet Count* 178 K/uL (140-440); RDW Coefficient of Variation % 21.9 % (11.5-15.5); Red Blood Count 3.91 m/uL (4.00-5.20); White Blood Count* 6.41 K/uL (4.50-11.00)
[2022-10-11 06:40] LABS: Slide Review Reflex No
[2022-10-11 06:57] LABS: Albumin* 3.4 g/dL (3.3-5.0); Chloride* 109 mmol/L (96-114); Potassium* 4.1 mmol/L (3.6-5.1); Sodium* 141 mmol/L (135-149)
--- NOTE | 2022-10-11 06:57 | PC.NURSE ---
23-07: Pleasant and cooperative. SBA with walker. Up to BR frequently. Pt c/o SOB with ambulation to the BR, neb given, offered relief. Sats 90s% on RA. ?
[2022-10-11 06:59] LABS: Bilirubin Direct* 0.3 mg/dL (0.0-0.5); Bilirubin Total* 1.1 mg/dL (0.1-1.5); Carbon Dioxide* 24 mmol/L (20-32); Creatinine* 0.8 mg/dL (0.5-1.5); Est. Creatinine Clearance* 36.32; Estimated Glomerular Filt Rate 75 ml/min; Total Protein* 6.6 g/dL (6.0-8.3)
[2022-10-11 07:00] LABS: Alanine Aminotransferase* 76 U/L (4-35); Alkaline Phosphatase* 179 U/L (40-150); Aspartate Amino Transferase* 77 U/L (12-35); Blood Urea Nitrogen* 30 mg/dL (7-30); Calcium* 8.6 mg/dL (8.4-10.6); Glucose* 87 mg/dL (60-115); Magnesium* 1.6 mg/dL (1.5-2.6)
[2022-10-11] MEDS: POTASSIUM CHLORIDE 10 MEQ CAPSULE ER 20 MEQ PO ×2 (09:05→17:39)
[2022-10-11] MEDS: ASPIRIN 81 MG TAB.CHEW PO (09:05)
[2022-10-11] MEDS: CIPROFLOXACIN 500 MG TABLET PO ×2 (09:05→20:25)
[2022-10-11] MEDS: SODIUM CHLORIDE 0.9 % (FLUSH) 10 ML SYRINGE 5 ML IVF ×2 (09:05→20:26)
[2022-10-11] MEDS: FUROSEMIDE 10 MG/ML inj 40 MG IVP (09:06)
[2022-10-11] MEDS: MAGNESIUM OXIDE 400 MG TABLET PO (09:06)
--- NOTE | 2022-10-11 11:51 | NUTR.NU ---
RDN with MD consult for diet education related to CHF. Patient admitted for CHF Exacerbation. Patient has a history of dementia - lastest MOCA on 08/26/22 was 07/21. Patient lives with son, Anthony, whom is designated caregiver. Patient is not appropriate for diet education, RDN attempted to contact Anthony for diet education however he did not answer. RDN left voicemail for Anthony to call back. Patient has been admitted x2 within the past 6 months, and Anthony has received CHF diet education on 06/10/22. Will attempt to call designated caregiver at later date if Anthony does not return RDNs call.
--- NOTE | 2022-10-11 11:57 | PC.SOCIAL ---
Discharge planning: Met with pt and son, Anthony, in room regarding discharge plan. Tarik states he will not take pt home after this hospitalization as he can not take care of her at home. He works outside the home and can not stop working to take care of her. Son states pt has a caser in through [facility] Georgie Ma [phone] (fax [phone]). Anthony shared that he is very frustrated with the [facility] [employer] Worker. He states she was supposed to be set up with home care but they did not do that. Anthony states he had an MA application but has not submitted it yet. Anthony states the county worker said she could be placed without the Medical Assistance application being completed. Anthony gave permission for this socially responsible investment adviser to contact the [facility] [employer]. Called Georgie at [facility] who states she just got this case last week and the son has not submitted a Medical Assistance application. She states she was supposed to have an initial assessment with pt on Friday. Georgie states she can complete this at the hospital with the son on Friday. She will contact the son to discuss this option. Georgie states she does nto help with Medical Assistance applications but will encourage the son to complete it and submit it to her as soon as possible. poultry offal worker to follow up as needed.
--- NOTE | 2022-10-11 12:17 | P.IMPN_ITS ---
Progress Note: A&P Assessment and plan (1) CHF exacerbation: Status: Acute (2) Pulmonary hypertension: Status: Acute (3) Cor pulmonale: Status: Acute (4) Pleural effusion on right: Problem details: suspect secondary to volume overload. Status: Chronic (5) Cognitive dysfunction: Problem details: - Ongoing cognitive decline despite treatment efforts with donepezil, consistent with dementia of the Alzheimer's type - MOCA score was 8/30 in May of 2022. Status: Chronic (6) Abnormal echocardiogram: Problem details: 08/26/2022 TTE normal LV size, moderately reduced global systolic function with an estimated EF of 30-35%. Entire inferior wall and posterior wall are abnormal. Right ventricular cavity size is normal, global systolic RV function is mildly reduced. Moderately enlarged left atrium. Mitral valve is sclerotic, moderate mitral regurgitation. The inferior vena cava is consistent with elevated right atrial pressure. Compared to 06/09/2022, degree of MR has decreased. Status: Chronic (7) COPD (chronic obstructive pulmonary disease): Status: Chronic (8) HTN (hypertension): Status: Chronic (9) Coronary artery disease: Status: Chronic (10) Acute UTI: Problem details: ceftriaxone allergy; currently on cipro Status: Acute Plan Assessment: Mireya Rdz is a 77 year old female with past medical history of dementia, systolic CHF (30-35%), HTN, HLd presenting for evaluation of SOB. The patient endorses increased lower extremity edema; SOB, and cough. In the ED cxr showed?Stable cardiomegaly. Interval increase in right pleural effusion, now moderate in size. No focal infiltrate or pneumothorax. Healed left-sided rib fractures. Troponin WNL. BNP 18,000. She was given 40 mg IV lasix and admitted for further evaluation. Of note since arrival to floor patient has requested 2 cans of Sprite and Sandwhich 1. Acute on chronic systolic chf exacerbation; suspected dietary indiscretion 2. Right pleural effusion; recurrent 3. Transaminitis, suspected secondary to hepatic congestion 4. Hx of HTN 5. Hx of CAD 6. Anemia of chronic disease 7. Recurrent UTI, ceftriaxone allergy 8. Hx of Hypothyroidism 9. Generalized weakness; multifactorial Plan -tele -lasix; given 40 mg IV lasix this am; give another 20 mg IV lasix this afternoon -echo completed in August -dietary chf education -daily weight -electrolyte replacement as needed -follow LFTs -continue ciprofloxacin; f/u UCx -PT, OT, SW consult may need placement Code-Full DVT [email or web address] Subjective Date Seen: 10/11/22 Interval history: spoke with patient's son; he feels mother needs closer supervision and possible NH patient states she feels depressed SOB improved denies chest pain unable to get accurate I&O Exam 2 Narrative: Exam Narrative: Gen: no acute distress HEENT: NCAT EOMI mmm CV: RRR normal s1 s2 Lungs: diminished at base Abd: Soft,nt, nd Neuro: Alert,CN grossly intact; nonfocal screening?exam Psych:flat affect Const: Vital Signs, click to edit/add: Vital Signs - 24 hr 10/10/22 16:50 10/10/22 17:25 10/10/22 21:13 Temperature 96.9 F L 97.2 F L Pulse Rate Pulse Rate [Apical ] 70 Pulse Rate [Pulse Oximeter] 78 71 Respiratory Rate 12 26 H Blood Pressure [Le ft Arm] 125/74 Blood Pressure [Ri ght Arm] Blood Pressure [Ri ght Upper Arm] 128/65 Pulse Oximetry 96 91 97 Oxygen Delivery Me thod Room Air Room Air 10/10/22 21:13 10/10/22 20:26 10/10/22 23:00 Temperature Pulse Rate 74 74 Pulse Rate [Apical ] Pulse Rate [Pulse Oximeter] Respiratory Rate 26 H Blood Pressure [Le ft Arm] Blood Pressure [Ri ght Arm] Blood Pressure [Ri ght Upper Arm] Pulse Oximetry 97 Oxygen Delivery Oh thod Room Air 10/10/22 23:00 10/10/22 23:00 10/10/22 23:00 Temperature 97.3 F L Pulse Rate Pulse Rate [Apical ] Pulse Rate [Pulse Oximeter] 76 76 Respiratory Rate 24 24 Blood Pressure [Le ft Arm] 132/72 Blood Pressure [Ri ght Arm] Blood Pressure [Ri ght Upper Arm] Pulse Oximetry 97 97 Oxygen Delivery Oh thod Room Air 10/11/22 03:00 10/11/22 07:15 10/11/22 07:00 Temperature 97.4 F L 97.5 F L Pulse Rate 70 Pulse Rate [Apical ] Pulse Rate [Pulse Oximeter] 74 79 Respiratory Rate 20 20 Blood Pressure [Le ft Arm] 128/71 Blood Pressure [Ri ght Arm] 140/76 H Blood Pressure [Ri ght Upper Arm] Pulse Oximetry 96 96 Oxygen Delivery Me thod Room Air Room Air 10/11/22 08:08 10/11/22 08:10 10/11/22 11:05 Temperature 98.0 F Pulse Rate Pulse Rate [Apical ] Pulse Rate [Pulse Oximeter] 79 78 Respiratory Rate 20 91 H Blood Pressure [Le ft Arm] Blood Pressure [Ri ght Arm] 134/75 Blood Pressure [Ri ght Upper Arm] Pulse Oximetry 96 96 Oxygen Delivery Me thod Room Air Labs Labs: Laboratory Results - last 24 hr 10/10/22 10/10/22 10/10/22 17:06 17:25 17:31 WBC 6.71 RBC 4.15 Hgb 10.8 L Hct 35.8 MCV 86 MCH 26 MCHC 30 L RDW Coeff of Michaela 22.0 H Plt Count 199 Neut % (Auto) 68.3 Lymph % (Auto) 18.2 L [place] % (Auto) 12.1 H Eos % (Auto) 0.7 Baso % (Auto) 0.6 Neut # (Auto) 4.58 Lymph # (Auto) 1.20 [place] # (Auto) 0.80 Eos # (Auto) 0.05 Baso # (Auto) 0.04 Sodium Potassium Chloride Carbon Dioxide BUN Creatinine Estimated Creat Clear Estimated GFR Glucose Calcium Magnesium Total Bilirubin Direct Bilirubin AST ALT Alkaline Phosphatase NT-Pro-B Natriuret Pep Total Protein Albumin Urine Color Yellow Urine Appearance Clear Urine pH 6.0 Ur Specific [place] 1.020 Urine Protein Trace A Urine Glucose (UA) Negative Urine Ketones Negative Urine Blood 1+ A Urine Nitrite Positive A Urine Bilirubin Negative Urine Urobilinogen 0.2 Ur Leukocyte Esterase 2+ A Urine RBC 25-50 A Urine WBC 50-100 A Ur Squamous Epith Cells Few Urine Bacteria Many A SARS-CoV-2 (PCR) Negative SARS-CoV-2 Influenza Type A (PCR) Negative PCR FLU A Influenza Type B (PCR) Negative PCR FLU B RSV (PCR) Negative PCR RSV POC Troponin I 10/10/22 10/10/22 10/11/22 17:31 17:31 05:24 WBC 6.41 RBC 3.91 L Hgb 10.3 L Hct 33.4 MCV 85 MCH 26 MCHC 31 L RDW Coeff of Michaela 21.9 H Plt Count 178 Neut % (Auto) 61.3 Lymph % (Auto) 20.7 [place] % (Auto) 14.7 H Eos % (Auto) 2.3 Baso % (Auto) 0.5 Neut # (Auto) 3.93 Lymph # (Auto) 1.33 [place] # (Auto) 0.90 Eos # (Auto) 0.15 Baso # (Auto) 0.03 Sodium 144 Potassium 4.4 Chloride 113 Carbon Dioxide 22 BUN 26 Creatinine 0.7 Estimated Creat Clear 39.39 Estimated GFR 88 Glucose 121 H Calcium 9.2 Magnesium 1.8 Total Bilirubin 1.5 Direct Bilirubin AST 99 H ALT 80 H Alkaline Phosphatase 194 H NT-Pro-B Natriuret Pep 47025 Total Protein 7.1 Albumin 3.7 Urine Color Urine Appearance Urine pH Ur Specific [place] Urine Protein Urine Glucose (UA) Urine Ketones Urine Blood Urine Nitrite Urine Bilirubin Urine Urobilinogen Ur Leukocyte Esterase Urine RBC Urine WBC Ur Squamous Epith Cells Urine Bacteria SARS-CoV-2 (PCR) Influenza Type A (PCR) Influenza Type B (PCR) RSV (PCR) POC Troponin I 0.03 10/11/22 05:24 WBC RBC Hgb Hct MCV MCH MCHC RDW Coeff of Michaela Plt Count Neut % (Auto) Lymph % (Auto) [place] % (Auto) Eos % (Auto) Baso % (Auto) Neut # (Auto) Lymph # (Auto) [place] # (Auto) Eos # (Auto) Baso # (Auto) Sodium 141 Potassium 4.1 Chloride 109 Carbon Dioxide 24 BUN 30 Creatinine 0.8 Estimated Creat Clear 36.32 Estimated GFR 75 Glucose 87 Calcium 8.6 Magnesium 1.6 Total Bilirubin 1.1 Direct Bilirubin 0.3 AST 77 H ALT 76 H Alkaline Phosphatase 179 H NT-Pro-B Natriuret Pep Total Protein 6.6 Albumin 3.4 Urine Color Urine Appearance Urine pH Ur Specific [place] Urine Protein Urine Glucose (UA) Urine Ketones Urine Blood Urine Nitrite Urine Bilirubin Urine Urobilinogen Ur Leukocyte Esterase Urine RBC Urine WBC Ur Squamous Epith Cells Urine Bacteria SARS-CoV-2 (PCR) Influenza Type A (PCR) Influenza Type B (PCR) RSV (PCR) POC Troponin I
[2022-10-11] MEDS: MAGNESIUM OXIDE 400 MG TABLET 800 MG PO (12:51)
[2022-10-11] MEDS: FUROSEMIDE 10 MG/ML inj 20 MG IVP (17:39)
--- NOTE | 2022-10-11 18:24 | PC.NURSE ---
End of Shift: Pt has been pleasant and cooperative. Alert to self, place and month. not day of the week or month. she is Forgetful and calls out frequently to use bathroom. Up with SBA, walker and gait belt. Up to bathroom and walking in hallway frequently this shift. Denies pain. O2 sats greater than 90% on room air. Tolerating regular diet with no nausea. SL is patent.
[2022-10-11] MEDS: MELATONIN 3 MG TABLET PO (20:25)
[2022-10-11] MEDS: ATORVASTATIN CALCIUM 40 MG TABLET PO (20:25)
[2022-10-11] MEDS: DONEPEZIL 5 MG TABLET PO (20:25)
[2022-10-12] VITALS (9 sets, daily range): BP systolic 107–139; BP diastolic 52–76; PULSE 16–77; RESP 16–20; TEMP 36.2–36.4; O2SAT 92–98
[2022-10-12] MEDS: ENOXAPARIN 30 MG/0.3ML INJ SUBCUT (00:34)
--- NOTE | 2022-10-12 06:42 | PC.NURSE ---
Status [id number] Alert with chronic confusion. Very forgetful but pleasant and cooperative. Denies pain. VSS on room air. Able to ambulate independently with walker to bathroom. BLE edema, R>L. Telemetry monitoring, NSR. Intermittent resting throughout night.
[2022-10-12] MEDS: LEVOTHYROXINE 125 MCG TABLET PO (06:57)
[2022-10-12 07:17] LABS: Basophils Absolute Auto 0.03 K/uL (0.00-0.30); Basophils Percent Auto 0.4 % (0.0-3.0); Eosinophils Absolute Auto 0.21 K/uL (0.00-0.50); Hematocrit 34.5 % (33.0-51.0); Hemoglobin* 10.4 gm/dL (12.0-16.0); Immature Granulocytes Abs Auto 0.02 K/uL (0.00-0.30); Immature Granulocytes Pct Auto 0.3 %; Lymphocytes Percent Auto 19.2 % (20-44); Mean Corpuscular HGB Conc 30 gm/dL (32-36); Mean Corpuscular Hemoglobin 26 pg (26-34); Mean Corpuscular Volume 87 fL (80-100); Monocytes Percent Auto 13.3 % (0.0-11.0); Neutrophils Absolute Auto 4.43 K/uL (1.7-7.0); Neutrophils Percent Auto 63.8 % (42.0-72.0); Platelet Count* 210 K/uL (140-440); RDW Coefficient of Variation % 21.9 % (11.5-15.5); Red Blood Count 3.96 m/uL (4.00-5.20); White Blood Count* 6.94 K/uL (4.50-11.00)
[2022-10-12 07:31] LABS: Albumin* 3.5 g/dL (3.3-5.0); Chloride* 106 mmol/L (96-114)
[2022-10-12 07:32] LABS: Potassium* 4.5 mmol/L (3.6-5.1); Slide Review Reflex Yes; Sodium* 141 mmol/L (135-149)
[2022-10-12 07:34] LABS: Alkaline Phosphatase* 179 U/L (40-150); Aspartate Amino Transferase* 46 U/L (12-35); Bilirubin Direct* 0.1 mg/dL (0.0-0.5); Blood Urea Nitrogen* 31 mg/dL (7-30); Carbon Dioxide* 29 mmol/L (20-32); Creatinine* 0.8 mg/dL (0.5-1.5); Est. Creatinine Clearance* 35.54; Estimated Glomerular Filt Rate 75 ml/min; Glucose* 101 mg/dL (60-115); Total Protein* 6.8 g/dL (6.0-8.3)
[2022-10-12 07:35] LABS: Alanine Aminotransferase* 58 U/L (4-35); Calcium* 8.6 mg/dL (8.4-10.6); Magnesium* 1.6 mg/dL (1.5-2.6)
[2022-10-12 07:37] LABS: Slide Review Acceptable Review (Acceptable)
[2022-10-12] MEDS: TORSEMIDE 20 MG TABLET 40 MG PO ×2 (08:48→14:47)
[2022-10-12] MEDS: POTASSIUM CHLORIDE 10 MEQ CAPSULE ER 20 MEQ PO ×2 (08:48→18:38)
[2022-10-12] MEDS: SODIUM CHLORIDE 0.9 % (FLUSH) 10 ML SYRINGE 5 ML IVF ×2 (08:48→20:51)
[2022-10-12] MEDS: ASPIRIN 81 MG TAB.CHEW PO (08:49)
[2022-10-12] MEDS: CIPROFLOXACIN 500 MG TABLET PO (08:49)
[2022-10-12] MEDS: MAGNESIUM OXIDE 400 MG TABLET PO (08:49)
--- NOTE | 2022-10-12 14:31 | RESP.RT ---
Patient lying in bed, on room air, breathing regular/easy, good clear spontaneous nonproductive cough, respiratory rate 18/minute. Patient has Home Oxygen, states never uses it, patient also has home nebulizer treatment, never needs them. Encourage patient to use her oxygen when she becomes SOB and also do a Nebulizer treatment.
--- NOTE | 2022-10-12 17:37 | P.IMPN_ITS ---
Progress Note: A&P Assessment and plan (1) CHF exacerbation: Problem details: Transition to oral outpatient diuretic. Cautiously initiate guideline directed medical therapy for heart failure with reduced ejection fraction. Start with lisinopril 2.5 mg daily. Status: Acute (2) Pulmonary hypertension: Status: Acute (3) Pleural effusion on right: Problem details: suspect secondary to volume overload. Status: Chronic (4) Cognitive dysfunction: Problem details: - Ongoing cognitive decline despite treatment efforts with donepezil, consistent with dementia of the Alzheimer's type - MOCA score was 8/30 in May of 2022. Status: Chronic (5) Abnormal echocardiogram: Problem details: 08/26/2022 TTE normal LV size, moderately reduced global systolic function with an estimated EF of 30-35%. Entire inferior wall and posterior wall are abnormal. Right ventricular cavity size is normal, global systolic RV function is mildly reduced. Moderately enlarged left atrium. Mitral valve is sclerotic, moderate mitral regurgitation. The inferior vena cava is consistent with elevated right atrial pressure. Compared to 06/09/2022, degree of MR has decreased. Status: Chronic (6) COPD (chronic obstructive pulmonary disease): Status: Chronic (7) HTN (hypertension): Status: Chronic (8) Coronary artery disease: Problem details: Ischemic cardiomyopathy Status: Chronic (9) Acute UTI: Problem details: Probably asymptomatic UTI. Culture grows E coli resistant to Cipro. Discontinue Cipro and observe. Status: Acute Plan Continue inpatient monitoring and management of heart failure. Transition to outpatient guideline directed therapy. Consider options for safe discharge plan related to dementia and recurrent hospitalizations. Time Spent With Patient Total time spent: Total time spent today is 40 minutes in coordination of care and discussing with other providers management of heart failure and dementia Subjective Date Seen: 10/12/22 Interval history: 77-year-old female seen in hospitalization for heart failure exacerbation. This is her 3rd hospitalization in the last 2 months for this. Patient has dementia and unable to give history of any possible factors that may contribute to this. Apparently her son sets up her medications and assesses for medication compliance. Dietary compliance is difficult to assess. She lives with her son but he is gone during the day and unable to monitor. She has heart failure with reduced ejection fraction of 30-35%. She has regional wall motion abnormalities suggestive of ischemic heart disease. Patient has dementia with a Winn of 10/30. Exam Narrative: Exam Narrative: She is alert and appears in no distress. She is now breathing room air with oxygen saturations in the 90s. She reports feeling fine at this time. She has no concerns. Respirations are clear to auscultation. Cardiovascular: S1, S2, regular rate and rhythm. 1/6 systolic murmur. Abdomen: Bowel sounds active. Abdomen is soft without tenderness. Extremities with trace edema. Const: Vital Signs, click to edit/add: Vital Signs - 24 hr 10/11/22 20:32 10/11/22 23:00 10/12/22 00:10 Temperature 97.8 F 97.8 F Pulse Rate Pulse Rate [Pulse Oximeter] 69 79 Respiratory Rate 18 20 Blood Pressure [Ri ght Arm] 116/68 138/89 Pulse Oximetry 97 95 95 Oxygen Delivery Me thod Room Air Room Air 10/11/22 23:00 10/12/22 01:30 10/12/22 03:00 Temperature Pulse Rate 63 Pulse Rate [Pulse Oximeter] 79 Respiratory Rate 20 20 Blood Pressure [Ri ght Arm] Pulse Oximetry Oxygen Delivery Me thod Room Air 10/12/22 07:10 10/12/22 07:10 10/12/22 07:10 Temperature 97.4 F L Pulse Rate 77 Pulse Rate [Pulse Oximeter] 69 Respiratory Rate 18 Blood Pressure [Ri ght Arm] 122/76 Pulse Oximetry 94 94 Oxygen Delivery Me thod Room Air 10/12/22 07:10 10/12/22 11:10 10/12/22 15:46 Temperature 97.3 F L Pulse Rate 63 Pulse Rate [Pulse Oximeter] 69 16 L Respiratory Rate 18 16 Blood Pressure [Ri ght Arm] 130/74 Pulse Oximetry 98 Oxygen Delivery Me thod Room Air 10/12/22 15:46 10/12/22 15:46 10/12/22 15:47 Temperature 97.6 F Pulse Rate Pulse Rate [Pulse Oximeter] 18 L 18 L Respiratory Rate 16 16 Blood Pressure [Ri ght Arm] 139/70 Pulse Oximetry 92 92 Oxygen Delivery Me thod Room Air Documenting provider has reviewed patient's vital signs: yes Labs Labs: Laboratory Results - last 24 hr 10/12/22 10/12/22 06:57 06:57 WBC 6.94 RBC 3.96 L Hgb 10.4 L Hct 34.5 MCV 87 MCH 26 MCHC 30 L RDW Coeff of Michaela 21.9 H Plt Count 210 Neut % (Auto) 63.8 Lymph % (Auto) 19.2 L [place] % (Auto) 13.3 H Eos % (Auto) 3.0 Baso % (Auto) 0.4 Neut # (Auto) 4.43 Lymph # (Auto) 1.30 [place] # (Auto) 0.90 Eos # (Auto) 0.21 Baso # (Auto) 0.03 Diff Slide Review Acceptable Review Sodium 141 Potassium 4.5 Chloride 106 Carbon Dioxide 29 BUN 31 H Creatinine 0.8 Estimated Creat Clear 35.54 Estimated GFR 75 Glucose 101 Calcium 8.6 Magnesium 1.6 Total Bilirubin 1.0 Direct Bilirubin 0.1 AST 46 H ALT 58 H Alkaline Phosphatase 179 H Total Protein 6.8 Albumin 3.5
--- NOTE | 2022-10-12 18:14 | PC.NURSE ---
End of Shift: Pt is pleasant and cooperative. but very very forgetful and ask the same questions over and over and over Alert to self, place and month. not day of the week or month. ? she calls out frequently ma'am ma'am ma'am can you help me. to use bathroom. Up with SBA, walker and gait belt. She is Up walking in hallway frequently this shift. Denies pain. O2 sats are still greater than 90% on room air. Tolerating regular diet with no nausea. SL is patent. ?she is eating, drinking and voiding. last mocca was 10
[2022-10-12] MEDS: lisinopriL 5 MG TABLET 2.5 MG PO (18:37)
[2022-10-12] MEDS: DONEPEZIL 5 MG TABLET PO (20:50)
[2022-10-12] MEDS: MELATONIN 3 MG TABLET PO (20:50)
[2022-10-12] MEDS: ATORVASTATIN CALCIUM 40 MG TABLET PO (20:51)
[2022-10-13] VITALS (14 sets, daily range): BP systolic 67–109; BP diastolic 38–84; PULSE 63–86; RESP 16–18; TEMP 36.1–37.1; O2SAT 92–95
--- NOTE | 2022-10-13 06:47 | PC.NURSE ---
Status [id number] Alert with chronic confusion. Pleasant and cooperative. Reports pain to right ankle, denies need for intervention. BP soft but stable. Telemetry monitoring, NSR. Remains on room air. Up independently with walker in room, stand by in halls. Ambulating in halls before bedtime. Pt observed resting well throughout night.
[2022-10-13] MEDS: LEVOTHYROXINE 125 MCG TABLET PO (06:56)
[2022-10-13 08:17] LABS: Chloride* 97 mmol/L (96-114); Potassium* 4.4 mmol/L (3.6-5.1); Sodium* 138 mmol/L (135-149)
[2022-10-13 08:20] LABS: Blood Urea Nitrogen* 45 mg/dL (7-30); Carbon Dioxide* 35 mmol/L (20-32); Creatinine* 0.9 mg/dL (0.5-1.5); Estimated Glomerular Filt Rate 65 ml/min; Glucose* 83 mg/dL (60-115)
[2022-10-13 08:21] LABS: Calcium* 9.1 mg/dL (8.4-10.6)
[2022-10-13] MEDS: SODIUM CHLORIDE 0.9 % (FLUSH) 10 ML SYRINGE 5 ML IVF ×2 (08:25→21:00)
[2022-10-13] MEDS: MAGNESIUM OXIDE 400 MG TABLET PO (08:26)
[2022-10-13] MEDS: lisinopriL 5 MG TABLET 2.5 MG PO (08:26)
[2022-10-13] MEDS: POTASSIUM CHLORIDE 10 MEQ CAPSULE ER 20 MEQ PO ×2 (08:26→17:27)
[2022-10-13] MEDS: ASPIRIN 81 MG TAB.CHEW PO (08:26)
[2022-10-13] MEDS: ACETAMINOPHEN 500 MG TABLET PO (08:26)
[2022-10-13] MEDS: LACTATED RINGERS 1000 ML 500 ML IV ×2 (12:55→16:11)
--- NOTE | 2022-10-13 15:46 | P.IMPN_ITS ---
Progress Note: A&P Assessment and plan (1) CHF exacerbation: Problem details: Intolerant of DENITA-inhibitor due to hypotension. Hold diuretic and stop DENITA- inhibitor. Probably resume diuretic tomorrow. Follow renal function closely. Status: Acute (2) Pulmonary hypertension: Status: Acute (3) Pleural effusion on right: Problem details: suspect secondary to volume overload. Status: Chronic (4) Cognitive dysfunction: Problem details: - Ongoing cognitive decline despite treatment efforts with donepezil, consistent with dementia of the Alzheimer's type - MOCA score was 8/30 in May of 2022. Status: Chronic (5) Abnormal echocardiogram: Problem details: 08/26/2022 TTE normal LV size, moderately reduced global systolic function with an estimated EF of 30-35%. Entire inferior wall and posterior wall are abnormal. Right ventricular cavity size is normal, global systolic RV function is mildly reduced. Moderately enlarged left atrium. Mitral valve is sclerotic, moderate mitral regurgitation. The inferior vena cava is consistent with elevated right atrial pressure. Compared to 06/09/2022, degree of MR has decreased. Status: Chronic (6) COPD (chronic obstructive pulmonary disease): Status: Chronic (7) HTN (hypertension): Status: Chronic (8) Coronary artery disease: Problem details: Ischemic cardiomyopathy Status: Chronic (9) Acute UTI: Problem details: Probably asymptomatic UTI. Culture grows E coli resistant to Cipro. Discontinue Cipro and observe. No obvious symptoms of UTI Status: Acute Plan Continue in-hospital for cardiovascular monitoring. Resume diuretic when tolerated. Make arrangements for safe discharge plan. Likely will need correction facility or other supervised setting for her safety Time Spent With Patient Total time spent: Total time spent today is 25 minutes, 20 minutes in coordination of care and discussing with other providers management of heart failure, hypotension and dementia Subjective Date Seen: 10/13/22 Interval history: 77-year-old female seen in followup of heart failure with reduced ejection fraction and dementia. Initiated lisinopril 2.5 mg daily to optimize treatment of heart failure induced ejection fraction. Unfortunately she developed significant hypotension today as a sequelae of that. Fluid bolus required for her hypotension. She reports otherwise feeling well. She has been ambulating in the hallway. She is eating normally. She has no concerns today. Exam Narrative: Exam Narrative: She is alert and appears in no distress. Respirations are clear to auscultation except for rare basilar crackle. Cardiovascular: S1, S2, regular rate and rhythm. Abdomen is soft without tenderness or mass extremities without edema. Const: Vital Signs, click to edit/add: Vital Signs - 24 hr 10/12/22 15:47 10/12/22 20:50 10/13/22 00:06 Temperature 97.2 F L Pulse Rate 63 Pulse Rate [Pulse Oximeter] 18 L 70 Respiratory Rate 16 16 Blood Pressure [Le ft Arm] Blood Pressure [Ri ght Arm] 107/52 L Pulse Oximetry 95 Oxygen Delivery Me thod Room Air 10/12/22 23:00 10/13/22 03:00 10/13/22 04:46 Temperature 97.1 F L Pulse Rate Pulse Rate [Pulse Oximeter] 70 70 Respiratory Rate 16 16 16 Blood Pressure [Le ft Arm] Blood Pressure [Ri ght Arm] 103/54 L Pulse Oximetry 93 Oxygen Delivery Me thod Room Air Room Air 10/13/22 07:18 10/13/22 08:09 10/13/22 07:30 Temperature Pulse Rate 69 Pulse Rate [Pulse Oximeter] 67 Respiratory Rate 18 Blood Pressure [Le ft Arm] Blood Pressure [Ri ght Arm] Pulse Oximetry 94 Oxygen Delivery Me thod 10/13/22 07:30 10/13/22 11:59 10/13/22 11:15 Temperature 97.0 F L 97.1 F L Pulse Rate Pulse Rate [Pulse Oximeter] 67 74 67 Respiratory Rate 18 18 18 Blood Pressure [Le ft Arm] 70/40 L Blood Pressure [Ri ght Arm] 109/61 73/38 L 67/47 L Pulse Oximetry 94 92 92 Oxygen Delivery Me thod Room Air Room Air Room Air 10/13/22 13:28 10/13/22 15:20 10/13/22 15:20 Temperature 97.0 F L Pulse Rate Pulse Rate [Pulse Oximeter] 68 77 Respiratory Rate 16 16 Blood Pressure [Le ft Arm] Blood Pressure [Ri ght Arm] 97/52 L 84/51 L Pulse Oximetry 93 93 93 Oxygen Delivery Me thod Room Air Room Air 10/13/22 15:20 Temperature Pulse Rate Pulse Rate [Pulse Oximeter] 68 Respiratory Rate 16 Blood Pressure [Le ft Arm] Blood Pressure [Ri ght Arm] Pulse Oximetry Oxygen Delivery Me thod Documenting provider has reviewed patient's vital signs: yes Labs Labs: Laboratory Results - last 24 hr 10/13/22 07:42 Sodium 138 Potassium 4.4 Chloride 97 Carbon Dioxide 35 H BUN 45 H Creatinine 0.9 Estimated Creat Clear 34.10 Estimated GFR 65 Glucose 83 Calcium 9.1
--- NOTE | 2022-10-13 17:38 | PC.NURSE ---
End of Shift: Pt is? pleasant and cooperative. very forgetful and ask the same questions she had 5 bm's today with the lst one being diarrhea per NA. Up with SBA, walker and gait belt. She is Up walking in hallway. this am but BP are low since 11 and she got 2 500mls LR. Denies pain. O2 sats are still greater than 90% on room air. Tolerating regular diet with no nausea. SL was bad this am, but started a new one with low BP. . ?she is eating, drinking and voiding. ?
[2022-10-13] MEDS: ATORVASTATIN CALCIUM 40 MG TABLET PO (21:00)
[2022-10-13] MEDS: DONEPEZIL 5 MG TABLET PO (21:00)
[2022-10-13] MEDS: MELATONIN 3 MG TABLET PO (21:04)
[2022-10-13] MEDS: ENOXAPARIN 30 MG/0.3ML INJ SUBCUT (22:01)
--- NOTE | 2022-10-13 22:47 | PC.NURSE ---
Shift [id number]- Patient is up at [facility] in room. She is forgetful, redirectable, but forgets quickly again. She denies pain. She is not short of breath. BP is improved from earlier.
[2022-10-14] MEDS: ACETAMINOPHEN 500 MG TABLET PO (00:03)
[2022-10-14 03:45] VITALS: BP 113/57; PULSE 72; RESP 18; TEMP 36.5; O2SAT 92
[2022-10-14 07:00] VITALS: BP 101/51; PULSE 68; RESP 18; TEMP 36.6; O2SAT 94
[2022-10-14 07:27] LABS: Chloride* 107 mmol/L (96-114); Potassium* 4.6 mmol/L (3.6-5.1); Sodium* 139 mmol/L (135-149)
[2022-10-14 07:30] LABS: Carbon Dioxide* 29 mmol/L (20-32); Creatinine* 0.9 mg/dL (0.5-1.5); Est. Creatinine Clearance* 35.32; Estimated Glomerular Filt Rate 65 ml/min
[2022-10-14 07:31] LABS: Blood Urea Nitrogen* 43 mg/dL (7-30); Calcium* 8.6 mg/dL (8.4-10.6); Glucose* 95 mg/dL (60-115)
[2022-10-14] MEDS: LEVOTHYROXINE 125 MCG TABLET PO (07:31)
--- NOTE | 2022-10-14 07:34 | PC.NURSE ---
Shift note: The pt has been forgetful and confused throughout the night- the pt has been re-oriented PRN. Up to the BR with a walker. C/O mild lower back pain- the pain has been resoloved with PRN pain medication. Denied chest pain and other distress throughout the night.
[2022-10-14] MEDS: SODIUM CHLORIDE 0.9 % (FLUSH) 10 ML SYRINGE 5 ML IVF ×2 (09:28→21:26)
[2022-10-14] MEDS: MAGNESIUM OXIDE 400 MG TABLET PO (09:28)
[2022-10-14] MEDS: ASPIRIN 81 MG TAB.CHEW PO (09:28)
[2022-10-14] MEDS: POTASSIUM CHLORIDE 10 MEQ CAPSULE ER 20 MEQ PO ×2 (09:28→19:02)
[2022-10-14 15:00] VITALS: PULSE 95; RESP 21
--- NOTE | 2022-10-14 15:30 | PC.SOCIAL ---
Spoke with Kaitlyn segovia's alternative care stefani worker through [facility] at [phone], . She is meeting with pt.'s son Anthony tomorrow to complete paperwork for the Elderly waiver. Pt. still needs to fill out an MA application. Confirmed pt. cannot go to a SNF until on the EW waiver. Updated pt.'s son Anthony that pt. will not be able to go to a memory care [place] until on the waiver. Had a list of 17 memory care AL's and 3 have openings for EW but pt. will not be eligible until on assistance. Discussed privately paying for a respite bed in a memory care until pt. is on assistance and Anthony states pt. cannot pay for this. Discussed going home with home care and son states he cannot provide care. Pt. is not eligible for a SNF bed wit her insurance as she does not need rehab. Pt. would need to be on MA for SNF coverage. Anthony said the worker said pt could go to Adult Day care and this could be paid for. He was open to Adult Day care as an option. Left a message with Kaitlyn again to inquire if she knew of any adult day care in the area that takes the waiver. Left a message with [facility] in [facility] @ [phone] on availability. Son Anthony agreed pt.'s information could be sent to memory care AL's that take medical assistance and have openings to start the process. [facility] in [place] [employer] @ [phone], [facility] in [facility] but sent information to get on their waiting list @ fax#[phone], [facility] in [facility] @[phone], fax# [phone] A message was left with [facility] in [place] [employer] @ [phone]
--- NOTE | 2022-10-14 15:52 | P.IMPN_ITS ---
Progress Note: A&P Assessment and plan (1) CHF exacerbation: Problem details: Intolerant of DENITA-inhibitor due to hypotension. Hold diuretic and stop DENITA- inhibitor. Cautiously resume diuretic. Status: Acute (2) Pulmonary hypertension: Status: Acute (3) Pleural effusion on right: Problem details: suspect secondary to volume overload. Status: Chronic (4) Cognitive dysfunction: Problem details: - Ongoing cognitive decline despite treatment efforts with donepezil, consistent with dementia of the Alzheimer's type - MOCA score was 8/30 in May of 2022. Status: Chronic (5) Abnormal echocardiogram: Problem details: 08/26/2022 TTE normal LV size, moderately reduced global systolic function with an estimated EF of 30-35%. Entire inferior wall and posterior wall are abnormal. Right ventricular cavity size is normal, global systolic RV function is mildly reduced. Moderately enlarged left atrium. Mitral valve is sclerotic, moderate mitral regurgitation. The inferior vena cava is consistent with elevated right atrial pressure. Compared to 06/09/2022, degree of MR has decreased. Status: Chronic (6) COPD (chronic obstructive pulmonary disease): Status: Chronic (7) HTN (hypertension): Problem details: Blood pressures have been borderline low. Cautiously resume diuretic Status: Chronic (8) Coronary artery disease: Problem details: Ischemic cardiomyopathy Status: Chronic (9) Acute UTI: Problem details: Probably asymptomatic UTI. Culture grows E coli resistant to Cipro. Discontinue Cipro and observe. No obvious symptoms of UTI Status: Acute Plan Continue in hospital pending safe discharge plan. Time Spent With Patient Total time spent: Total time spent today is 20 minutes, 15 minutes in coordination care and discussing with patient and other providers management of heart failure and disposition Subjective Date Seen: 10/14/22 Interval history: 77-year-old female seen in followup of recurrent hospitalizations for heart failure and dementia. Patient continues to do well. She has not had any troubles with breathing. She is ambulating in the [place]um[place] quite well. She is pleasant and cooperative. Exam Narrative: Exam Narrative: She is alert and appears in no distress. She is observed to walk with a walker quite well. Respirations are clear to auscultation. Cardiovascular: S1, S2, regular rate and rhythm. No murmur gallop or rub. Abdomen: Bowel sounds active. Abdomen is soft without tenderness or mass. 1+ edema in each ankle. Const: Vital Signs, click to edit/add: Vital Signs - 24 hr 10/13/22 17:08 10/13/22 19:00 10/14/22 03:45 Temperature 97.0 F L 97.7 F Pulse Rate [Pulse Oximeter] 70 73 72 Respiratory Rate 18 18 18 Blood Pressure [Ri ght Arm] 92/51 L 99/50 L 113/57 L Pulse Oximetry 92 95 92 Oxygen Delivery Me thod Room Air Room Air Room Air 10/14/22 07:00 10/14/22 07:00 Temperature 98 F Pulse Rate [Pulse Oximeter] 68 68 Respiratory Rate 18 18 Blood Pressure [Ri ght Arm] 101/51 L Pulse Oximetry 94 Oxygen Delivery Me thod Room Air Documenting provider has reviewed patient's vital signs: yes Labs Labs: Laboratory Results - last 24 hr 10/14/22 05:44 Sodium 139 Potassium 4.6 Chloride 107 Carbon Dioxide 29 BUN 43 H Creatinine 0.9 Estimated Creat Clear 35.32 Estimated GFR 65 Glucose 95 Calcium 8.6
[2022-10-14 16:05] VITALS: BP 110/52
[2022-10-14] MEDS: TORSEMIDE 20 MG TABLET PO (16:05)
[2022-10-14 19:00] VITALS: BP 112/57; PULSE 77; RESP 18; TEMP 36.3; O2SAT 96
--- NOTE | 2022-10-14 19:22 | PC.NURSE ---
Nursing Care Hours: [id number] Pt this shift calm and cooperative, forgetful but pleasant. Independent in room with walker. VSS. LS clear. Trace edema bilat LE. Skin intact. Tolerating regular diet. Walk the halls x3. Small to smear BM
[2022-10-14] MEDS: DONEPEZIL 5 MG TABLET PO (21:26)
[2022-10-14] MEDS: ATORVASTATIN CALCIUM 40 MG TABLET PO (21:26)
[2022-10-14 23:00] VITALS: BP 118/61; PULSE 80; RESP 18; TEMP 36.4; O2SAT 96
[2022-10-14] MEDS: ENOXAPARIN 30 MG/0.3ML INJ SUBCUT (23:46)
[2022-10-15 02:54] VITALS: BP 112/66; PULSE 69; RESP 18; TEMP 36.6; O2SAT 96
--- NOTE | 2022-10-15 05:43 | PC.NURSE ---
Shift note: Pt's condition has improved, no SOB, N/V but intermittent cough noted. Continuous to feel anxious and consistently calling for help, confuse and repeated statement. Independently ambulated in the hallway. Denied any pain.
[2022-10-15] MEDS: LEVOTHYROXINE 125 MCG TABLET PO (06:58)
[2022-10-15 07:00] VITALS: BP 118/60; PULSE 77; RESP 18; TEMP 36.3; O2SAT 97
[2022-10-15 07:19] LABS: Chloride* 103 mmol/L (96-114); Potassium* 4.8 mmol/L (3.6-5.1); Sodium* 138 mmol/L (135-149)
[2022-10-15 07:22] LABS: Blood Urea Nitrogen* 42 mg/dL (7-30); Carbon Dioxide* 29 mmol/L (20-32); Creatinine* 0.8 mg/dL (0.5-1.5); Est. Creatinine Clearance* 35.05; Estimated Glomerular Filt Rate 75 ml/min; Glucose* 89 mg/dL (60-115)
[2022-10-15] MEDS: MAGNESIUM OXIDE 400 MG TABLET PO (08:38)
[2022-10-15] MEDS: POTASSIUM CHLORIDE 10 MEQ CAPSULE ER 20 MEQ PO (08:39)
[2022-10-15] MEDS: TORSEMIDE 20 MG TABLET PO (08:39)
[2022-10-15] MEDS: ASPIRIN 81 MG TAB.CHEW PO (08:39)
[2022-10-15] MEDS: SODIUM CHLORIDE 0.9 % (FLUSH) 10 ML SYRINGE 5 ML IVF (08:39)
--- NOTE | 2022-10-15 11:08 | PM.DS1 ---
DS: Providers Provider Date Seen: 10/15/22 Date of admission: 10/10/22 20:26 Primary care physician: Abbey Wayne MD Admitting Clinician: Tyson Ruvalcaba MD Attending Physician on discharge: Hang Dotson MD Date of Discharge: 10/15/22 DS: Diagnosis Discharge Diagnosis (1) CHF exacerbation: Status: Acute Problem details: Recurrent hospitalizations for heart failure exacerbation. Unknown if due to medication noncompliance or inadequate diuretic dose. Diuretic dose increased from torsemide 20 mg to 40 mg daily. Significant clinical uncertainty about proper dose. This will need close outpatient follow-up. Also follow-up of electrolytes. Patient developed hypotension from lisinopril 2.5 mg. (2) Pulmonary hypertension: Status: Acute (3) Pleural effusion on right: Status: Chronic Problem details: suspect secondary to volume overload. (4) Dementia: Status: Acute Problem details: [place] 10/30. Recommended to have 24/7 supervision. Also recommend supervision of medication administration. (5) Abnormal echocardiogram: Status: Chronic Problem details: 08/26/2022 TTE normal LV size, moderately reduced global systolic function with an estimated EF of 30-35%. Entire inferior wall and posterior wall are abnormal. Right ventricular cavity size is normal, global systolic RV function is mildly reduced. Moderately enlarged left atrium. Mitral valve is sclerotic, moderate mitral regurgitation. The inferior vena cava is consistent with elevated right atrial pressure. Compared to 06/09/2022, degree of MR has decreased. (6) COPD (chronic obstructive pulmonary disease): Status: Chronic (7) Asymptomatic bacteriuria: Status: Acute Problem details: Recurrent urinary infections without symptoms. Current urine culture showing E coli. Not treated with antibiotics on this admission. DS: Summary Hospital Course Hospital Course: 77-year-old female with heart failure with reduced ejection fraction admitted with heart failure exacerbation with increasing dyspnea and edema. She was treated with IV furosemide and had relatively rapid improvement in her respiratory status. Her volume status is remain good through her hospital stay. An attempt to add guideline directed therapy with DENITA-inhibitor, lisinopril 2.5 mg, caused hypotension. Due to her recurrent hospitalizations there was concern that she was not able to manage safely at home. She is known to have dementia with a [place] of around 10/30. Alternative arrangements for her to have supervised living situation were unsuccessful. Her son is now off work and able to be providing more supervision and care for her. He is encouraged to directly supervise her medication administration. Status at Discharge Cognitive/behavioral status at discharge: Baseline Functional status at discharge: uses cane/walker Overall status at discharge: patient is back to baseline Time Spent with Patient Time attestation: Total time spent providing and/or coordinating discharge services: Time spent: Greater than 30 minutes Exam Narrative: Exam Narrative: She is alert and appears in no distress. Pleasant and cooperative. Breathing is unlabored. She is observed to ambulate with a walker independently and quite effectively. Trace edema in her ankles. Const: Vital Signs, click to edit/add: Vital Signs - 24 hr 10/14/22 16:05 10/14/22 15:00 10/14/22 19:00 Temperature 97.4 F L Pulse Rate [Pulse Oximeter] 95 77 Respiratory Rate 21 18 Blood Pressure [Ri ght Arm] 110/52 L 112/57 L Pulse Oximetry 96 Oxygen Delivery Me thod Room Air 10/14/22 23:00 10/15/22 02:54 10/15/22 07:00 Temperature 97.6 F 97.9 F 97.3 F L Pulse Rate [Pulse Oximeter] 80 69 77 Respiratory Rate 18 18 18 Blood Pressure [Ri ght Arm] 118/61 112/66 118/60 Pulse Oximetry 96 96 97 Oxygen Delivery Me thod Room Air Room Air Room Air 10/15/22 07:00 Temperature Pulse Rate [Pulse Oximeter] 77 Respiratory Rate 18 Blood Pressure [Ri ght Arm] Pulse Oximetry Oxygen Delivery Me thod Documenting provider has reviewed patient's vital signs: yes DS: Data Data Completed and Pending Completed studies during hospitalization: Procedures Introduction of Other Gas into Respiratory Tract, Via Natural or Artificial Opening (08/26/22) Labs on day of discharge: Labs from last 24 hours 10/15/22 05:36 Sodium 138 Potassium 4.8 Chloride 103 Carbon Dioxide 29 BUN 42 H Creatinine 0.8 Estimated Creat Clear 35.05 Estimated GFR 75 Glucose 89 Calcium 9.0 Discharge Plan Discharge Disposition: Home w/ Parent or Adult Date of Admission: 10/10/22 20:26 Attending Provider on Discharge: Parmjit Dotson Primary Care Provider: Abbey Wayne Condition: Improved Anticipated Discharge Date/Time: 10/15/22 10:59 Discharge Medications: New magnesium oxide 400 mg (241.3 mg magnesium) Tablet 400 mg PO DAILY Qty: 30 0RF potassium chloride 10 mEq capsule, extended release 20 meq PO DAILY Qty: 60 0RF Continued atorvastatin 40 mg tablet 40 mg PO HS Qty: 90 3RF donepezil 5 mg tablet 5 mg PO HS Qty: 90 3RF ipratropium-albuterol 0.5 mg-3 mg(2.5 mg base)/3 mL Solution For Nebulization 3 ml inhalation QID PRNQty: 90 0RF (DME) nebulizer and compressor Device See Rx Instructions .Route Qty: 1 0RF Rx Instructions: As directed (DME) nebulizer accessories Kit See Rx Instructions .ROUTE .MEDSUPPLY Qty: 1 0RF Rx Instructions: As directed melatonin 3 mg Tablet 3 mg PO HS Qty: 30 0RF white petrolatum [Petroleum Jelly] Gel 1 applic topical DAILY PRN aspirin [Children's Aspirin] 81 mg Tablet,Chewable 81 mg PO DAILY Qty: 30 0RF levothyroxine 125 mcg tablet 125 mcg PO DAILY@0700 Qty: 90 3RF Changed torsemide 20 mg Tablet 40 mg PO DAILY Qty: 60 0RF Discharge Orders: Discharge Order (Routine); Ordered 10/15/22 Ordered By: Parmjit Dotson Additional Instructions: Check your weight every day. If your weight goes up by 2 lb in 1 day or 3 lb in a week call your doctor. See your doctor if you have more trouble breathing or more swelling in your legs. You should see your doctor next week to reassess your heart failure medicines. You may need more or less medication depending on how you are doing with your weight, breathing and blood tests. To make sure you are taking your medications as prescribed I have asked your son to supervise your medication administration. All of your medications are taken twice a day, either in the morning or in the evening. Activity Level: Activity as Tolerated and Use Walker Discharge Diet: 2 gm Sodium Follow Up Appointments: Abbey Wayne MD [Primary Care Provider] - 10/22/22 9:00 am Forms: [employer] Info Instructions Discharge Comments: Lab tests next week: CBC, basic metabolic panel, magnesium
[2022-10-15 11:44] VITALS: PULSE 69; RESP 18; TEMP 36.3
--- NOTE | 2022-10-15 12:05 | PC.SOCIAL ---
Pt.'s son Anthony met with pt.'s Alternative care stefani worker and completed paperwork to get pt. on the Elderly Waiver. She is working on getting pt. [employer] hours in the home until pt. is eligible for a memory care AL. Met with son Anthony and completed a [employer] Application and faxed this to [facility]. Gave Anthony a list of proofs needed for the MA application that he needs to get to [facility] as well. Pt. will discharge home with her son Anthony today. Anthony states he will continue to not be able to work to care for his mother until she can get into a AL.
--- NOTE | 2022-10-21 12:13 | PC.SOCIAL ---
Social work: Received call from son, Anthony, stating he has been trying to reach the [facility] worker about getting help at home or a day program and has not heard back from her. Confirmed he has the correct phone number for the [facility] worker and encouraged him to continue to work with her or to contact her boat outfitting supervisor as they are the correct agency to be working with on this request.
== END 2022-10-15 13:17 | disposition home or self-care (01) | DRG 291 ==
LOC: ED 19:28 → MEDSURG 20:13
PROVIDERS: Family Medicine; Admitting Provider Hospitalist; Emergency Provider Family Medicine; PCP Family Medicine; Visit Provider Hospitalist
DX: I11.0 Hypertensive heart disease with heart failure (principal); I50.23 Acute on chronic systolic (congestive) heart failure; N39.0 Urinary tract infection, site not specified; B96.20 Unspecified Escherichia coli [E. coli] as the cause of diseases classified elsewhere; I27.20 Pulmonary hypertension, unspecified; I25.5 Ischemic cardiomyopathy; I27.81 Cor pulmonale (chronic); J44.9 Chronic obstructive pulmonary disease, unspecified; I95.2 Hypotension due to drugs; T46.4X5A Adverse effect of angiotensin-converting-enzyme inhibitors, initial encounter; G30.9 Alzheimer's disease, unspecified; F02.80 Dementia in other diseases classified elsewhere, unspecified severity, without behavioral disturbance, psychotic disturbance, mood disturbance, and anxiety; D63.8 Anemia in other chronic diseases classified elsewhere; R74.01 Elevation of levels of liver transaminase levels; I34.0 Nonrheumatic mitral (valve) insufficiency; I25.10 Atherosclerotic heart disease of native coronary artery without angina pectoris; E78.5 Hyperlipidemia, unspecified; E03.9 Hypothyroidism, unspecified
CPT/HCPCS: 36415; 71045; 80048; 80053; 80076; 81001; 83735; 83880; 84484; 85025; 87086; 87186; 87502; 87634; 87635; 93005; 94640; 94761; 97116; 97162; 97165; 99285; A9270; J1650; J1940; J7120

== ENCOUNTER 2022-10-24 09:41 | Outpatient (CLI) | payer OTHER, SELFPAY ==
[2022-10-24 12:16] LABS: Chloride* 104 mmol/L (96-114); Potassium* 4.3 mmol/L (3.6-5.1); Sodium* 141 mmol/L (135-149)
[2022-10-24 12:19] LABS: Carbon Dioxide* 29 mmol/L (20-32); Creatinine* 0.6 mg/dL (0.5-1.5); Estimated Glomerular Filt Rate 91 ml/min
[2022-10-24 12:20] LABS: Blood Urea Nitrogen* 21 mg/dL (7-30); Calcium* 9.2 mg/dL (8.4-10.6); Glucose* 126 mg/dL (60-115)
== END 2022-10-24 09:42 | disposition home or self-care (01) ==
LOC: FRMREF 09:41
PROVIDERS: PCP Family Medicine; Visit Provider Family Medicine
DX: I50.9 Heart failure, unspecified (principal)
CPT/HCPCS: 80048